=== PATIENT | female | born 1955 | race Caucasian/White ===

== ENCOUNTER 2017-05-21 08:20 | Inpatient (IN) | payer MEDICARE, MEDICAID ==
[~2017-05-21] VITALS: Ht 167.6 cm; Wt 117.9 kg
[2017-05-21] MEDS ORDERED: Cefepime HCl 2 GM in NS 110 ML IV STA (08:26)
[2017-05-21] MEDS ORDERED: Solu-MEDROL 125mg Inj IVP ONE (08:30)
[2017-05-21] MEDS ORDERED: Ipratropium 0.02% Inh Soln 2.5ml UD HHN ONE (08:30)
[2017-05-21] MEDS ORDERED: Vancomycin 1.5gm/D5W 250ml 325 ML IVPB ONE (08:30)
[2017-05-21] MEDS ORDERED: Albuterol ud Inhalation HHN ONE (08:30)
--- NOTE | 2017-05-21 09:01 | Emergency Room Report ---
History of Present Illness General Chief Complaint: Dyspnea/Respdistress Source: Patient, Medical Record Present Illness HPI The patient presents with dyspnea and cough. She was discharged from a hospital yesterday for pneumonia. The patient is a history of COPD. In the field her oxygen saturations were 85%. She didn't tolerate them pretty on oxygen. Allergies: Coded Allergies: No Known Allergies (Unverified , 05/21/17) Patient History Past Medical History: see triage record Social History: Denies: smoking - former Social History Narrative [facility] facility Reviewed Nursing Documentation: PMH: Agreed; PSxH: Agreed Nursing Documentation-PMH Hx Hypertension: Yes - HYPERLIPEDEMA Hx COPD: Yes History Of Psychiatric Problem: Yes - BIPOLAR,SCHIZO Physical Exam Vital Signs Date Time Temp Pulse Resp B/P (MAP) Pulse Ox O2 Delivery O2 Flow Rate FiO2 05/21/17 08:18 108 24 170/86 90 05/21/17 08:40 24 05/21/17 08:40 Nasal Cannula 1.0 ENT: dry mucus membranes Respiratory: expiration Procedures Critical Care Time Critical Care Time Total Critical Care Time: 30 min bedside evaluation and treatment excludes procedures (EKG). Reason for critical care: respiratory distress, reassess on BIPAP Possible complications: hypotension, hypertension, [place], shock, arrhythmias, metabolic acidosis, end organ damage, respiratory failure. Interventions: breathing treatments, reassessments, BIPAP Course: Recent d/c for pneumonia and COPD with dyspnea. Improved initially with breathing treatments and O2. Bilateral diffuse infiltrates R>L. Acute deterioration with hypoxia and dyspnea requiring BIPAP, breathing treatments and consideration for intubation. Improvement on BIPAP. Reassessment with ABG. Not needing intubation at this time and stable to go to [facility]. Consultations: nursing staff, EMS, RT Performed by: Dr. Burgos Tolerated well condition = serious Medical Decision Making Diagnostic Impression: Primary Impression: Pneumonia Qualified Codes: J18.9 - Pneumonia, unspecified organism Additional Impressions: Respiratory distress COPD (chronic obstructive pulmonary disease) Qualified Codes: J44.1 - Chronic obstructive pulmonary disease with (acute) exacerbation Anemia Qualified Codes: D64.9 - Anemia, unspecified ER Course Patient presents post d/c dx pneumonia with dyspnea and hypoxia. DDX: AMI, pneumonia, COPD exacerbation, CHF amongst others. In moderate distress initially. Evaluation with EKG, CXR and labs. Immediate treatment with breathing treatments, solumedrol and consideration for antibiotics. Bolus of fluids and hydration. EKG without injury. CXR with bilateral infiltrates. CBC with normal WBC and anemia. CMP with low sodium and normal lactate. UA with minimal pyuria. Mildly elevated BNP noted. Antibiotics begun. 10:40 Patient was doing well. Was being cleaned and started with resp distress and cyanosis and decreased O2 sats. Bipap ordered. Improved with breathing treatments and BIPAP. ABG ordered. Patient much improved on BIPAP. Not need intubation at this time. Admit [facility] Dr. Norman. Laboratory Tests Test 05/21/17 08:49 05/21/17 09:04 05/21/17 11:33 05/21/17 11:51 Sodium Level 129 MMOL/L (136-145) L Potassium Level 4.6 MMOL/L (3.5-5.1) Chloride Level 96 MMOL/L (98-107) L Carbon Dioxide Level 29 MMOL/L (21-32) Anion Gap 4 mmol/L (5-15) L Blood Urea Nitrogen 12 mg/dL (7-18) Creatinine 1.3 MG/DL (0.55-1.30) Estimate Glomerular Filtration Rate 41.5 mL/min (>60) Glucose Level 114 MG/DL (74-106) H Lactic Acid Level 0.50 mmol/L (0.66-2.22) L Calcium Level 9.0 MG/DL (8.5-10.1) Total Bilirubin 0.3 MG/DL (0.2-1.0) Aspartate Amino Transferase (AST) 28 U/L (15-37) Alanine Aminotransferase (ALT) 26 U/L (12-78) Alkaline Phosphatase 82 U/L (46-116) Total Creatine Kinase 78 U/L (26-308) Troponin I 0.031 ng/mL (0.000-0.056) Pro-B-Type Natriuretic Peptide 2661 pg/mL (0-125) H Total Protein 6.2 G/DL (6.4-8.2) L Albumin 2.6 G/DL (3.4-5.0) L Globulin 3.6 g/dL Albumin/Globulin Ratio 0.7 (1.0-2.7) L Lipase 119 U/L (73-393) White Blood Count 8.2 K/UL (4.8-10.8) Red Blood Count 2.94 M/UL (4.20-5.40) L Hemoglobin 8.9 G/DL (12.0-16.0) L Hematocrit 26.9 % (37.0-47.0) L Mean Corpuscular Volume 92 FL (80-99) Mean Corpuscular Hemoglobin 30.5 PG (27.0-31.0) Mean Corpuscular Hemoglobin Concent 33.3 G/DL (32.0-36.0) Red Cell Distribution Width 12.1 % (11.6-14.8) Platelet Count 244 K/UL (150-450) Mean Platelet Volume 6.4 FL (6.5-10.1) L Neutrophils (%) (Auto) 84.2 % (45.0-75.0) H Lymphocytes (%) (Auto) 7.6 % (20.0-45.0) L Monocytes (%) (Auto) 5.4 % (1.0-10.0) Eosinophils (%) (Auto) 2.1 % (0.0-3.0) Basophils (%) (Auto) 0.7 % (0.0-2.0) Prothrombin Time 10.0 SEC (9.30-11.50) Prothrombin Time INR 1.0 (0.9-1.1) PTT 27 SEC (23-33) Urine Color Pale yellow Urine Appearance Slightly cloudy Urine pH 7 (4.5-8.0) Urine Specific [place] 1.000 (1.005-1.035) Urine Protein 2+ (NEGATIVE) H Urine Glucose (UA) Negative (NEGATIVE) Urine Ketones Negative (NEGATIVE) Urine Occult Blood 4+ (NEGATIVE) H Urine Nitrite Negative (NEGATIVE) Urine Bilirubin Negative (NEGATIVE) Urine Urobilinogen Normal MG/DL (0.0-1.0) Urine Leukocyte Esterase 1+ (NEGATIVE) H Urine RBC 15-20 /HPF (0 - 2) H Urine WBC 5-10 /HPF (0 - 2) H Urine Squamous Epithelial Cells Moderate /LPF (NONE/OCC) H Urine Bacteria Few /HPF (NONE) Arterial Blood pH 7.438 (7.350-7.450) Arterial Blood Partial Pressure CO2 34.5 mmHg (35.0-45.0) L Arterial Blood Partial Pressure O2 76.0 mmHg (75.0-100.0) Arterial Blood HCO3 22.8 mmol/L (22.0-26.0) Arterial Blood Oxygen Saturation 94.4 % (92.0-98.0) Arterial Blood Base Excess -1.0 Bulmaro Test Positive EKG Diagnostic Results Rate: tachycardiac ST Segments: no acute changes Rhythm Strip Diag. Results EP Interpretation: yes Rhythm: no PVC's, no ectopy, other - Sinus tachycardia Chest X-Ray Diagnostic Results Chest X-Ray Diagnostic Results : Chest X-Ray Ordered: Yes # of Views/Limited/Complete: 1 View Indication: Shortness of Breath EP Interpretation: Yes Interpretation: no pneumothorax, other - bilateral infiltrates and effusion Last Vital Signs Date Time Temp Pulse Resp B/P (MAP) Pulse Ox O2 Delivery O2 Flow Rate FiO2 05/21/17 11:59 30 05/21/17 11:52 100.4 22 144/96 100 Bi-pap 1.0 100.4 05/21/17 11:35 102 Status: improved Disposition: ADMITTED INPATIENT Condition: Critical Girish Burgos M.D. May 21, 2017 09:01
[2017-05-21 09:13] LABS: ANION GAP 4 mmol/L (5-15); BLOOD UREA NITROGEN 12 mg/dL (7-18); CARBON DIOXIDE 29 MMOL/L (21-32); CHLORIDE 96 MMOL/L (98-107); CREATININE 1.3 MG/DL (0.55-1.30); POTASSIUM 4.6 MMOL/L (3.5-5.1); SODIUM 129 MMOL/L (136-145)
[2017-05-21] MEDS ORDERED: Cefepime 2gm ONE (09:14)
--- NOTE | 2017-05-21 09:15 | Diagnostic Imaging Report ---
Indication: Cough Technique: XRAY Chest 1v Comparison: None Findings: Cardiac silhouette is mildly prominent. Bilateral interstitial and patchy right upper lobe and perihilar and basilar airspace infiltrates are seen. There is atelectasis of the lung bases. Small pleural effusions are not excluded. Degenerative changes of the spine are noted. Impression: Bilateral interstitial and patchy airspace edema/infiltrates, right greater than left. Lung base atelectasis. Clinical correlation/follow-up recommended.
[2017-05-21 09:23] LABS: ALANINE AMINOTRANSFERASE 26 U/L (12-78); ALBUMIN 2.6 G/DL (3.4-5.0); ALBUMIN/GLOBULIN RATIO 0.7 (1.0-2.7); ALKALINE PHOSPHATASE 82 U/L (46-116); ASPARTATE AMINO TRANSFERASE 28 U/L (15-37); BILIRUBIN,TOTAL 0.3 MG/DL (0.2-1.0); CREATINE KINASE 78 U/L (26-308)
[2017-05-21 09:46] VITALS: BP 146/97
[2017-05-21 10:13] LABS: BASOPHILS % (AUTO) 0.7 % (0.0-2.0); EOSINOPHILS % (AUTO) 2.1 % (0.0-3.0); HEMATOCRIT 26.9 % (37.0-47.0); HEMOGLOBIN 8.9 G/DL (12.0-16.0); LYMPHOCYTES % (AUTO) 7.6 % (20.0-45.0); MEAN CORPUSCULAR VOLUME 92 FL (80-99); MONOCYTES % (AUTO) 5.4 % (1.0-10.0); NEUTROPHILS % (AUTO) 84.2 % (45.0-75.0); PLATELET COUNT 244 K/UL (150-450); RED BLOOD COUNT 2.94 M/UL (4.20-5.40); RED CELL DISTRIBUTION WIDTH 12.1 % (11.6-14.8); WHITE BLOOD COUNT 8.2 K/UL (4.8-10.8)
[2017-05-21] MEDS: Albuterol ud Inhalation HHN SCH ×3 (11:12→11:31)
[2017-05-21 11:52] VITALS: BP 144/96
[2017-05-21 12:07] LABS: BILIRUBIN, URINE NEGATIVE (NEGATIVE); COLOR,URINE PALE YELLOW; GLUCOSE, URINE (UA) NEGATIVE (NEGATIVE); KETONES,URINE NEGATIVE (NEGATIVE); LEUKOCYTE ESTERASE ,URINE 1+ (NEGATIVE); NITRITE,URINE NEGATIVE (NEGATIVE); PH,URINE 7 (4.5-8.0); PROTEIN,URINE 2+ (NEGATIVE); UROBILINOGEN,URINE NORMAL MG/DL (0.0-1.0)
[2017-05-21 12:11] LABS: APPEARANCE,URINE SLIGHTLY CLOUDY
--- NOTE | 2017-05-21 12:39 | Consultation ---
History of Present Illness General Date patient seen: May 21, 2017 Time patient seen: 12:34 Chief Complaint: Dyspnea/Respdistress Present Illness HPI 61 y/o F with hx of COPD, HLD presents, Schizoaffective disorder to ED on desaturation 85%. Of note patient was discharge yesterday from another hospital due to PNA. Placed on Bipap in ED and admitted to [facility]. Low grade fever Tm 100.9 no leukocytosis CXR with infiltrates. Allergies: Coded Allergies: No Known Allergies (Unverified , 05/21/17) Patient History Healthcare decision maker Resuscitation status Advanced Directive on File Patient History Narrative Pmx: as above Shx: reviewed Fhx: non contributory Review of Systems All Other Systems: negative except mentioned in HPI Physical Exam Physical Exam Narrative General Appearance: no apparent distress, alert HEENT normocephalic, atraumatic, PERR, normal pharynx Neck: full range of motion, supple/symm/no masses Respiratory: chest non-tender, lungs clear, normal breath sounds, speaking full sentences Cardiovascular : regular rate, rhythm, no edema Gastrointestinal: normal bowel sounds, non tender, soft, non-distended, no guarding, no rebound Genitourinary: normal inspection, no CVA tenderness Musculoskeletal: back normal, gait/station normal, normal range of motion, non- tender Neurologic: alert, oriented x3, responsive, motor strength/tone normal, sensory intact, speech normal Skin: normal color, no rash, warm/dry, well hydrated Last 24 Hour Vital Signs Date Time Temp Pulse Resp B/P (MAP) Pulse Ox O2 Delivery O2 Flow Rate FiO2 05/21/17 11:59 30 05/21/17 11:52 100.4 22 144/96 100 Bi-pap 1.0 30 100.4 05/21/17 11:36 30 05/21/17 11:35 102 22 100 Bi-pap 30 05/21/17 11:31 99 22 99 Bi-pap 30 05/21/17 11:31 99 22 99 Bi-pap 30 05/21/17 11:28 30 05/21/17 11:22 103 22 99 Facial 30 05/21/17 11:17 98 22 99 Bi-pap 30 05/21/17 11:14 30 05/21/17 11:12 92 22 99 Bi-pap 30 05/21/17 09:46 22 146/97 100 Nasal Cannula 1.0 24 05/21/17 09:46 98 22 Nasal Cannula 1.0 24 05/21/17 08:51 98 22 100 Nasal Cannula 1.0 24 05/21/17 08:40 94 22 98 Nasal Cannula 1.0 24 05/21/17 08:40 24 05/21/17 08:18 108 24 170/86 90 Laboratory Tests Test 05/21/17 08:49 05/21/17 09:04 05/21/17 11:33 Sodium Level 129 MMOL/L (136-145) L Potassium Level 4.6 MMOL/L (3.5-5.1) Chloride Level 96 MMOL/L (98-107) L Carbon Dioxide Level 29 MMOL/L (21-32) Anion Gap 4 mmol/L (5-15) L Blood Urea Nitrogen 12 mg/dL (7-18) Creatinine 1.3 MG/DL (0.55-1.30) Estimat Glomerular Filtration Rate 41.5 mL/min (>60) Glucose Level 114 MG/DL (74-106) H Lactic Acid Level 0.50 mmol/L (0.66-2.22) L Calcium Level 9.0 MG/DL (8.5-10.1) Total Bilirubin 0.3 MG/DL (0.2-1.0) Aspartate Amino Transf (AST/SGOT) 28 U/L (15-37) Alanine Aminotransferase (ALT/SGPT) 26 U/L (12-78) Alkaline Phosphatase 82 U/L (46-116) Total Creatine Kinase 78 U/L (26-308) Troponin I 0.031 ng/mL (0.000-0.056) Pro-B-Type Natriuretic Peptide 2661 pg/mL (0-125) H Total Protein 6.2 G/DL (6.4-8.2) L Albumin 2.6 G/DL (3.4-5.0) L Globulin 3.6 g/dL Albumin/Globulin Ratio 0.7 (1.0-2.7) L Lipase 119 U/L (73-393) White Blood Count 8.2 K/UL (4.8-10.8) Red Blood Count 2.94 M/UL (4.20-5.40) L Hemoglobin 8.9 G/DL (12.0-16.0) L Hematocrit 26.9 % (37.0-47.0) L Mean Corpuscular Volume 92 FL (80-99) Mean Corpuscular Hemoglobin 30.5 PG (27.0-31.0) Mean Corpuscular Hemoglobin Concent 33.3 G/DL (32.0-36.0) Red Cell Distribution Width 12.1 % (11.6-14.8) Platelet Count 244 K/UL (150-450) Mean Platelet Volume 6.4 FL (6.5-10.1) L Neutrophils (%) (Auto) 84.2 % (45.0-75.0) H Lymphocytes (%) (Auto) 7.6 % (20.0-45.0) L Monocytes (%) (Auto) 5.4 % (1.0-10.0) Eosinophils (%) (Auto) 2.1 % (0.0-3.0) Basophils (%) (Auto) 0.7 % (0.0-2.0) Prothrombin Time 10.0 SEC (9.30-11.50) Prothromb Time International Ratio 1.0 (0.9-1.1) Activated Partial Thromboplast Time 27 SEC (23-33) Urine Color Pale yellow Urine Appearance Slightly cloudy Urine pH 7 (4.5-8.0) Urine Specific [place] 1.000 (1.005-1.035) Urine Protein 2+ (NEGATIVE) H Urine Glucose (UA) Negative (NEGATIVE) Urine Ketones Negative (NEGATIVE) Urine Occult Blood 4+ (NEGATIVE) H Urine Nitrite Negative (NEGATIVE) Urine Bilirubin Negative (NEGATIVE) Urine Urobilinogen Normal MG/DL (0.0-1.0) Urine Leukocyte Esterase 1+ (NEGATIVE) H Urine RBC 15-20 /HPF (0 - 2) H Urine WBC 5-10 /HPF (0 - 2) H Urine Squamous Epithelial Cells Moderate /LPF (NONE/OCC) H Urine Bacteria Few /HPF (NONE) Height (Feet): 5 Height (Inches): 6.00 Weight (Pounds): 250 Assessment/Plan Assessment/Plan Abx: IV vanco x1 3/24 Cefepime x1 3/24 Levaquin x1 3/24 Assessment: Fever Possible HCAP vs Asp PNA- r/o influenza -CXR: Bilateral interstitial and patchy airspace edema/infiltrates, right greater than left. Lung base atelectasis. Clinical correlation/follow-up recommended. COPD exacerbation No leukocytosis HLD Schizoaffective disorder Recent PNA Plan: -Continue IV Vancomycin and start Zosyn, tamiflu and Azithromycin -influenza sc, sputum cx, legionella ag urine -f/u cx -Monitor CBC/BMP, temperatures -aspiration precautions Thank you for this consultation. Will continue to follow along with you. Discussed with Crystal Galvan M.D. May 21, 2017 12:39
[2017-05-21] MEDS ORDERED: Azithromycin 250mg tab ORAL SCH ×2 (13:15→15:00)
[2017-05-21 13:47] VITALS: BP 155/102
[2017-05-21] MEDS ORDERED: Oseltamivir 75mg cap ORAL SCH (14:00)
--- NOTE | 2017-05-21 15:55 | History & Physical ---
History and Physical History & Physicial Dictated for Int Med-Dr Norman no. [id number]. HANK DICKINSON May 21, 2017 15:55
[2017-05-21] MEDS ORDERED: Albuterol/Ipratropium 3ml neb HHN PRN (16:45)
--- NOTE | 2017-05-21 16:57 | Cardiology Progress Note ---
Assessment/Plan Assessment/Plan THe patient is seen and examined, full consult note will be dictated. Objective Last 24 Hour Vital Signs Date Time Temp Pulse Resp B/P (MAP) Pulse Ox O2 Delivery O2 Flow Rate FiO2 05/21/17 16:49 30 05/21/17 16:49 101 22 99 Bi-pap 30 05/21/17 16:48 100 23 98 Facial 30 05/21/17 15:43 99.2 22 149/90 99 1.0 30 99.2 05/21/17 14:46 101 22 99 Facial 30 05/21/17 13:47 99.2 24 155/102 97 Bi-pap 30 99.2 05/21/17 12:55 105 24 97 Facial 30 05/21/17 11:59 30 05/21/17 11:52 100.4 22 144/96 100 Bi-pap 1.0 30 100.4 05/21/17 11:36 30 05/21/17 11:35 102 22 100 Bi-pap 30 05/21/17 11:31 99 22 99 Bi-pap 30 05/21/17 11:31 99 22 99 Bi-pap 30 05/21/17 11:28 30 05/21/17 11:22 103 22 99 Facial 30 05/21/17 11:17 98 22 99 Bi-pap 30 05/21/17 11:14 30 05/21/17 11:12 92 22 99 Bi-pap 30 05/21/17 09:46 22 146/97 100 Nasal Cannula 1.0 24 05/21/17 09:46 98 22 Nasal Cannula 1.0 24 05/21/17 08:51 98 22 100 Nasal Cannula 1.0 24 05/21/17 08:40 94 22 98 Nasal Cannula 1.0 24 05/21/17 08:40 24 05/21/17 08:18 108 24 170/86 90 Laboratory Tests Test 05/21/17 08:49 05/21/17 09:04 05/21/17 11:33 05/21/17 11:51 Sodium Level 129 MMOL/L (136-145) L Potassium Level 4.6 MMOL/L (3.5-5.1) Chloride Level 96 MMOL/L (98-107) L Carbon Dioxide Level 29 MMOL/L (21-32) Anion Gap 4 mmol/L (5-15) L Blood Urea Nitrogen 12 mg/dL (7-18) Creatinine 1.3 MG/DL (0.55-1.30) Estimat Glomerular Filtration Rate 41.5 mL/min (>60) Glucose Level 114 MG/DL (74-106) H Lactic Acid Level 0.50 mmol/L (0.66-2.22) L Calcium Level 9.0 MG/DL (8.5-10.1) Total Bilirubin 0.3 MG/DL (0.2-1.0) Aspartate Amino Transf (AST/SGOT) 28 U/L (15-37) Alanine Aminotransferase (ALT/SGPT) 26 U/L (12-78) Alkaline Phosphatase 82 U/L (46-116) Total Creatine Kinase 78 U/L (26-308) Troponin I 0.031 ng/mL (0.000-0.056) Pro-B-Type Natriuretic Peptide 2661 pg/mL (0-125) H Total Protein 6.2 G/DL (6.4-8.2) L Albumin 2.6 G/DL (3.4-5.0) L Globulin 3.6 g/dL Albumin/Globulin Ratio 0.7 (1.0-2.7) L Lipase 119 U/L (73-393) White Blood Count 8.2 K/UL (4.8-10.8) Red Blood Count 2.94 M/UL (4.20-5.40) L Hemoglobin 8.9 G/DL (12.0-16.0) L Hematocrit 26.9 % (37.0-47.0) L Mean Corpuscular Volume 92 FL (80-99) Mean Corpuscular Hemoglobin 30.5 PG (27.0-31.0) Mean Corpuscular Hemoglobin Concent 33.3 G/DL (32.0-36.0) Red Cell Distribution Width 12.1 % (11.6-14.8) Platelet Count 244 K/UL (150-450) Mean Platelet Volume 6.4 FL (6.5-10.1) L Neutrophils (%) (Auto) 84.2 % (45.0-75.0) H Lymphocytes (%) (Auto) 7.6 % (20.0-45.0) L Monocytes (%) (Auto) 5.4 % (1.0-10.0) Eosinophils (%) (Auto) 2.1 % (0.0-3.0) Basophils (%) (Auto) 0.7 % (0.0-2.0) Prothrombin Time 10.0 SEC (9.30-11.50) Prothromb Time International Ratio 1.0 (0.9-1.1) Activated Partial Thromboplast Time 27 SEC (23-33) Urine Color Pale yellow Urine Appearance Slightly cloudy Urine pH 7 (4.5-8.0) Urine Specific [place] 1.000 (1.005-1.035) Urine Protein 2+ (NEGATIVE) H Urine Glucose (UA) Negative (NEGATIVE) Urine Ketones Negative (NEGATIVE) Urine Occult Blood 4+ (NEGATIVE) H Urine Nitrite Negative (NEGATIVE) Urine Bilirubin Negative (NEGATIVE) Urine Urobilinogen Normal MG/DL (0.0-1.0) Urine Leukocyte Esterase 1+ (NEGATIVE) H Urine RBC 15-20 /HPF (0 - 2) H Urine WBC 5-10 /HPF (0 - 2) H Urine Squamous Epithelial Cells Moderate /LPF (NONE/OCC) H Urine Bacteria Few /HPF (NONE) Arterial Blood pH 7.438 (7.350-7.450) Arterial Blood Partial Pressure CO2 34.5 mmHg (35.0-45.0) L Arterial Blood Partial Pressure O2 76.0 mmHg (75.0-100.0) Arterial Blood HCO3 22.8 mmol/L (22.0-26.0) Arterial Blood Oxygen Saturation 94.4 % (92.0-98.0) Arterial Blood Base Excess -1.0 Bulmaro Test Positive SAMANTHA FRASER May 21, 2017 16:57
--- NOTE | 2017-05-21 17:00 | Pulmonolgy Critical Care Note ---
Critical Care - Asmt/Plan Assessment/Plan: HPI 61 y/o F with hx of COPD, discharged from [facility] 1 day ago after treatment for Pneumonia, PMH of HLD presents, Schizoaffective disorder, presented to the to ED with shortness of breath, noted to have oxygen desaturation 85%. Placed on Bipap in ED and admitted to [facility]. Low grade fever of 100.9 previously noted no leukocytosis CXR with infiltrates. Allergies: Coded Allergies: No Known Allergies (Unverified , 05/21/17) Patient History Healthcare decision maker Resuscitation status Advanced Directive on File Patient History Narrative Pmx: as above Shx: reviewed Fhx: non contributory Review of Systems All Other Systems: negative except mentioned in HPI Physical Exam Physical Exam Narrative General Appearance: no apparent distress, alert HEENT normocephalic, atraumatic, PERR, normal pharynx Neck: full range of motion, supple/symm/no masses Respiratory: chest non-tender, lungs clear, normal breath sounds, speaking full sentences Cardiovascular : regular rate, rhythm, no edema Gastrointestinal: normal bowel sounds, non tender, soft, non-distended, no guarding, no rebound Genitourinary: normal inspection, no CVA tenderness Musculoskeletal: back normal, gait/station normal, normal range of motion, non- tender Neurologic: alert, oriented x3, responsive, motor strength/tone normal, sensory intact, speech normal Skin: normal color, no rash, warm/dry, well hydrated Last 24 Hour Vital Signs Date Time Temp Pulse Resp B/P (MAP) Pulse Ox O2 Delivery O2 Flow Rate FiO2 05/21/17 11:59 30 05/21/17 11:52 100.4 22 144/96 100 Bi-pap 1.0 30 100.4 05/21/17 11:36 30 05/21/17 11:35 102 22 100 Bi-pap 30 05/21/17 11:31 99 22 99 Bi-pap 30 05/21/17 11:31 99 22 99 Bi-pap 30 05/21/17 11:28 30 05/21/17 11:22 103 22 99 Facial 30 05/21/17 11:17 98 22 99 Bi-pap 30 05/21/17 11:14 30 05/21/17 11:12 92 22 99 Bi-pap 30 05/21/17 09:46 22 146/97 100 Nasal Cannula 1.0 24 05/21/17 09:46 98 22 Nasal Cannula 1.0 24 05/21/17 08:51 98 22 100 Nasal Cannula 1.0 24 05/21/17 08:40 94 22 98 Nasal Cannula 1.0 24 05/21/17 08:40 24 05/21/17 08:18 108 24 170/86 90 Laboratory Tests Test 05/21/17 08:49 05/21/17 09:04 05/21/17 11:33 Sodium Level 129 MMOL/L (136-145) L Potassium Level 4.6 MMOL/L (3.5-5.1) Chloride Level 96 MMOL/L (98-107) L Carbon Dioxide Level 29 MMOL/L (21-32) Anion Gap 4 mmol/L (5-15) L Blood Urea Nitrogen 12 mg/dL (7-18) Creatinine 1.3 MG/DL (0.55-1.30) Estimat Glomerular Filtration Rate 41.5 mL/min (>60) Glucose Level 114 MG/DL (74-106) H Lactic Acid Level 0.50 mmol/L (0.66-2.22) L Calcium Level 9.0 MG/DL (8.5-10.1) Total Bilirubin 0.3 MG/DL (0.2-1.0) Aspartate Amino Transf (AST/SGOT) 28 U/L (15-37) Alanine Aminotransferase (ALT/SGPT) 26 U/L (12-78) Alkaline Phosphatase 82 U/L (46-116) Total Creatine Kinase 78 U/L (26-308) Troponin I 0.031 ng/mL (0.000-0.056) Pro-B-Type Natriuretic Peptide 2661 pg/mL (0-125) H Total Protein 6.2 G/DL (6.4-8.2) L Albumin 2.6 G/DL (3.4-5.0) L Globulin 3.6 g/dL Albumin/Globulin Ratio 0.7 (1.0-2.7) L Lipase 119 U/L (73-393) White Blood Count 8.2 K/UL (4.8-10.8) Red Blood Count 2.94 M/UL (4.20-5.40) L Hemoglobin 8.9 G/DL (12.0-16.0) L Hematocrit 26.9 % (37.0-47.0) L Mean Corpuscular Volume 92 FL (80-99) Mean Corpuscular Hemoglobin 30.5 PG (27.0-31.0) Mean Corpuscular Hemoglobin Concent 33.3 G/DL (32.0-36.0) Red Cell Distribution Width 12.1 % (11.6-14.8) Platelet Count 244 K/UL (150-450) Mean Platelet Volume 6.4 FL (6.5-10.1) L Neutrophils (%) (Auto) 84.2 % (45.0-75.0) H Lymphocytes (%) (Auto) 7.6 % (20.0-45.0) L Monocytes (%) (Auto) 5.4 % (1.0-10.0) Eosinophils (%) (Auto) 2.1 % (0.0-3.0) Basophils (%) (Auto) 0.7 % (0.0-2.0) Prothrombin Time 10.0 SEC (9.30-11.50) Prothromb Time International Ratio 1.0 (0.9-1.1) Activated Partial Thromboplast Time 27 SEC (23-33) Urine Color Pale yellow Urine Appearance Slightly cloudy Urine pH 7 (4.5-8.0) Urine Specific [place] 1.000 (1.005-1.035) Urine Protein 2+ (NEGATIVE) H Urine Glucose (UA) Negative (NEGATIVE) Urine Ketones Negative (NEGATIVE) Urine Occult Blood 4+ (NEGATIVE) H Urine Nitrite Negative (NEGATIVE) Urine Bilirubin Negative (NEGATIVE) Urine Urobilinogen Normal MG/DL (0.0-1.0) Urine Leukocyte Esterase 1+ (NEGATIVE) H Urine RBC 15-20 /HPF (0 - 2) H Urine WBC 5-10 /HPF (0 - 2) H Urine Squamous Epithelial Cells Moderate /LPF (NONE/OCC) H Urine Bacteria Few /HPF (NONE) Height (Feet): 5 Height (Inches): 6.00 Weight (Pounds): 250 Assessment/Plan Assessment/Plan Abx: IV vanco x1 3/24 Cefepime x1 3/24 Levaquin x1 3/24 Impression: Fever Possible HCAP vs Asp Pneumonia, need to r/o influenza -CXR: Bilateral interstitial and patchy airspace edema/infiltrates, right greater than left. Lung base atelectasis. Clinical correlation/follow-up recommended. COPD exacerbation No leukocytosis HLD Schizoaffective disorder Recent PNA Plan: -Continue IV Vancomycin and start Zosyn, tamiflu and Azithromycin per ID -influenza sc, sputum cx, legionella ag urine -f/u cx -Monitor labs -aspiration precautions Thank you for this consultation. Discussed with RN. Critical Care - Objective Last 24 Hour Vital Signs Date Time Temp Pulse Resp B/P (MAP) Pulse Ox O2 Delivery O2 Flow Rate FiO2 05/21/17 16:49 30 05/21/17 16:49 101 22 99 Bi-pap 30 05/21/17 16:48 100 23 98 Facial 30 05/21/17 15:43 99.2 22 149/90 99 1.0 30 99.2 05/21/17 14:46 101 22 99 Facial 30 05/21/17 13:47 99.2 24 155/102 97 Bi-pap 30 99.2 05/21/17 12:55 105 24 97 Facial 30 05/21/17 11:59 30 05/21/17 11:52 100.4 22 144/96 100 Bi-pap 1.0 30 100.4 05/21/17 11:36 30 05/21/17 11:35 102 22 100 Bi-pap 30 05/21/17 11:31 99 22 99 Bi-pap 30 05/21/17 11:31 99 22 99 Bi-pap 30 05/21/17 11:28 30 05/21/17 11:22 103 22 99 Facial 30 05/21/17 11:17 98 22 99 Bi-pap 30 05/21/17 11:14 30 05/21/17 11:12 92 22 99 Bi-pap 30 05/21/17 09:46 22 146/97 100 Nasal Cannula 1.0 24 05/21/17 09:46 98 22 Nasal Cannula 1.0 24 05/21/17 08:51 98 22 100 Nasal Cannula 1.0 24 05/21/17 08:40 94 22 98 Nasal Cannula 1.0 24 05/21/17 08:40 24 05/21/17 08:18 108 24 170/86 90 Critical Care - Subjective ROS Limited/Unobtainable: Yes Condition: stable EKG Rhythm: Sinus Rhythm FI02: 30 Vent Support Mode: BiLevel Sputum Amount: None Girish Molina M.D. May 21, 2017 17:00
[2017-05-21] MEDS: Piperacillin/Tazobactam 3.375 GM in NS 110 ML IVPB SCH ×2 (18:10→23:17)
[2017-05-21] MEDS: Albuterol/Ipratropium 3ml neb HHN SCH ×2 (18:22→22:31)
[2017-05-21] MEDS ORDERED: GUAIFENESIN AC473 ML ORAL (18:43)
[2017-05-21] MEDS ORDERED: MOM30 ML ORAL (18:44)
[2017-05-21] MEDS ORDERED: guaiFENesin w/Codeine 5ml Liq ud ORAL PRN (18:45)
[2017-05-21] MEDS ORDERED: Ipratropium 0.02% Inh Soln 2.5ml UD HHN PRN (18:45)
[2017-05-21] MEDS ORDERED: RENA-VITE TABL0.8 M1 PO (18:46)
[2017-05-21] MEDS ORDERED: NORVASC5 MG ORAL (18:47)
[2017-05-21] MEDS ORDERED: DOCUSATE SODIU100 M2 ORAL (18:48)
[2017-05-21] MEDS ORDERED: FOLIC ACID1 M1 PO (18:49)
[2017-05-21] MEDS ORDERED: FAMOTIDINE20 MG ORAL (18:49)
[2017-05-21] MEDS ORDERED: HUMULIN R100 UNIT/1 SUBQ (18:50)
[2017-05-21] MEDS ORDERED: COGENTIN1 MG ORAL (18:51)
[2017-05-21] MEDS ORDERED: IPRATROPIU0.2 MG/1 M HHN (18:52)
[2017-05-21] MEDS ORDERED: NORMODYNE200 MG ORAL (18:53)
[2017-05-21] MEDS ORDERED: LAMICTAL25 M1 PO (18:53)
[2017-05-21] MEDS ORDERED: LIPITOR10 MG ORAL (18:55)
[2017-05-21] MEDS ORDERED: TUMS300 MG PO (18:55)
[2017-05-21] MEDS ORDERED: ACETAMINOPHEN120 MG PO (18:56)
[2017-05-21] MEDS ORDERED: DIOVAN80 MG PO (18:57)
[2017-05-21] MEDS ORDERED: ASCORBIC ACID500 MG ORAL (18:58)
[2017-05-21] MEDS ORDERED: ZOFRAN4 MG ORAL (18:58)
[2017-05-21] MEDS ORDERED: Acetaminophen 650 MG SUPP RECTAL PRN (19:15)
[2017-05-21 20:00] VITALS: BP 131/87
[2017-05-21] MEDS: Vancomycin 1gm/D5W 275ml IVPB SCH ×2 (20:07)
[2017-05-21] MEDS: Heparin 5000 units/ml inj SUBQ SCH (20:10)
[2017-05-21] MEDS: D5 1/2NS 1,000 ML IV SCH (20:15)
[2017-05-21] MEDS: Docusate 100mg cap ORAL SCH (20:33)
[2017-05-21] MEDS: NovoLOG Insulin Flexpen SUBQ SCH (20:36)
[2017-05-21] MEDS: Solu-MEDROL 125mg Inj IVP SCH (22:24)
[2017-05-21] MEDS: Labetalol 200mg tab ORAL SCH (22:28)
--- NOTE | 2017-05-21 23:00 | History and Physical Report ---
DATE OF ADMISSION: 05/21/2017 CHIEF COMPLAINT: The patient is a 61-year-old white female who presents with chief complaint of shortness of breath. HISTORY OF PRESENT ILLNESS: The patient is a resident of [facility]. The patient states she began to get short of breath yesterday, 05/20/2017. The patient presented to [facility] emergency room. The patient was found to be in respiratory distress. The patient admitted for acute COPD exacerbation to rule out pneumonia. REVIEW OF SYSTEMS: CONSTITUTIONAL: The patient denies weight loss or weight gain. The patient denies fevers or chills. HEENT: The patient denies ear or throat pain. The patient denies headache. CARDIOVASCULAR: The patient denies palpitations or chest pain. CHEST: The patient complains of shortness of breath. The patient complains of wheezes. ABDOMEN: The patient denies nausea, vomiting, diarrhea, or constipation. GENITOURINARY: The patient denies dysuria or increased frequency of urination. NEUROMUSCULAR: The patient denies seizures or generalized weakness. PAST MEDICAL HISTORY: Significant for: 1. Chronic obstructive pulmonary disease. 2. Hypertension. 3. Diabetes type 2. PAST SURGICAL HISTORY: Significant for: 1. Right knee. 2. Left hip. 3. Gastric ulcer resection. MEDICATIONS: Current medications unknown. ALLERGIES: No known drug allergies. SOCIAL HISTORY: The patient is a resident of [facility]. The patient admits to previous tobacco use of pack per day. The patient quit smoking two years ago. The patient denies alcohol use. PHYSICAL EXAMINATION: VITAL SIGNS: Temperature 100.4 degrees, respirations 22, pulse 105, blood pressure 144/96. The patient is currently on BiPAP. GENERAL: The patient is a well-developed and well-nourished white female, who is unable to talk in complete sentences. HEENT: Eyes, pupils equal responsive to light and accommodation. Extraocular movements are intact. NECK: Supple without lymphadenopathy. CHEST: Diffuse wheezes bilaterally with crackles at the left lower base. CARDIOVASCULAR: Tachycardic. Regular rhythm. S1 and S2 normal without murmurs, rubs, or gallops. ABDOMEN: Soft, nontender, nondistended. Positive bowel sounds. No evidence of hepatosplenomegaly. Currently, no rebound or guarding noted. EXTREMITIES: Negative for clubbing, cyanosis, or edema. RECTAL/GENITAL: Refused. NEUROLOGIC: Cranial nerves II through XII are grossly intact without focal deficits. Motor strength is 5/5 bilaterally. Deep tendon reflexes are 2+ plantar. LABORATORY AND DIAGNOSTIC DATA: A chest x-ray revealed bilateral interstitial patchy air space edema/infiltrates consistent with pneumonia. WBC 8.2, hemoglobin 8.9, hematocrit 26.9, platelets 244,000. Sodium 129, potassium 4.6, chloride 96, CO2 29, BUN 12, creatinine 1.3, and glucose 114. BNP elevated at 2661. Troponin normal at 0.031. Arterial blood gases revealed pH 7.438, pCO2 34.5, pO2 76.0, bicarbonate 22.8, oxygen saturation 94.4, base excess -1.0. ASSESSMENT: This is a 61-year-old white female: 1. Pneumonia. 2. Chronic obstructive pulmonary disease, acute exacerbation. 3. Diabetes type 2. 4. Hypertension. 5. Hyponatremia. TREATMENT: 1. Pneumonia/chronic obstructive pulmonary disease. A Pulmonary consultation is pending with Dr. Molina. The patient has been started empirically on Zosyn. We will follow recommendations of Pulmonary. 2. Diabetes type 2. The patient has been placed on a NovoLog sliding scale. 3. Hypertension. The patient is currently hypotensive. 4. Hyponatremia. The patient is currently receiving normal saline intravenously. Steve Casillas M.D. DR: Pavithra JOB#: [id number] CC:
[2017-05-22] VITALS: BP 134/80
[2017-05-22] MEDS: Albuterol/Ipratropium 3ml neb HHN SCH ×6 (02:30→23:18)
--- NOTE | 2017-05-22 02:45 | Consultation ---
DATE OF CONSULTATION: 05/21/2017 CARDIOLOGY CONSULTATION CONSULTING PHYSICIAN: Selvin Reed M.D. REFERRING PHYSICIAN: Shoshana Norman M.D. REASON FOR CONSULTATION: Management of shortness of breath. HISTORY OF PRESENT ILLNESS: The patient is a very unfortunate 61-year-old female, who is a resident of [facility] facility who was brought in for dyspnea and cough. The patient has history of chronic obstructive pulmonary disease and feels that her oxygen saturation was down to 85%. The patient was recently discharged from an outside hospital for treatment of pneumonia. On arrival to the emergency department, blood pressure was 170/86 and pulse of 108. A 12-lead electrocardiogram was significant for sinus tachycardia, rate of [address] and T-wave abnormalities. The patient was admitted to [facility] for further evaluation and management of bilateral pneumonia. Chest x-ray confirmed presence of bilateral pneumonia. PAST MEDICAL HISTORY: Hyperlipidemia, bipolar disorder, schizophrenia, COPD. MEDICATIONS: List of medications include guaifenesin Ac 10 mg/100 mg per 5 mL, 10 mL every 8 hours as needed for cough, magnesium hydroxide suspension p.r.n. constipation, Yojana-Abebe one tablet daily, Mylanta 30 mL two times a day, amlodipine 5 mg twice daily, Augmentin 500/125 one tablet q.12 h., Colace 100 mg twice daily, famotidine 20 mg one tablet twice a day, folic acid 1 mg p.o. daily, Humulin insulin, insulin Detemir, DuoNeb inhaler every four hour as needed for shortness of breath, labetalol 200 mg twice daily, Lamictal 25 mg one tablet in the morning, Lipitor 10 mg p.o. at bedtime, sodium chloride tablet 1 g p.o. two times a day, Tums 500 mg one q. 12 h as needed gastric distress, Tylenol 325 mg one tablet q.4 h. as needed for pain, valsartan 60 mg p.o. twice a day, vitamin C tablet 500 mg once daily, and Zofran 4 mg q. 8 h as needed for nausea and vomiting. PAST SURGICAL HISTORY: None. ALLERGIES: No known drug allergies. SOCIAL HISTORY: Denies any tobacco, alcohol, or illicit drug use. She is a resident of prison facility. REVIEW OF SYSTEMS: HEENT: Denies any headache, diplopia, or blurred vision. CONSTITUTIONAL: Denies any fever, chills, night sweats, or weight loss. CARDIOVASCULAR: Some shortness of breath as well as bilateral lower extremity edema but no syncope. Denies any chest pain at this time. PULMONARY: Trouble with cough as well as shortness of breath. History of COPD and phlegm. GENITOURINARY: Denies any hematuria, dysuria, or incontinence. GASTROINTESTINAL: Denies any nausea, vomiting, diarrhea, constipation, abdominal pain, or GI bleed. NEUROLOGY: Denies any motor dysfunction, sensory deficit, or altered speech. PHYSICAL EXAMINATION: VITAL SIGNS: Blood pressure was 170/86, respirations 24, pulse of 108, O2 saturation on nasal cannula. GENERAL: The patient is a morbidly obese 61-year-old lady, wearing BiPAP mask, no apparent respiratory distress. HEENT: Atraumatic and normocephalic. Anicteric. Pupils are equal, round, and reactive to light and accommodation. Extraocular muscles intact. NECK: JVP less than 5 cm. No carotid bruit. Carotid upstrokes 2+ bilaterally. CARDIOVASCULAR: Normal S1 and S2. Regular rate and rhythm. Tachycardic. No murmurs, gallops, or rubs. LUNGS: Diminished breath sounds. Poor inspiratory effort. Some scattered crackles in both lungs. ABDOMEN: Soft nontender, nondistended. No hepatosplenomegaly. Positive bowel sounds. EXTREMITIES: There is 2+ bilateral edema. LABORATORY FINDINGS: WBC 8.3, hemoglobin 8.9, hematocrit 36.9, and platelet count 244. Sodium was 139, potassium is 4.6, chloride 96, bicarbonate 29, BUN of 12, creatinine 1.3, glucose 114. Calcium is 9.0. Troponin I was 0.031. ProBNP was 2661. INR is 1.0. Chest x-ray showed bilateral interstitial and patchy airspace edema versus infiltration right greater than left, possible pneumonia, lung base atelectasis also seen. A 12-lead electrocardiogram, sinus tachycardia, rate of [address] and T-wave abnormalities. ASSESSMENT AND PLAN: The is a very unfortunate 61-year-old female, seen in Cardiology consultation at request of [facility]. 1. Sinus tachycardia most likely due to underlying pneumonia, hypoxemia, and breathing treatment. Treatment of sinus tachycardia underlying etiology. 2. Hypertension. The patient will benefit from blood pressure medication including combination of amlodipine and valsartan. At this time we will like to be cautious in view of sepsis. 3. History of COPD. We would like to obtain 2D echocardiography for assessment of RA and RV cavity size to assess pulmonary hypertension. 4. Morbid obesity. 5. Psych disorder. I would like to thank, Dr. Norman, for the courtesy of this consultation. Selvin Reed M.D. DR: Mague JOB#: [id number] CC:
[2017-05-22 04:00] VITALS: BP 133/73
[2017-05-22 05:24] LABS: HEMATOCRIT 26.3 % (37.0-47.0); HEMOGLOBIN 8.9 G/DL (12.0-16.0); MEAN CORPUSCULAR VOLUME 91 FL (80-99); PLATELET COUNT 239 K/UL (150-450); RED BLOOD COUNT 2.88 M/UL (4.20-5.40); RED CELL DISTRIBUTION WIDTH 12.5 % (11.6-14.8); WHITE BLOOD COUNT 6.9 K/UL (4.8-10.8)
[2017-05-22] MEDS: Solu-MEDROL 125mg Inj IVP SCH ×3 (05:28→21:06)
[2017-05-22] MEDS: NovoLOG Insulin Flexpen SUBQ SCH ×4 (05:34→20:28)
[2017-05-22 05:44] LABS: ANION GAP 10 mmol/L (5-15); BLOOD UREA NITROGEN 13 mg/dL (7-18); CALCIUM 9.2 MG/DL (8.5-10.1); CARBON DIOXIDE 26 MMOL/L (21-32); CHLORIDE 100 MMOL/L (98-107); CREATININE 1.4 MG/DL (0.55-1.30); POTASSIUM 4.9 MMOL/L (3.5-5.1); SODIUM 136 MMOL/L (136-145)
[2017-05-22 07:40] VITALS: BP 144/78
--- NOTE | 2017-05-22 08:47 | General Progress Note ---
Assessment/Plan Status: stable Assessment/Plan ASSESSMENT: This is a 61-year-old white female: 1. Hypoxemic Respiratory failure: DDx , CHF exacerbation, PNA 2. CHF exacerbation 2. Chronic obstructive pulmonary disease, acute exacerbation. 3. Diabetes type 2. 4. Hypertension. 5. Hyponatremia. 6. GI-DVT prophylaxia 7. Psych d.o Plan: Start Lasix Pending echo current management consult Dr Norton Subjective ROS Limited/Unobtainable: Yes - patient reportedly stating doesnt have any problem, despite active sob Allergies: Coded Allergies: No Known Allergies (Unverified , 05/21/17) Objective Last 24 Hour Vital Signs Date Time Temp Pulse Resp B/P (MAP) Pulse Ox O2 Delivery O2 Flow Rate FiO2 05/22/17 07:40 97.7 108 24 144/78 97 Venturi Mask 30 97.7 05/22/17 07:27 98 Venturi Mask 4.0 30 05/22/17 07:27 Venturi Mask 4.0 30 05/22/17 07:25 98 28 98 Venturi Mask 4.0 30 05/22/17 07:14 101 24 97 Venturi Mask 4.0 30 05/22/17 05:20 97 24 95 05/22/17 04:00 99.0 81 32 133/73 95 1.0 30 99.0 05/22/17 04:00 30 05/22/17 03:28 93 05/22/17 02:41 98 28 98 Venturi Mask 4.0 30 05/22/17 02:30 96 26 96 Venturi Mask 4.0 30 05/22/17 02:30 96 26 96 05/22/17 01:02 100 28 95 05/22/17 00:00 98.2 24 134/80 98 1.0 30 98.2 05/22/17 00:00 30 05/21/17 23:51 89 05/21/17 22:33 98 29 98 Full Face 30 05/21/17 22:31 Bi-pap 30 05/21/17 22:31 Bi-pap 30 05/21/17 22:28 94 138/85 05/21/17 20:36 97 31 99 Facial 30 05/21/17 20:33 88 134/84 05/21/17 20:00 97.9 28 131/87 100 1.0 30 97.9 05/21/17 20:00 30 05/21/17 20:00 95 05/21/17 18:38 109 31 99 Facial 30 05/21/17 18:33 106 32 99 Bi-pap 30 05/21/17 18:22 108 24 99 Bi-pap 30 05/21/17 16:49 30 05/21/17 16:49 101 22 99 Bi-pap 30 05/21/17 16:48 100 23 98 Facial 30 05/21/17 15:52 104 05/21/17 15:43 99.2 22 149/90 99 1.0 30 99.2 05/21/17 14:46 101 22 99 Facial 30 05/21/17 13:47 99.2 24 155/102 97 Bi-pap 30 99.2 05/21/17 12:55 105 24 97 Facial 30 05/21/17 11:59 30 05/21/17 11:52 100.4 22 144/96 100 Bi-pap 1.0 30 100.4 05/21/17 11:36 30 05/21/17 11:35 102 22 100 Bi-pap 30 05/21/17 11:31 99 22 99 Bi-pap 30 05/21/17 11:31 99 22 99 Bi-pap 30 05/21/17 11:28 30 05/21/17 11:22 103 22 99 Facial 30 05/21/17 11:17 98 22 99 Bi-pap 30 05/21/17 11:14 30 05/21/17 11:12 92 22 99 Bi-pap 30 05/21/17 09:46 22 146/97 100 Nasal Cannula 1.0 24 05/21/17 09:46 98 22 Nasal Cannula 1.0 24 05/21/17 08:51 98 22 100 Nasal Cannula 1.0 24 Intake and Output 05/21/17 05/22/17 19:00 07:00 Intake Total 0 ml 1232.416 ml Output Total 3750 ml 2000 ml Balance -3750 ml -767.584 ml Intake Oral 0 ml IV Total 1232.416 ml Output Urine Total 3750 ml 2000 ml Laboratory Tests 05/21/17 08:49: Sodium Level 129L, Potassium Level 4.6, Chloride Level 96L, Carbon Dioxide Level 29, Anion Gap 4L, Blood Urea Nitrogen 12, Creatinine 1.3, Estimat Glomerular Filtration Rate 41.5, Glucose Level 114H, Lactic Acid Level 0.50L, Calcium Level 9.0, Total Bilirubin 0.3, Aspartate Amino Transf (AST/SGOT) 28, Alanine Aminotransferase (ALT/SGPT) 26, Alkaline Phosphatase 82, Total Creatine Kinase 78, Troponin I 0.031, Pro-B-Type Natriuretic Peptide 2661H, Total Protein 6.2L, Albumin 2.6L, Globulin 3.6, Albumin/Globulin Ratio 0.7L, Lipase 119 05/21/17 09:04: White Blood Count 8.2, Red Blood Count 2.94L, Hemoglobin 8.9L, Hematocrit 26.9L , Mean Corpuscular Volume 92, Mean Corpuscular Hemoglobin 30.5, Mean Corpuscular Hemoglobin Concent 33.3, Red Cell Distribution Width 12.1, Platelet Count 244, Mean Platelet Volume 6.4L, Neutrophils (%) (Auto) 84.2H, Lymphocytes (%) (Auto) 7.6L, Monocytes (%) (Auto) 5.4, Eosinophils (%) (Auto) 2.1, Basophils (%) (Auto) 0.7, Prothrombin Time 10.0, Prothromb Time International Ratio 1.0, Activated Partial Thromboplast Time 27 05/21/17 11:33: Urine Color Pale yellow, Urine Appearance Slightly cloudy, Urine pH 7, Urine Specific [place] 1.000, Urine Protein 2+H, Urine Glucose (UA) Negative, Urine Ketones Negative, Urine Occult Blood 4+H, Urine Nitrite Negative, Urine Bilirubin Negative, Urine Urobilinogen Normal, Urine Leukocyte Esterase 1+H, Urine RBC 15-20H, Urine WBC 5-10H, Urine Squamous Epithelial Cells ModerateH, Urine Bacteria Few 05/21/17 11:51: Arterial Blood pH 7.438, Arterial Blood Partial Pressure CO2 34.5L, Arterial Blood Partial Pressure O2 76.0, Arterial Blood HCO3 22.8, Arterial Blood Oxygen Saturation 94.4, Arterial Blood Base Excess -1.0, Bulmaro Test Positive 05/21/17 18:30: Urine Legionella Antigen [Pending] 05/21/17 20:45: Troponin I 0.043 05/22/17 03:50: Troponin I 0.040, White Blood Count 6.9, Red Blood Count 2.88L, Hemoglobin 8.9L , Hematocrit 26.3L, Mean Corpuscular Volume 91, Mean Corpuscular Hemoglobin 31.0 , Mean Corpuscular Hemoglobin Concent 33.9, Red Cell Distribution Width 12.5, Platelet Count 239, Mean Platelet Volume 6.2L, Neutrophils (%) (Auto) , Lymphocytes (%) (Auto) , Monocytes (%) (Auto) , Eosinophils (%) (Auto) , Basophils (%) (Auto) , Differential Total Cells Counted 100, Neutrophils % ( Manual) 94H, Lymphocytes % (Manual) 4L, Monocytes % (Manual) 2, Eosinophils % ( Manual) 0, Basophils % (Manual) 0, Band Neutrophils 0, Platelet Estimate Adequate, Platelet Morphology Normal, Anisocytosis 1+, Sodium Level 136, Potassium Level 4.9, Chloride Level 100, Carbon Dioxide Level 26, Anion Gap 10, Blood Urea Nitrogen 13, Creatinine 1.4H, Estimat Glomerular Filtration Rate 38.1 , Glucose Level 155H, Hemoglobin A1c 5.5, Calcium Level 9.2, Pro-B-Type Natriuretic Peptide 7291H Height (Feet): 5 Height (Inches): 6.00 Weight (Pounds): 250 General Appearance: WD/WN EENT: PERRL/EOMI Neck: supple Cardiovascular: tachycardia Respiratory/Chest: rhonchi - bilaterally Abdomen: soft, other - morbid obesity Extremities: non-tender, other - no gross lateralized deficeit 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
[2017-05-22] MEDS: Labetalol 200mg tab ORAL SCH ×2 (08:56→20:25)
[2017-05-22] MEDS: Ascorbic Acid 500mg tab ORAL SCH (08:56)
[2017-05-22] MEDS: Nephrovite tab (Rena-Vite) ORAL SCH (08:56)
[2017-05-22] MEDS: Docusate 100mg cap ORAL SCH ×2 (08:57→20:26)
[2017-05-22] MEDS: Pantoprazole Inj IVP SCH (08:57)
[2017-05-22] MEDS ORDERED: Labetalol 200mg tab ORAL SCH (09:00)
[2017-05-22] MEDS: Vancomycin 1gm/D5W 275ml IVPB SCH ×4 (09:08→20:24)
[2017-05-22] MEDS: Heparin 5000 units/ml inj SUBQ SCH ×2 (09:12→20:29)
[2017-05-22] MEDS ORDERED: Tubing IV Secondary IV ONE (11:00)
[2017-05-22] MEDS ORDERED: D5 1/2NS 1000ml IV ONE (11:00)
[2017-05-22] MEDS: Piperacillin/Tazobactam 3.375 GM in NS 110 ML IVPB SCH ×3 (11:07→23:06)
[2017-05-22 12:00] VITALS: BP 131/64
[2017-05-22] MEDS: D5 1/2NS 1,000 ML IV SCH (15:09)
[2017-05-22 16:00] VITALS: BP 150/76
[2017-05-22 20:00] VITALS: BP 160/75
[2017-05-22] MEDS ORDERED: Benztropine 1mg tab ORAL SCH (21:00)
--- NOTE | 2017-05-22 22:56 | Cardiology Progress Note ---
Assessment/Plan Assessment/Plan 1. Sinus tachycardia most likely due to underlying pneumonia, hypoxemia and breathing treatment. Will start verapamil instead of combination of Amlodipine and Labetolol. 2. Hypertension, continue verapamil. Echo shows normal LVEF. 3. History of COPD with mild pulmonary HTN. 4. Morbid obesity. 5. Respiratory failure on bipap mask. 6. Bigeminy VPCs on verapamil. Subjective Subjective Sinus rhythm at 92. On venturi mask. Objective Last 24 Hour Vital Signs Date Time Temp Pulse Resp B/P (MAP) Pulse Ox O2 Delivery O2 Flow Rate FiO2 05/22/17 20:26 92 160/75 05/22/17 20:25 92 160/75 05/22/17 20:00 97.9 92 18 160/75 99 Bi-pap 30 97.9 05/22/17 20:00 102 05/22/17 19:13 97 20 99 Venturi Mask 6.0 35 05/22/17 19:04 92 20 97 Venturi Mask 6.0 35 05/22/17 19:04 97 Venturi Mask 6.0 35 05/22/17 19:04 Venturi Mask 6.0 35 05/22/17 18:30 35 05/22/17 16:44 99 34 96 Facial 30 05/22/17 16:00 97.9 96 18 150/76 96 Bi-pap 30 97.9 05/22/17 15:50 91 34 98 Bi-pap 30 05/22/17 15:39 93 42 98 Bi-pap 30 05/22/17 15:36 94 05/22/17 14:50 99 39 96 Full Face 30 05/22/17 14:30 30 05/22/17 12:00 30 05/22/17 12:00 97.9 88 26 131/64 96 Venturi Mask 30 97.9 05/22/17 11:44 91 05/22/17 11:32 93 28 98 Venturi Mask 4.0 30 05/22/17 11:22 88 24 95 Venturi Mask 4.0 30 05/22/17 08:57 108 144/78 05/22/17 08:56 108 144/78 05/22/17 08:00 30 05/22/17 07:52 99 05/22/17 07:40 97.7 108 24 144/78 97 Venturi Mask 30 97.7 05/22/17 07:27 98 Venturi Mask 4.0 30 05/22/17 07:27 Venturi Mask 4.0 30 05/22/17 07:25 98 28 98 Venturi Mask 4.0 30 05/22/17 07:14 101 24 97 Venturi Mask 4.0 30 05/22/17 05:20 97 24 95 05/22/17 04:00 99.0 81 32 133/73 95 1.0 30 99.0 05/22/17 04:00 30 05/22/17 03:28 93 05/22/17 02:41 98 28 98 Venturi Mask 4.0 30 05/22/17 02:30 96 26 96 Venturi Mask 4.0 30 05/22/17 02:30 96 26 96 05/22/17 01:02 100 28 95 05/22/17 00:00 98.2 24 134/80 98 1.0 30 98.2 05/22/17 00:00 30 05/21/17 23:51 89 Intake and Output 05/21/17 05/22/17 19:00 07:00 Intake Total 0 ml 1292.416 ml Output Total 3750 ml 2000 ml Balance -3750 ml -707.584 ml Intake Oral 0 ml IV Total 1292.416 ml Output Urine Total 3750 ml 2000 ml 2D Echo: EF 55%, Mild LVH, Elevated RAP 15 mmHg, RVSP 39 mmHg, Mild MR Laboratory Tests Test 05/22/17 03:50 05/22/17 09:10 05/22/17 20:36 White Blood Count 6.9 K/UL (4.8-10.8) Red Blood Count 2.88 M/UL (4.20-5.40) L Hemoglobin 8.9 G/DL (12.0-16.0) L Hematocrit 26.3 % (37.0-47.0) L Mean Corpuscular Volume 91 FL (80-99) Mean Corpuscular Hemoglobin 31.0 PG (27.0-31.0) Mean Corpuscular Hemoglobin Concent 33.9 G/DL (32.0-36.0) Red Cell Distribution Width 12.5 % (11.6-14.8) Platelet Count 239 K/UL (150-450) Mean Platelet Volume 6.2 FL (6.5-10.1) L Neutrophils (%) (Auto) % (45.0-75.0) Lymphocytes (%) (Auto) % (20.0-45.0) Monocytes (%) (Auto) % (1.0-10.0) Eosinophils (%) (Auto) % (0.0-3.0) Basophils (%) (Auto) % (0.0-2.0) Differential Total Cells Counted 100 Neutrophils % (Manual) 94 % (45-75) H Lymphocytes % (Manual) 4 % (20-45) L Monocytes % (Manual) 2 % (1-10) Eosinophils % (Manual) 0 % (0-3) Basophils % (Manual) 0 % (0-2) Band Neutrophils 0 % (0-8) Platelet Estimate Adequate Platelet Morphology Normal Anisocytosis 1+ Sodium Level 136 MMOL/L (136-145) Potassium Level 4.9 MMOL/L (3.5-5.1) Chloride Level 100 MMOL/L (98-107) Carbon Dioxide Level 26 MMOL/L (21-32) Anion Gap 10 mmol/L (5-15) Blood Urea Nitrogen 13 mg/dL (7-18) Creatinine 1.4 MG/DL (0.55-1.30) H Estimat Glomerular Filtration Rate 38.1 mL/min (>60) Glucose Level 155 MG/DL (74-106) H Hemoglobin A1c 5.5 % (4.3-6.0) Calcium Level 9.2 MG/DL (8.5-10.1) Troponin I 0.040 ng/mL (0.000-0.056) Pro-B-Type Natriuretic Peptide 7291 pg/mL (0-125) H Arterial Blood pH 7.484 (7.350-7.450) Arterial Blood Partial Pressure CO2 34.9 mmHg (35.0-45.0) L Arterial Blood Partial Pressure O2 75.1 mmHg (75.0-100.0) Arterial Blood HCO3 25.6 mmol/L (22.0-26.0) Arterial Blood Oxygen Saturation 95.0 % (92.0-98.0) Arterial Blood Base Excess 2.3 Bulmaro Test Positive Vancomycin Level Trough 24.4 ug/mL (5.0-12.0) H Microbiology Date/Time Source Procedure Growth Status 05/21/17 18:20 Nasopharynx Influenza Types A,B Antigen ([facility]TE) - Final Complete Objective 1. Sinus tachycardia most likely due to underlying pneumonia, hypoxemia, and breathing treatment. 2. Hypertension. 3. History of COPD. We would like to obtain 2D echocardiography for assessment of RA and RV cavity size to assess pulmonary hypertension. 4. Morbid obesity. 5. Psych disorder. SAMANTHA FRASER May 22, 2017 22:56
--- NOTE | 2017-05-22 23:34 | Pulmonology Progress Note ---
Assessment/Plan Assessment/Plan Patient: [facility] Rec #: [id number] Patient No.: [id number] Date of Admission: 05/21/17 Progress Note date and time: 05/21/17 1700 Critical Care - Asmt/Plan Assessment/Plan: HPI 61 y/o F with hx of COPD, discharged from [facility] 1 day ago after treatment for Pneumonia, PMH of HLD presents, Schizoaffective disorder, presented to the to ED with shortness of breath, noted to have oxygen desaturation 85%. Placed on Bipap in ED and admitted to [facility]. Low grade fever of 100.9 previously noted no leukocytosis CXR with infiltrates. Allergies: Coded Allergies: No Known Allergies (Unverified , 05/21/17) Patient History Healthcare decision maker Resuscitation status Advanced Directive on File Patient History Narrative Pmx: as above Shx: reviewed Fhx: non contributory Review of Systems All Other Systems: negative except mentioned in HPI Physical Exam Physical Exam Narrative General Appearance: no apparent distress, alert HEENT normocephalic, atraumatic, PERR, normal pharynx Neck: full range of motion, supple/symm/no masses Respiratory: chest non-tender, lungs clear, normal breath sounds, speaking full sentences Cardiovascular : regular rate, rhythm, no edema Gastrointestinal: normal bowel sounds, non tender, soft, non-distended, no guarding, no rebound Genitourinary: normal inspection, no CVA tenderness Musculoskeletal: back normal, gait/station normal, normal range of motion, non- tender Neurologic: alert, oriented x3, responsive, motor strength/tone normal, sensory intact, speech normal Skin: normal color, no rash, warm/dry, well hydrated Last 24 Hour Vital Signs Date Time Temp Pulse Resp B/P (MAP) Pulse Ox O2 Delivery O2 Flow Rate FiO2 05/21/17 11:59 30 05/21/17 11:52 100.4 22 144/96 100 Bi-pap 1.0 30 100.4 05/21/17 11:36 30 05/21/17 11:35 102 22 100 Bi-pap 30 05/21/17 11:31 99 22 99 Bi-pap 30 05/21/17 11:31 99 22 99 Bi-pap 30 05/21/17 11:28 30 05/21/17 11:22 103 22 99 Facial 30 05/21/17 11:17 98 22 99 Bi-pap 30 05/21/17 11:14 30 05/21/17 11:12 92 22 99 Bi-pap 30 05/21/17 09:46 22 146/97 100 Nasal Cannula 1.0 24 05/21/17 09:46 98 22 Nasal Cannula 1.0 24 05/21/17 08:51 98 22 100 Nasal Cannula 1.0 24 05/21/17 08:40 94 22 98 Nasal Cannula 1.0 24 05/21/17 08:40 24 05/21/17 08:18 108 24 170/86 90 Laboratory Tests Test 05/21/17 08:49 05/21/17 09:04 05/21/17 11:33 Sodium Level 129 MMOL/L (136-145) L Potassium Level 4.6 MMOL/L (3.5-5.1) Chloride Level 96 MMOL/L (98-107) L Carbon Dioxide Level 29 MMOL/L (21-32) Anion Gap 4 mmol/L (5-15) L Blood Urea Nitrogen 12 mg/dL (7-18) Creatinine 1.3 MG/DL (0.55-1.30) Estimat Glomerular Filtration Rate 41.5 mL/min (>60) Glucose Level 114 MG/DL (74-106) H Lactic Acid Level 0.50 mmol/L (0.66-2.22) L Calcium Level 9.0 MG/DL (8.5-10.1) Total Bilirubin 0.3 MG/DL (0.2-1.0) Aspartate Amino Transf (AST/SGOT) 28 U/L (15-37) Alanine Aminotransferase (ALT/SGPT) 26 U/L (12-78) Alkaline Phosphatase 82 U/L (46-116) Total Creatine Kinase 78 U/L (26-308) Troponin I 0.031 ng/mL (0.000-0.056) Pro-B-Type Natriuretic Peptide 2661 pg/mL (0-125) H Total Protein 6.2 G/DL (6.4-8.2) L Albumin 2.6 G/DL (3.4-5.0) L Globulin 3.6 g/dL Albumin/Globulin Ratio 0.7 (1.0-2.7) L Lipase 119 U/L (73-393) White Blood Count 8.2 K/UL (4.8-10.8) Red Blood Count 2.94 M/UL (4.20-5.40) L Hemoglobin 8.9 G/DL (12.0-16.0) L Hematocrit 26.9 % (37.0-47.0) L Mean Corpuscular Volume 92 FL (80-99) Mean Corpuscular Hemoglobin 30.5 PG (27.0-31.0) Mean Corpuscular Hemoglobin Concent 33.3 G/DL (32.0-36.0) Red Cell Distribution Width 12.1 % (11.6-14.8) Platelet Count 244 K/UL (150-450) Mean Platelet Volume 6.4 FL (6.5-10.1) L Neutrophils (%) (Auto) 84.2 % (45.0-75.0) H Lymphocytes (%) (Auto) 7.6 % (20.0-45.0) L Monocytes (%) (Auto) 5.4 % (1.0-10.0) Eosinophils (%) (Auto) 2.1 % (0.0-3.0) Basophils (%) (Auto) 0.7 % (0.0-2.0) Prothrombin Time 10.0 SEC (9.30-11.50) Prothromb Time International Ratio 1.0 (0.9-1.1) Activated Partial Thromboplast Time 27 SEC (23-33) Urine Color Pale yellow Urine Appearance Slightly cloudy Urine pH 7 (4.5-8.0) Urine Specific Douglas 1.000 (1.005-1.035) Urine Protein 2+ (NEGATIVE) H Urine Glucose (UA) Negative (NEGATIVE) Urine Ketones Negative (NEGATIVE) Urine Occult Blood 4+ (NEGATIVE) H Urine Nitrite Negative (NEGATIVE) Urine Bilirubin Negative (NEGATIVE) Urine Urobilinogen Normal MG/DL (0.0-1.0) Urine Leukocyte Esterase 1+ (NEGATIVE) H Urine RBC 15-20 /HPF (0 - 2) H Urine WBC 5-10 /HPF (0 - 2) H Urine Squamous Epithelial Cells Moderate /LPF (NONE/OCC) H Urine Bacteria Few /HPF (NONE) Height (Feet): 5 Height (Inches): 6.00 Weight (Pounds): 250 Assessment/Plan Assessment/Plan Abx: IV vanco x1 3/24 Cefepime x1 05/21 Levaquin x1 05/21 Impression: Fever Possible HCAP vs Asp Pneumonia, need to r/o influenza -CXR: Bilateral interstitial and patchy airspace edema/infiltrates, right greater than left. Lung base atelectasis. Clinical correlation/follow-up recommended. COPD exacerbation No leukocytosis HLD Schizoaffective disorder Recent PNA Plan: -Continue IV Vancomycin and Zosyn, tamiflu and Azithromycin per ID -influenza sc, sputum cx, legionella ag urine -f/u cx -Monitor labs -aspiration precautions - Reduce steroids - O2 PRN Thank you for this consultation. Discussed with RN. Critical Care - Objective Last 24 Hour Vital Signs Date Time Temp Pulse Resp B/P (MAP) Pulse Ox O2 Delivery O2 Flow Rate FiO2 05/21/17 16:49 30 05/21/17 16:49 101 22 99 Bi-pap 30 05/21/17 16:48 100 23 98 Facial 30 05/21/17 15:43 99.2 22 149/90 99 1.0 30 99.2 05/21/17 14:46 101 22 99 Facial 30 05/21/17 13:47 99.2 24 155/102 97 Bi-pap 30 99.2 05/21/17 12:55 105 24 97 Facial 30 05/21/17 11:59 30 05/21/17 11:52 100.4 22 144/96 100 Bi-pap 1.0 30 100.4 05/21/17 11:36 30 05/21/17 11:35 102 22 100 Bi-pap 30 05/21/17 11:31 99 22 99 Bi-pap 30 05/21/17 11:31 99 22 99 Bi-pap 30 05/21/17 11:28 30 05/21/17 11:22 103 22 99 Facial 30 05/21/17 11:17 98 22 99 Bi-pap 30 05/21/17 11:14 30 05/21/17 11:12 92 22 99 Bi-pap 30 05/21/17 09:46 22 146/97 100 Nasal Cannula 1.0 24 05/21/17 09:46 98 22 Nasal Cannula 1.0 24 05/21/17 08:51 98 22 100 Nasal Cannula 1.0 24 05/21/17 08:40 94 22 98 Nasal Cannula 1.0 24 05/21/17 08:40 24 05/21/17 08:18 108 24 170/86 90 Critical Care - Subjective ROS Limited/Unobtainable: Yes Condition: stable EKG Rhythm: Sinus Rhythm FI02: 30 Vent Support Mode: BiLevel Sputum Amount: None Subjective Respiratory: Reports: dry cough Allergies: Coded Allergies: No Known Allergies (Unverified , 05/21/17) All Systems: reviewed and negative except above Objective Last 24 Hour Vital Signs Date Time Temp Pulse Resp B/P (MAP) Pulse Ox O2 Delivery O2 Flow Rate FiO2 05/22/17 23:28 105 27 94 Facial 30 05/22/17 23:28 105 24 97 Bi-pap 30 05/22/17 23:18 110 24 95 Venturi Mask 6.0 35 05/22/17 20:26 92 160/75 05/22/17 20:25 92 160/75 05/22/17 20:00 97.9 92 18 160/75 99 Bi-pap 30 97.9 05/22/17 20:00 102 05/22/17 19:13 97 20 99 Venturi Mask 6.0 35 05/22/17 19:04 92 20 97 Venturi Mask 6.0 35 05/22/17 19:04 97 Venturi Mask 6.0 35 05/22/17 19:04 Venturi Mask 6.0 35 05/22/17 18:30 35 05/22/17 16:44 99 34 96 Facial 30 05/22/17 16:00 97.9 96 18 150/76 96 Bi-pap 30 97.9 05/22/17 15:50 91 34 98 Bi-pap 30 05/22/17 15:39 93 42 98 Bi-pap 30 05/22/17 15:36 94 05/22/17 14:50 99 39 96 Full Face 30 05/22/17 14:30 30 05/22/17 12:00 30 05/22/17 12:00 97.9 88 26 131/64 96 Venturi Mask 30 97.9 05/22/17 11:44 91 05/22/17 11:32 93 28 98 Venturi Mask 4.0 30 05/22/17 11:22 88 24 95 Venturi Mask 4.0 30 05/22/17 08:57 108 144/78 05/22/17 08:56 108 144/78 05/22/17 08:00 30 05/22/17 07:52 99 05/22/17 07:40 97.7 108 24 144/78 97 Venturi Mask 30 97.7 05/22/17 07:27 98 Venturi Mask 4.0 30 05/22/17 07:27 Venturi Mask 4.0 30 05/22/17 07:25 98 28 98 Venturi Mask 4.0 30 05/22/17 07:14 101 24 97 Venturi Mask 4.0 30 05/22/17 05:20 97 24 95 05/22/17 04:00 99.0 81 32 133/73 95 1.0 30 99.0 05/22/17 04:00 30 05/22/17 03:28 93 05/22/17 02:41 98 28 98 Venturi Mask 4.0 30 05/22/17 02:30 96 26 96 Venturi Mask 4.0 30 05/22/17 02:30 96 26 96 05/22/17 01:02 100 28 95 05/22/17 00:00 98.2 24 134/80 98 1.0 30 98.2 05/22/17 00:00 30 05/21/17 23:51 89 Intake and Output 05/21/17 05/22/17 19:00 07:00 Intake Total 0 ml 1292.416 ml Output Total 3750 ml 2000 ml Balance -3750 ml -707.584 ml Intake Oral 0 ml IV Total 1292.416 ml Output Urine Total 3750 ml 2000 ml Microbiology Date/Time Source Procedure Growth Status 05/21/17 18:20 Nasopharynx Influenza Types A,B Antigen (LIZETTE) - Final Complete Laboratory Tests 05/22/17 03:50: White Blood Count 6.9, Red Blood Count 2.88L, Hemoglobin 8.9L, Hematocrit 26.3L , Mean Corpuscular Volume 91, Mean Corpuscular Hemoglobin 31.0, Mean Corpuscular Hemoglobin Concent 33.9, Red Cell Distribution Width 12.5, Platelet Count 239, Mean Platelet Volume 6.2L, Neutrophils (%) (Auto) , Lymphocytes (%) ( Auto) , Monocytes (%) (Auto) , Eosinophils (%) (Auto) , Basophils (%) (Auto) , Differential Total Cells Counted 100, Neutrophils % (Manual) 94H, Lymphocytes % (Manual) 4L, Monocytes % (Manual) 2, Eosinophils % (Manual) 0, Basophils % ( Manual) 0, Band Neutrophils 0, Platelet Estimate Adequate, Platelet Morphology Normal, Anisocytosis 1+, Sodium Level 136, Potassium Level 4.9, Chloride Level 100, Carbon Dioxide Level 26, Anion Gap 10, Blood Urea Nitrogen 13, Creatinine 1.4H, Estimat Glomerular Filtration Rate 38.1, Glucose Level 155H, Hemoglobin A1c 5.5, Calcium Level 9.2, Troponin I 0.040, Pro-B-Type Natriuretic Peptide 7291H 05/22/17 09:10: Arterial Blood pH 7.484H, Arterial Blood Partial Pressure CO2 34.9L, Arterial Blood Partial Pressure O2 75.1, Arterial Blood HCO3 25.6, Arterial Blood Oxygen Saturation 95.0, Arterial Blood Base Excess 2.3, Bulmaro Test Positive 05/22/17 20:36: Vancomycin Level Trough 24.4H Current Medications Medications (Trade) Dose Ordered Sig/Wale Route PRN Reason Start Time Stop Time Status Last Admin Dose Admin Acetaminophen (Tylenol) 650 mg Q4H PRN RECTAL MILD PAIN/T>100.5 05/21/17 19:15 06/20/17 19:14 Albuterol/ Ipratropium (Albuterol/ Ipratropium) 3 ml Q4HRT HHN 05/21/17 19:00 05/26/17 18:59 05/22/17 23:18 Albuterol/ Ipratropium (Albuterol/ Ipratropium) 3 ml Q6H PRN HHN Shortness of Breath 05/21/17 16:45 05/26/17 16:44 05/21/17 16:47 Ascorbic Acid (Vitamin C) 500 mg DAILY ORAL 05/22/17 09:00 06/21/17 08:59 05/22/17 08:56 Atorvastatin Calcium (Lipitor) 10 mg BEDTIME ORAL 05/21/17 21:00 06/20/17 20:59 05/22/17 20:25 Benztropine Mesylate (Cogentin) 1 mg BEDTIME ORAL 05/22/17 21:00 06/21/17 20:59 05/22/17 20:25 Dextrose (Dextrose 50%) STAT PRN IV Hypoglycemia 05/21/17 18:45 06/20/17 18:44 Dextrose/Sodium Chloride 1,000 ml @ 60 mls/hr [id number] IV 05/21/17 19:45 06/20/17 19:44 05/22/17 15:09 Docusate Sodium (Colace) 100 mg EVERY 12 HOURS ORAL 05/21/17 21:00 06/20/17 20:59 05/22/17 20:26 Folic Acid (Folate) 1 mg DAILY ORAL 05/22/17 09:00 06/21/17 08:59 05/22/17 08:56 Furosemide (Lasix) 40 mg DAILY IV 05/22/17 09:00 06/21/17 08:59 05/22/17 09:08 Guaifenesin/ Codeine Phosphate (Robitussin with codeine) 5 ml Q6H PRN ORAL For Cough 05/21/17 18:45 06/20/17 18:44 Heparin Sodium (Porcine) (Heparin 5000 units/ml) 5,000 units EVERY 12 HOURS SUBQ 05/21/17 21:00 06/20/17 20:59 05/22/17 20:29 Insulin Aspart (NovoLOG) BEFORE MEALS AND HS SUBQ 05/21/17 21:00 06/20/17 20:59 05/22/17 20:28 Lamotrigine (LaMICtal) 25 mg DAILY ORAL 05/22/17 09:00 06/21/17 08:59 05/22/17 10:31 Methylprednisolone Sodium Succinate (Solu-MEDROL) 40 mg EVERY 12 HOURS IVP 05/23/17 09:00 06/22/17 08:59 Ondansetron HCl (Zofran) 4 mg Q8H PRN ORAL Nausea & Vomiting 05/21/17 18:45 06/20/17 18:44 Pantoprazole (Protonix) 40 mg DAILY IVP 05/22/17 09:00 06/21/17 08:59 05/22/17 08:57 Piperacillin Sod/ Tazobactam Sod 3.375 gm/Sodium Chloride 110 ml @ 27.5 mls/hr Q8HR@0000,1000,1800 IVPB 05/21/17 15:00 05/28/17 14:59 05/22/17 23:06 Vancomycin HCl (Vanco rx to dose) 1 ea DAILY PRN MISC Per rx protocol 05/21/17 13:15 06/20/17 13:14 Verapamil HCl (Calan SR) 180 mg DAILY ORAL 05/23/17 09:00 06/22/17 08:59 Vitamin B Complex/ Vit C/Folic Acid (Nephrovite) 1 tab DAILY ORAL 05/22/17 09:00 06/21/17 08:59 05/22/17 08:56 Girish Molina M.D. May 22, 2017 23:34
[2017-05-23] VITALS: BP 130/67
[2017-05-23] MEDS: Albuterol/Ipratropium 3ml neb HHN SCH ×6 (02:56→23:50)
[2017-05-23 04:00] VITALS: BP 143/80
[2017-05-23] MEDS: D5 1/2NS 1,000 ML IV SCH ×2 (04:24→22:07)
[2017-05-23 04:45] LABS: HEMATOCRIT 24.5 % (37.0-47.0); HEMOGLOBIN 8.4 G/DL (12.0-16.0); MEAN CORPUSCULAR VOLUME 92 FL (80-99); PLATELET COUNT 187 K/UL (150-450); RED BLOOD COUNT 2.67 M/UL (4.20-5.40); RED CELL DISTRIBUTION WIDTH 12.8 % (11.6-14.8); WHITE BLOOD COUNT 8.7 K/UL (4.8-10.8)
[2017-05-23] MEDS: NovoLOG Insulin Flexpen SUBQ SCH ×4 (05:45→21:00)
[2017-05-23 06:25] LABS: ANION GAP 11 mmol/L (5-15); BLOOD UREA NITROGEN 19 mg/dL (7-18); CALCIUM 8.9 MG/DL (8.5-10.1); CARBON DIOXIDE 26 MMOL/L (21-32); CHLORIDE 100 MMOL/L (98-107); CREATININE 1.6 MG/DL (0.55-1.30); POTASSIUM 4.3 MMOL/L (3.5-5.1); SODIUM 137 MMOL/L (136-145)
[2017-05-23 08:00] VITALS: BP 121/85
[2017-05-23] MEDS ORDERED: Verapamil 180mg SR tab ORAL SCH (09:00)
[2017-05-23] MEDS: Nephrovite tab (Rena-Vite) ORAL SCH (09:34)
[2017-05-23] MEDS: Pantoprazole Inj IVP SCH (09:34)
[2017-05-23] MEDS: Ascorbic Acid 500mg tab ORAL SCH (09:35)
[2017-05-23] MEDS: Solu-MEDROL 40mg Inj IVP SCH ×2 (09:35→20:56)
[2017-05-23] MEDS: Docusate 100mg cap ORAL SCH (09:35)
[2017-05-23] MEDS: Heparin 5000 units/ml inj SUBQ SCH ×2 (09:38→20:58)
[2017-05-23] MEDS: Piperacillin/Tazobactam 3.375 GM in NS 110 ML IVPB SCH (10:33)
--- NOTE | 2017-05-23 11:12 | Infectious Diseases Prog Note ---
Assessment/Plan Assessment/Plan Assessment: Fever Possible HCAP vs Asp PNA- -CXR: Bilateral interstitial and patchy airspace edema/infiltrates, right greater than left. Lung base atelectasis. Clinical correlation/follow-up recommended. -sp cx p -influenza sc neg COPD exacerbation No leukocytosis HLD Schizoaffective disorder Recent PNA Plan: -Continue IV Vancomycin, Zosyn #3/7-10 pending sputum cx and Azithromycin #3/5 -05/22 SP Tamiflu #2 -05/21 SP Cefepime x1, Levaquin x1 -influenza sc, sputum cx, legionella ag urine -f/u cx -Monitor CBC/BMP, temperatures -aspiration precautions -CXR am Thank you for this consultation. Will continue to follow along with you. Discussed with RN. Subjective Allergies: Coded Allergies: No Known Allergies (Unverified , 05/21/17) Subjective afebrile in 48hrs no leukocytosis sp cx not collected Objective Vital Signs Last 24 Hour Vital Signs Date Time Temp Pulse Resp B/P (MAP) Pulse Ox O2 Delivery O2 Flow Rate FiO2 05/23/17 10:32 86 121/85 05/23/17 10:31 86 33 98 Facial 30 05/23/17 10:28 85 22 99 Venturi Mask 6.0 35 05/23/17 10:20 92 20 100 Venturi Mask 6.0 35 05/23/17 08:00 35 05/23/17 08:00 97.9 94 30 121/85 95 Venturi Mask 35 97.9 05/23/17 07:57 94 05/23/17 07:33 82 22 99 6.0 35 05/23/17 07:19 Venturi Mask 6.0 35 05/23/17 07:18 99 Venturi Mask 6.0 35 05/23/17 07:17 69 20 99 Venturi Mask 6.0 35 05/23/17 04:00 80 05/23/17 04:00 30 05/23/17 04:00 97.7 84 19 143/80 97 Bi-pap 30 97.7 05/23/17 03:07 85 30 97 Facial 30 05/23/17 03:06 90 31 97 Bi-pap 30 05/23/17 02:56 88 20 98 Venturi Mask 6.0 35 05/23/17 00:52 87 24 98 Facial 30 05/23/17 00:00 30 3/26/18 00:00 97.7 85 20 130/67 96 Bi-pap 30 97.7 05/23/17 00:00 92 05/22/17 23:28 105 27 94 Facial 30 05/22/17 23:28 105 24 97 Bi-pap 30 05/22/17 23:18 110 24 95 Venturi Mask 6.0 35 05/22/17 20:26 92 160/75 05/22/17 20:25 92 160/75 05/22/17 20:00 97.9 92 18 160/75 99 Bi-pap 30 97.9 05/22/17 20:00 30 05/22/17 20:00 102 05/22/17 19:13 97 20 99 Venturi Mask 6.0 35 05/22/17 19:04 92 20 97 Venturi Mask 6.0 35 05/22/17 19:04 97 Venturi Mask 6.0 35 05/22/17 19:04 Venturi Mask 6.0 35 05/22/17 18:30 35 05/22/17 16:44 99 34 96 Facial 30 05/22/17 16:00 97.9 96 18 150/76 96 Bi-pap 30 97.9 05/22/17 15:50 91 34 98 Bi-pap 30 05/22/17 15:39 93 42 98 Bi-pap 30 05/22/17 15:36 94 05/22/17 14:50 99 39 96 Full Face 30 05/22/17 14:30 30 05/22/17 12:00 30 05/22/17 12:00 97.9 88 26 131/64 96 Venturi Mask 30 97.9 05/22/17 11:44 91 05/22/17 11:32 93 28 98 Venturi Mask 4.0 30 05/22/17 11:22 88 24 95 Venturi Mask 4.0 30 Height (Feet): 5 Height (Inches): 6.00 Weight (Pounds): 260 Objective General Appearance: no apparent distress, alert HEENT normocephalic, atraumatic, PERR, normal pharynx Neck: full range of motion, supple/symm/no masses Respiratory: chest non-tender, lungs clear, normal breath sounds, speaking full sentences Cardiovascular : regular rate, rhythm, no edema Gastrointestinal: normal bowel sounds, non tender, soft, non-distended, no guarding, no rebound Genitourinary: normal inspection, no CVA tenderness Musculoskeletal: back normal, gait/station normal, normal range of motion, non- tender Neurologic: alert, oriented x3, responsive, motor strength/tone normal, sensory intact, speech normal Skin: normal color, no rash, warm/dry, well hydrated Microbiology Date/Time Source Procedure Growth Status 05/21/17 09:04 Blood Blood Culture - Preliminary NO GROWTH AFTER 24 HOURS Resulted 05/21/17 09:04 Blood Blood Culture - Preliminary NO GROWTH AFTER 24 HOURS Resulted 05/21/17 18:20 Nasopharynx Influenza Types A,B Antigen (LIZETTE) - Final Complete 05/21/17 10:59 Nasal Nares MRSA Culture - Final NO METHICILLIN RESISTANT STAPH AUREUS... Complete 05/22/17 11:00 Urine,Clean Catch Urine Culture - Preliminary NO GROWTH AFTER 24 HOURS Resulted 05/21/17 10:59 Rectum VRE Culture - Final Enterococcus Faecium - Vre Complete Laboratory Tests Test 05/22/17 20:36 05/23/17 03:30 Vancomycin Level Trough 24.4 ug/mL (5.0-12.0) H White Blood Count 8.7 K/UL (4.8-10.8) Red Blood Count 2.67 M/UL (4.20-5.40) L Hemoglobin 8.4 G/DL (12.0-16.0) L Hematocrit 24.5 % (37.0-47.0) L Mean Corpuscular Volume 92 FL (80-99) Mean Corpuscular Hemoglobin 31.4 PG (27.0-31.0) H Mean Corpuscular Hemoglobin Concent 34.3 G/DL (32.0-36.0) Red Cell Distribution Width 12.8 % (11.6-14.8) Platelet Count 187 K/UL (150-450) Mean Platelet Volume 5.9 FL (6.5-10.1) L Neutrophils (%) (Auto) % (45.0-75.0) Lymphocytes (%) (Auto) % (20.0-45.0) Monocytes (%) (Auto) % (1.0-10.0) Eosinophils (%) (Auto) % (0.0-3.0) Basophils (%) (Auto) % (0.0-2.0) Differential Total Cells Counted 100 Neutrophils % (Manual) 91 % (45-75) H Lymphocytes % (Manual) 6 % (20-45) L Monocytes % (Manual) 3 % (1-10) Eosinophils % (Manual) 0 % (0-3) Basophils % (Manual) 0 % (0-2) Band Neutrophils 0 % (0-8) Platelet Estimate Adequate Platelet Morphology Normal Hypochromasia 1+ Sodium Level 137 MMOL/L (136-145) Potassium Level 4.3 MMOL/L (3.5-5.1) Chloride Level 100 MMOL/L (98-107) Carbon Dioxide Level 26 MMOL/L (21-32) Anion Gap 11 mmol/L (5-15) Blood Urea Nitrogen 19 mg/dL (7-18) H Creatinine 1.6 MG/DL (0.55-1.30) H Estimat Glomerular Filtration Rate 32.6 mL/min (>60) Glucose Level 178 MG/DL (74-106) H Calcium Level 8.9 MG/DL (8.5-10.1) Troponin I 0.037 ng/mL (0.000-0.056) Pro-B-Type Natriuretic Peptide 9104 pg/mL (0-125) H Random Vancomycin Level 30.0 ug/mL Current Medications Medications (Trade) Dose Ordered Sig/Wale Route PRN Reason Start Time Stop Time Status Last Admin Dose Admin Acetaminophen (Tylenol) 650 mg Q4H PRN RECTAL MILD PAIN/T>100.5 05/21/17 19:15 06/20/17 19:14 Albuterol/ Ipratropium (Albuterol/ Ipratropium) 3 ml Q4HRT HHN 05/21/17 19:00 05/26/17 18:59 05/23/17 10:19 Albuterol/ Ipratropium (Albuterol/ Ipratropium) 3 ml Q6H PRN HHN Shortness of Breath 05/21/17 16:45 05/26/17 16:44 05/21/17 16:47 Ascorbic Acid (Vitamin C) 500 mg DAILY ORAL 05/22/17 09:00 06/21/17 08:59 05/23/17 09:35 Atorvastatin Calcium (Lipitor) 10 mg BEDTIME ORAL 05/21/17 21:00 06/20/17 20:59 05/22/17 20:25 Benztropine Mesylate (Cogentin) 1 mg BEDTIME ORAL 05/22/17 21:00 06/21/17 20:59 05/22/17 20:25 Dextrose (Dextrose 50%) STAT PRN IV Hypoglycemia 05/21/17 18:45 06/20/17 18:44 Dextrose/Sodium Chloride 1,000 ml @ 60 mls/hr [id number] IV 05/21/17 19:45 06/20/17 19:44 05/23/17 04:24 Docusate Sodium (Colace) 100 mg EVERY 12 HOURS ORAL 05/21/17 21:00 06/20/17 20:59 05/23/17 09:35 Folic Acid (Folate) 1 mg DAILY ORAL 05/22/17 09:00 06/21/17 08:59 05/23/17 09:39 Furosemide (Lasix) 40 mg DAILY IV 05/22/17 09:00 06/21/17 08:59 05/23/17 09:35 Guaifenesin/ Codeine Phosphate (Robitussin with codeine) 5 ml Q6H PRN ORAL For Cough 05/21/17 18:45 06/20/17 18:44 Heparin Sodium (Porcine) (Heparin 5000 units/ml) 5,000 units EVERY 12 HOURS SUBQ 05/21/17 21:00 06/20/17 20:59 05/23/17 09:38 Insulin Aspart (NovoLOG) BEFORE MEALS AND HS SUBQ 05/21/17 21:00 06/20/17 20:59 05/23/17 05:45 Lamotrigine (LaMICtal) 25 mg DAILY ORAL 05/22/17 09:00 06/21/17 08:59 05/23/17 09:35 Methylprednisolone Sodium Succinate (Solu-MEDROL) 40 mg EVERY 12 HOURS IVP 05/23/17 09:00 06/22/17 08:59 05/23/17 09:35 Ondansetron HCl (Zofran) 4 mg Q8H PRN ORAL Nausea & Vomiting 05/21/17 18:45 06/20/17 18:44 Pantoprazole (Protonix) 40 mg DAILY IVP 05/22/17 09:00 06/21/17 08:59 05/23/17 09:34 Piperacillin Sod/ Tazobactam Sod 3.375 gm/Sodium Chloride 110 ml @ 27.5 mls/hr Q8HR@0000,1000,1800 IVPB 05/21/17 15:00 05/28/17 14:59 05/23/17 10:33 Quetiapine Fumarate (SEROquel) 50 mg EVERY 4 HOURS PRN ORAL Agitation 05/23/17 10:30 06/22/17 10:29 Vancomycin HCl (Vanco rx to dose) 1 ea DAILY PRN MISC Per rx protocol 05/21/17 13:15 06/20/17 13:14 Verapamil HCl (Calan SR) 180 mg DAILY ORAL 05/23/17 09:00 06/22/17 08:59 05/23/17 10:32 Vitamin B Complex/ Vit C/Folic Acid (Nephrovite) 1 tab DAILY ORAL 05/22/17 09:00 06/21/17 08:59 05/23/17 09:34 Crystal Ruth M.D. May 23, 2017 11:12
--- NOTE | 2017-05-23 11:55 | Internal Med Progress Note ---
Subjective Date of Service: May 23, 2017 Physician Name Hank Dickinson Attending Physician Shoshana Norman MD Current Medications Medications (Trade) Dose Ordered Sig/Wale Route PRN Reason Start Time Stop Time Status Last Admin Dose Admin Acetaminophen (Tylenol) 650 mg Q4H PRN RECTAL MILD PAIN/T>100.5 05/21/17 19:15 06/20/17 19:14 Albuterol/ Ipratropium (Albuterol/ Ipratropium) 3 ml Q4HRT HHN 05/21/17 19:00 05/26/17 18:59 05/23/17 10:19 Albuterol/ Ipratropium (Albuterol/ Ipratropium) 3 ml Q6H PRN HHN Shortness of Breath 05/21/17 16:45 05/26/17 16:44 05/21/17 16:47 Ascorbic Acid (Vitamin C) 500 mg DAILY ORAL 05/22/17 09:00 06/21/17 08:59 05/23/17 09:35 Atorvastatin Calcium (Lipitor) 10 mg BEDTIME ORAL 05/21/17 21:00 06/20/17 20:59 05/22/17 20:25 Benztropine Mesylate (Cogentin) 1 mg BEDTIME ORAL 05/22/17 21:00 06/21/17 20:59 05/22/17 20:25 Dextrose (Dextrose 50%) STAT PRN IV Hypoglycemia 05/21/17 18:45 06/20/17 18:44 Dextrose/Sodium Chloride 1,000 ml @ 60 mls/hr [id number] IV 05/21/17 19:45 06/20/17 19:44 05/23/17 04:24 Docusate Sodium (Colace) 100 mg EVERY 12 HOURS ORAL 05/21/17 21:00 06/20/17 20:59 05/23/17 09:35 Folic Acid (Folate) 1 mg DAILY ORAL 05/22/17 09:00 06/21/17 08:59 05/23/17 09:39 Furosemide (Lasix) 40 mg DAILY IV 05/22/17 09:00 06/21/17 08:59 05/23/17 09:35 Guaifenesin/ Codeine Phosphate (Robitussin with codeine) 5 ml Q6H PRN ORAL For Cough 05/21/17 18:45 4/23/18 18:44 Heparin Sodium (Porcine) (Heparin 5000 units/ml) 5,000 units EVERY 12 HOURS SUBQ 05/21/17 21:00 06/20/17 20:59 05/23/17 09:38 Insulin Aspart (NovoLOG) BEFORE MEALS AND HS SUBQ 05/21/17 21:00 06/20/17 20:59 05/23/17 05:45 Lamotrigine (LaMICtal) 25 mg DAILY ORAL 05/22/17 09:00 06/21/17 08:59 05/23/17 09:35 Methylprednisolone Sodium Succinate (Solu-MEDROL) 40 mg EVERY 12 HOURS IVP 05/23/17 09:00 06/22/17 08:59 05/23/17 09:35 Ondansetron HCl (Zofran) 4 mg Q8H PRN ORAL Nausea & Vomiting 05/21/17 18:45 06/20/17 18:44 Pantoprazole (Protonix) 40 mg DAILY IVP 05/22/17 09:00 06/21/17 08:59 05/23/17 09:34 Piperacillin Sod/ Tazobactam Sod 3.375 gm/Sodium Chloride 110 ml @ 27.5 mls/hr Q8HR@0000,1000,1800 IVPB 05/21/17 15:00 05/28/17 14:59 05/23/17 10:33 Quetiapine Fumarate (SEROquel) 50 mg EVERY 4 HOURS PRN ORAL Agitation 05/23/17 10:30 06/22/17 10:29 Vancomycin HCl (Vanco rx to dose) 1 ea DAILY PRN MISC Per rx protocol 05/21/17 13:15 06/20/17 13:14 Verapamil HCl (Calan SR) 180 mg DAILY ORAL 05/23/17 09:00 06/22/17 08:59 05/23/17 10:32 Vitamin B Complex/ Vit C/Folic Acid (Nephrovite) 1 tab DAILY ORAL 05/22/17 09:00 06/21/17 08:59 05/23/17 09:34 Allergies: Coded Allergies: No Known Allergies (Unverified , 05/21/17) ROS Limited/Unobtainable: Yes Subjective 61 YO F admitted with shortness of breath. Now pneumonia and respiratory failure. Cover for Int Med-Dr Norman. ROSARIO. Back on BIPAP Objective Last Vital Signs Date Time Temp Pulse Resp B/P (MAP) Pulse Ox O2 Delivery O2 Flow Rate FiO2 05/23/17 11:00 30 05/23/17 10:32 86 121/85 05/23/17 10:31 33 98 Facial 05/23/17 10:28 6.0 05/23/17 08:00 97.9 97.9 General Appearance: WD/WN, moderate distress, obese EENT: PERRL/EOMI, normal ENT inspection Neck: non-tender, normal alignment, supple, normal inspection Cardiovascular: normal peripheral pulses, normal rate, regular rhythm, no gallop/murmur, no JVD Respiratory/Chest: respiratory distress, accessory muscle use, crackles/rales, rhonchi - bilaterally, expiratory wheezing Abdomen: normal bowel sounds, non tender, soft, no organomegaly, no mass Extremities: normal range of motion, non-tender Neurologic: vp training II-XII grossly normal, no motor/sensory deficits Skin: normal pigmentation, warm/dry Laboratory Tests Test 05/22/17 20:36 05/23/17 03:30 Vancomycin Level Trough 24.4 ug/mL (5.0-12.0) H White Blood Count 8.7 K/UL (4.8-10.8) Red Blood Count 2.67 M/UL (4.20-5.40) L Hemoglobin 8.4 G/DL (12.0-16.0) L Hematocrit 24.5 % (37.0-47.0) L Mean Corpuscular Volume 92 FL (80-99) Mean Corpuscular Hemoglobin 31.4 PG (27.0-31.0) H Mean Corpuscular Hemoglobin Concent 34.3 G/DL (32.0-36.0) Red Cell Distribution Width 12.8 % (11.6-14.8) Platelet Count 187 K/UL (150-450) Mean Platelet Volume 5.9 FL (6.5-10.1) L Neutrophils (%) (Auto) % (45.0-75.0) Lymphocytes (%) (Auto) % (20.0-45.0) Monocytes (%) (Auto) % (1.0-10.0) Eosinophils (%) (Auto) % (0.0-3.0) Basophils (%) (Auto) % (0.0-2.0) Differential Total Cells Counted 100 Neutrophils % (Manual) 91 % (45-75) H Lymphocytes % (Manual) 6 % (20-45) L Monocytes % (Manual) 3 % (1-10) Eosinophils % (Manual) 0 % (0-3) Basophils % (Manual) 0 % (0-2) Band Neutrophils 0 % (0-8) Platelet Estimate Adequate Platelet Morphology Normal Hypochromasia 1+ Sodium Level 137 MMOL/L (136-145) Potassium Level 4.3 MMOL/L (3.5-5.1) Chloride Level 100 MMOL/L (98-107) Carbon Dioxide Level 26 MMOL/L (21-32) Anion Gap 11 mmol/L (5-15) Blood Urea Nitrogen 19 mg/dL (7-18) H Creatinine 1.6 MG/DL (0.55-1.30) H Estimat Glomerular Filtration Rate 32.6 mL/min (>60) Glucose Level 178 MG/DL (74-106) H Calcium Level 8.9 MG/DL (8.5-10.1) Troponin I 0.037 ng/mL (0.000-0.056) Pro-B-Type Natriuretic Peptide 9104 pg/mL (0-125) H Random Vancomycin Level 30.0 ug/mL Microbiology Date/Time Source Procedure Growth Status 05/21/17 09:04 Blood Blood Culture - Preliminary NO GROWTH AFTER 24 HOURS Resulted 05/21/17 09:04 Blood Blood Culture - Preliminary NO GROWTH AFTER 24 HOURS Resulted 05/21/17 18:20 Nasopharynx Influenza Types A,B Antigen (LIZETTE) - Final Complete 05/21/17 10:59 Nasal Nares MRSA Culture - Final NO METHICILLIN RESISTANT STAPH AUREUS... Complete 05/22/17 11:00 Urine,Clean Catch Urine Culture - Preliminary NO GROWTH AFTER 24 HOURS Resulted 05/21/17 10:59 Rectum VRE Culture - Final Enterococcus Faecium - Vre Complete Intake and Output 05/22/17 05/23/17 19:00 07:00 Intake Total 802.500 ml 912.5 ml Output Total 2400 ml 800 ml Balance -1597.500 ml 112.5 ml Intake Oral 30 ml IV Total 772.500 ml 912.5 ml Output Urine Total 2400 ml 800 ml Assessment/Plan Problem List: (1) Respiratory failure Assessment & Plan: Pnsumonia vs COPD exacerbation. See pulmonary note. Continue BIPAP. Continue vanco, zosyn and azithro per ID (2) Diabetes mellitus, type II (3) HTN (hypertension) Assessment & Plan: Continue verapamil (4) Hyponatremia (5) Schizoaffective disorder Assessment & Plan: Continue seroquel and lamictal (6) Pneumonia (7) COPD (chronic obstructive pulmonary disease) Assessment & Plan: Continue IV solumedrol Status: not improved HANK DICKINSON May 23, 2017 11:55
[2017-05-23 12:00] VITALS: BP 156/90
--- NOTE | 2017-05-23 14:24 | Consultation ---
History of Present Illness General Date patient seen: May 22, 2017 Chief Complaint: Dyspnea/Respdistress Present Illness HPI 61-year-old white female who presents with chief complaint of shortness of breath. The pt has hx of bipolar d/o and has been off her meds. the pt is agitated and unable to manage anxiety and agitation. the pt is labile Allergies: Coded Allergies: No Known Allergies (Unverified , 05/21/17) Medication History Scheduled Amlodipine Besylate (Norvasc), 5 MG PE ORAL EVERY 12 HOURS, (Reported) Ascorbic Acid* (Ascorbic Acid*), 500 MG ORAL DAILY, (Reported) Atorvastatin Calcium* (Lipitor*), 10 MG ORAL BEDTIME, (Reported) Benztropine Mesylate (Cogentin 1mg*), 1 MG ORAL BEDTIME, (Reported) Calcium Carbonate (Tums), 500 MG PO BID, (Reported) Docusate Sodium (Docusate Sodium), 100 MG ORAL EVERY 12 HOURS, (Reported) Famotidine (Famotidine), 20 MG ORAL TWICE A DAY, (Reported) Folic Acid (Folic Acid), 1 MG PO DAILY, (Reported) Folic Acid/Vitamin B Comp W-C (Yojana-Abebe Tablet), 0.8 MG PO DAILY, (Reported) Labetalol HCl (Labetalol HCl), 200 MG ORAL BID, (Reported) Lamotrigine (Lamictal), 25 MG PO DAILY, (Reported) Magnesium Hydroxide (Milk of Magnesia), 30 ML ORAL DAILY, (Reported) Valsartan (Diovan), 160 MG PO BID, (Reported) Scheduled PRN Acetaminophen* (Tylenol*), 650 MG PO Q4H PRN for Mild Pain/Temp > 100.5, ( Reported) Guaifenesin/Codeine Phosphate (Guaifenesin Ac Cough Syrup), 1 TSP ORAL Q6H PRN for For Cough, (Reported) Ipratropium [place] 0.5MG/2.5ML (Ipratropium [place] 0.5MG/2.5ML), 0.5 MG HHN Q4HR PRN for Shortness of Breath, (Reported) Ondansetron (Zofran), 4 MG ORAL Q8H PRN for Nausea & Vomiting, (Reported) Miscellaneous Medications Insulin Regular, Human (Humulin R), 100 SUBQ, (Reported) Patient History Limited by: medical condition History Provided By: Patient, Medical Record Healthcare decision maker Resuscitation status Full Code Advanced Directive on File Past Medical/Surgical History Past Medical/Surgical History: (1) Anemia (2) COPD (chronic obstructive pulmonary disease) (3) Respiratory distress (4) Pneumonia (5) Schizo affective schizophrenia (6) Diabetes mellitus, type II (7) Hyponatremia (8) Respiratory failure (9) Schizoaffective disorder (10) HTN (hypertension) Review of Systems Psychiatric: Reports: prior hx, anxiety, depressed feelings, emotional problems Physical Exam General Appearance: no apparent distress, alert, agitated Neurologic: oriented x 3, responsive Last 24 Hour Vital Signs Date Time Temp Pulse Resp B/P (MAP) Pulse Ox O2 Delivery O2 Flow Rate FiO2 05/23/17 12:56 83 32 98 Facial 30 05/23/17 12:00 97.7 91 46 156/90 95 Venturi Mask 35 97.7 05/23/17 11:52 92 05/23/17 11:00 30 05/23/17 10:32 86 121/85 05/23/17 10:31 86 33 98 Facial 30 05/23/17 10:28 85 22 99 Venturi Mask 6.0 35 05/23/17 10:20 92 20 100 Venturi Mask 6.0 35 05/23/17 08:00 35 05/23/17 08:00 97.9 94 30 121/85 95 Venturi Mask 35 97.9 05/23/17 07:57 94 05/23/17 07:33 82 22 99 6.0 35 05/23/17 07:19 Venturi Mask 6.0 35 05/23/17 07:18 99 Venturi Mask 6.0 35 05/23/17 07:17 69 20 99 Venturi Mask 6.0 35 05/23/17 04:00 80 05/23/17 04:00 30 05/23/17 04:00 97.7 84 19 143/80 97 Bi-pap 30 97.7 05/23/17 03:07 85 30 97 Facial 30 05/23/17 03:06 90 31 97 Bi-pap 30 05/23/17 02:56 88 20 98 Venturi Mask 6.0 35 05/23/17 00:52 87 24 98 Facial 30 05/23/17 00:00 30 05/23/17 00:00 97.7 85 20 130/67 96 Bi-pap 30 97.7 05/23/17 00:00 92 05/22/17 23:28 105 27 94 Facial 30 05/22/17 23:28 105 24 97 Bi-pap 30 05/22/17 23:18 110 24 95 Venturi Mask 6.0 35 05/22/17 20:26 92 160/75 05/22/17 20:25 92 160/75 05/22/17 20:00 97.9 92 18 160/75 99 Bi-pap 30 97.9 05/22/17 20:00 30 05/22/17 20:00 102 05/22/17 19:13 97 20 99 Venturi Mask 6.0 35 05/22/17 19:04 92 20 97 Venturi Mask 6.0 35 05/22/17 19:04 97 Venturi Mask 6.0 35 05/22/17 19:04 Venturi Mask 6.0 35 05/22/17 18:30 35 05/22/17 16:44 99 34 96 Facial 30 05/22/17 16:00 97.9 96 18 150/76 96 Bi-pap 30 97.9 05/22/17 15:50 91 34 98 Bi-pap 30 05/22/17 15:39 93 42 98 Bi-pap 30 05/22/17 15:36 94 05/22/17 14:50 99 39 96 Full Face 30 05/22/17 14:30 30 Intake and Output 05/22/17 05/23/17 19:00 07:00 Intake Total 802.500 ml 912.5 ml Output Total 2400 ml 800 ml Balance -1597.500 ml 112.5 ml Intake Oral 30 ml IV Total 772.500 ml 912.5 ml Output Urine Total 2400 ml 800 ml Laboratory Tests Test 05/22/17 20:36 05/23/17 03:30 Vancomycin Level Trough 24.4 ug/mL (5.0-12.0) H White Blood Count 8.7 K/UL (4.8-10.8) Red Blood Count 2.67 M/UL (4.20-5.40) L Hemoglobin 8.4 G/DL (12.0-16.0) L Hematocrit 24.5 % (37.0-47.0) L Mean Corpuscular Volume 92 FL (80-99) Mean Corpuscular Hemoglobin 31.4 PG (27.0-31.0) H Mean Corpuscular Hemoglobin Concent 34.3 G/DL (32.0-36.0) Red Cell Distribution Width 12.8 % (11.6-14.8) Platelet Count 187 K/UL (150-450) Mean Platelet Volume 5.9 FL (6.5-10.1) L Neutrophils (%) (Auto) % (45.0-75.0) Lymphocytes (%) (Auto) % (20.0-45.0) Monocytes (%) (Auto) % (1.0-10.0) Eosinophils (%) (Auto) % (0.0-3.0) Basophils (%) (Auto) % (0.0-2.0) Differential Total Cells Counted 100 Neutrophils % (Manual) 91 % (45-75) H Lymphocytes % (Manual) 6 % (20-45) L Monocytes % (Manual) 3 % (1-10) Eosinophils % (Manual) 0 % (0-3) Basophils % (Manual) 0 % (0-2) Band Neutrophils 0 % (0-8) Platelet Estimate Adequate Platelet Morphology Normal Hypochromasia 1+ Sodium Level 137 MMOL/L (136-145) Potassium Level 4.3 MMOL/L (3.5-5.1) Chloride Level 100 MMOL/L (98-107) Carbon Dioxide Level 26 MMOL/L (21-32) Anion Gap 11 mmol/L (5-15) Blood Urea Nitrogen 19 mg/dL (7-18) H Creatinine 1.6 MG/DL (0.55-1.30) H Estimat Glomerular Filtration Rate 32.6 mL/min (>60) Glucose Level 178 MG/DL (74-106) H Calcium Level 8.9 MG/DL (8.5-10.1) Troponin I 0.037 ng/mL (0.000-0.056) Pro-B-Type Natriuretic Peptide 9104 pg/mL (0-125) H Random Vancomycin Level 30.0 ug/mL Height (Feet): 5 Height (Inches): 6.00 Weight (Pounds): 260 Medications Current Medications Medications (Trade) Dose Ordered Sig/Wale Route PRN Reason Start Time Stop Time Status Last Admin Dose Admin Acetaminophen (Tylenol) 650 mg Q4H PRN RECTAL MILD PAIN/T>100.5 05/21/17 19:15 06/20/17 19:14 Albuterol/ Ipratropium (Albuterol/ Ipratropium) 3 ml Q4HRT HHN 05/21/17 19:00 05/26/17 18:59 05/23/17 10:19 Albuterol/ Ipratropium (Albuterol/ Ipratropium) 3 ml Q6H PRN HHN Shortness of Breath 05/21/17 16:45 05/26/17 16:44 05/21/17 16:47 Ascorbic Acid (Vitamin C) 500 mg DAILY ORAL 05/22/17 09:00 06/21/17 08:59 05/23/17 09:35 Atorvastatin Calcium (Lipitor) 10 mg BEDTIME ORAL 05/21/17 21:00 06/20/17 20:59 05/22/17 20:25 Benztropine Mesylate (Cogentin) 1 mg BEDTIME ORAL 05/22/17 21:00 06/21/17 20:59 05/22/17 20:25 Dextrose (Dextrose 50%) STAT PRN IV Hypoglycemia 05/21/17 18:45 06/20/17 18:44 Dextrose/Sodium Chloride 1,000 ml @ 60 mls/hr [id number] IV 05/21/17 19:45 06/20/17 19:44 05/23/17 04:24 Docusate Sodium (Colace) 100 mg EVERY 12 HOURS ORAL 05/21/17 21:00 06/20/17 20:59 05/23/17 09:35 Folic Acid (Folate) 1 mg DAILY ORAL 05/22/17 09:00 06/21/17 08:59 05/23/17 09:39 Furosemide (Lasix) 40 mg DAILY IV 05/22/17 09:00 06/21/17 08:59 05/23/17 09:35 Guaifenesin/ Codeine Phosphate (Robitussin with codeine) 5 ml Q6H PRN ORAL For Cough 05/21/17 18:45 06/20/17 18:44 Heparin Sodium (Porcine) (Heparin 5000 units/ml) 5,000 units EVERY 12 HOURS SUBQ 05/21/17 21:00 06/20/17 20:59 05/23/17 09:38 Insulin Aspart (NovoLOG) BEFORE MEALS AND HS SUBQ 05/21/17 21:00 06/20/17 20:59 05/23/17 05:45 Lamotrigine (LaMICtal) 25 mg DAILY ORAL 05/22/17 09:00 06/21/17 08:59 05/23/17 09:35 Methylprednisolone Sodium Succinate (Solu-MEDROL) 40 mg EVERY 12 HOURS IVP 05/23/17 09:00 06/22/17 08:59 05/23/17 09:35 Ondansetron HCl (Zofran) 4 mg Q8H PRN ORAL Nausea & Vomiting 05/21/17 18:45 06/20/17 18:44 Pantoprazole (Protonix) 40 mg DAILY IVP 05/22/17 09:00 06/21/17 08:59 05/23/17 09:34 Piperacillin Sod/ Tazobactam Sod 3.375 gm/Dextrose 110 ml @ 27.5 mls/hr Q8HR@0000,1000,1800 IVPB 05/23/17 18:00 05/28/17 14:59 Quetiapine Fumarate (SEROquel) 50 mg EVERY 4 HOURS PRN ORAL Agitation 05/23/17 10:30 06/22/17 10:29 Vancomycin HCl (Vanco rx to dose) 1 ea DAILY PRN MISC Per rx protocol 05/21/17 13:15 06/20/17 13:14 Verapamil HCl (Calan SR) 180 mg DAILY ORAL 05/23/17 09:00 06/22/17 08:59 05/23/17 10:32 Vitamin B Complex/ Vit C/Folic Acid (Nephrovite) 1 tab DAILY ORAL 05/22/17 09:00 06/21/17 08:59 05/23/17 09:34 Assessment/Plan Assessment/Plan bipolar d/o mdd encephalopathy -seroquel 300mg qhs -lamictal -dina/Kelli Hernández M.D. May 23, 2017 14:24
--- NOTE | 2017-05-23 14:25 | General Progress Note ---
Assessment/Plan Status: stable Assessment/Plan bipolar d/o mdd encephalopathy -seroquel 300mg qhs -lamictal -so/ro -dc cogentin Subjective Date patient seen: May 23, 2017 Neurologic/Psychiatric: Reports: anxiety, depressed, emotional problems Allergies: Coded Allergies: No Known Allergies (Unverified , 05/21/17) Objective Last 24 Hour Vital Signs Date Time Temp Pulse Resp B/P (MAP) Pulse Ox O2 Delivery O2 Flow Rate FiO2 05/23/17 12:56 83 32 98 Facial 30 05/23/17 12:00 97.7 91 46 156/90 95 Venturi Mask 35 97.7 05/23/17 11:52 92 05/23/17 11:00 30 05/23/17 10:32 86 121/85 05/23/17 10:31 86 33 98 Facial 30 05/23/17 10:28 85 22 99 Venturi Mask 6.0 35 05/23/17 10:20 92 20 100 Venturi Mask 6.0 35 05/23/17 08:00 35 05/23/17 08:00 97.9 94 30 121/85 95 Venturi Mask 35 97.9 05/23/17 07:57 94 05/23/17 07:33 82 22 99 6.0 35 05/23/17 07:19 Venturi Mask 6.0 35 05/23/17 07:18 99 Venturi Mask 6.0 35 05/23/17 07:17 69 20 99 Venturi Mask 6.0 35 05/23/17 04:00 80 05/23/17 04:00 30 05/23/17 04:00 97.7 84 19 143/80 97 Bi-pap 30 97.7 05/23/17 03:07 85 30 97 Facial 30 05/23/17 03:06 90 31 97 Bi-pap 30 05/23/17 02:56 88 20 98 Venturi Mask 6.0 35 05/23/17 00:52 87 24 98 Facial 30 05/23/17 00:00 30 05/23/17 00:00 97.7 85 20 130/67 96 Bi-pap 30 97.7 05/23/17 00:00 92 05/22/17 23:28 105 27 94 Facial 30 05/22/17 23:28 105 24 97 Bi-pap 30 05/22/17 23:18 110 24 95 Venturi Mask 6.0 35 05/22/17 20:26 92 160/75 05/22/17 20:25 92 160/75 05/22/17 20:00 97.9 92 18 160/75 99 Bi-pap 30 97.9 05/22/17 20:00 30 05/22/17 20:00 102 05/22/17 19:13 97 20 99 Venturi Mask 6.0 35 05/22/17 19:04 92 20 97 Venturi Mask 6.0 35 05/22/17 19:04 97 Venturi Mask 6.0 35 05/22/17 19:04 Venturi Mask 6.0 35 05/22/17 18:30 35 05/22/17 16:44 99 34 96 Facial 30 05/22/17 16:00 97.9 96 18 150/76 96 Bi-pap 30 97.9 05/22/17 15:50 91 34 98 Bi-pap 30 05/22/17 15:39 93 42 98 Bi-pap 30 05/22/17 15:36 94 05/22/17 14:50 99 39 96 Full Face 30 05/22/17 14:30 30 Intake and Output 05/22/17 05/23/17 19:00 07:00 Intake Total 802.500 ml 912.5 ml Output Total 2400 ml 800 ml Balance -1597.500 ml 112.5 ml Intake Oral 30 ml IV Total 772.500 ml 912.5 ml Output Urine Total 2400 ml 800 ml Laboratory Tests 05/22/17 20:36: Vancomycin Level Trough 24.4H 05/23/17 03:30: White Blood Count 8.7, Red Blood Count 2.67L, Hemoglobin 8.4L, Hematocrit 24.5L , Mean Corpuscular Volume 92, Mean Corpuscular Hemoglobin 31.4H, Mean Corpuscular Hemoglobin Concent 34.3, Red Cell Distribution Width 12.8, Platelet Count 187, Mean Platelet Volume 5.9L, Neutrophils (%) (Auto) , Lymphocytes (%) ( Auto) , Monocytes (%) (Auto) , Eosinophils (%) (Auto) , Basophils (%) (Auto) , Differential Total Cells Counted 100, Neutrophils % (Manual) 91H, Lymphocytes % (Manual) 6L, Monocytes % (Manual) 3, Eosinophils % (Manual) 0, Basophils % ( Manual) 0, Band Neutrophils 0, Platelet Estimate Adequate, Platelet Morphology Normal, Hypochromasia 1+, Sodium Level 137, Potassium Level 4.3, Chloride Level 100, Carbon Dioxide Level 26, Anion Gap 11, Blood Urea Nitrogen 19H, Creatinine 1.6H, Estimat Glomerular Filtration Rate 32.6, Glucose Level 178H, Calcium Level 8.9, Troponin I 0.037, Pro-B-Type Natriuretic Peptide 9104H, Random Vancomycin Level 30.0 Height (Feet): 5 Height (Inches): 6.00 Weight (Pounds): 260 General Appearance: no apparent distress, alert, agitated Neurologic: oriented x 3, responsive, depressed affect Kelli Norton M.D. May 23, 2017 14:25
[2017-05-23 16:00] VITALS: BP 156/79
[2017-05-23] MEDS: Piperacillin/Tazobactam 3.375 GM in D5W 110 ML IVPB SCH ×2 (17:49→23:42)
--- NOTE | 2017-05-23 18:54 | Cardiology Report ---
APPROVED REPORT EXAM: Two-dimensional and M-mode echocardiogram with Doppler and color Doppler. INDICATION Congestive Heart Failure M-Mode DIMENSIONS IVSd1.3 (0.7-1.1cm)Left Atrium (MM)4.0 (1.6-4.0cm) LVDd5.0 (3.5-5.6cm)Aortic Root3.1 (2.0-3.7cm) PWd1.2 (0.7-1.1cm)Aortic Cusp Exc.1.6 (1.5-2.0cm) LVDs3.3 (2.5-4.0cm) PWs1.7 cm Technically difficult study due to patients breathing. Study quality precludes accurate assessment of regional wall motion. Normal left ventricular chamber size, systolic function and wall motion. Left ventricular ejection fraction estimated to be 55 %. Mild left ventricular hypertrophy. Anterior Echo-free space, may be due to pericardial fat or effusion. All other cardiac chamber sizes are within normal limits. Focal aortic valve sclerosis with adequate cusp excursion. Thickened mitral valve leaflets with normal excursion. Mild mitral annulus and aortic root calcification. Normal pulmonic valve structure. Normal tricuspid valve structure. IVC dilated at 2.2 cm without physiological collapse, estimated RAP is 15 mmHg. A color flow and spectral Doppler study was performed and revealed: No aortic insufficiency. Mild mitral regurgitation. Normal left ventricular diastolic function. Trace tricuspid regurgitation. Tricuspid systolic velocities suggests peak right ventricular systolic pressure of 39 mmHg, consistent with mild pulmonary hypertension. Trace pulmonic regurgitation present.
--- NOTE | 2017-05-23 19:19 | Cardiology Report ---
APPROVED REPORT EKG Measurement Heart [id number] Sinus tachycardia Cannot rule out Anterior infarct, age undetermined Abnormal ECG
[2017-05-23 20:00] VITALS: BP 156/82
[2017-05-23] MEDS: Docusate 100mg/10ml Liq ORAL SCH (21:00)
--- NOTE | 2017-05-23 21:05 | Wound Care Consultation ---
Wound Assessment Wound Assessment #1: Wound Number: 1 Wound Present on Admission: Yes New Wound: No Status Change of Wound: No Wound Location Body Site Modif: mid Wound Location Body Site: other - Sacrococcygeal Wound Type: pressure ulcer Cedric Test: Does not Cedric Pressure Ulcer Stage: I Wound Length: 4.5 Wound Width: 5.0 Percent of Wound [place]/Red: 100 Wound Drainage Amount: None Wound Drainage Odor: None/Absent Tissue Surrounding Wound: Erythemic Wound General Appearance: Reddened Wound Assessment #2: Wound Number: 2 Wound Present on Admission: Yes New Wound: No Status Change of Wound: No Wound Location Body Site: perineal area Wound Type: chemical burn Cedric Test: Does not Cedric Percent of Wound [place]/Red: 100 Wound Drainage Amount: None Wound Drainage Odor: None/Absent Tissue Surrounding Wound: Intact Wound General Appearance: Reddened Wound Comment #1 Sacrococcygeal stage I pressure ulcer #2 chemical burn on perineal area Recommendation -Local wound care per protocol -Turn and reposition -Keep clean and dry -Optimize nutrition -Low air loss mattress -Offload both heels -Heel protector on both heels -Assess and f/u accordingly for any changes ARLIN VALENCIA RN May 23, 2017 21:05
--- NOTE | 2017-05-23 23:24 | Pulmonolgy Critical Care Note ---
Critical Care - Asmt/Plan Assessment/Plan: HPI 61 y/o F with hx of COPD, discharged from [facility] 1 day ago after treatment for Pneumonia, PMH of HLD presents, Schizoaffective disorder, presented to the to ED with shortness of breath, noted to have oxygen desaturation 85%. Placed on Bipap in ED and admitted to [facility]. Low grade fever of 100.9 previously noted no leukocytosis CXR with infiltrates. Allergies: Coded Allergies: No Known Allergies (Unverified , 05/21/17) Patient History Healthcare decision maker Resuscitation status Advanced Directive on File Patient History Narrative Pmx: as above Shx: reviewed Fhx: non contributory Review of Systems All Other Systems: negative except mentioned in HPI Physical Exam Physical Exam Narrative General Appearance: no apparent distress, alert HEENT normocephalic, atraumatic, PERR, normal pharynx Neck: full range of motion, supple/symm/no masses Respiratory: chest non-tender, lungs clear, normal breath sounds, speaking full sentences Cardiovascular : regular rate, rhythm, no edema Gastrointestinal: normal bowel sounds, non tender, soft, non-distended, no guarding, no rebound Genitourinary: normal inspection, no CVA tenderness Musculoskeletal: back normal, gait/station normal, normal range of motion, non- tender Neurologic: alert, oriented x3, responsive, motor strength/tone normal, sensory intact, speech normal Skin: normal color, no rash, warm/dry, well hydrated Last 24 Hour Vital Signs Date Time Temp Pulse Resp B/P (MAP) Pulse Ox O2 Delivery O2 Flow Rate FiO2 05/21/17 11:59 30 05/21/17 11:52 100.4 22 144/96 100 Bi-pap 1.0 30 100.4 05/21/17 11:36 30 05/21/17 11:35 102 22 100 Bi-pap 30 05/21/17 11:31 99 22 99 Bi-pap 30 05/21/17 11:31 99 22 99 Bi-pap 30 05/21/17 11:28 30 05/21/17 11:22 103 22 99 Facial 30 05/21/17 11:17 98 22 99 Bi-pap 30 05/21/17 11:14 30 05/21/17 11:12 92 22 99 Bi-pap 30 05/21/17 09:46 22 146/97 100 Nasal Cannula 1.0 24 05/21/17 09:46 98 22 Nasal Cannula 1.0 24 05/21/17 08:51 98 22 100 Nasal Cannula 1.0 24 05/21/17 08:40 94 22 98 Nasal Cannula 1.0 24 05/21/17 08:40 24 05/21/17 08:18 108 24 170/86 90 Laboratory Tests Test 05/21/17 08:49 05/21/17 09:04 05/21/17 11:33 Sodium Level 129 MMOL/L (136-145) L Potassium Level 4.6 MMOL/L (3.5-5.1) Chloride Level 96 MMOL/L (98-107) L Carbon Dioxide Level 29 MMOL/L (21-32) Anion Gap 4 mmol/L (5-15) L Blood Urea Nitrogen 12 mg/dL (7-18) Creatinine 1.3 MG/DL (0.55-1.30) Estimat Glomerular Filtration Rate 41.5 mL/min (>60) Glucose Level 114 MG/DL (74-106) H Lactic Acid Level 0.50 mmol/L (0.66-2.22) L Calcium Level 9.0 MG/DL (8.5-10.1) Total Bilirubin 0.3 MG/DL (0.2-1.0) Aspartate Amino Transf (AST/SGOT) 28 U/L (15-37) Alanine Aminotransferase (ALT/SGPT) 26 U/L (12-78) Alkaline Phosphatase 82 U/L (46-116) Total Creatine Kinase 78 U/L (26-308) Troponin I 0.031 ng/mL (0.000-0.056) Pro-B-Type Natriuretic Peptide 2661 pg/mL (0-125) H Total Protein 6.2 G/DL (6.4-8.2) L Albumin 2.6 G/DL (3.4-5.0) L Globulin 3.6 g/dL Albumin/Globulin Ratio 0.7 (1.0-2.7) L Lipase 119 U/L (73-393) White Blood Count 8.2 K/UL (4.8-10.8) Red Blood Count 2.94 M/UL (4.20-5.40) L Hemoglobin 8.9 G/DL (12.0-16.0) L Hematocrit 26.9 % (37.0-47.0) L Mean Corpuscular Volume 92 FL (80-99) Mean Corpuscular Hemoglobin 30.5 PG (27.0-31.0) Mean Corpuscular Hemoglobin Concent 33.3 G/DL (32.0-36.0) Red Cell Distribution Width 12.1 % (11.6-14.8) Platelet Count 244 K/UL (150-450) Mean Platelet Volume 6.4 FL (6.5-10.1) L Neutrophils (%) (Auto) 84.2 % (45.0-75.0) H Lymphocytes (%) (Auto) 7.6 % (20.0-45.0) L Monocytes (%) (Auto) 5.4 % (1.0-10.0) Eosinophils (%) (Auto) 2.1 % (0.0-3.0) Basophils (%) (Auto) 0.7 % (0.0-2.0) Prothrombin Time 10.0 SEC (9.30-11.50) Prothromb Time International Ratio 1.0 (0.9-1.1) Activated Partial Thromboplast Time 27 SEC (23-33) Urine Color Pale yellow Urine Appearance Slightly cloudy Urine pH 7 (4.5-8.0) Urine Specific [place] 1.000 (1.005-1.035) Urine Protein 2+ (NEGATIVE) H Urine Glucose (UA) Negative (NEGATIVE) Urine Ketones Negative (NEGATIVE) Urine Occult Blood 4+ (NEGATIVE) H Urine Nitrite Negative (NEGATIVE) Urine Bilirubin Negative (NEGATIVE) Urine Urobilinogen Normal MG/DL (0.0-1.0) Urine Leukocyte Esterase 1+ (NEGATIVE) H Urine RBC 15-20 /HPF (0 - 2) H Urine WBC 5-10 /HPF (0 - 2) H Urine Squamous Epithelial Cells Moderate /LPF (NONE/OCC) H Urine Bacteria Few /HPF (NONE) Height (Feet): 5 Height (Inches): 6.00 Weight (Pounds): 250 Assessment/Plan Assessment/Plan Abx: IV vanco x1 3/24 Cefepime x1 3/24 Levaquin x1 3/24 Impression: Fever improved Possible HCAP vs Asp Pneumonia, need to r/o influenza -CXR: Bilateral interstitial and patchy airspace edema/infiltrates, right greater than left. Lung base atelectasis. Clinical correlation/follow-up recommended. COPD exacerbation No leukocytosis HLD Schizoaffective disorder Recent PNA Plan: -Continue IV Vancomycin, Zosyn, tamiflu and Azithromycin per ID -influenza sc, sputum cx, legionella ag urine -f/u cx -Monitor labs -aspiration precautions - Reduce steroids Thank you for this consultation. Discussed with RN. Critical Care - Objective Last 24 Hour Vital Signs Date Time Temp Pulse Resp B/P (MAP) Pulse Ox O2 Delivery O2 Flow Rate FiO2 05/23/17 19:30 40 05/23/17 19:10 Venturi Mask 8.0 40 05/23/17 19:10 Venturi Mask 8.0 40 05/23/17 19:08 Venturi Mask 8.0 40 05/23/17 19:08 97 Venturi Mask 8.0 40 05/23/17 16:00 98.2 99 46 156/79 97 Venturi Mask 35 98.2 05/23/17 15:14 103 05/23/17 15:12 30 05/23/17 15:10 89 22 99 Venturi Mask 6.0 35 05/23/17 14:45 94 20 98 Venturi Mask 6.0 35 05/23/17 12:56 83 32 98 Facial 30 05/23/17 12:00 97.7 91 46 156/90 95 Venturi Mask 35 97.7 05/23/17 11:52 92 05/23/17 11:00 30 05/23/17 10:32 86 121/85 05/23/17 10:31 86 33 98 Facial 30 05/23/17 10:28 85 22 99 Venturi Mask 6.0 35 05/23/17 10:20 92 20 100 Venturi Mask 6.0 35 05/23/17 08:00 35 05/23/17 08:00 97.9 94 30 121/85 95 Venturi Mask 35 97.9 05/23/17 07:57 94 05/23/17 07:33 82 22 99 6.0 35 05/23/17 07:19 Venturi Mask 6.0 35 05/23/17 07:18 99 Venturi Mask 6.0 35 05/23/17 07:17 69 20 99 Venturi Mask 6.0 35 05/23/17 04:00 80 05/23/17 04:00 30 05/23/17 04:00 97.7 84 19 143/80 97 Bi-pap 30 97.7 05/23/17 03:07 85 30 97 Facial 30 05/23/17 03:06 90 31 97 Bi-pap 30 05/23/17 02:56 88 20 98 Venturi Mask 6.0 35 05/23/17 00:52 87 24 98 Facial 30 05/23/17 00:00 30 05/23/17 00:00 97.7 85 20 130/67 96 Bi-pap 30 97.7 05/23/17 00:00 92 05/22/17 23:28 105 27 94 Facial 30 05/22/17 23:28 105 24 97 Bi-pap 30 Micro: Microbiology Date/Time Source Procedure Growth Status 05/21/17 09:04 Blood Blood Culture - Preliminary NO GROWTH AFTER 24 HOURS Resulted 05/21/17 09:04 Blood Blood Culture - Preliminary NO GROWTH AFTER 24 HOURS Resulted 05/21/17 18:20 Nasopharynx Influenza Types A,B Antigen (LIZETTE) - Final Complete 05/21/17 10:59 Nasal Nares MRSA Culture - Final NO METHICILLIN RESISTANT STAPH AUREUS... Complete 05/22/17 11:00 Urine,Clean Catch Urine Culture - Preliminary NO GROWTH AFTER 24 HOURS Resulted 05/21/17 10:59 Rectum VRE Culture - Final Enterococcus Faecium - Vre Complete Accucheck: 150 Critical Care - Subjective ROS Limited/Unobtainable: Yes Condition: improving EKG Rhythm: Sinus Rhythm FI02: 40 Vent Support Breath Rate: 16 Vent Support Mode: BiLevel Sputum Amount: None I&O: Intake and Output 05/22/17 05/23/17 19:00 07:00 Intake Total 802.500 ml 912.5 ml Output Total 2400 ml 800 ml Balance -1597.500 ml 112.5 ml Intake Oral 30 ml IV Total 772.500 ml 912.5 ml Output Urine Total 2400 ml 800 ml Girish Molina M.D. May 23, 2017 23:24
--- NOTE | 2017-05-23 23:34 | Cardiology Progress Note ---
Assessment/Plan Assessment/Plan 1. Sinus tachycardia most likely due to underlying pneumonia, hypoxemia and breathing treatment. Increase verapamil to 240mg daily. 2. Hypertension, cstage II, increase verapamil. Echo shows normal LVEF. 3. History of COPD with mild pulmonary HTN. 4. Morbid obesity. 5. Respiratory failure on bipap mask. 6. Bigeminy VPCs on verapamil. Subjective Subjective Sinus rhythm at 99. On venturi mask. Objective Last 24 Hour Vital Signs Date Time Temp Pulse Resp B/P (MAP) Pulse Ox O2 Delivery O2 Flow Rate FiO2 05/23/17 19:30 40 05/23/17 19:10 Venturi Mask 8.0 40 05/23/17 19:10 Venturi Mask 8.0 40 05/23/17 19:08 Venturi Mask 8.0 40 05/23/17 19:08 97 Venturi Mask 8.0 40 05/23/17 16:00 98.2 99 46 156/79 97 Venturi Mask 35 98.2 05/23/17 15:14 103 05/23/17 15:12 30 05/23/17 15:10 89 22 99 Venturi Mask 6.0 35 05/23/17 14:45 94 20 98 Venturi Mask 6.0 35 05/23/17 12:56 83 32 98 Facial 30 05/23/17 12:00 97.7 91 46 156/90 95 Venturi Mask 35 97.7 05/23/17 11:52 92 05/23/17 11:00 30 05/23/17 10:32 86 121/85 05/23/17 10:31 86 33 98 Facial 30 05/23/17 10:28 85 22 99 Venturi Mask 6.0 35 05/23/17 10:20 92 20 100 Venturi Mask 6.0 35 05/23/17 08:00 35 05/23/17 08:00 97.9 94 30 121/85 95 Venturi Mask 35 97.9 05/23/17 07:57 94 05/23/17 07:33 82 22 99 6.0 35 05/23/17 07:19 Venturi Mask 6.0 35 05/23/17 07:18 99 Venturi Mask 6.0 35 05/23/17 07:17 69 20 99 Venturi Mask 6.0 35 05/23/17 04:00 80 05/23/17 04:00 30 05/23/17 04:00 97.7 84 19 143/80 97 Bi-pap 30 97.7 05/23/17 03:07 85 30 97 Facial 30 05/23/17 03:06 90 31 97 Bi-pap 30 05/23/17 02:56 88 20 98 Venturi Mask 6.0 35 05/23/17 00:52 87 24 98 Facial 30 05/23/17 00:00 30 05/23/17 00:00 97.7 85 20 130/67 96 Bi-pap 30 97.7 05/23/17 00:00 92 Intake and Output 05/22/17 05/23/17 19:00 07:00 Intake Total 802.500 ml 912.5 ml Output Total 2400 ml 800 ml Balance -1597.500 ml 112.5 ml Intake Oral 30 ml IV Total 772.500 ml 912.5 ml Output Urine Total 2400 ml 800 ml 2D Echo: EF 55%, Mild LVH, Elevated RAP 15 mmHg, RVSP 39 mmHg, Mild MR Laboratory Tests Test 05/23/17 03:30 White Blood Count 8.7 K/UL (4.8-10.8) Red Blood Count 2.67 M/UL (4.20-5.40) L Hemoglobin 8.4 G/DL (12.0-16.0) L Hematocrit 24.5 % (37.0-47.0) L Mean Corpuscular Volume 92 FL (80-99) Mean Corpuscular Hemoglobin 31.4 PG (27.0-31.0) H Mean Corpuscular Hemoglobin Concent 34.3 G/DL (32.0-36.0) Red Cell Distribution Width 12.8 % (11.6-14.8) Platelet Count 187 K/UL (150-450) Mean Platelet Volume 5.9 FL (6.5-10.1) L Neutrophils (%) (Auto) % (45.0-75.0) Lymphocytes (%) (Auto) % (20.0-45.0) Monocytes (%) (Auto) % (1.0-10.0) Eosinophils (%) (Auto) % (0.0-3.0) Basophils (%) (Auto) % (0.0-2.0) Differential Total Cells Counted 100 Neutrophils % (Manual) 91 % (45-75) H Lymphocytes % (Manual) 6 % (20-45) L Monocytes % (Manual) 3 % (1-10) Eosinophils % (Manual) 0 % (0-3) Basophils % (Manual) 0 % (0-2) Band Neutrophils 0 % (0-8) Platelet Estimate Adequate Platelet Morphology Normal Hypochromasia 1+ Sodium Level 137 MMOL/L (136-145) Potassium Level 4.3 MMOL/L (3.5-5.1) Chloride Level 100 MMOL/L (98-107) Carbon Dioxide Level 26 MMOL/L (21-32) Anion Gap 11 mmol/L (5-15) Blood Urea Nitrogen 19 mg/dL (7-18) H Creatinine 1.6 MG/DL (0.55-1.30) H Estimat Glomerular Filtration Rate 32.6 mL/min (>60) Glucose Level 178 MG/DL (74-106) H Calcium Level 8.9 MG/DL (8.5-10.1) Troponin I 0.037 ng/mL (0.000-0.056) Pro-B-Type Natriuretic Peptide 9104 pg/mL (0-125) H Random Vancomycin Level 30.0 ug/mL Microbiology Date/Time Source Procedure Growth Status 05/21/17 09:04 Blood Blood Culture - Preliminary NO GROWTH AFTER 24 HOURS Resulted 05/21/17 09:04 Blood Blood Culture - Preliminary NO GROWTH AFTER 24 HOURS Resulted 05/21/17 18:20 Nasopharynx Influenza Types A,B Antigen (LIZETTE) - Final Complete 05/21/17 10:59 Nasal Nares MRSA Culture - Final NO METHICILLIN RESISTANT STAPH AUREUS... Complete 05/22/17 11:00 Urine,Clean Catch Urine Culture - Preliminary NO GROWTH AFTER 24 HOURS Resulted 05/21/17 10:59 Rectum VRE Culture - Final Enterococcus Faecium - Vre Complete Objective HEENT: Atraumatic and normocephalic. Anicteric. Pupils are equal, round, and reactive to light and accommodation. Extraocular muscles intact. NECK: JVP less than 5 cm. No carotid bruit. Carotid upstrokes 2+ bilaterally. CARDIOVASCULAR: Normal S1 and S2. Regular rate and rhythm. Tachycardic. No murmurs, gallops, or rubs. LUNGS: Diminished breath sounds. Poor inspiratory effort. Some scattered crackles in both lungs. ABDOMEN: Soft nontender, nondistended. No hepatosplenomegaly. Positive bowel sounds. EXTREMITIES: There is 2+ bilateral edema. SAMANTHA FRASER May 23, 2017 23:34
[2017-05-24] VITALS (7 sets, daily range): BP systolic 142–183; BP diastolic 71–105
[2017-05-24] MEDS: Albuterol/Ipratropium 3ml neb HHN SCH ×6 (03:24→23:50)
[2017-05-24 04:33] LABS: HEMATOCRIT 26.4 % (37.0-47.0); HEMOGLOBIN 8.9 G/DL (12.0-16.0); MEAN CORPUSCULAR VOLUME 93 FL (80-99); PLATELET COUNT 238 K/UL (150-450); RED BLOOD COUNT 2.84 M/UL (4.20-5.40); RED CELL DISTRIBUTION WIDTH 13.1 % (11.6-14.8); WHITE BLOOD COUNT 9.3 K/UL (4.8-10.8)
[2017-05-24 04:37] LABS: ANION GAP 5 mmol/L (5-15); BLOOD UREA NITROGEN 23 mg/dL (7-18); CALCIUM 8.9 MG/DL (8.5-10.1); CARBON DIOXIDE 33 MMOL/L (21-32); CHLORIDE 102 MMOL/L (98-107); CREATININE 1.6 MG/DL (0.55-1.30); POTASSIUM 4.2 MMOL/L (3.5-5.1); SODIUM 140 MMOL/L (136-145)
[2017-05-24] MEDS: NovoLOG Insulin Flexpen SUBQ SCH ×4 (06:30→21:00)
--- NOTE | 2017-05-24 07:25 | General Progress Note ---
Assessment/Plan Status: stable Assessment/Plan ASSESSMENT: This is a 61-year-old white female: 1. Hypoxemic Respiratory failure: DDx , COPD exacerbation , PNA 2. Chronic obstructive pulmonary disease, acute exacerbation. 3. Diabetes type 2. 4. Hypertension. 5. Hyponatremia. 6. GI-DVT prophylaxia 7. Psych d.o 8. Dysphagia Plan: continue Lasix current management consult Dr Norton for Capacity for making medical decision Consult Dr Wilson for PEG placement Subjective ROS Limited/Unobtainable: Yes - anxious, paranoid ideation Allergies: Coded Allergies: No Known Allergies (Unverified , 05/21/17) Objective Last 24 Hour Vital Signs Date Time Temp Pulse Resp B/P (MAP) Pulse Ox O2 Delivery O2 Flow Rate FiO2 05/24/17 04:00 40 05/24/17 04:00 98.8 97 24 159/71 97 Venturi Mask 40 98.8 05/24/17 04:00 105 05/24/17 03:19 100 24 99 Venturi Mask 8.0 40 05/24/17 03:11 98 18 98 Venturi Mask 8.0 40 05/24/17 00:00 99 05/24/17 00:00 98.9 99 24 159/89 97 Venturi Mask 40 98.9 05/24/17 00:00 40 05/23/17 23:29 103 18 99 Venturi Mask 8.0 40 05/23/17 23:24 102 22 97 Venturi Mask 8.0 40 05/23/17 20:00 40 05/23/17 20:00 104 05/23/17 20:00 98.1 99 21 156/82 97 Venturi Mask 40 98.1 05/23/17 19:30 40 05/23/17 19:10 Venturi Mask 8.0 40 05/23/17 19:10 Venturi Mask 8.0 40 05/23/17 19:08 Venturi Mask 8.0 40 05/23/17 19:08 97 Venturi Mask 8.0 40 05/23/17 16:00 98.2 99 46 156/79 97 Venturi Mask 35 98.2 05/23/17 15:14 103 05/23/17 15:12 30 05/23/17 15:10 89 22 99 Venturi Mask 6.0 35 05/23/17 14:45 94 20 98 Venturi Mask 6.0 35 05/23/17 12:56 83 32 98 Facial 30 05/23/17 12:00 97.7 91 46 156/90 95 Venturi Mask 35 97.7 05/23/17 11:52 92 05/23/17 11:00 30 05/23/17 10:32 86 121/85 05/23/17 10:31 86 33 98 Facial 30 05/23/17 10:28 85 22 99 Venturi Mask 6.0 35 05/23/17 10:20 92 20 100 Venturi Mask 6.0 35 05/23/17 08:00 35 05/23/17 08:00 97.9 94 30 121/85 95 Venturi Mask 35 97.9 05/23/17 07:57 94 05/23/17 07:33 82 22 99 6.0 35 Intake and Output 05/23/17 05/24/17 19:00 07:00 Intake Total 497.5 ml 557.5 ml Output Total 2000 ml 1400 ml Balance -1502.5 ml -842.5 ml IV Total 497.5 ml 557.5 ml Output Urine Total 2000 ml 1400 ml Laboratory Tests 05/24/17 03:30: White Blood Count 9.3, Red Blood Count 2.84L, Hemoglobin 8.9L, Hematocrit 26.4L , Mean Corpuscular Volume 93, Mean Corpuscular Hemoglobin 31.3H, Mean Corpuscular Hemoglobin Concent 33.7, Red Cell Distribution Width 13.1, Platelet Count 238, Mean Platelet Volume 5.6L, Neutrophils (%) (Auto) , Lymphocytes (%) ( Auto) , Monocytes (%) (Auto) , Eosinophils (%) (Auto) , Basophils (%) (Auto) , Sodium Level 140, Potassium Level 4.2, Chloride Level 102, Carbon Dioxide Level 33H, Anion Gap 5, Blood Urea Nitrogen 23H, Creatinine 1.6H, Estimat Glomerular Filtration Rate 32.6, Glucose Level 178H, Calcium Level 8.9 Height (Feet): 5 Height (Inches): 6.00 Weight (Pounds): 260 General Appearance: no apparent distress, other - on BIpap, not capable to stay off for long time EENT: PERRL/EOMI Neck: supple Cardiovascular: tachycardia Respiratory/Chest: rhonchi - bilaterally, other Abdomen: soft, other - morbidly obese Extremities: non-tender, other - decreased ROM secondary to morbid obesity Neurologic: feather trimmer II-XII grossly normal, other - paranoid ideation Shoshana Norman MD May 24, 2017 07:25
[2017-05-24] MEDS ORDERED: Verapamil SR 240mg tab ORAL SCH (09:00)
[2017-05-24] MEDS ORDERED: Solu-MEDROL 40mg Inj IVP SCH (09:00)
[2017-05-24] MEDS: Docusate 100mg/10ml Liq ORAL SCH ×2 (09:37→21:04)
[2017-05-24] MEDS: Pantoprazole Inj IVP SCH (09:37)
[2017-05-24] MEDS: Ascorbic Acid 500mg tab ORAL SCH (09:38)
[2017-05-24] MEDS: Nephrovite tab (Rena-Vite) ORAL SCH (09:39)
[2017-05-24] MEDS: Heparin 5000 units/ml inj SUBQ SCH ×2 (09:45→21:05)
[2017-05-24] MEDS: Piperacillin/Tazobactam 3.375 GM in D5W 110 ML IVPB SCH ×3 (10:10→23:53)
--- NOTE | 2017-05-24 11:45 | Diagnostic Imaging Report ---
Indication: Shortness of breath Technique: One view of the chest Comparison: 05/21/2017 Findings: Extensive diffuse bilateral interstitial and alveolar infiltrates versus edema again demonstrated, appearing slightly improved in the right upper lobe. Cardiomegaly persists. Left sided pleural effusion persists. Impression: Slight improvement in the right upper lobe but otherwise stable bilateral parenchymal infiltrates versus edema, over 3 days
--- NOTE | 2017-05-24 12:05 | Infectious Diseases Prog Note ---
Assessment/Plan Assessment/Plan Assessment: Fever, resolved Possible HCAP vs Asp PNA- -CXR 05/24: Slight improvement in the right upper lobe but otherwise stable bilateral parenchymal infiltrates versus edema, over 3 days -CXR: Bilateral interstitial and patchy airspace edema/infiltrates, right greater than left. Lung base atelectasis. Clinical correlation/follow-up recommended. -sp cx unable to be collected -influenza sc neg -legionella ag urine COPD exacerbation Acute respiratory failure -2ry to above No leukocytosis HLD Schizoaffective disorder Recent PNA Plan: -Continue IV Vancomycin, Zosyn #4/7-10 pending sputum cx and Azithromycin #4/5 -05/22 SP Tamiflu #2 -05/21 SP Cefepime x1, Levaquin x1 -f/u cx -Monitor CBC/BMP, temperatures -aspiration precautions Thank you for this consultation. Will continue to follow along with you. Discussed with RN. Subjective Allergies: Coded Allergies: No Known Allergies (Unverified , 05/21/17) Subjective afebrile in 72 hrs no leukocytosis sp cx not collected remains on venturi mask Objective Vital Signs Last 24 Hour Vital Signs Date Time Temp Pulse Resp B/P (MAP) Pulse Ox O2 Delivery O2 Flow Rate FiO2 05/24/17 11:51 92 20 96 Venturi Mask 8.0 40 05/24/17 11:50 90 20 96 Venturi Mask 8.0 40 05/24/17 09:39 94 153/85 05/24/17 09:00 40 05/24/17 08:16 94 22 96 Venturi Mask 8.0 40 05/24/17 08:15 97 20 98 Venturi Mask 8.0 40 05/24/17 08:15 Venturi Mask 8.0 40 05/24/17 08:12 96 Venturi Mask 8.0 40 05/24/17 08:00 98.8 99 23 153/85 98 Venturi Mask 40 98.8 05/24/17 08:00 94 05/24/17 04:00 40 05/24/17 04:00 98.8 97 24 159/71 97 Venturi Mask 40 98.8 05/24/17 04:00 105 05/24/17 03:19 100 24 99 Venturi Mask 8.0 40 05/24/17 03:11 98 18 98 Venturi Mask 8.0 40 05/24/17 00:00 99 05/24/17 00:00 98.9 99 24 159/89 97 Venturi Mask 40 98.9 05/24/17 00:00 40 05/23/17 23:29 103 18 99 Venturi Mask 8.0 40 05/23/17 23:24 102 22 97 Venturi Mask 8.0 40 05/23/17 20:00 40 05/23/17 20:00 104 05/23/17 20:00 98.1 99 21 156/82 97 Venturi Mask 40 98.1 05/23/17 19:30 40 05/23/17 19:10 Venturi Mask 8.0 40 05/23/17 19:10 Venturi Mask 8.0 40 05/23/17 19:08 Venturi Mask 8.0 40 05/23/17 19:08 97 Venturi Mask 8.0 40 05/23/17 16:00 98.2 99 46 156/79 97 Venturi Mask 35 98.2 05/23/17 15:14 103 05/23/17 15:12 30 05/23/17 15:10 89 22 99 Venturi Mask 6.0 35 05/23/17 14:45 94 20 98 Venturi Mask 6.0 35 05/23/17 12:56 83 32 98 Facial 30 05/23/17 12:00 97.7 91 46 156/90 95 Venturi Mask 35 97.7 Height (Feet): 5 Height (Inches): 6.00 Weight (Pounds): 260 Objective General Appearance: no apparent distress, alert HEENT normocephalic, atraumatic, PERR, normal pharynx Neck: full range of motion, supple/symm/no masses Respiratory: chest non-tender, lungs clear, normal breath sounds, speaking full sentences Cardiovascular : regular rate, rhythm, no edema Gastrointestinal: normal bowel sounds, non tender, soft, non-distended, no guarding, no rebound Genitourinary: normal inspection, no CVA tenderness Musculoskeletal: back normal, gait/station normal, normal range of motion, non- tender Neurologic: alert, oriented x3, responsive, motor strength/tone normal, sensory intact, speech normal Skin: normal color, no rash, warm/dry, well hydrated Microbiology Date/Time Source Procedure Growth Status 05/21/17 18:20 Nasopharynx Influenza Types A,B Antigen (LIZETTE) - Final Complete 05/22/17 11:00 Urine,Clean Catch Urine Culture - Final NO GROWTH AFTER 48 HOURS Complete Laboratory Tests Test 05/24/17 03:30 White Blood Count 9.3 K/UL (4.8-10.8) Red Blood Count 2.84 M/UL (4.20-5.40) L Hemoglobin 8.9 G/DL (12.0-16.0) L Hematocrit 26.4 % (37.0-47.0) L Mean Corpuscular Volume 93 FL (80-99) Mean Corpuscular Hemoglobin 31.3 PG (27.0-31.0) H Mean Corpuscular Hemoglobin Concent 33.7 G/DL (32.0-36.0) Red Cell Distribution Width 13.1 % (11.6-14.8) Platelet Count 238 K/UL (150-450) Mean Platelet Volume 5.6 FL (6.5-10.1) L Neutrophils (%) (Auto) % (45.0-75.0) Lymphocytes (%) (Auto) % (20.0-45.0) Monocytes (%) (Auto) % (1.0-10.0) Eosinophils (%) (Auto) % (0.0-3.0) Basophils (%) (Auto) % (0.0-2.0) Sodium Level 140 MMOL/L (136-145) Potassium Level 4.2 MMOL/L (3.5-5.1) Chloride Level 102 MMOL/L (98-107) Carbon Dioxide Level 33 MMOL/L (21-32) H Anion Gap 5 mmol/L (5-15) Blood Urea Nitrogen 23 mg/dL (7-18) H Creatinine 1.6 MG/DL (0.55-1.30) H Estimat Glomerular Filtration Rate 32.6 mL/min (>60) Glucose Level 178 MG/DL (74-106) H Calcium Level 8.9 MG/DL (8.5-10.1) Current Medications Medications (Trade) Dose Ordered Sig/Wale Route PRN Reason Start Time Stop Time Status Last Admin Dose Admin Acetaminophen (Tylenol) 650 mg Q4H PRN RECTAL MILD PAIN/T>100.5 05/21/17 19:15 06/20/17 19:14 Albuterol/ Ipratropium (Albuterol/ Ipratropium) 3 ml Q4HRT HHN 05/21/17 19:00 05/26/17 18:59 05/24/17 11:48 Albuterol/ Ipratropium (Albuterol/ Ipratropium) 3 ml Q6H PRN HHN Shortness of Breath 05/21/17 16:45 05/26/17 16:44 05/21/17 16:47 Ascorbic Acid (Vitamin C) 500 mg DAILY ORAL 05/22/17 09:00 06/21/17 08:59 05/24/17 09:38 Atorvastatin Calcium (Lipitor) 10 mg BEDTIME ORAL 05/21/17 21:00 06/20/17 20:59 05/23/17 20:56 Dextrose (Dextrose 50%) STAT PRN IV Hypoglycemia 05/21/17 18:45 06/20/17 18:44 Dextrose/Sodium Chloride 1,000 ml @ 60 mls/hr [id number] IV 05/21/17 19:45 06/20/17 19:44 05/23/17 22:07 Docusate Sodium (Colace) 100 mg Q12HR ORAL 05/23/17 21:00 06/22/17 20:59 05/24/17 09:37 Folic Acid (Folate) 1 mg DAILY ORAL 05/22/17 09:00 06/21/17 08:59 05/24/17 09:37 Furosemide (Lasix) 40 mg DAILY IV 05/22/17 09:00 06/21/17 08:59 05/24/17 09:37 Guaifenesin/ Codeine Phosphate (Robitussin with codeine) 5 ml Q6H PRN ORAL For Cough 05/21/17 18:45 06/20/17 18:44 Heparin Sodium (Porcine) (Heparin 5000 units/ml) 5,000 units EVERY 12 HOURS SUBQ 05/21/17 21:00 06/20/17 20:59 05/24/17 09:45 Insulin Aspart (NovoLOG) BEFORE MEALS AND HS SUBQ 05/21/17 21:00 06/20/17 20:59 05/23/17 16:35 Lamotrigine (LaMICtal) 25 mg DAILY ORAL 05/22/17 09:00 06/21/17 08:59 05/24/17 09:38 Methylprednisolone Sodium Succinate (Solu-MEDROL) 40 mg DAILY IVP 05/24/17 09:00 06/22/17 08:59 05/24/17 09:37 Ondansetron HCl (Zofran) 4 mg Q8H PRN ORAL Nausea & Vomiting 05/21/17 18:45 06/20/17 18:44 Pantoprazole (Protonix) 40 mg DAILY IVP 05/22/17 09:00 06/21/17 08:59 05/24/17 09:37 Piperacillin Sod/ Tazobactam Sod 3.375 gm/Dextrose 110 ml @ 27.5 mls/hr Q8HR@0000,1000,1800 IVPB 05/23/17 18:00 05/28/17 14:59 05/24/17 10:10 Quetiapine Fumarate (SEROquel) 50 mg EVERY 4 HOURS PRN ORAL Agitation 05/23/17 10:30 06/22/17 10:29 05/24/17 01:00 Vancomycin HCl (Vanco rx to dose) 1 ea DAILY PRN MISC Per rx protocol 05/21/17 13:15 06/20/17 13:14 Verapamil HCl (Calan SR) 240 mg DAILY ORAL 05/24/17 09:00 06/23/17 08:59 05/24/17 09:39 Vitamin B Complex/ Vit C/Folic Acid (Nephrovite) 1 tab DAILY ORAL 05/22/17 09:00 06/21/17 08:59 05/24/17 09:39 Crystal Ruth M.D. May 24, 2017 12:05
--- NOTE | 2017-05-24 12:30 | General Progress Note ---
Assessment/Plan Assessment/Plan bipolar d/o mdd encephalopathy -seroquel 300mg qhs -lamictal -so/ro -dc cogentin -seroquel 25 q6hr/prn Subjective Date patient seen: May 24, 2017 Neurologic/Psychiatric: Reports: anxiety, depressed, emotional problems Allergies: Coded Allergies: No Known Allergies (Unverified , 05/21/17) Subjective the pt is agitated npo however asks for soup and is illogical Objective Last 24 Hour Vital Signs Date Time Temp Pulse Resp B/P (MAP) Pulse Ox O2 Delivery O2 Flow Rate FiO2 05/24/17 12:01 40 05/24/17 11:51 92 20 96 Venturi Mask 8.0 40 05/24/17 11:50 90 20 96 Venturi Mask 8.0 40 05/24/17 09:39 94 153/85 05/24/17 09:00 40 05/24/17 08:16 94 22 96 Venturi Mask 8.0 40 05/24/17 08:15 97 20 98 Venturi Mask 8.0 40 05/24/17 08:15 Venturi Mask 8.0 40 05/24/17 08:12 96 Venturi Mask 8.0 40 05/24/17 08:00 98.8 99 23 153/85 98 Venturi Mask 40 98.8 05/24/17 08:00 94 05/24/17 04:00 40 05/24/17 04:00 98.8 97 24 159/71 97 Venturi Mask 40 98.8 05/24/17 04:00 105 05/24/17 03:19 100 24 99 Venturi Mask 8.0 40 05/24/17 03:11 98 18 98 Venturi Mask 8.0 40 05/24/17 00:00 99 05/24/17 00:00 98.9 99 24 159/89 97 Venturi Mask 40 98.9 05/24/17 00:00 40 05/23/17 23:29 103 18 99 Venturi Mask 8.0 40 05/23/17 23:24 102 22 97 Venturi Mask 8.0 40 05/23/17 20:00 40 05/23/17 20:00 104 05/23/17 20:00 98.1 99 21 156/82 97 Venturi Mask 40 98.1 05/23/17 19:30 40 05/23/17 19:10 Venturi Mask 8.0 40 05/23/17 19:10 Venturi Mask 8.0 40 05/23/17 19:08 Venturi Mask 8.0 40 05/23/17 19:08 97 Venturi Mask 8.0 40 05/23/17 16:00 98.2 99 46 156/79 97 Venturi Mask 35 98.2 05/23/17 15:14 103 05/23/17 15:12 30 05/23/17 15:10 89 22 99 Venturi Mask 6.0 35 05/23/17 14:45 94 20 98 Venturi Mask 6.0 35 05/23/17 12:56 83 32 98 Facial 30 Intake and Output 05/23/17 05/24/17 19:00 07:00 Intake Total 497.5 ml 857.5 ml Output Total 2000 ml 1400 ml Balance -1502.5 ml -542.5 ml IV Total 497.5 ml 857.5 ml Output Urine Total 2000 ml 1400 ml Laboratory Tests 05/24/17 03:30: White Blood Count 9.3, Red Blood Count 2.84L, Hemoglobin 8.9L, Hematocrit 26.4L , Mean Corpuscular Volume 93, Mean Corpuscular Hemoglobin 31.3H, Mean Corpuscular Hemoglobin Concent 33.7, Red Cell Distribution Width 13.1, Platelet Count 238, Mean Platelet Volume 5.6L, Neutrophils (%) (Auto) , Lymphocytes (%) ( Auto) , Monocytes (%) (Auto) , Eosinophils (%) (Auto) , Basophils (%) (Auto) , Sodium Level 140, Potassium Level 4.2, Chloride Level 102, Carbon Dioxide Level 33H, Anion Gap 5, Blood Urea Nitrogen 23H, Creatinine 1.6H, Estimat Glomerular Filtration Rate 32.6, Glucose Level 178H, Calcium Level 8.9 Height (Feet): 5 Height (Inches): 6.00 Weight (Pounds): 260 General Appearance: no apparent distress, alert, agitated Kelli Norton M.D. May 24, 2017 12:30
[2017-05-24] MEDS: D5 1/2NS 1,000 ML IV SCH ×2 (14:54→22:04)
--- NOTE | 2017-05-24 15:31 | GI Initial Consult Note ---
History of Present Illness General Date patient seen: May 24, 2017 Time patient seen: 15:19 Reason for Hospitalization: Dyspnea/Respdistress Referring physician: VEGA SANTILLAN Reason for Consultation: PEG EVALUATION Present Illness HPI The patient presents with dyspnea and cough. She was discharged from a hospital yesterday for pneumonia. The patient is a history of COPD. In the field her oxygen saturations were 85%. She didn't tolerate them pretty on oxygen. GI consulted for PEG evaluation. Pt seen, awake A&O NAD hx of bipolar/ schizophrenia. Notes reviewed. Pt presents today with reports of dysphagia. Pt from SNF was on regular texture diet and thin liquids. But noted to be high risk for silent aspiration here. Per RN report, refusing NGT. Unknown history of endoscopy / colonoscopy. Home Meds Reported Medications Ondansetron (Zofran) 4 Mg Tablet, 4 MG ORAL Q8H PRN for Nausea & Vomiting, #10 TAB 0 Refills 05/21/17 Ascorbic Acid* (ASCORBIC ACID*) 500 Mg Tablet, 500 MG ORAL DAILY, TAB 05/21/17 Valsartan (DIOVAN) 80 Mg Tab, 160 MG PO BID, TAB 05/21/17 Acetaminophen* (TYLENOL*) 120 Mg Supp.rect, 650 MG PO Q4H PRN for Mild Pain/ Temp > 100.5, SUPP 05/21/17 Calcium Carbonate (TUMS) 300 Mg Tab.chew, 500 MG PO BID, TAB 05/21/17 Atorvastatin Calcium* (LIPITOR*) 10 Mg Tablet, 10 MG ORAL BEDTIME, TAB 05/21/17 Lamotrigine (LAMICTAL) 25 Mg Tb.chw.dsp, 25 MG PO DAILY, TAB 05/21/17 Labetalol HCl (Labetalol HCl) 200 Mg Tablet, 200 MG ORAL BID, TAB 05/21/17 Ipratropium [place] 0.5MG/2.5ML (IPRATROPIUM BROMIDE 0.5MG/2.5ML) 0.2 Mg/1 Ml Solution, 0.5 MG HHN Q4HR PRN for Shortness of Breath, #28 EA 05/21/17 Benztropine Mesylate (Cogentin 1mg*) 1 Mg Tablet, 1 MG ORAL BEDTIME, TAB 05/21/17 Insulin Regular, Human (HUMULIN R) 100 Unit/1 Ml Vial, 100 SUBQ, VIAL 05/21/17 Folic Acid (Folic Acid) 1 Mg Tablet, 1 MG PO DAILY, TAB 05/21/17 Famotidine (FAMOTIDINE) 20 Mg Tablet, 20 MG ORAL TWICE A DAY, #60 TAB 0 Refills 05/21/17 Docusate Sodium (DOCUSATE SODIUM) 100 Mg Tablet, 100 MG ORAL EVERY 12 HOURS, # 60 TAB 0 Refills 05/21/17 Amlodipine Besylate (Norvasc) 5 Mg Tablet, 5 MG PE ORAL EVERY 12 HOURS, TAB 05/21/17 Folic Acid/Vitamin B Comp W-C (LEÓN-HAMIDA TABLET) 0.8 Mg Tablet, 0.8 MG PO DAILY , TAB 05/21/17 Magnesium Hydroxide (Milk of Magnesia) 400 Mg/5 Ml Oral.susp, 30 ML ORAL DAILY, ML 05/21/17 Guaifenesin/Codeine Phosphate (GUAIFENESIN AC COUGH SYRUP) 473 Ml Liquid, 1 TSP ORAL Q6H PRN for For Cough, #473 ML 0 Refills 05/21/17 Med list reviewed/reconciled: Yes Allergies: Coded Allergies: No Known Allergies (Unverified , 05/21/17) Patient History Limited by: medical condition History Provided By: Patient, Medical Record PMH Narrative Past Medical History: see triage record Social History: Denies: smoking - former Social History Narrative longterm facility Reviewed Nursing Documentation: PMH: Agreed; PSxH: Agreed Nursing Documentation-PMH Hx Hypertension: Yes - HYPERLIPIDEMIA Hx COPD: Yes History Of Psychiatric Problem: Yes - BIPOLAR,SCHIZO Social History: Denies: smoking, alcohol use, drug use, other Review of Systems All Other Systems: limited Physical Exam Vital Signs Date Time Temp Pulse Resp B/P (MAP) Pulse Ox O2 Delivery O2 Flow Rate FiO2 05/21/17 08:18 108 24 170/86 90 05/21/17 08:40 24 05/21/17 08:40 Nasal Cannula 1.0 05/21/17 11:52 100.4 100.4 Sp02 EP Interpretation: reviewed Labs Laboratory Tests Test 05/24/17 03:30 White Blood Count 9.3 K/UL (4.8-10.8) Red Blood Count 2.84 M/UL (4.20-5.40) L Hemoglobin 8.9 G/DL (12.0-16.0) L Hematocrit 26.4 % (37.0-47.0) L Mean Corpuscular Volume 93 FL (80-99) Mean Corpuscular Hemoglobin 31.3 PG (27.0-31.0) H Mean Corpuscular Hemoglobin Concent 33.7 G/DL (32.0-36.0) Red Cell Distribution Width 13.1 % (11.6-14.8) Platelet Count 238 K/UL (150-450) Mean Platelet Volume 5.6 FL (6.5-10.1) L Neutrophils (%) (Auto) % (45.0-75.0) Lymphocytes (%) (Auto) % (20.0-45.0) Monocytes (%) (Auto) % (1.0-10.0) Eosinophils (%) (Auto) % (0.0-3.0) Basophils (%) (Auto) % (0.0-2.0) Sodium Level 140 MMOL/L (136-145) Potassium Level 4.2 MMOL/L (3.5-5.1) Chloride Level 102 MMOL/L (98-107) Carbon Dioxide Level 33 MMOL/L (21-32) H Anion Gap 5 mmol/L (5-15) Blood Urea Nitrogen 23 mg/dL (7-18) H Creatinine 1.6 MG/DL (0.55-1.30) H Estimat Glomerular Filtration Rate 32.6 mL/min (>60) Glucose Level 178 MG/DL (74-106) H Calcium Level 8.9 MG/DL (8.5-10.1) General Appearance: well appearing, obese Head: normocephalic EENT: normal ENT inspection Neck: supple Respiratory: normal breath sounds, no respiratory distress Cardiovascular: normal rate Gastrointestinal: soft Neurologic: alert Psychiatric: other - schizophrenia Skin: normal inspection, normal color, no rash Lymphatic: normal inspection Current Medications Current Medications Medications (Trade) Dose Ordered Sig/Wale Route PRN Reason Start Time Stop Time Status Last Admin Dose Admin Acetaminophen (Tylenol) 650 mg Q4H PRN RECTAL MILD PAIN/T>100.5 05/21/17 19:15 06/20/17 19:14 Albuterol/ Ipratropium (Albuterol/ Ipratropium) 3 ml Q4HRT HHN 05/21/17 19:00 05/26/17 18:59 05/24/17 11:48 Albuterol/ Ipratropium (Albuterol/ Ipratropium) 3 ml Q6H PRN HHN Shortness of Breath 05/21/17 16:45 05/26/17 16:44 05/21/17 16:47 Ascorbic Acid (Vitamin C) 500 mg DAILY ORAL 05/22/17 09:00 06/21/17 08:59 05/24/17 09:38 Atorvastatin Calcium (Lipitor) 10 mg BEDTIME ORAL 05/21/17 21:00 06/20/17 20:59 05/23/17 20:56 Dextrose (Dextrose 50%) STAT PRN IV Hypoglycemia 05/21/17 18:45 06/20/17 18:44 Dextrose/Sodium Chloride 1,000 ml @ 60 mls/hr [id number] IV 05/21/17 19:45 06/20/17 19:44 05/24/17 14:54 Docusate Sodium (Colace) 100 mg Q12HR ORAL 05/23/17 21:00 06/22/17 20:59 05/24/17 09:37 Folic Acid (Folate) 1 mg DAILY ORAL 05/22/17 09:00 06/21/17 08:59 05/24/17 09:37 Furosemide (Lasix) 40 mg DAILY IV 05/22/17 09:00 06/21/17 08:59 05/24/17 09:37 Guaifenesin/ Codeine Phosphate (Robitussin with codeine) 5 ml Q6H PRN ORAL For Cough 05/21/17 18:45 06/20/17 18:44 Heparin Sodium (Porcine) (Heparin 5000 units/ml) 5,000 units EVERY 12 HOURS SUBQ 05/21/17 21:00 06/20/17 20:59 05/24/17 09:45 Insulin Aspart (NovoLOG) BEFORE MEALS AND HS SUBQ 05/21/17 21:00 06/20/17 20:59 05/23/17 16:35 Methylprednisolone Sodium Succinate (Solu-MEDROL) 40 mg DAILY IVP 05/24/17 09:00 06/22/17 08:59 05/24/17 09:37 Ondansetron HCl (Zofran) 4 mg Q8H PRN ORAL Nausea & Vomiting 05/21/17 18:45 06/20/17 18:44 Pantoprazole (Protonix) 40 mg DAILY IVP 05/22/17 09:00 06/21/17 08:59 05/24/17 09:37 Piperacillin Sod/ Tazobactam Sod 3.375 gm/Dextrose 110 ml @ 27.5 mls/hr Q8HR@0000,1000,1800 IVPB 05/23/17 18:00 05/28/17 14:59 05/24/17 10:10 Quetiapine Fumarate (SEROquel) 50 mg EVERY 4 HOURS PRN ORAL Agitation 05/23/17 10:30 06/22/17 10:29 05/24/17 01:00 Vancomycin HCl (Vanco rx to dose) 1 ea DAILY PRN MISC Per rx protocol 05/21/17 13:15 06/20/17 13:14 Verapamil HCl (Calan SR) 240 mg DAILY ORAL 05/24/17 09:00 06/23/17 08:59 05/24/17 09:39 Vitamin B Complex/ Vit C/Folic Acid (Nephrovite) 1 tab DAILY ORAL 05/22/17 09:00 06/21/17 08:59 05/24/17 09:39 GI: Plan Problems: (1) Dysphagia (2) Encounter for PEG (percutaneous endoscopic gastrostomy) (3) Schizo affective schizophrenia (4) Anemia Plan refusing NGT pending video swallow fu pysch for capacity for patient to consent >> consider bioethics NPO + IVFs ppi prn transfusions fu labs will follow with additional recs Discussed with Dr. Wilson. Thank you for this patient referral, we will follow. Liliana Bridges N.P. May 24, 2017 15:31
[2017-05-24] MEDS ORDERED: D5 1/2NS 1000ml IV ONE (16:27)
[2017-05-24] MEDS ORDERED: Tubing IV Secondary IV ONE (16:27)
[2017-05-24] MEDS ORDERED: NS 275ml ONE (16:27)
[2017-05-24] MEDS ORDERED: guaiFENesin w/Codeine 5ml Liq ud ORAL PRN (21:30)
[2017-05-24] MEDS ORDERED: Acetaminophen 650 MG SUPP RECTAL PRN (21:30)
--- NOTE | 2017-05-24 23:22 | Pulmonolgy Critical Care Note ---
Critical Care - Asmt/Plan Assessment/Plan: HPI 61 y/o F with hx of COPD, discharged from [facility] 1 day ago after treatment for Pneumonia, PMH of HLD presents, Schizoaffective disorder, presented to the to ED with shortness of breath, noted to have oxygen desaturation 85%. T/f out of ROSARIO Afebrile CXR with infiltrates. Allergies: Coded Allergies: No Known Allergies (Unverified , 05/21/17) Patient History Healthcare decision maker Resuscitation status Advanced Directive on File Patient History Narrative Pmx: as above Shx: reviewed Fhx: non contributory Review of Systems All Other Systems: negative except mentioned in HPI Physical Exam Physical Exam Narrative General Appearance: no apparent distress, alert HEENT normocephalic, atraumatic, PERR, normal pharynx Neck: full range of motion, supple/symm/no masses Respiratory: chest non-tender, lungs clear, normal breath sounds, speaking full sentences Cardiovascular : regular rate, rhythm, no edema Gastrointestinal: normal bowel sounds, non tender, soft, non-distended, no guarding, no rebound Genitourinary: normal inspection, no CVA tenderness Musculoskeletal: back normal, gait/station normal, normal range of motion, non- tender Neurologic: alert, oriented x3, responsive, motor strength/tone normal, sensory intact, speech normal Skin: normal color, no rash, warm/dry, well hydrated Last 24 Hour Vital Signs Date Time Temp Pulse Resp B/P (MAP) Pulse Ox O2 Delivery O2 Flow Rate FiO2 05/21/17 11:59 30 05/21/17 11:52 100.4 22 144/96 100 Bi-pap 1.0 30 100.4 05/21/17 11:36 30 05/21/17 11:35 102 22 100 Bi-pap 30 05/21/17 11:31 99 22 99 Bi-pap 30 05/21/17 11:31 99 22 99 Bi-pap 30 05/21/17 11:28 30 05/21/17 11:22 103 22 99 Facial 30 05/21/17 11:17 98 22 99 Bi-pap 30 05/21/17 11:14 30 05/21/17 11:12 92 22 99 Bi-pap 30 05/21/17 09:46 22 146/97 100 Nasal Cannula 1.0 24 05/21/17 09:46 98 22 Nasal Cannula 1.0 24 05/21/17 08:51 98 22 100 Nasal Cannula 1.0 24 05/21/17 08:40 94 22 98 Nasal Cannula 1.0 24 05/21/17 08:40 24 05/21/17 08:18 108 24 170/86 90 Laboratory Tests Test 05/21/17 08:49 05/21/17 09:04 05/21/17 11:33 Sodium Level 129 MMOL/L (136-145) L Potassium Level 4.6 MMOL/L (3.5-5.1) Chloride Level 96 MMOL/L (98-107) L Carbon Dioxide Level 29 MMOL/L (21-32) Anion Gap 4 mmol/L (5-15) L Blood Urea Nitrogen 12 mg/dL (7-18) Creatinine 1.3 MG/DL (0.55-1.30) Estimat Glomerular Filtration Rate 41.5 mL/min (>60) Glucose Level 114 MG/DL (74-106) H Lactic Acid Level 0.50 mmol/L (0.66-2.22) L Calcium Level 9.0 MG/DL (8.5-10.1) Total Bilirubin 0.3 MG/DL (0.2-1.0) Aspartate Amino Transf (AST/SGOT) 28 U/L (15-37) Alanine Aminotransferase (ALT/SGPT) 26 U/L (12-78) Alkaline Phosphatase 82 U/L (46-116) Total Creatine Kinase 78 U/L (26-308) Troponin I 0.031 ng/mL (0.000-0.056) Pro-B-Type Natriuretic Peptide 2661 pg/mL (0-125) H Total Protein 6.2 G/DL (6.4-8.2) L Albumin 2.6 G/DL (3.4-5.0) L Globulin 3.6 g/dL Albumin/Globulin Ratio 0.7 (1.0-2.7) L Lipase 119 U/L (73-393) White Blood Count 8.2 K/UL (4.8-10.8) Red Blood Count 2.94 M/UL (4.20-5.40) L Hemoglobin 8.9 G/DL (12.0-16.0) L Hematocrit 26.9 % (37.0-47.0) L Mean Corpuscular Volume 92 FL (80-99) Mean Corpuscular Hemoglobin 30.5 PG (27.0-31.0) Mean Corpuscular Hemoglobin Concent 33.3 G/DL (32.0-36.0) Red Cell Distribution Width 12.1 % (11.6-14.8) Platelet Count 244 K/UL (150-450) Mean Platelet Volume 6.4 FL (6.5-10.1) L Neutrophils (%) (Auto) 84.2 % (45.0-75.0) H Lymphocytes (%) (Auto) 7.6 % (20.0-45.0) L Monocytes (%) (Auto) 5.4 % (1.0-10.0) Eosinophils (%) (Auto) 2.1 % (0.0-3.0) Basophils (%) (Auto) 0.7 % (0.0-2.0) Prothrombin Time 10.0 SEC (9.30-11.50) Prothromb Time International Ratio 1.0 (0.9-1.1) Activated Partial Thromboplast Time 27 SEC (23-33) Urine Color Pale yellow Urine Appearance Slightly cloudy Urine pH 7 (4.5-8.0) Urine Specific [place] 1.000 (1.005-1.035) Urine Protein 2+ (NEGATIVE) H Urine Glucose (UA) Negative (NEGATIVE) Urine Ketones Negative (NEGATIVE) Urine Occult Blood 4+ (NEGATIVE) H Urine Nitrite Negative (NEGATIVE) Urine Bilirubin Negative (NEGATIVE) Urine Urobilinogen Normal MG/DL (0.0-1.0) Urine Leukocyte Esterase 1+ (NEGATIVE) H Urine RBC 15-20 /HPF (0 - 2) H Urine WBC 5-10 /HPF (0 - 2) H Urine Squamous Epithelial Cells Moderate /LPF (NONE/OCC) H Urine Bacteria Few /HPF (NONE) Height (Feet): 5 Height (Inches): 6.00 Weight (Pounds): 250 Assessment/Plan Assessment/Plan Abx: IV vanco x1 3/24 Cefepime x1 324 Levaquin x1 3 Impression: Fever improved Possible HCAP vs Asp Pneumonia, need to r/o influenza -CXR: Bilateral interstitial and patchy airspace edema/infiltrates, right greater than left. Lung base atelectasis. Clinical correlation/follow-up recommended. COPD exacerbation No leukocytosis HLD Schizoaffective disorder Recent PNA Plan: -Continue IV Vancomycin, Zosyn, tamiflu and Azithromycin per ID -influenza sc, sputum cx, legionella ag urine -f/u cx -Monitor labs -aspiration precautions - Reduce steroids to 30 IV Note abnormal swallow Thank you for this consultation. Discussed with RN. Critical Care - Objective Last 24 Hour Vital Signs Date Time Temp Pulse Resp B/P (MAP) Pulse Ox O2 Delivery O2 Flow Rate FiO2 05/24/17 21:34 98.9 120 22 183/89 95 98.9 05/24/17 20:00 110 20 96 Nasal Cannula 3.0 32 05/24/17 20:00 98.6 94 22 150/87 94 Nasal Cannula 4.0 98.6 05/24/17 20:00 Nasal Cannula 3.0 32 05/24/17 20:00 94 05/24/17 20:00 92 Nasal Cannula 3.0 32 05/24/17 20:00 106 20 92 Nasal Cannula 3.0 32 05/24/17 19:30 106 20 92 2.0 32 05/24/17 16:00 98.2 99 22 144/96 94 Nasal Cannula 4.0 98.2 05/24/17 16:00 95 05/24/17 15:12 92 20 96 Nasal Cannula 4.0 36 05/24/17 15:12 92 20 95 Nasal Cannula 4.0 36 05/24/17 12:01 40 05/24/17 12:00 93 05/24/17 12:00 97.9 90 22 142/105 95 Nasal Cannula 4.0 97.9 05/24/17 11:51 92 20 96 Venturi Mask 8.0 40 05/24/17 11:50 90 20 96 Venturi Mask 8.0 40 05/24/17 09:39 94 153/85 05/24/17 09:00 40 05/24/17 08:16 94 22 96 Venturi Mask 8.0 40 05/24/17 08:15 97 20 98 Venturi Mask 8.0 40 05/24/17 08:15 Venturi Mask 8.0 40 05/24/17 08:12 96 Venturi Mask 8.0 40 05/24/17 08:00 98.8 99 23 153/85 98 Venturi Mask 40 98.8 05/24/17 08:00 94 05/24/17 04:00 40 05/24/17 04:00 98.8 97 24 159/71 97 Venturi Mask 40 98.8 05/24/17 04:00 105 05/24/17 03:19 100 24 99 Venturi Mask 8.0 40 05/24/17 03:11 98 18 98 Venturi Mask 8.0 40 05/24/17 00:00 99 05/24/17 00:00 98.9 99 24 159/89 97 Venturi Mask 40 98.9 05/24/17 00:00 40 05/23/17 23:29 103 18 99 Venturi Mask 8.0 40 05/23/17 23:24 102 22 97 Venturi Mask 8.0 40 Micro: Microbiology Date/Time Source Procedure Growth Status 05/22/17 11:00 Urine,Clean Catch Urine Culture - Final NO GROWTH AFTER 48 HOURS Complete Accucheck: 144 Critical Care - Subjective ROS Limited/Unobtainable: Yes Condition: improving IV Access: peripheral EKG Rhythm: Sinus Rhythm FI02: 32 Vent Support Breath Rate: 16 Vent Support Mode: BiLevel Sputum Amount: None I&O: Intake and Output 05/23/17 05/24/17 19:00 07:00 Intake Total 497.5 ml 857.5 ml Output Total 2000 ml 1400 ml Balance -1502.5 ml -542.5 ml IV Total 497.5 ml 857.5 ml Output Urine Total 2000 ml 1400 ml Girish Molina M.D. May 24, 2017 23:22
--- NOTE | 2017-05-24 23:58 | Cardiology Progress Note ---
Assessment/Plan Assessment/Plan 1. Sinus tachycardia most likely due to underlying pneumonia, hypoxemia and breathing treatment. Increase verapamil to 360mg daily. 2. Hypertension, stage II, increase verapamil. Echo shows normal LVEF. Add carvedilol 3.125mg po bid. 3. History of COPD with mild pulmonary HTN. 4. Morbid obesity. 5. Respiratory failure now on NC oxygen. 6. Bigeminy VPCs on verapamil. Subjective Subjective Sinus tachycardia at 110. On NC oxygen. Objective Last 24 Hour Vital Signs Date Time Temp Pulse Resp B/P (MAP) Pulse Ox O2 Delivery O2 Flow Rate FiO2 05/24/17 23:49 118 20 97 Nasal Cannula 3.0 32 05/24/17 23:49 116 20 93 Nasal Cannula 3.0 32 05/24/17 21:34 98.9 120 22 183/89 95 98.9 05/24/17 20:00 110 20 96 Nasal Cannula 3.0 32 05/24/17 20:00 98.6 94 22 150/87 94 Nasal Cannula 4.0 98.6 05/24/17 20:00 Nasal Cannula 3.0 32 05/24/17 20:00 94 05/24/17 20:00 92 Nasal Cannula 3.0 32 05/24/17 20:00 106 20 92 Nasal Cannula 3.0 32 05/24/17 19:30 106 20 92 2.0 32 05/24/17 16:00 98.2 99 22 144/96 94 Nasal Cannula 4.0 98.2 05/24/17 16:00 95 05/24/17 15:12 92 20 96 Nasal Cannula 4.0 36 05/24/17 15:12 92 20 95 Nasal Cannula 4.0 36 05/24/17 12:01 40 05/24/17 12:00 93 05/24/17 12:00 97.9 90 22 142/105 95 Nasal Cannula 4.0 97.9 05/24/17 11:51 92 20 96 Venturi Mask 8.0 40 05/24/17 11:50 90 20 96 Venturi Mask 8.0 40 05/24/17 09:39 94 153/85 05/24/17 09:00 40 05/24/17 08:16 94 22 96 Venturi Mask 8.0 40 05/24/17 08:15 97 20 98 Venturi Mask 8.0 40 05/24/17 08:15 Venturi Mask 8.0 40 05/24/17 08:12 96 Venturi Mask 8.0 40 05/24/17 08:00 98.8 99 23 153/85 98 Venturi Mask 40 98.8 05/24/17 08:00 94 05/24/17 04:00 40 05/24/17 04:00 98.8 97 24 159/71 97 Venturi Mask 40 98.8 05/24/17 04:00 105 05/24/17 03:19 100 24 99 Venturi Mask 8.0 40 05/24/17 03:11 98 18 98 Venturi Mask 8.0 40 05/24/17 00:00 99 05/24/17 00:00 98.9 99 24 159/89 97 Venturi Mask 40 98.9 05/24/17 00:00 40 Intake and Output 05/23/17 05/24/17 19:00 07:00 Intake Total 497.5 ml 857.5 ml Output Total 2000 ml 1400 ml Balance -1502.5 ml -542.5 ml IV Total 497.5 ml 857.5 ml Output Urine Total 2000 ml 1400 ml 2D Echo: EF 55%, Mild LVH, Elevated RAP 15 mmHg, RVSP 39 mmHg, Mild MR Laboratory Tests Test 05/24/17 03:30 White Blood Count 9.3 K/UL (4.8-10.8) Red Blood Count 2.84 M/UL (4.20-5.40) L Hemoglobin 8.9 G/DL (12.0-16.0) L Hematocrit 26.4 % (37.0-47.0) L Mean Corpuscular Volume 93 FL (80-99) Mean Corpuscular Hemoglobin 31.3 PG (27.0-31.0) H Mean Corpuscular Hemoglobin Concent 33.7 G/DL (32.0-36.0) Red Cell Distribution Width 13.1 % (11.6-14.8) Platelet Count 238 K/UL (150-450) Mean Platelet Volume 5.6 FL (6.5-10.1) L Neutrophils (%) (Auto) % (45.0-75.0) Lymphocytes (%) (Auto) % (20.0-45.0) Monocytes (%) (Auto) % (1.0-10.0) Eosinophils (%) (Auto) % (0.0-3.0) Basophils (%) (Auto) % (0.0-2.0) Sodium Level 140 MMOL/L (136-145) Potassium Level 4.2 MMOL/L (3.5-5.1) Chloride Level 102 MMOL/L (98-107) Carbon Dioxide Level 33 MMOL/L (21-32) H Anion Gap 5 mmol/L (5-15) Blood Urea Nitrogen 23 mg/dL (7-18) H Creatinine 1.6 MG/DL (0.55-1.30) H Estimat Glomerular Filtration Rate 32.6 mL/min (>60) Glucose Level 178 MG/DL (74-106) H Calcium Level 8.9 MG/DL (8.5-10.1) Microbiology Date/Time Source Procedure Growth Status 05/22/17 11:00 Urine,Clean Catch Urine Culture - Final NO GROWTH AFTER 48 HOURS Complete Objective HEENT: Atraumatic and normocephalic. Anicteric. Pupils are equal, round, and reactive to light and accommodation. Extraocular muscles intact. NECK: JVP less than 5 cm. No carotid bruit. Carotid upstrokes 2+ bilaterally. CARDIOVASCULAR: Normal S1 and S2. Regular rate and rhythm. Tachycardic. No murmurs, gallops, or rubs. LUNGS: Diminished breath sounds. Poor inspiratory effort. Some scattered crackles in both lungs. ABDOMEN: Soft nontender, nondistended. No hepatosplenomegaly. Positive bowel sounds. EXTREMITIES: There is 2+ bilateral edema. SAMANTHA FRASER May 24, 2017 23:58
[2017-05-25] VITALS: BP 152/91
[2017-05-25] MEDS: Albuterol/Ipratropium 3ml neb HHN SCH ×6 (03:10→23:12)
[2017-05-25] MEDS ORDERED: Carvedilol 6.25mg Tab ORAL ONE (03:15)
[2017-05-25 04:00] VITALS: BP 158/95
[2017-05-25] MEDS: NovoLOG Insulin Flexpen SUBQ SCH ×4 (06:15→21:59)
[2017-05-25 07:04] LABS: ANION GAP 3 mmol/L (5-15); BASOPHILS % (AUTO) 0.2 % (0.0-2.0); BLOOD UREA NITROGEN 25 mg/dL (7-18); CALCIUM 9.5 MG/DL (8.5-10.1); CARBON DIOXIDE 36 MMOL/L (21-32); CHLORIDE 101 MMOL/L (98-107); CREATININE 1.7 MG/DL (0.55-1.30); EOSINOPHILS % (AUTO) 0.1 % (0.0-3.0); HEMATOCRIT 28.2 % (37.0-47.0); HEMOGLOBIN 9.4 G/DL (12.0-16.0); LYMPHOCYTES % (AUTO) 9.6 % (20.0-45.0); MEAN CORPUSCULAR VOLUME 92 FL (80-99); NEUTROPHILS % (AUTO) 81.2 % (45.0-75.0); PLATELET COUNT 296 K/UL (150-450); POTASSIUM 3.4 MMOL/L (3.5-5.1); RED BLOOD COUNT 3.05 M/UL (4.20-5.40); RED CELL DISTRIBUTION WIDTH 13.4 % (11.6-14.8); SODIUM 140 MMOL/L (136-145); WHITE BLOOD COUNT 14.3 K/UL (4.8-10.8)
[2017-05-25 08:00] VITALS: BP 155/91
[2017-05-25] MEDS ORDERED: Vancomycin 1gm/D5W 275ml IVPB ONE ×4 (09:00→22:00)
[2017-05-25] MEDS ORDERED: Verapamil SR 240mg tab ORAL SCH (09:00)
[2017-05-25] MEDS ORDERED: Solu-MEDROL 40mg Inj IVP SCH ×2 (09:00)
[2017-05-25] MEDS: Piperacillin/Tazobactam 3.375 GM in D5W 110 ML IVPB SCH ×2 (09:36→17:57)
[2017-05-25] MEDS: Ascorbic Acid 500mg tab ORAL SCH (09:37)
[2017-05-25] MEDS: Verapamil 180mg SR tab ORAL SCH (09:37)
[2017-05-25] MEDS: Docusate 100mg cap ORAL SCH ×2 (09:37→21:16)
[2017-05-25] MEDS: Nephrovite tab (Rena-Vite) ORAL SCH (09:38)
[2017-05-25] MEDS: Pantoprazole Inj IVP SCH (09:40)
[2017-05-25] MEDS: Heparin 5000 units/ml inj SUBQ SCH ×2 (09:41→21:20)
[2017-05-25 12:00] VITALS: BP 145/59
--- NOTE | 2017-05-25 13:10 | GI Progress Note ---
Assessment/Plan Problems: (1) Dysphagia ICD Codes: R13.10 - Dysphagia, unspecified SNOMED: 86701627, 092930161 (2) Schizo affective schizophrenia ICD Codes: F25.0 - Schizoaffective disorder, bipolar type SNOMED: 083302148 (3) Encounter for PEG (percutaneous endoscopic gastrostomy) ICD Codes: Z43.1 - Encounter for attention to gastrostomy SNOMED: 294734293, 780629051 (4) Anemia ICD Codes: D64.9 - Anemia, unspecified SNOMED: 018119441 Qualifiers: Qualified Codes: D64.9 - Anemia, unspecified Status: unchanged Status Narrative Discussed with Dr. Wilson. Assessment/Plan refusing NGT/PEG, but needs evaluation for mental capacity to consent >> fu pysch recs history of schizo video swallow today d/w with ST video swallow >> no aspiration noted, but pt has severe reflux and is high risk for aspiration. trial diet per ST + IVFs ordered esophagram r/o dysmotility/stricture ppi prn transfusions fu labs PEG if necessary Subjective Gastrointestinal/Abdominal: Reports: no symptoms Objective Last 24 Hour Vital Signs Date Time Temp Pulse Resp B/P (MAP) Pulse Ox O2 Delivery O2 Flow Rate FiO2 05/25/17 11:14 100 18 92 Venturi Mask 7.0 40 05/25/17 11:05 110 18 94 Nasal Cannula 3.0 32 05/25/17 09:38 100 155/91 05/25/17 09:37 100 155/91 05/25/17 08:00 98.2 100 20 155/91 96 Nasal Cannula 4.0 98.2 05/25/17 07:48 109 22 99 Nasal Cannula 3.0 32 05/25/17 07:45 105 20 Nasal Cannula 3.0 32 05/25/17 07:39 94 Nasal Cannula 3.0 32 05/25/17 07:39 Nasal Cannula 3.0 32 05/25/17 07:38 105 20 94 Nasal Cannula 3.0 32 05/25/17 04:00 98.5 107 20 158/95 95 Nasal Cannula 4.0 98.5 05/25/17 03:24 107 158/99 05/25/17 03:11 116 20 97 Nasal Cannula 3.0 32 05/25/17 03:10 110 20 92 Nasal Cannula 3.0 32 05/25/17 00:00 98.3 110 20 152/91 96 Nasal Cannula 4.0 98.3 05/24/17 23:49 118 20 97 Nasal Cannula 3.0 32 05/24/17 23:49 116 20 93 Nasal Cannula 3.0 32 05/24/17 21:34 98.9 120 22 183/89 95 98.9 05/24/17 20:00 110 20 96 Nasal Cannula 3.0 32 05/24/17 20:00 98.6 94 22 150/87 94 Nasal Cannula 4.0 98.6 05/24/17 20:00 Nasal Cannula 3.0 32 05/24/17 20:00 94 05/24/17 20:00 92 Nasal Cannula 3.0 32 05/24/17 20:00 106 20 92 Nasal Cannula 3.0 32 05/24/17 19:30 106 20 92 2.0 32 05/24/17 16:00 98.2 99 22 144/96 94 Nasal Cannula 4.0 98.2 05/24/17 16:00 95 05/24/17 15:12 92 20 96 Nasal Cannula 4.0 36 05/24/17 15:12 92 20 95 Nasal Cannula 4.0 36 Intake and Output 05/24/17 05/25/17 19:00 07:00 Intake Total 415.0 ml 425.0 ml Output Total 1850 ml 750 ml Balance -1435.0 ml -325.0 ml IV Total 415.0 ml 425.0 ml Output Urine Total 1850 ml 750 ml Laboratory Tests Test 05/25/17 05:40 White Blood Count 14.3 K/UL (4.8-10.8) #H Red Blood Count 3.05 M/UL (4.20-5.40) L Hemoglobin 9.4 G/DL (12.0-16.0) L Hematocrit 28.2 % (37.0-47.0) L Mean Corpuscular Volume 92 FL (80-99) Mean Corpuscular Hemoglobin 30.9 PG (27.0-31.0) Mean Corpuscular Hemoglobin Concent 33.4 G/DL (32.0-36.0) Red Cell Distribution Width 13.4 % (11.6-14.8) Platelet Count 296 K/UL (150-450) Mean Platelet Volume 5.8 FL (6.5-10.1) L Neutrophils (%) (Auto) 81.2 % (45.0-75.0) H Lymphocytes (%) (Auto) 9.6 % (20.0-45.0) L Monocytes (%) (Auto) 9.0 % (1.0-10.0) Eosinophils (%) (Auto) 0.1 % (0.0-3.0) Basophils (%) (Auto) 0.2 % (0.0-2.0) Sodium Level 140 MMOL/L (136-145) Potassium Level 3.4 MMOL/L (3.5-5.1) L Chloride Level 101 MMOL/L (98-107) Carbon Dioxide Level 36 MMOL/L (21-32) H Anion Gap 3 mmol/L (5-15) L Blood Urea Nitrogen 25 mg/dL (7-18) H Creatinine 1.7 MG/DL (0.55-1.30) H Estimat Glomerular Filtration Rate 30.4 mL/min (>60) Glucose Level 112 MG/DL (74-106) H Calcium Level 9.5 MG/DL (8.5-10.1) Random Vancomycin Level 12.2 ug/mL Height (Feet): 5 Height (Inches): 6.00 Weight (Pounds): 260 General Appearance: WD/WN, no apparent distress, alert, morbidly obese Cardiovascular: normal rate Respiratory/Chest: normal breath sounds, no respiratory distress Abdominal Exam: normal bowel sounds, non tender, soft Extremities: non-tender Liliana Bridges N.P. May 25, 2017 13:10
--- NOTE | 2017-05-25 13:15 | Internal Med Progress Note ---
Subjective Date of Service: May 25, 2017 Physician Name DickinsonSteve Attending Physician Shoshana Norman MD Current Medications Medications (Trade) Dose Ordered Sig/Wale Route PRN Reason Start Time Stop Time Status Last Admin Dose Admin Acetaminophen (Tylenol) 650 mg Q4H PRN RECTAL MILD PAIN/T>100.5 05/24/17 21:30 06/20/17 21:29 Albuterol/ Ipratropium (Albuterol/ Ipratropium) 3 ml Q4HRT HHN 05/24/17 23:00 05/26/17 18:59 05/25/17 11:00 Albuterol/ Ipratropium (Albuterol/ Ipratropium) 3 ml Q6H PRN HHN Shortness of Breath 05/24/17 21:30 05/29/17 21:29 Ascorbic Acid (Vitamin C) 500 mg DAILY ORAL 05/25/17 09:00 06/21/17 08:59 05/25/17 09:37 Atorvastatin Calcium (Lipitor) 10 mg BEDTIME ORAL 05/25/17 21:00 06/20/17 20:59 Carvedilol (Coreg) 3.125 mg EVERY 12 HOURS ORAL 05/25/17 09:00 06/24/17 08:59 05/25/17 09:38 Dextrose (Dextrose 50%) STAT PRN IV Hypoglycemia 05/24/17 21:30 06/23/17 21:29 Dextrose/Sodium Chloride 1,000 ml @ 60 mls/hr [id number] IV 05/24/17 22:00 06/20/17 21:59 05/24/17 22:04 Docusate Sodium (Colace) 100 mg Q12HR ORAL 05/25/17 09:00 06/24/17 08:59 05/25/17 09:37 Folic Acid (Folate) 1 mg DAILY ORAL 05/25/17 09:00 06/21/17 08:59 05/25/17 09:40 Furosemide (Lasix) 40 mg DAILY IV 05/25/17 09:00 06/21/17 08:59 05/25/17 09:37 Guaifenesin/ Codeine Phosphate (Robitussin with codeine) 5 ml Q6H PRN ORAL For Cough 05/24/17 21:30 06/23/17 21:29 Heparin Sodium (Porcine) (Heparin 5000 units/ml) 5,000 units EVERY 12 HOURS SUBQ 05/25/17 09:00 06/20/17 20:59 05/25/17 09:41 Insulin Aspart (NovoLOG) BEFORE MEALS AND HS SUBQ 05/25/17 06:30 06/20/17 20:59 Methylprednisolone Sodium Succinate (Solu-MEDROL) 30 mg DAILY IVP 05/25/17 09:00 06/24/17 08:59 05/25/17 09:39 Ondansetron HCl (Zofran) 4 mg Q8H PRN ORAL Nausea & Vomiting 05/24/17 21:30 06/23/17 21:29 Pantoprazole (Protonix) 40 mg DAILY IVP 05/25/17 09:00 06/21/17 08:59 05/25/17 09:40 Piperacillin Sod/ Tazobactam Sod 3.375 gm/Dextrose 110 ml @ 27.5 mls/hr Q8HR@0000,0800,1600 IVPB 05/25/17 00:00 06/01/17 00:00 05/25/17 09:36 Quetiapine Fumarate (SEROquel) 50 mg Q4H PRN ORAL Agitation 05/24/17 21:30 06/23/17 21:29 Vancomycin HCl (Vanco rx to dose) 1 ea DAILYPRN PRN MISC Per rx protocol 05/24/17 21:30 06/23/17 21:29 Verapamil HCl (Calan SR) 360 mg DAILY ORAL 05/25/17 09:00 06/24/17 08:59 05/25/17 09:37 Vitamin B Complex/ Vit C/Folic Acid (Nephrovite) 1 tab DAILY ORAL 05/25/17 09:00 06/21/17 08:59 05/25/17 09:38 Allergies: Coded Allergies: No Known Allergies (Unverified , 05/21/17) ROS Limited/Unobtainable: No Constitutional: Reports: no symptoms HEENT: Reports: no symptoms Cardiovascular: Reports: no symptoms Respiratory: Reports: shortness of breath Gastrointestinal/Abdominal: Reports: no symptoms Genitourinary: Reports: no symptoms Neurologic/Psychiatric: Reports: no symptoms Subjective 61 YO F admitted with shortness of breath. Now pneumonia and respiratory failure. Cover for Int Med-Dr Norman. Back on venturi mask. Objective Last Vital Signs Date Time Temp Pulse Resp B/P (MAP) Pulse Ox O2 Delivery O2 Flow Rate FiO2 05/25/17 11:14 100 18 92 Venturi Mask 7.0 40 05/25/17 09:38 155/91 05/25/17 08:00 98.2 98.2 Laboratory Tests Test 05/25/17 05:40 White Blood Count 14.3 K/UL (4.8-10.8) #H Red Blood Count 3.05 M/UL (4.20-5.40) L Hemoglobin 9.4 G/DL (12.0-16.0) L Hematocrit 28.2 % (37.0-47.0) L Mean Corpuscular Volume 92 FL (80-99) Mean Corpuscular Hemoglobin 30.9 PG (27.0-31.0) Mean Corpuscular Hemoglobin Concent 33.4 G/DL (32.0-36.0) Red Cell Distribution Width 13.4 % (11.6-14.8) Platelet Count 296 K/UL (150-450) Mean Platelet Volume 5.8 FL (6.5-10.1) L Neutrophils (%) (Auto) 81.2 % (45.0-75.0) H Lymphocytes (%) (Auto) 9.6 % (20.0-45.0) L Monocytes (%) (Auto) 9.0 % (1.0-10.0) Eosinophils (%) (Auto) 0.1 % (0.0-3.0) Basophils (%) (Auto) 0.2 % (0.0-2.0) Sodium Level 140 MMOL/L (136-145) Potassium Level 3.4 MMOL/L (3.5-5.1) L Chloride Level 101 MMOL/L (98-107) Carbon Dioxide Level 36 MMOL/L (21-32) H Anion Gap 3 mmol/L (5-15) L Blood Urea Nitrogen 25 mg/dL (7-18) H Creatinine 1.7 MG/DL (0.55-1.30) H Estimat Glomerular Filtration Rate 30.4 mL/min (>60) Glucose Level 112 MG/DL (74-106) H Calcium Level 9.5 MG/DL (8.5-10.1) Random Vancomycin Level 12.2 ug/mL Intake and Output 05/24/17 05/25/17 19:00 07:00 Intake Total 415.0 ml 425.0 ml Output Total 1850 ml 750 ml Balance -1435.0 ml -325.0 ml IV Total 415.0 ml 425.0 ml Output Urine Total 1850 ml 750 ml Objective General Appearance: WD/WN, moderate distress, obese EENT: PERRL/EOMI, normal ENT inspection Neck: non-tender, normal alignment, supple, normal inspection Cardiovascular: normal peripheral pulses, normal rate, regular rhythm, no gallop/murmur, no JVD Respiratory/Chest: respiratory distress, accessory muscle use, crackles/rales, rhonchi - bilaterally, expiratory wheezing Abdomen: normal bowel sounds, non tender, soft, no organomegaly, no mass Extremities: normal range of motion, non-tender 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 See pulmonary note. Continue BIPAP. Continue vanco, zosyn and azithro per ID (2) Diabetes mellitus, type II (3) HTN (hypertension) Assessment & Plan: Continue verapamil (4) Hyponatremia (5) Schizoaffective disorder Assessment & Plan: Continue seroquel and lamictal (6) Pneumonia (7) COPD (chronic obstructive pulmonary disease) Assessment & Plan: Continue IV solumedrol Status: not improved STEVE DICKINSON May 25, 2017 13:15
--- NOTE | 2017-05-25 13:39 | Infectious Diseases Prog Note ---
Assessment/Plan Assessment/Plan Assessment: Fever, resolved Possible HCAP vs Asp PNA- -CXR 05/24: Slight improvement in the right upper lobe but otherwise stable bilateral parenchymal infiltrates versus edema, over 3 days -CXR: Bilateral interstitial and patchy airspace edema/infiltrates, right greater than left. Lung base atelectasis. Clinical correlation/follow-up recommended. -sp cx unable to be collected -influenza sc neg -legionella ag urine Leukocytosis(on steroids) COPD exacerbation Acute respiratory failure -2ry to above HLD Schizoaffective disorder Recent PNA Plan: -Continue IV Vancomycin, Zosyn #5/7-10 pending sputum cx -05/22 SP Tamiflu #2 -05/21 SP Cefepime x1, Levaquin x1 -Noticed azihtormycin was d/c 05/21- ok to hold as neg legionella ag urine -f/u cx -Monitor CBC/BMP, temperatures; trend wbc -aspiration precautions -CXR am Thank you for this consultation. Will continue to follow along with you. Discussed with RN. Subjective Allergies: Coded Allergies: No Known Allergies (Unverified , 05/21/17) Subjective afebrile leukocytosis (on steroisd0 sp cx not collected Bcx NTD Objective Vital Signs Last 24 Hour Vital Signs Date Time Temp Pulse Resp B/P (MAP) Pulse Ox O2 Delivery O2 Flow Rate FiO2 05/25/17 11:14 100 18 92 Venturi Mask 7.0 40 05/25/17 11:05 110 18 94 Nasal Cannula 3.0 32 05/25/17 09:38 100 155/91 05/25/17 09:37 100 155/91 05/25/17 08:00 98.2 100 20 155/91 96 Nasal Cannula 4.0 98.2 05/25/17 07:48 109 22 99 Nasal Cannula 3.0 32 05/25/17 07:45 105 20 Nasal Cannula 3.0 32 05/25/17 07:39 94 Nasal Cannula 3.0 32 05/25/17 07:39 Nasal Cannula 3.0 32 05/25/17 07:38 105 20 94 Nasal Cannula 3.0 32 05/25/17 04:00 98.5 107 20 158/95 95 Nasal Cannula 4.0 98.5 05/25/17 03:24 107 158/99 05/25/17 03:11 116 20 97 Nasal Cannula 3.0 32 05/25/17 03:10 110 20 92 Nasal Cannula 3.0 32 05/25/17 00:00 98.3 110 20 152/91 96 Nasal Cannula 4.0 98.3 05/24/17 23:49 118 20 97 Nasal Cannula 3.0 32 05/24/17 23:49 116 20 93 Nasal Cannula 3.0 32 05/24/17 21:34 98.9 120 22 183/89 95 98.9 05/24/17 20:00 110 20 96 Nasal Cannula 3.0 32 05/24/17 20:00 98.6 94 22 150/87 94 Nasal Cannula 4.0 98.6 05/24/17 20:00 Nasal Cannula 3.0 32 05/24/17 20:00 94 05/24/17 20:00 92 Nasal Cannula 3.0 32 05/24/17 20:00 106 20 92 Nasal Cannula 3.0 32 05/24/17 19:30 106 20 92 2.0 32 05/24/17 16:00 98.2 99 22 144/96 94 Nasal Cannula 4.0 98.2 05/24/17 16:00 95 05/24/17 15:12 92 20 96 Nasal Cannula 4.0 36 05/24/17 15:12 92 20 95 Nasal Cannula 4.0 36 Height (Feet): 5 Height (Inches): 6.00 Weight (Pounds): 260 Objective General Appearance: no apparent distress, alert HEENT normocephalic, atraumatic, PERR, normal pharynx Neck: full range of motion, supple/symm/no masses Respiratory: chest non-tender, lungs clear, normal breath sounds, speaking full sentences Cardiovascular : regular rate, rhythm, no edema Gastrointestinal: normal bowel sounds, non tender, soft, non-distended, no guarding, no rebound Genitourinary: normal inspection, no CVA tenderness Musculoskeletal: back normal, gait/station normal, normal range of motion, non- tender Neurologic: alert, oriented x3, responsive, motor strength/tone normal, sensory intact, speech normal Skin: normal color, no rash, warm/dry, well hydrated Laboratory Tests Test 05/25/17 05:40 White Blood Count 14.3 K/UL (4.8-10.8) #H Red Blood Count 3.05 M/UL (4.20-5.40) L Hemoglobin 9.4 G/DL (12.0-16.0) L Hematocrit 28.2 % (37.0-47.0) L Mean Corpuscular Volume 92 FL (80-99) Mean Corpuscular Hemoglobin 30.9 PG (27.0-31.0) Mean Corpuscular Hemoglobin Concent 33.4 G/DL (32.0-36.0) Red Cell Distribution Width 13.4 % (11.6-14.8) Platelet Count 296 K/UL (150-450) Mean Platelet Volume 5.8 FL (6.5-10.1) L Neutrophils (%) (Auto) 81.2 % (45.0-75.0) H Lymphocytes (%) (Auto) 9.6 % (20.0-45.0) L Monocytes (%) (Auto) 9.0 % (1.0-10.0) Eosinophils (%) (Auto) 0.1 % (0.0-3.0) Basophils (%) (Auto) 0.2 % (0.0-2.0) Sodium Level 140 MMOL/L (136-145) Potassium Level 3.4 MMOL/L (3.5-5.1) L Chloride Level 101 MMOL/L (98-107) Carbon Dioxide Level 36 MMOL/L (21-32) H Anion Gap 3 mmol/L (5-15) L Blood Urea Nitrogen 25 mg/dL (7-18) H Creatinine 1.7 MG/DL (0.55-1.30) H Estimat Glomerular Filtration Rate 30.4 mL/min (>60) Glucose Level 112 MG/DL (74-106) H Calcium Level 9.5 MG/DL (8.5-10.1) Random Vancomycin Level 12.2 ug/mL Current Medications Medications (Trade) Dose Ordered Sig/Wale Route PRN Reason Start Time Stop Time Status Last Admin Dose Admin Acetaminophen (Tylenol) 650 mg Q4H PRN RECTAL MILD PAIN/T>100.5 05/24/17 21:30 06/20/17 21:29 Albuterol/ Ipratropium (Albuterol/ Ipratropium) 3 ml Q4HRT HHN 05/24/17 23:00 05/26/17 18:59 05/25/17 11:00 Albuterol/ Ipratropium (Albuterol/ Ipratropium) 3 ml Q6H PRN HHN Shortness of Breath 05/24/17 21:30 05/29/17 21:29 Ascorbic Acid (Vitamin C) 500 mg DAILY ORAL 05/25/17 09:00 06/21/17 08:59 05/25/17 09:37 Atorvastatin Calcium (Lipitor) 10 mg BEDTIME ORAL 05/25/17 21:00 06/20/17 20:59 Carvedilol (Coreg) 3.125 mg EVERY 12 HOURS ORAL 05/25/17 09:00 06/24/17 08:59 05/25/17 09:38 Dextrose (Dextrose 50%) STAT PRN IV Hypoglycemia 05/24/17 21:30 06/23/17 21:29 Dextrose/Sodium Chloride 1,000 ml @ 60 mls/hr [id number] IV 05/24/17 22:00 06/20/17 21:59 05/24/17 22:04 Docusate Sodium (Colace) 100 mg Q12HR ORAL 05/25/17 09:00 06/24/17 08:59 05/25/17 09:37 Folic Acid (Folate) 1 mg DAILY ORAL 05/25/17 09:00 06/21/17 08:59 05/25/17 09:40 Furosemide (Lasix) 40 mg DAILY IV 05/25/17 09:00 06/21/17 08:59 05/25/17 09:37 Guaifenesin/ Codeine Phosphate (Robitussin with codeine) 5 ml Q6H PRN ORAL For Cough 05/24/17 21:30 06/23/17 21:29 Heparin Sodium (Porcine) (Heparin 5000 units/ml) 5,000 units EVERY 12 HOURS SUBQ 05/25/17 09:00 06/20/17 20:59 05/25/17 09:41 Insulin Aspart (NovoLOG) BEFORE MEALS AND HS SUBQ 05/25/17 06:30 06/20/17 20:59 Methylprednisolone Sodium Succinate (Solu-MEDROL) 30 mg DAILY IVP 05/25/17 09:00 06/24/17 08:59 05/25/17 09:39 Ondansetron HCl (Zofran) 4 mg Q8H PRN ORAL Nausea & Vomiting 05/24/17 21:30 06/23/17 21:29 Pantoprazole (Protonix) 40 mg DAILY IVP 05/25/17 09:00 06/21/17 08:59 05/25/17 09:40 Piperacillin Sod/ Tazobactam Sod 3.375 gm/Dextrose 110 ml @ 27.5 mls/hr Q8HR@0000,0800,1600 IVPB 05/25/17 00:00 06/01/17 00:00 05/25/17 09:36 Quetiapine Fumarate (SEROquel) 50 mg Q4H PRN ORAL Agitation 05/24/17 21:30 06/23/17 21:29 Vancomycin HCl (Vanco rx to dose) 1 ea DAILYPRN PRN MISC Per rx protocol 05/24/17 21:30 06/23/17 21:29 Verapamil HCl (Calan SR) 360 mg DAILY ORAL 05/25/17 09:00 06/24/17 08:59 05/25/17 09:37 Vitamin B Complex/ Vit C/Folic Acid (Nephrovite) 1 tab DAILY ORAL 05/25/17 09:00 06/21/17 08:59 05/25/17 09:38 Crystal Ruth M.D. May 25, 2017 13:38
[2017-05-25] MEDS: D5 1/2NS 1,000 ML IV SCH (14:40)
[2017-05-25 16:00] VITALS: BP 181/85
[2017-05-25 20:00] VITALS: BP 170/93
--- NOTE | 2017-05-25 20:19 | General Progress Note ---
Assessment/Plan Assessment/Plan bipolar d/o mdd encephalopathy -seroquel 300mg qhs -lamictal -so/ro -dc cogentin -seroquel 25 q6hr/prn Subjective Date patient seen: May 25, 2017 Neurologic/Psychiatric: Reports: anxiety, depressed Allergies: Coded Allergies: No Known Allergies (Unverified , 05/21/17) Subjective the pt is less agitated npo however cont to ask for soup and is illogical Objective Last 24 Hour Vital Signs Date Time Temp Pulse Resp B/P (MAP) Pulse Ox O2 Delivery O2 Flow Rate FiO2 05/25/17 16:00 97.5 93 20 181/85 93 97.5 05/25/17 15:29 90 20 95 Nasal Cannula 3.0 32 05/25/17 15:20 92 20 86 Venturi Mask 8.0 40 05/25/17 12:00 97.3 63 20 145/59 90 97.3 05/25/17 11:14 100 18 92 Venturi Mask 7.0 40 05/25/17 11:05 110 18 94 Nasal Cannula 3.0 32 05/25/17 09:38 100 155/91 05/25/17 09:37 100 155/91 05/25/17 08:00 98.2 100 20 155/91 96 Nasal Cannula 4.0 98.2 05/25/17 07:48 109 22 99 Nasal Cannula 3.0 32 05/25/17 07:45 105 20 Nasal Cannula 3.0 32 05/25/17 07:39 94 Nasal Cannula 3.0 32 05/25/17 07:39 Nasal Cannula 3.0 32 05/25/17 07:38 105 20 94 Nasal Cannula 3.0 32 05/25/17 04:00 98.5 107 20 158/95 95 Nasal Cannula 4.0 98.5 05/25/17 03:24 107 158/99 05/25/17 03:11 116 20 97 Nasal Cannula 3.0 32 05/25/17 03:10 110 20 92 Nasal Cannula 3.0 32 05/25/17 00:00 98.3 110 20 152/91 96 Nasal Cannula 4.0 98.3 05/24/17 23:49 118 20 97 Nasal Cannula 3.0 32 05/24/17 23:49 116 20 93 Nasal Cannula 3.0 32 05/24/17 21:34 98.9 120 22 183/89 95 98.9 Intake and Output 05/24/17 05/25/17 19:00 07:00 Intake Total 415.0 ml 425.0 ml Output Total 1850 ml 750 ml Balance -1435.0 ml -325.0 ml IV Total 415.0 ml 425.0 ml Output Urine Total 1850 ml 750 ml Laboratory Tests 05/25/17 05:40: White Blood Count 14.3#H, Red Blood Count 3.05L, Hemoglobin 9.4L, Hematocrit 28.2L, Mean Corpuscular Volume 92, Mean Corpuscular Hemoglobin 30.9, Mean Corpuscular Hemoglobin Concent 33.4, Red Cell Distribution Width 13.4, Platelet Count 296, Mean Platelet Volume 5.8L, Neutrophils (%) (Auto) 81.2H, Lymphocytes (%) (Auto) 9.6L, Monocytes (%) (Auto) 9.0, Eosinophils (%) (Auto) 0.1, Basophils (%) (Auto) 0.2, Sodium Level 140, Potassium Level 3.4L, Chloride Level 101, Carbon Dioxide Level 36H, Anion Gap 3L, Blood Urea Nitrogen 25H, Creatinine 1.7H, Estimat Glomerular Filtration Rate 30.4, Glucose Level 112H, Calcium Level 9.5, Random Vancomycin Level 12.2 Height (Feet): 5 Height (Inches): 6.00 Weight (Pounds): 260 General Appearance: alert Neurologic: oriented x 3, responsive, depressed affect Kelli Norton M.D. May 25, 2017 20:19
[2017-05-25] MEDS ORDERED: Vancomycin 1gm inj IVPB ONE (23:06)
--- NOTE | 2017-05-25 23:50 | Pulmonolgy Critical Care Note ---
Critical Care - Asmt/Plan Assessment/Plan: HPI 61 y/o F with hx of COPD, discharged from [facility] after receiving treatment for Pneumonia, PMH of HLD presents, Schizoaffective disorder, presented to the to ED with shortness of breath, noted to have oxygen desaturation of 85% on admission, previously T/f out of [facility] Afebrile CXR with infiltrates. Allergies: Coded Allergies: No Known Allergies (Unverified , 05/21/17) Patient History Healthcare decision maker Resuscitation status Advanced Directive on File Patient History Narrative Pmx: as above Shx: reviewed Fhx: non contributory Review of Systems All Other Systems: negative except mentioned in HPI Physical Exam Physical Exam Narrative General Appearance: no apparent distress, alert HEENT normocephalic, atraumatic, PERR, normal pharynx Neck: full range of motion, supple/symm/no masses Respiratory: chest non-tender, lungs clear, normal breath sounds, speaking full sentences Cardiovascular : regular rate, rhythm, no edema Gastrointestinal: normal bowel sounds, non tender, soft, non-distended, no guarding, no rebound Genitourinary: normal inspection, no CVA tenderness Musculoskeletal: back normal, gait/station normal, normal range of motion, non- tender Neurologic: alert, oriented x3, responsive, motor strength/tone normal, sensory intact, speech normal Skin: normal color, no rash, warm/dry, well hydrated Last 24 Hour Vital Signs Date Time Temp Pulse Resp B/P (MAP) Pulse Ox O2 Delivery O2 Flow Rate FiO2 05/21/17 11:59 30 05/21/17 11:52 100.4 22 144/96 100 Bi-pap 1.0 30 100.4 05/21/17 11:36 30 05/21/17 11:35 102 22 100 Bi-pap 30 05/21/17 11:31 99 22 99 Bi-pap 30 05/21/17 11:31 99 22 99 Bi-pap 30 05/21/17 11:28 30 05/21/17 11:22 103 22 99 Facial 30 05/21/17 11:17 98 22 99 Bi-pap 30 05/21/17 11:14 30 05/21/17 11:12 92 22 99 Bi-pap 30 05/21/17 09:46 22 146/97 100 Nasal Cannula 1.0 24 05/21/17 09:46 98 22 Nasal Cannula 1.0 24 05/21/17 08:51 98 22 100 Nasal Cannula 1.0 24 05/21/17 08:40 94 22 98 Nasal Cannula 1.0 24 05/21/17 08:40 24 05/21/17 08:18 108 24 170/86 90 Laboratory Tests Test 05/21/17 08:49 05/21/17 09:04 05/21/17 11:33 Sodium Level 129 MMOL/L (136-145) L Potassium Level 4.6 MMOL/L (3.5-5.1) Chloride Level 96 MMOL/L (98-107) L Carbon Dioxide Level 29 MMOL/L (21-32) Anion Gap 4 mmol/L (5-15) L Blood Urea Nitrogen 12 mg/dL (7-18) Creatinine 1.3 MG/DL (0.55-1.30) Estimat Glomerular Filtration Rate 41.5 mL/min (>60) Glucose Level 114 MG/DL (74-106) H Lactic Acid Level 0.50 mmol/L (0.66-2.22) L Calcium Level 9.0 MG/DL (8.5-10.1) Total Bilirubin 0.3 MG/DL (0.2-1.0) Aspartate Amino Transf (AST/SGOT) 28 U/L (15-37) Alanine Aminotransferase (ALT/SGPT) 26 U/L (12-78) Alkaline Phosphatase 82 U/L (46-116) Total Creatine Kinase 78 U/L (26-308) Troponin I 0.031 ng/mL (0.000-0.056) Pro-B-Type Natriuretic Peptide 2661 pg/mL (0-125) H Total Protein 6.2 G/DL (6.4-8.2) L Albumin 2.6 G/DL (3.4-5.0) L Globulin 3.6 g/dL Albumin/Globulin Ratio 0.7 (1.0-2.7) L Lipase 119 U/L (73-393) White Blood Count 8.2 K/UL (4.8-10.8) Red Blood Count 2.94 M/UL (4.20-5.40) L Hemoglobin 8.9 G/DL (12.0-16.0) L Hematocrit 26.9 % (37.0-47.0) L Mean Corpuscular Volume 92 FL (80-99) Mean Corpuscular Hemoglobin 30.5 PG (27.0-31.0) Mean Corpuscular Hemoglobin Concent 33.3 G/DL (32.0-36.0) Red Cell Distribution Width 12.1 % (11.6-14.8) Platelet Count 244 K/UL (150-450) Mean Platelet Volume 6.4 FL (6.5-10.1) L Neutrophils (%) (Auto) 84.2 % (45.0-75.0) H Lymphocytes (%) (Auto) 7.6 % (20.0-45.0) L Monocytes (%) (Auto) 5.4 % (1.0-10.0) Eosinophils (%) (Auto) 2.1 % (0.0-3.0) Basophils (%) (Auto) 0.7 % (0.0-2.0) Prothrombin Time 10.0 SEC (9.30-11.50) Prothromb Time International Ratio 1.0 (0.9-1.1) Activated Partial Thromboplast Time 27 SEC (23-33) Urine Color Pale yellow Urine Appearance Slightly cloudy Urine pH 7 (4.5-8.0) Urine Specific [place] 1.000 (1.005-1.035) Urine Protein 2+ (NEGATIVE) H Urine Glucose (UA) Negative (NEGATIVE) Urine Ketones Negative (NEGATIVE) Urine Occult Blood 4+ (NEGATIVE) H Urine Nitrite Negative (NEGATIVE) Urine Bilirubin Negative (NEGATIVE) Urine Urobilinogen Normal MG/DL (0.0-1.0) Urine Leukocyte Esterase 1+ (NEGATIVE) H Urine RBC 15-20 /HPF (0 - 2) H Urine WBC 5-10 /HPF (0 - 2) H Urine Squamous Epithelial Cells Moderate /LPF (NONE/OCC) H Urine Bacteria Few /HPF (NONE) Height (Feet): 5 Height (Inches): 6.00 Weight (Pounds): 250 Assessment/Plan Assessment/Plan Abx: IV vanco x1 3/24 Cefepime x1 324 Levaquin x1 05/21 Impression: Fever improved Possible HCAP vs Asp Pneumonia, need to r/o influenza CXR: Bilateral interstitial and patchy airspace edema/infiltrates, right greater than left. Lung base atelectasis. Clinical correlation/follow-up recommended. COPD exacerbation No leukocytosis HLD Schizoaffective disorder Recent PNA Plan: -Continue IV Vancomycin, Zosyn, tamiflu and Azithromycin per ID -influenza sc, sputum cx, legionella ag urine -f/u cx -Monitor labs -aspiration precautions - Reduce steroids to 20 IV Note abnormal swallow Thank you for this consultation. Discussed with RN. Critical Care - Objective Last 24 Hour Vital Signs Date Time Temp Pulse Resp B/P (MAP) Pulse Ox O2 Delivery O2 Flow Rate FiO2 05/25/17 23:14 98 20 95 Nasal Cannula 3.0 32 05/25/17 23:12 92 20 92 Nasal Cannula 3.0 32 05/25/17 21:16 104 181/85 05/25/17 20:00 98.1 104 20 170/93 94 98.1 05/25/17 19:40 104 20 96 Nasal Cannula 3.0 32 05/25/17 19:30 102 20 Nasal Cannula 3.0 32 05/25/17 19:30 100 20 93 Nasal Cannula 3.0 32 05/25/17 19:30 Nasal Cannula 3.0 32 05/25/17 19:30 93 Nasal Cannula 3.0 32 05/25/17 16:00 97.5 93 20 181/85 93 97.5 05/25/17 15:29 90 20 95 Nasal Cannula 3.0 32 05/25/17 15:20 92 20 86 Venturi Mask 8.0 40 05/25/17 12:00 97.3 63 20 145/59 90 97.3 05/25/17 11:14 100 18 92 Venturi Mask 7.0 40 05/25/17 11:05 110 18 94 Nasal Cannula 3.0 32 05/25/17 09:38 100 155/91 05/25/17 09:37 100 155/91 05/25/17 08:00 98.2 100 20 155/91 96 Nasal Cannula 4.0 98.2 05/25/17 07:48 109 22 99 Nasal Cannula 3.0 32 05/25/17 07:45 105 20 Nasal Cannula 3.0 32 05/25/17 07:39 94 Nasal Cannula 3.0 32 05/25/17 07:39 Nasal Cannula 3.0 32 05/25/17 07:38 105 20 94 Nasal Cannula 3.0 32 05/25/17 04:00 98.5 107 20 158/95 95 Nasal Cannula 4.0 98.5 05/25/17 03:24 107 158/99 05/25/17 03:11 116 20 97 Nasal Cannula 3.0 32 05/25/17 03:10 110 20 92 Nasal Cannula 3.0 32 05/25/17 00:00 98.3 110 20 152/91 96 Nasal Cannula 4.0 98.3 05/24/17 23:49 118 20 97 Nasal Cannula 3.0 32 05/24/17 23:49 116 20 93 Nasal Cannula 3.0 32 Accucheck: 137 Critical Care - Subjective ROS Limited/Unobtainable: Yes Condition: improving IV Access: peripheral EKG Rhythm: Sinus Rhythm FI02: 32 Vent Support Breath Rate: 16 Vent Support Mode: BiLevel Sputum Amount: None I&O: Intake and Output 05/24/17 05/25/17 19:00 07:00 Intake Total 415.0 ml 425.0 ml Output Total 1850 ml 750 ml Balance -1435.0 ml -325.0 ml IV Total 415.0 ml 425.0 ml Output Urine Total 1850 ml 750 ml Girish Molina M.D. May 25, 2017 23:50
[2017-05-26] VITALS: BP 153/85
[2017-05-26] MEDS: Piperacillin/Tazobactam 3.375 GM in D5W 110 ML IVPB SCH ×4 (01:17→23:45)
[2017-05-26] MEDS: Albuterol/Ipratropium 3ml neb HHN SCH ×5 (02:33→18:51)
[2017-05-26 04:00] VITALS: BP 152/86
[2017-05-26] MEDS: NovoLOG Insulin Flexpen SUBQ SCH ×4 (05:34→21:20)
[2017-05-26 07:14] LABS: ANION GAP 5 mmol/L (5-15); BLOOD UREA NITROGEN 29 mg/dL (7-18); CALCIUM 8.9 MG/DL (8.5-10.1); CARBON DIOXIDE 36 MMOL/L (21-32); CHLORIDE 102 MMOL/L (98-107); CREATININE 1.5 MG/DL (0.55-1.30); POTASSIUM 3.3 MMOL/L (3.5-5.1); SODIUM 143 MMOL/L (136-145)
[2017-05-26 07:31] LABS: HEMATOCRIT 26.4 % (37.0-47.0); MEAN CORPUSCULAR VOLUME 93 FL (80-99); PLATELET COUNT 249 K/UL (150-450); RED BLOOD COUNT 2.85 M/UL (4.20-5.40); WHITE BLOOD COUNT 10.7 K/UL (4.8-10.8)
[2017-05-26 08:00] VITALS: BP 151/58
[2017-05-26] MEDS ORDERED: Solu-MEDROL 40mg Inj IVP SCH (09:00)
--- NOTE | 2017-05-26 10:20 | GI Progress Note ---
Assessment/Plan Problems: (1) Dysphagia ICD Codes: R13.10 - Dysphagia, unspecified SNOMED: 66131520, 786988380 (2) Schizo affective schizophrenia ICD Codes: F25.0 - Schizoaffective disorder, bipolar type SNOMED: 345251486 (3) Encounter for PEG (percutaneous endoscopic gastrostomy) ICD Codes: Z43.1 - Encounter for attention to gastrostomy SNOMED: 120517065, 115779840 (4) Anemia ICD Codes: D64.9 - Anemia, unspecified SNOMED: 616869087 Qualifiers: Qualified Codes: D64.9 - Anemia, unspecified Status: stable, unchanged Status Narrative Discussed with Dr. Wilson. Assessment/Plan refusing NGT/PEG, but needs evaluation for mental capacity to consent >> fu pysch recs history of schizo d/w with ST video swallow >> no aspiration noted, but pt has delayed swallowing function and is high risk for aspiration. trial diet per ST + IVFs ordered esophagram r/o dysmotility/stricture ppi prn transfusions fu labs PEG if necessary Subjective Subjective agitated, using profanity Objective Last 24 Hour Vital Signs Date Time Temp Pulse Resp B/P (MAP) Pulse Ox O2 Delivery O2 Flow Rate FiO2 05/26/17 08:00 98.0 93 20 151/58 95 Nasal Cannula 3.0 98.0 05/26/17 07:39 97 22 95 Nasal Cannula 3.0 32 05/26/17 07:26 Nasal Cannula 3.0 32 05/26/17 07:26 95 22 92 Nasal Cannula 3.0 32 05/26/17 07:26 92 Nasal Cannula 3.0 32 05/26/17 04:00 98.1 92 20 152/86 95 98.1 05/26/17 02:52 99 20 94 Nasal Cannula 3.0 32 05/26/17 02:34 91 20 93 Nasal Cannula 3.0 32 05/26/17 00:00 98.4 94 20 153/85 95 98.4 05/25/17 23:14 98 20 95 Nasal Cannula 3.0 32 05/25/17 23:12 92 20 92 Nasal Cannula 3.0 32 05/25/17 21:16 104 181/85 05/25/17 20:00 98.1 104 20 170/93 94 98.1 05/25/17 19:40 104 20 96 Nasal Cannula 3.0 32 05/25/17 19:30 102 20 Nasal Cannula 3.0 32 05/25/17 19:30 100 20 93 Nasal Cannula 3.0 32 05/25/17 19:30 Nasal Cannula 3.0 32 05/25/17 19:30 93 Nasal Cannula 3.0 32 05/25/17 16:00 97.5 93 20 181/85 93 97.5 05/25/17 15:29 90 20 95 Nasal Cannula 3.0 32 05/25/17 15:20 92 20 86 Venturi Mask 8.0 40 05/25/17 12:00 97.3 63 20 145/59 90 97.3 05/25/17 11:14 100 18 92 Venturi Mask 7.0 40 05/25/17 11:05 110 18 94 Nasal Cannula 3.0 32 Intake and Output 05/25/17 05/26/17 19:00 07:00 Intake Total 267.5 ml Output Total 1800 ml 450 ml Balance -1532.5 ml -450 ml Intake Oral 120 ml IV Total 147.5 ml Output Urine Total 1800 ml 450 ml Laboratory Tests Test 05/26/17 05:15 White Blood Count 10.7 K/UL (4.8-10.8) Red Blood Count 2.85 M/UL (4.20-5.40) L Hemoglobin 9.0 G/DL (12.0-16.0) L Hematocrit 26.4 % (37.0-47.0) L Mean Corpuscular Volume 93 FL (80-99) Mean Corpuscular Hemoglobin 31.7 PG (27.0-31.0) H Mean Corpuscular Hemoglobin Concent 34.2 G/DL (32.0-36.0) Red Cell Distribution Width 13.0 % (11.6-14.8) Platelet Count 249 K/UL (150-450) Mean Platelet Volume 5.8 FL (6.5-10.1) L Neutrophils (%) (Auto) % (45.0-75.0) Lymphocytes (%) (Auto) % (20.0-45.0) Monocytes (%) (Auto) % (1.0-10.0) Eosinophils (%) (Auto) % (0.0-3.0) Basophils (%) (Auto) % (0.0-2.0) Neutrophils % (Manual) Pending Lymphocytes % (Manual) Pending Platelet Estimate Pending Platelet Morphology Pending Sodium Level 143 MMOL/L (136-145) Potassium Level 3.3 MMOL/L (3.5-5.1) L Chloride Level 102 MMOL/L (98-107) Carbon Dioxide Level 36 MMOL/L (21-32) H Anion Gap 5 mmol/L (5-15) Blood Urea Nitrogen 29 mg/dL (7-18) H Creatinine 1.5 MG/DL (0.55-1.30) H Estimat Glomerular Filtration Rate 35.2 mL/min (>60) Glucose Level 124 MG/DL (74-106) H Calcium Level 8.9 MG/DL (8.5-10.1) Height (Feet): 5 Height (Inches): 6.00 Weight (Pounds): 260 General Appearance: morbidly obese, other - agitated Cardiovascular: normal rate Respiratory/Chest: other - mild agitation, O2 saturation reviewed WNL Abdominal Exam: normal bowel sounds, non tender, soft Liliana Bridges N.P. May 26, 2017 10:20
[2017-05-26] MEDS: Ascorbic Acid 500mg tab ORAL SCH (11:17)
[2017-05-26] MEDS: Nephrovite tab (Rena-Vite) ORAL SCH (11:17)
[2017-05-26] MEDS: Pantoprazole Inj IVP SCH (11:18)
[2017-05-26] MEDS: Heparin 5000 units/ml inj SUBQ SCH ×2 (11:20→21:21)
[2017-05-26] MEDS: Verapamil 180mg SR tab ORAL SCH (11:21)
[2017-05-26] MEDS: Docusate 100mg cap ORAL SCH ×2 (11:25→21:15)
[2017-05-26] MEDS: D5 1/2NS 1,000 ML IV SCH (11:25)
--- NOTE | 2017-05-26 11:32 | Diagnostic Imaging Report ---
Indication: Shortness of breath Technique: One view of the chest Comparison: 05/24/2017 Findings: Bilateral infiltrates are again demonstrated. There is probably a small amount of pleural fluid bilaterally as well. The heart is enlarged. Findings are unchanged Impression: Unchanged, over 2 days, findings as above.
[2017-05-26 12:00] VITALS: BP 146/68
--- NOTE | 2017-05-26 13:03 | General Progress Note ---
Assessment/Plan Status: unchanged Assessment/Plan schizoaffective d/o bipolar d/o mdd encephalopathy -risperdal 2mg qhs -depakote 500mg bid -so/ro -ativan prn Subjective Date patient seen: May 26, 2017 Neurologic/Psychiatric: Reports: anxiety, depressed, emotional problems Allergies: Coded Allergies: No Known Allergies (Unverified , 05/21/17) Subjective the pt is more agitated yelling and is delusional Objective Last 24 Hour Vital Signs Date Time Temp Pulse Resp B/P (MAP) Pulse Ox O2 Delivery O2 Flow Rate FiO2 05/26/17 12:00 97.7 98 20 146/68 96 Nasal Cannula 3.0 97.7 05/26/17 11:47 98 21 95 Nasal Cannula 3.0 32 05/26/17 11:40 97 21 91 Nasal Cannula 3.0 32 05/26/17 11:21 101 149/67 05/26/17 11:19 101 149/67 05/26/17 08:00 98.0 93 20 151/58 95 Nasal Cannula 3.0 98.0 05/26/17 07:39 97 22 95 Nasal Cannula 3.0 32 05/26/17 07:26 Nasal Cannula 3.0 32 05/26/17 07:26 95 22 92 Nasal Cannula 3.0 32 05/26/17 07:26 92 Nasal Cannula 3.0 32 05/26/17 04:00 98.1 92 20 152/86 95 98.1 05/26/17 02:52 99 20 94 Nasal Cannula 3.0 32 05/26/17 02:34 91 20 93 Nasal Cannula 3.0 32 05/26/17 00:00 98.4 94 20 153/85 95 98.4 05/25/17 23:14 98 20 95 Nasal Cannula 3.0 32 05/25/17 23:12 92 20 92 Nasal Cannula 3.0 32 05/25/17 21:16 104 181/85 05/25/17 20:00 98.1 104 20 170/93 94 98.1 05/25/17 19:40 104 20 96 Nasal Cannula 3.0 32 05/25/17 19:30 102 20 Nasal Cannula 3.0 32 05/25/17 19:30 100 20 93 Nasal Cannula 3.0 32 05/25/17 19:30 Nasal Cannula 3.0 32 05/25/17 19:30 93 Nasal Cannula 3.0 32 05/25/17 16:00 97.5 93 20 181/85 93 97.5 05/25/17 15:29 90 20 95 Nasal Cannula 3.0 32 05/25/17 15:20 92 20 86 Venturi Mask 8.0 40 Intake and Output 05/25/17 05/26/17 19:00 07:00 Intake Total 267.5 ml Output Total 1800 ml 450 ml Balance -1532.5 ml -450 ml Intake Oral 120 ml IV Total 147.5 ml Output Urine Total 1800 ml 450 ml Laboratory Tests 05/26/17 05:15: White Blood Count 10.7, Red Blood Count 2.85L, Hemoglobin 9.0L, Hematocrit 26.4L , Mean Corpuscular Volume 93, Mean Corpuscular Hemoglobin 31.7H, Mean Corpuscular Hemoglobin Concent 34.2, Red Cell Distribution Width 13.0, Platelet Count 249, Mean Platelet Volume 5.8L, Neutrophils (%) (Auto) , Lymphocytes (%) ( Auto) , Monocytes (%) (Auto) , Eosinophils (%) (Auto) , Basophils (%) (Auto) , Differential Total Cells Counted 100, Neutrophils % (Manual) 85H, Lymphocytes % (Manual) 10L, Monocytes % (Manual) 5, Eosinophils % (Manual) 0, Basophils % ( Manual) 0, Band Neutrophils 0, Platelet Estimate Adequate, Platelet Morphology Normal, Red Blood Cell Morphology Normal, Sodium Level 143, Potassium Level 3.3L , Chloride Level 102, Carbon Dioxide Level 36H, Anion Gap 5, Blood Urea Nitrogen 29H, Creatinine 1.5H, Estimat Glomerular Filtration Rate 35.2, Glucose Level 124H, Calcium Level 8.9 Height (Feet): 5 Height (Inches): 6.00 Weight (Pounds): 260 General Appearance: no apparent distress, alert, confused, agitated Neurologic: alert, responsive, depressed affect Kelli Norton M.D. May 26, 2017 13:03
[2017-05-26] MEDS: Depakote 500mg tab ORAL SCH ×2 (13:59→21:16)
[2017-05-26 16:00] VITALS: BP 139/78
--- NOTE | 2017-05-26 16:11 | Infectious Diseases Prog Note ---
Assessment/Plan Assessment/Plan Assessment: Fever, resolved Possible HCAP vs Asp PNA- -CXR 05/24: Slight improvement in the right upper lobe but otherwise stable bilateral parenchymal infiltrates versus edema, over 3 days -CXR: Bilateral interstitial and patchy airspace edema/infiltrates, right greater than left. Lung base atelectasis. Clinical correlation/follow-up recommended. -sp cx unable to be collected -influenza sc neg -legionella ag urine Leukocytosis(on steroids); resolved COPD exacerbation Acute respiratory failure -2ry to above HLD Schizoaffective disorder Recent PNA Plan: -Continue IV Vancomycin, Zosyn #6/7-10 pending sputum cx -05/22 SP Tamiflu #2 -05/21 SP Cefepime x1, Levaquin x1 -f/u cx -Monitor CBC/BMP, temperatures -aspiration precautions Thank you for this consultation. Will continue to follow along with you. Discussed with RN. Subjective Allergies: Coded Allergies: No Known Allergies (Unverified , 05/21/17) Subjective afebrile leukocytosis resolved sp cx not collected Bcx NTD Objective Vital Signs Last 24 Hour Vital Signs Date Time Temp Pulse Resp B/P (MAP) Pulse Ox O2 Delivery O2 Flow Rate FiO2 05/26/17 14:41 90 23 98 Nasal Cannula 3.0 32 05/26/17 14:30 86 21 93 Nasal Cannula 3.0 32 05/26/17 12:00 97.7 98 20 146/68 96 Nasal Cannula 3.0 97.7 05/26/17 11:47 98 21 95 Nasal Cannula 3.0 32 05/26/17 11:40 97 21 91 Nasal Cannula 3.0 32 05/26/17 11:21 101 149/67 05/26/17 11:19 101 149/67 05/26/17 08:00 98.0 93 20 151/58 95 Nasal Cannula 3.0 98.0 05/26/17 07:39 97 22 95 Nasal Cannula 3.0 32 05/26/17 07:26 Nasal Cannula 3.0 32 05/26/17 07:26 95 22 92 Nasal Cannula 3.0 32 05/26/17 07:26 92 Nasal Cannula 3.0 32 05/26/17 04:00 98.1 92 20 152/86 95 98.1 05/26/17 02:52 99 20 94 Nasal Cannula 3.0 32 05/26/17 02:34 91 20 93 Nasal Cannula 3.0 32 05/26/17 00:00 98.4 94 20 153/85 95 98.4 05/25/17 23:14 98 20 95 Nasal Cannula 3.0 32 05/25/17 23:12 92 20 92 Nasal Cannula 3.0 32 05/25/17 21:16 104 181/85 05/25/17 20:00 98.1 104 20 170/93 94 98.1 05/25/17 19:40 104 20 96 Nasal Cannula 3.0 32 05/25/17 19:30 102 20 Nasal Cannula 3.0 32 05/25/17 19:30 100 20 93 Nasal Cannula 3.0 32 05/25/17 19:30 Nasal Cannula 3.0 32 05/25/17 19:30 93 Nasal Cannula 3.0 32 Height (Feet): 5 Height (Inches): 6.00 Weight (Pounds): 260 Objective General Appearance: no apparent distress, alert HEENT normocephalic, atraumatic, PERR, normal pharynx Neck: full range of motion, supple/symm/no masses Respiratory: chest non-tender, lungs clear, normal breath sounds, speaking full sentences Cardiovascular : regular rate, rhythm, no edema Gastrointestinal: normal bowel sounds, non tender, soft, non-distended, no guarding, no rebound Genitourinary: normal inspection, no CVA tenderness Musculoskeletal: back normal, gait/station normal, normal range of motion, non- tender Neurologic: alert, oriented x3, responsive, motor strength/tone normal, sensory intact, speech normal Skin: normal color, no rash, warm/dry, well hydrated Laboratory Tests Test 05/26/17 05:15 White Blood Count 10.7 K/UL (4.8-10.8) Red Blood Count 2.85 M/UL (4.20-5.40) L Hemoglobin 9.0 G/DL (12.0-16.0) L Hematocrit 26.4 % (37.0-47.0) L Mean Corpuscular Volume 93 FL (80-99) Mean Corpuscular Hemoglobin 31.7 PG (27.0-31.0) H Mean Corpuscular Hemoglobin Concent 34.2 G/DL (32.0-36.0) Red Cell Distribution Width 13.0 % (11.6-14.8) Platelet Count 249 K/UL (150-450) Mean Platelet Volume 5.8 FL (6.5-10.1) L Neutrophils (%) (Auto) % (45.0-75.0) Lymphocytes (%) (Auto) % (20.0-45.0) Monocytes (%) (Auto) % (1.0-10.0) Eosinophils (%) (Auto) % (0.0-3.0) Basophils (%) (Auto) % (0.0-2.0) Differential Total Cells Counted 100 Neutrophils % (Manual) 85 % (45-75) H Lymphocytes % (Manual) 10 % (20-45) L Monocytes % (Manual) 5 % (1-10) Eosinophils % (Manual) 0 % (0-3) Basophils % (Manual) 0 % (0-2) Band Neutrophils 0 % (0-8) Platelet Estimate Adequate Platelet Morphology Normal Red Blood Cell Morphology Normal Sodium Level 143 MMOL/L (136-145) Potassium Level 3.3 MMOL/L (3.5-5.1) L Chloride Level 102 MMOL/L (98-107) Carbon Dioxide Level 36 MMOL/L (21-32) H Anion Gap 5 mmol/L (5-15) Blood Urea Nitrogen 29 mg/dL (7-18) H Creatinine 1.5 MG/DL (0.55-1.30) H Estimat Glomerular Filtration Rate 35.2 mL/min (>60) Glucose Level 124 MG/DL (74-106) H Calcium Level 8.9 MG/DL (8.5-10.1) Current Medications Medications (Trade) Dose Ordered Sig/Wale Route PRN Reason Start Time Stop Time Status Last Admin Dose Admin Acetaminophen (Tylenol) 650 mg Q4H PRN RECTAL MILD PAIN/T>100.5 05/24/17 21:30 06/20/17 21:29 Albuterol/ Ipratropium (Albuterol/ Ipratropium) 3 ml Q4HRT HHN 05/24/17 23:00 05/26/17 18:59 05/26/17 14:30 Albuterol/ Ipratropium (Albuterol/ Ipratropium) 3 ml Q6H PRN HHN Shortness of Breath 05/24/17 21:30 05/29/17 21:29 Ascorbic Acid (Vitamin C) 500 mg DAILY ORAL 05/25/17 09:00 06/21/17 08:59 05/26/17 11:17 Atorvastatin Calcium (Lipitor) 10 mg BEDTIME ORAL 05/25/17 21:00 06/20/17 20:59 05/25/17 21:16 Carvedilol (Coreg) 3.125 mg EVERY 12 HOURS ORAL 05/25/17 09:00 06/24/17 08:59 05/26/17 11:19 Dextrose (Dextrose 50%) STAT PRN IV Hypoglycemia 05/24/17 21:30 06/23/17 21:29 Dextrose/Sodium Chloride 1,000 ml @ 60 mls/hr [id number] IV 05/24/17 22:00 06/20/17 21:59 05/26/17 11:25 Divalproex Sodium (Depakote) 500 mg EVERY 12 HOURS ORAL 05/26/17 13:00 06/25/17 12:59 05/26/17 13:59 Docusate Sodium (Colace) 100 mg Q12HR ORAL 05/25/17 09:00 06/24/17 08:59 05/26/17 11:25 Folic Acid (Folate) 1 mg DAILY ORAL 05/25/17 09:00 06/21/17 08:59 05/26/17 11:17 Furosemide (Lasix) 40 mg DAILY IV 05/25/17 09:00 06/21/17 08:59 05/26/17 11:17 Guaifenesin/ Codeine Phosphate (Robitussin with codeine) 5 ml Q6H PRN ORAL For Cough 05/24/17 21:30 06/23/17 21:29 Heparin Sodium (Porcine) (Heparin 5000 units/ml) 5,000 units EVERY 12 HOURS SUBQ 05/25/17 09:00 06/20/17 20:59 05/26/17 11:20 Insulin Aspart (NovoLOG) BEFORE MEALS AND HS SUBQ 05/25/17 06:30 06/20/17 20:59 05/25/17 21:59 Lorazepam (Ativan) 2 mg Q6H PRN ORAL For Anxiety 05/26/17 12:45 06/02/17 12:44 Methylprednisolone Sodium Succinate (Solu-MEDROL) 20 mg DAILY IVP 05/26/17 09:00 06/25/17 08:59 05/26/17 11:17 Ondansetron HCl (Zofran) 4 mg Q8H PRN ORAL Nausea & Vomiting 05/24/17 21:30 06/23/17 21:29 Pantoprazole (Protonix) 40 mg DAILY IVP 05/25/17 09:00 06/21/17 08:59 05/26/17 11:18 Piperacillin Sod/ Tazobactam Sod 3.375 gm/Dextrose 110 ml @ 27.5 mls/hr Q8HR@0000,0800,1600 IVPB 05/25/17 00:00 06/01/17 00:00 05/26/17 11:18 Risperidone (RisperDAL) 2 mg BEDTIME ORAL 05/26/17 21:00 06/25/17 20:59 Vancomycin HCl (Vanco rx to dose) 1 ea DAILYPRN PRN MISC Per rx protocol 05/24/17 21:30 06/23/17 21:29 Verapamil HCl (Calan SR) 360 mg DAILY ORAL 05/25/17 09:00 06/24/17 08:59 05/26/17 11:21 Vitamin B Complex/ Vit C/Folic Acid (Nephrovite) 1 tab DAILY ORAL 05/25/17 09:00 06/21/17 08:59 05/26/17 11:17 Crystal Ruth M.D. May 26, 2017 16:10
[2017-05-26 20:00] VITALS: BP 169/88
--- NOTE | 2017-05-26 20:27 | Pulmonolgy Critical Care Note ---
Critical Care - Asmt/Plan Assessment/Plan: HPI 61 y/o F with hx of COPD, discharged from [facility] after receiving treatment for Pneumonia, PMH of HLD presents, Schizoaffective disorder, presented to the to ED with shortness of breath, noted to have oxygen desaturation of 85% on admission, previously T/f out of [facility] No new complaints Afebrile CXR with infiltrates. Allergies: Coded Allergies: No Known Allergies (Unverified , 05/21/17) Patient History Healthcare decision maker Resuscitation status Advanced Directive on File Patient History Narrative Pmx: as above Shx: reviewed Fhx: non contributory Review of Systems All Other Systems: negative except mentioned in HPI Physical Exam Physical Exam Narrative General Appearance: no apparent distress, alert HEENT normocephalic, atraumatic, PERR, normal pharynx Neck: full range of motion, supple/symm/no masses Respiratory: chest non-tender, lungs clear, normal breath sounds, speaking full sentences Cardiovascular : regular rate, rhythm, no edema Gastrointestinal: normal bowel sounds, non tender, soft, non-distended, no guarding, no rebound Genitourinary: normal inspection, no CVA tenderness Musculoskeletal: back normal, gait/station normal, normal range of motion, non- tender Neurologic: alert, oriented x3, responsive, motor strength/tone normal, sensory intact, speech normal Skin: normal color, no rash, warm/dry, well hydrated Vital Signs stable Labs noted . Height (Feet): 5 Height (Inches): 6.00 Weight (Pounds): 250 CXR 05/24: Slight improvement in the right upper lobe but otherwise stable bilateral parenchymal infiltrates versus edema Assessment/Plan Assessment/Plan Abx: IV vanco x1 05/21 Cefepime x1 05/21 Levaquin x1 05/21 Impression: Fever improved Possible HCAP vs Asp Pneumonia, need to r/o influenza CXR: Bilateral interstitial and patchy airspace edema/infiltrates, right greater than left. Lung base atelectasis. Clinical correlation/follow-up recommended. COPD exacerbation No leukocytosis HLD Schizoaffective disorder Recent PNA Plan: -Continue Antibiotics per ID -influenza sc, sputum cx, legionella ag urine pending - Incr WCC improving -f/u cx -Monitor labs -aspiration precautions -Continue steroids to 20 IV Note abnormal swallow Thank you for this consultation. Discussed with RN. Critical Care - Objective Last 24 Hour Vital Signs Date Time Temp Pulse Resp B/P (MAP) Pulse Ox O2 Delivery O2 Flow Rate FiO2 05/26/17 20:00 98.7 97 21 169/88 96 98.7 05/26/17 19:01 88 20 96 Venturi Mask 6.0 35 05/26/17 18:51 78 20 93 Nasal Cannula 3.0 32 05/26/17 18:51 Nasal Cannula 3.0 32 05/26/17 18:51 93 Nasal Cannula 3.0 32 05/26/17 16:00 97.6 93 18 139/78 94 Nasal Cannula 3.0 97.6 05/26/17 14:41 90 23 98 Nasal Cannula 3.0 32 05/26/17 14:30 86 21 93 Nasal Cannula 3.0 32 05/26/17 12:00 97.7 98 20 146/68 96 Nasal Cannula 3.0 97.7 05/26/17 11:47 98 21 95 Nasal Cannula 3.0 32 05/26/17 11:40 97 21 91 Nasal Cannula 3.0 32 05/26/17 11:21 101 149/67 05/26/17 11:19 101 149/67 05/26/17 08:00 98.0 93 20 151/58 95 Nasal Cannula 3.0 98.0 05/26/17 07:39 97 22 95 Nasal Cannula 3.0 32 05/26/17 07:26 Nasal Cannula 3.0 32 05/26/17 07:26 95 22 92 Nasal Cannula 3.0 32 05/26/17 07:26 92 Nasal Cannula 3.0 32 05/26/17 04:00 98.1 92 20 152/86 95 98.1 05/26/17 02:52 99 20 94 Nasal Cannula 3.0 32 05/26/17 02:34 91 20 93 Nasal Cannula 3.0 32 05/26/17 00:00 98.4 94 20 153/85 95 98.4 05/25/17 23:14 98 20 95 Nasal Cannula 3.0 32 05/25/17 23:12 92 20 92 Nasal Cannula 3.0 32 05/25/17 21:16 104 181/85 Accucheck: 119 Critical Care - Subjective ROS Limited/Unobtainable: Yes Condition: stable EKG Rhythm: Sinus Rhythm FI02: 35 Vent Support Breath Rate: 16 Vent Support Mode: BiLevel Sputum Amount: None I&O: Intake and Output 05/25/17 05/26/17 19:00 07:00 Intake Total 267.5 ml Output Total 1800 ml 450 ml Balance -1532.5 ml -450 ml Intake Oral 120 ml IV Total 147.5 ml Output Urine Total 1800 ml 450 ml Girish Molina M.D. May 26, 2017 20:27
--- NOTE | 2017-05-26 21:44 | General Progress Note ---
Assessment/Plan Status: stable Assessment/Plan ASSESSMENT: This is a 61-year-old white female: 1. Hypoxemic Respiratory failure: DDx , COPD exacerbation , PNA 2. Chronic obstructive pulmonary disease, acute exacerbation. 3. Diabetes type 2. 4. Hypertension. 5. Hyponatremia. 6. GI-DVT prophylaxia 7. Psych d.o 8. Dysphagia Plan: continue Lasix current management consult Dr Norton for patient Capacity for making medical decision Consult Dr Wilson for PEG placement, pending obtaining consent current pulmonary management Subjective ROS Limited/Unobtainable: Yes Allergies: Coded Allergies: No Known Allergies (Unverified , 05/21/17) Objective Last 24 Hour Vital Signs Date Time Temp Pulse Resp B/P (MAP) Pulse Ox O2 Delivery O2 Flow Rate FiO2 05/26/17 21:18 93 139/78 05/26/17 20:00 98.7 97 21 169/88 96 98.7 05/26/17 19:01 88 20 96 Venturi Mask 6.0 35 05/26/17 18:51 78 20 93 Nasal Cannula 3.0 32 05/26/17 18:51 Nasal Cannula 3.0 32 05/26/17 18:51 93 Nasal Cannula 3.0 32 05/26/17 16:00 97.6 93 18 139/78 94 Nasal Cannula 3.0 97.6 05/26/17 14:41 90 23 98 Nasal Cannula 3.0 32 05/26/17 14:30 86 21 93 Nasal Cannula 3.0 32 05/26/17 12:00 97.7 98 20 146/68 96 Nasal Cannula 3.0 97.7 05/26/17 11:47 98 21 95 Nasal Cannula 3.0 32 05/26/17 11:40 97 21 91 Nasal Cannula 3.0 32 05/26/17 11:21 101 149/67 05/26/17 11:19 101 149/67 05/26/17 08:00 98.0 93 20 151/58 95 Nasal Cannula 3.0 98.0 05/26/17 07:39 97 22 95 Nasal Cannula 3.0 32 05/26/17 07:26 Nasal Cannula 3.0 32 05/26/17 07:26 95 22 92 Nasal Cannula 3.0 32 05/26/17 07:26 92 Nasal Cannula 3.0 32 05/26/17 04:00 98.1 92 20 152/86 95 98.1 05/26/17 02:52 99 20 94 Nasal Cannula 3.0 32 05/26/17 02:34 91 20 93 Nasal Cannula 3.0 32 05/26/17 00:00 98.4 94 20 153/85 95 98.4 05/25/17 23:14 98 20 95 Nasal Cannula 3.0 32 05/25/17 23:12 92 20 92 Nasal Cannula 3.0 32 Intake and Output 05/25/17 05/26/17 19:00 07:00 Intake Total 267.5 ml Output Total 1800 ml 450 ml Balance -1532.5 ml -450 ml Intake Oral 120 ml IV Total 147.5 ml Output Urine Total 1800 ml 450 ml Laboratory Tests 05/26/17 05:15: White Blood Count 10.7, Red Blood Count 2.85L, Hemoglobin 9.0L, Hematocrit 26.4L , Mean Corpuscular Volume 93, Mean Corpuscular Hemoglobin 31.7H, Mean Corpuscular Hemoglobin Concent 34.2, Red Cell Distribution Width 13.0, Platelet Count 249, Mean Platelet Volume 5.8L, Neutrophils (%) (Auto) , Lymphocytes (%) ( Auto) , Monocytes (%) (Auto) , Eosinophils (%) (Auto) , Basophils (%) (Auto) , Differential Total Cells Counted 100, Neutrophils % (Manual) 85H, Lymphocytes % (Manual) 10L, Monocytes % (Manual) 5, Eosinophils % (Manual) 0, Basophils % ( Manual) 0, Band Neutrophils 0, Platelet Estimate Adequate, Platelet Morphology Normal, Red Blood Cell Morphology Normal, Sodium Level 143, Potassium Level 3.3L , Chloride Level 102, Carbon Dioxide Level 36H, Anion Gap 5, Blood Urea Nitrogen 29H, Creatinine 1.5H, Estimat Glomerular Filtration Rate 35.2, Glucose Level 124H, Calcium Level 8.9 Height (Feet): 5 Height (Inches): 6.00 Weight (Pounds): 260 General Appearance: WD/WN EENT: PERRL/EOMI Neck: supple Cardiovascular: tachycardia Respiratory/Chest: rhonchi - bilaterally Abdomen: soft, other - morbidly obese, limited exam Extremities: non-tender, other - diffuse decreased ROM in extremitiesx4 Neurologic: coater carbon paper II-XII grossly normal, other - paranoid/schizoid ideation Shoshana Norman MD May 26, 2017 21:44
--- NOTE | 2017-05-26 23:10 | Cardiology Progress Note ---
Assessment/Plan Assessment/Plan 1. Sinus tachycardia most likely due to underlying pneumonia, hypoxemia and breathing treatment. Increase coreg to 6.25mg po bid, continue verapamil. 2. Hypertension, well controlled, continue coreg and verapamil. Echo shows normal LVEF. 3. History of COPD with mild pulmonary HTN. 4. Morbid obesity. 5. Respiratory failure now on NC oxygen. 6. Bigeminy VPCs on coreg. Subjective Subjective Transferred out of the telemetry unit. Objective Last 24 Hour Vital Signs Date Time Temp Pulse Resp B/P (MAP) Pulse Ox O2 Delivery O2 Flow Rate FiO2 05/26/17 21:18 93 139/78 05/26/17 20:00 98.7 97 21 169/88 96 98.7 05/26/17 19:01 88 20 96 Venturi Mask 6.0 35 05/26/17 18:51 78 20 93 Nasal Cannula 3.0 32 05/26/17 18:51 Nasal Cannula 3.0 32 05/26/17 18:51 93 Nasal Cannula 3.0 32 05/26/17 16:00 97.6 93 18 139/78 94 Nasal Cannula 3.0 97.6 05/26/17 14:41 90 23 98 Nasal Cannula 3.0 32 05/26/17 14:30 86 21 93 Nasal Cannula 3.0 32 05/26/17 12:00 97.7 98 20 146/68 96 Nasal Cannula 3.0 97.7 05/26/17 11:47 98 21 95 Nasal Cannula 3.0 32 05/26/17 11:40 97 21 91 Nasal Cannula 3.0 32 05/26/17 11:21 101 149/67 05/26/17 11:19 101 149/67 05/26/17 08:00 98.0 93 20 151/58 95 Nasal Cannula 3.0 98.0 05/26/17 07:39 97 22 95 Nasal Cannula 3.0 32 05/26/17 07:26 Nasal Cannula 3.0 32 05/26/17 07:26 95 22 92 Nasal Cannula 3.0 32 05/26/17 07:26 92 Nasal Cannula 3.0 32 05/26/17 04:00 98.1 92 20 152/86 95 98.1 05/26/17 02:52 99 20 94 Nasal Cannula 3.0 32 05/26/17 02:34 91 20 93 Nasal Cannula 3.0 32 05/26/17 00:00 98.4 94 20 153/85 95 98.4 05/25/17 23:14 98 20 95 Nasal Cannula 3.0 32 05/25/17 23:12 92 20 92 Nasal Cannula 3.0 32 Intake and Output 05/25/17 05/26/17 19:00 07:00 Intake Total 267.5 ml Output Total 1800 ml 450 ml Balance -1532.5 ml -450 ml Intake Oral 120 ml IV Total 147.5 ml Output Urine Total 1800 ml 450 ml 2D Echo: EF 55%, Mild LVH, Elevated RAP 15 mmHg, RVSP 39 mmHg, Mild MR Laboratory Tests Test 05/26/17 05:15 White Blood Count 10.7 K/UL (4.8-10.8) Red Blood Count 2.85 M/UL (4.20-5.40) L Hemoglobin 9.0 G/DL (12.0-16.0) L Hematocrit 26.4 % (37.0-47.0) L Mean Corpuscular Volume 93 FL (80-99) Mean Corpuscular Hemoglobin 31.7 PG (27.0-31.0) H Mean Corpuscular Hemoglobin Concent 34.2 G/DL (32.0-36.0) Red Cell Distribution Width 13.0 % (11.6-14.8) Platelet Count 249 K/UL (150-450) Mean Platelet Volume 5.8 FL (6.5-10.1) L Neutrophils (%) (Auto) % (45.0-75.0) Lymphocytes (%) (Auto) % (20.0-45.0) Monocytes (%) (Auto) % (1.0-10.0) Eosinophils (%) (Auto) % (0.0-3.0) Basophils (%) (Auto) % (0.0-2.0) Differential Total Cells Counted 100 Neutrophils % (Manual) 85 % (45-75) H Lymphocytes % (Manual) 10 % (20-45) L Monocytes % (Manual) 5 % (1-10) Eosinophils % (Manual) 0 % (0-3) Basophils % (Manual) 0 % (0-2) Band Neutrophils 0 % (0-8) Platelet Estimate Adequate Platelet Morphology Normal Red Blood Cell Morphology Normal Sodium Level 143 MMOL/L (136-145) Potassium Level 3.3 MMOL/L (3.5-5.1) L Chloride Level 102 MMOL/L (98-107) Carbon Dioxide Level 36 MMOL/L (21-32) H Anion Gap 5 mmol/L (5-15) Blood Urea Nitrogen 29 mg/dL (7-18) H Creatinine 1.5 MG/DL (0.55-1.30) H Estimat Glomerular Filtration Rate 35.2 mL/min (>60) Glucose Level 124 MG/DL (74-106) H Calcium Level 8.9 MG/DL (8.5-10.1) Objective HEENT: Atraumatic and normocephalic. Anicteric. Pupils are equal, round, and reactive to light and accommodation. Extraocular muscles intact. NECK: JVP less than 5 cm. No carotid bruit. Carotid upstrokes 2+ bilaterally. CARDIOVASCULAR: Normal S1 and S2. Regular rate and rhythm. Tachycardic. No murmurs, gallops, or rubs. LUNGS: Diminished breath sounds. Poor inspiratory effort. Some scattered crackles in both lungs. ABDOMEN: Soft nontender, nondistended. No hepatosplenomegaly. Positive bowel sounds. EXTREMITIES: There is 2+ bilateral edema. SAMANTHA FRASER May 26, 2017 23:10
[2017-05-27] VITALS: BP 166/95
[2017-05-27] MEDS: Albuterol/Ipratropium 3ml neb HHN PRN ×2 (00:04→08:06)
[2017-05-27 04:00] VITALS: BP 146/98
[2017-05-27] MEDS: NovoLOG Insulin Flexpen SUBQ SCH ×4 (06:08→20:31)
[2017-05-27 07:49] LABS: MEAN CORPUSCULAR VOLUME 92 FL (80-99); PLATELET COUNT 238 K/UL (150-450); RED BLOOD COUNT 3.25 M/UL (4.20-5.40); RED CELL DISTRIBUTION WIDTH 13.4 % (11.6-14.8); WHITE BLOOD COUNT 10.9 K/UL (4.8-10.8)
[2017-05-27 08:00] VITALS: BP 178/98
[2017-05-27 08:05] LABS: ANION GAP 4 mmol/L (5-15); BLOOD UREA NITROGEN 28 mg/dL (7-18); CALCIUM 9.1 MG/DL (8.5-10.1); CARBON DIOXIDE 36 MMOL/L (21-32); CHLORIDE 98 MMOL/L (98-107); CREATININE 1.5 MG/DL (0.55-1.30); POTASSIUM 3.2 MMOL/L (3.5-5.1); SODIUM 137 MMOL/L (136-145)
[2017-05-27] MEDS: Depakote 500mg tab ORAL SCH ×3 (09:00→20:28)
[2017-05-27] MEDS: Verapamil 180mg SR tab ORAL SCH ×2 (09:00→09:17)
[2017-05-27] MEDS: Pantoprazole Inj IVP SCH (09:16)
[2017-05-27] MEDS: Docusate 100mg cap ORAL SCH ×2 (09:17→20:29)
[2017-05-27] MEDS: Ascorbic Acid 500mg tab ORAL SCH (09:18)
[2017-05-27] MEDS: Nephrovite tab (Rena-Vite) ORAL SCH (09:18)
[2017-05-27] MEDS: Heparin 5000 units/ml inj SUBQ SCH ×2 (09:19→20:32)
--- NOTE | 2017-05-27 09:28 | Physician Query ---
--------- THIS DOCUMENT IS A PERMANENT PART OF THE MEDICAL RECORD --------- PLEASE COMPLETE THE FORM BEFORE SIGNING Dear LATASHA Myaen Date: 05/27/17 Inking Machine Tender/CDS's Name: Norbert Huizar Inking Machine Tender/CDS's Phone #: [phone] Exercise your independent professional judgment when responding to query. Questions asked do not imply particular answer is desired or expected. We greatly appreciate your clarification on this issue. Clinical Documentation States: [x] HCAP vs Asp PNA [x] Aspiration precautions [] Bronchitis [] Acute [] Chronic [] Bronchopneumonitis [] Tracheitis [] Impaired gag reflex [] Esophageal disorder [x] Dysphagia [] Positive swallowing study [x] Positive infiltrate study [] History of CVA [] Current aspiration and/or recent vomiting [] Bedridden/ recumbent [x] Gastrostomy status [] NG Tube/ pureed diet Clinical Findings Show: Symptoms:dyspnea and hypoxia Antibiotics:Vancomycin 1 gm, Piperacillin/Tazobactam 3.375 gm Imaging:Bilateral interstitial and patchy airspace edema/infiltrates Please further specify known or suspected condition/type: [] Aspiration Pneumonia [] Lobar/Basilar Pneumonia [] Bacterial, other Specify organism if possible: [] Community Acquired Pneumonia [] Candidal Pneumonia [] Gram Negative Pneumonia [] Gram Positive Pneumonia [] MRSA Pneumonia [] Postoperative Pneumonia [] Pseudomonas Pneumonia [] Unable to determine [] Other Was pneumonia present on admission []Yes [] No [] Clinically Undeterminable Please also document response in your Progress Notes and/or Discharge Summary and indicate if the condition was present on admission. Dr. LATAS[facility] FERRER [facility]
[2017-05-27] MEDS: Piperacillin/Tazobactam 3.375 GM in D5W 110 ML IVPB SCH ×3 (09:41→23:43)
--- NOTE | 2017-05-27 11:46 | General Progress Note ---
Assessment/Plan Problem List: (1) Dysphagia ICD Codes: R13.10 - Dysphagia, unspecified SNOMED: 39014038, 867682630 (2) Schizo affective schizophrenia ICD Codes: F25.0 - Schizoaffective disorder, bipolar type SNOMED: 932991447 (3) HTN (hypertension) ICD Codes: I10 - Essential (primary) hypertension SNOMED: 03663517 (4) Diabetes mellitus, type II ICD Codes: E11.9 - Type 2 diabetes mellitus without complications SNOMED: 63850828 Assessment/Plan eating better hold peg plans for now fu psych Subjective ROS Limited/Unobtainable: Yes Allergies: Coded Allergies: No Known Allergies (Unverified , 05/21/17) Subjective no c/o Objective Last 24 Hour Vital Signs Date Time Temp Pulse Resp B/P (MAP) Pulse Ox O2 Delivery O2 Flow Rate FiO2 05/27/17 09:17 104 178/98 05/27/17 08:28 99 28 98 Nasal Cannula 5.0 40 05/27/17 08:21 Venturi Mask 6.0 35 05/27/17 08:18 83 Venturi Mask 6.0 35 05/27/17 08:11 98 35 Room Air 21 05/27/17 08:07 98 35 83 Room Air 21 05/27/17 04:00 97.3 96 20 146/98 85 97.3 05/27/17 00:14 90 20 98 Venturi Mask 6.0 35 05/27/17 00:04 88 20 98 Venturi Mask 6.0 35 05/27/17 00:00 98.1 99 22 166/95 94 98.1 05/26/17 21:18 93 139/78 05/26/17 20:00 98.7 97 21 169/88 96 98.7 05/26/17 19:01 88 20 96 Venturi Mask 6.0 35 05/26/17 18:51 78 20 93 Nasal Cannula 3.0 32 05/26/17 18:51 Nasal Cannula 3.0 32 05/26/17 18:51 93 Nasal Cannula 3.0 32 05/26/17 16:00 97.6 93 18 139/78 94 Nasal Cannula 3.0 97.6 05/26/17 14:41 90 23 98 Nasal Cannula 3.0 32 05/26/17 14:30 86 21 93 Nasal Cannula 3.0 32 05/26/17 12:00 97.7 98 20 146/68 96 Nasal Cannula 3.0 97.7 05/26/17 11:47 98 21 95 Nasal Cannula 3.0 32 Intake and Output 05/26/17 05/27/17 19:00 07:00 Intake Total 470 ml 660 ml Output Total 1750 ml 650 ml Balance -1280 ml 10 ml Intake Oral 470 ml IV Total 660 ml Output Urine Total 1750 ml 650 ml # Bowel Movements 1 Laboratory Tests 05/27/17 07:20: White Blood Count 10.9H, Red Blood Count 3.25L, Hemoglobin 10.0L, Hematocrit 30.0L, Mean Corpuscular Volume 92, Mean Corpuscular Hemoglobin 30.9, Mean Corpuscular Hemoglobin Concent 33.5, Red Cell Distribution Width 13.4, Platelet Count 238, Mean Platelet Volume 6.0L, Neutrophils (%) (Auto) , Lymphocytes (%) ( Auto) , Monocytes (%) (Auto) , Eosinophils (%) (Auto) , Basophils (%) (Auto) , Differential Total Cells Counted 100, Neutrophils % (Manual) 84H, Lymphocytes % (Manual) 14L, Monocytes % (Manual) 1, Eosinophils % (Manual) 1, Basophils % ( Manual) 0, Band Neutrophils 0, Platelet Estimate Adequate, Platelet Morphology Normal, Anisocytosis 1+, Sodium Level 137, Potassium Level 3.2L, Chloride Level 98, Carbon Dioxide Level 36H, Anion Gap 4L, Blood Urea Nitrogen 28H, Creatinine 1.5H, Estimat Glomerular Filtration Rate 35.2, Glucose Level 131H, Calcium Level 9.1, Random Vancomycin Level 9.5 Height (Feet): 5 Height (Inches): 6.00 Weight (Pounds): 260 General Appearance: alert EENT: normal ENT inspection Neck: supple Cardiovascular: normal rate Respiratory/Chest: decreased breath sounds Abdomen: normal bowel sounds, non tender, soft Extremities: non-tender MISSAEL RODRÍGUEZ May 27, 2017 11:46
[2017-05-27 12:00] VITALS: BP 173/91
--- NOTE | 2017-05-27 15:01 | Infectious Diseases Prog Note ---
Assessment/Plan Assessment/Plan Assessment: Fever, resolved Possible HCAP vs Asp PNA- -CXR 05/24: Slight improvement in the right upper lobe but otherwise stable bilateral parenchymal infiltrates versus edema, over 3 days -CXR: Bilateral interstitial and patchy airspace edema/infiltrates, right greater than left. Lung base atelectasis. Clinical correlation/follow-up recommended. -sp cx unable to be collected -influenza sc neg -legionella ag urine Leukocytosis(s/p steroids); recurrent COPD exacerbation Acute respiratory failure -2ry to above HLD Schizoaffective disorder Recent PNA Plan: -Continue IV Vancomycin, Zosyn #7/7-10 for PNA (sp cx unable to be collected) -05/22 SP Tamiflu #2 -05/21 SP Cefepime x1, Levaquin x1 -f/u cx -Monitor CBC/BMP, temperatures; trend WBC -aspiration precautions Thank you for this consultation. Will continue to follow along with you. Discussed with RN. Subjective Allergies: Coded Allergies: No Known Allergies (Unverified , 05/21/17) Subjective afebrile leukocytosis resolved sp cx not collected Bcx NTD Objective Vital Signs Last 24 Hour Vital Signs Date Time Temp Pulse Resp B/P (MAP) Pulse Ox O2 Delivery O2 Flow Rate FiO2 05/27/17 12:00 98.4 92 20 173/91 100 Nasal Cannula 3.0 98.4 05/27/17 09:17 104 178/98 05/27/17 08:28 99 28 98 Nasal Cannula 5.0 40 05/27/17 08:21 Venturi Mask 6.0 35 05/27/17 08:18 83 Venturi Mask 6.0 35 05/27/17 08:11 98 35 Room Air 21 05/27/17 08:07 98 35 83 Room Air 21 05/27/17 08:00 98.7 104 20 178/98 98 Nasal Cannula 3.0 98.7 05/27/17 04:00 97.3 96 20 146/98 85 97.3 05/27/17 00:14 90 20 98 Venturi Mask 6.0 35 05/27/17 00:04 88 20 98 Venturi Mask 6.0 35 05/27/17 00:00 98.1 99 22 166/95 94 98.1 05/26/17 21:18 93 139/78 3/29/18 20:00 98.7 97 21 169/88 96 98.7 05/26/17 19:01 88 20 96 Venturi Mask 6.0 35 05/26/17 18:51 78 20 93 Nasal Cannula 3.0 32 05/26/17 18:51 Nasal Cannula 3.0 32 05/26/17 18:51 93 Nasal Cannula 3.0 32 05/26/17 16:00 97.6 93 18 139/78 94 Nasal Cannula 3.0 97.6 Height (Feet): 5 Height (Inches): 6.00 Weight (Pounds): 260 Objective General Appearance: no apparent distress, alert HEENT normocephalic, atraumatic, PERR, normal pharynx Neck: full range of motion, supple/symm/no masses Respiratory: chest non-tender, lungs clear, normal breath sounds, speaking full sentences Cardiovascular : regular rate, rhythm, no edema Gastrointestinal: normal bowel sounds, non tender, soft, non-distended, no guarding, no rebound Genitourinary: normal inspection, no CVA tenderness Musculoskeletal: back normal, gait/station normal, normal range of motion, non- tender Neurologic: alert, oriented x3, responsive, motor strength/tone normal, sensory intact, speech normal Skin: normal color, no rash, warm/dry, well hydrated Laboratory Tests Test 05/27/17 07:20 White Blood Count 10.9 K/UL (4.8-10.8) H Red Blood Count 3.25 M/UL (4.20-5.40) L Hemoglobin 10.0 G/DL (12.0-16.0) L Hematocrit 30.0 % (37.0-47.0) L Mean Corpuscular Volume 92 FL (80-99) Mean Corpuscular Hemoglobin 30.9 PG (27.0-31.0) Mean Corpuscular Hemoglobin Concent 33.5 G/DL (32.0-36.0) Red Cell Distribution Width 13.4 % (11.6-14.8) Platelet Count 238 K/UL (150-450) Mean Platelet Volume 6.0 FL (6.5-10.1) L Neutrophils (%) (Auto) % (45.0-75.0) Lymphocytes (%) (Auto) % (20.0-45.0) Monocytes (%) (Auto) % (1.0-10.0) Eosinophils (%) (Auto) % (0.0-3.0) Basophils (%) (Auto) % (0.0-2.0) Differential Total Cells Counted 100 Neutrophils % (Manual) 84 % (45-75) H Lymphocytes % (Manual) 14 % (20-45) L Monocytes % (Manual) 1 % (1-10) Eosinophils % (Manual) 1 % (0-3) Basophils % (Manual) 0 % (0-2) Band Neutrophils 0 % (0-8) Platelet Estimate Adequate Platelet Morphology Normal Anisocytosis 1+ Sodium Level 137 MMOL/L (136-145) Potassium Level 3.2 MMOL/L (3.5-5.1) L Chloride Level 98 MMOL/L (98-107) Carbon Dioxide Level 36 MMOL/L (21-32) H Anion Gap 4 mmol/L (5-15) L Blood Urea Nitrogen 28 mg/dL (7-18) H Creatinine 1.5 MG/DL (0.55-1.30) H Estimat Glomerular Filtration Rate 35.2 mL/min (>60) Glucose Level 131 MG/DL (74-106) H Calcium Level 9.1 MG/DL (8.5-10.1) Random Vancomycin Level 9.5 ug/mL Current Medications Medications (Trade) Dose Ordered Sig/Wale Route PRN Reason Start Time Stop Time Status Last Admin Dose Admin Acetaminophen (Tylenol) 650 mg Q4H PRN RECTAL MILD PAIN/T>100.5 05/24/17 21:30 06/20/17 21:29 Albuterol/ Ipratropium (Albuterol/ Ipratropium) 3 ml Q6H PRN HHN Shortness of Breath 05/24/17 21:30 05/29/17 21:29 05/27/17 08:06 Ascorbic Acid (Vitamin C) 500 mg DAILY ORAL 05/25/17 09:00 06/21/17 08:59 05/27/17 09:18 Atorvastatin Calcium (Lipitor) 10 mg BEDTIME ORAL 05/25/17 21:00 06/20/17 20:59 05/26/17 21:16 Carvedilol (Coreg) 3.125 mg EVERY 12 HOURS ORAL 05/25/17 09:00 06/24/17 08:59 05/27/17 09:17 Dextrose (Dextrose 50%) STAT PRN IV Hypoglycemia 05/24/17 21:30 06/23/17 21:29 Dextrose/Sodium Chloride 1,000 ml @ 60 mls/hr [id number] IV 05/24/17 22:00 06/20/17 21:59 05/26/17 11:25 Divalproex Sodium (Depakote) 500 mg EVERY 12 HOURS ORAL 05/26/17 13:00 06/25/17 12:59 05/26/17 21:16 Docusate Sodium (Colace) 100 mg Q12HR ORAL 05/25/17 09:00 06/24/17 08:59 05/27/17 09:17 Folic Acid (Folate) 1 mg DAILY ORAL 05/25/17 09:00 06/21/17 08:59 05/27/17 09:18 Furosemide (Lasix) 40 mg DAILY IV 05/25/17 09:00 06/21/17 08:59 05/27/17 09:16 Guaifenesin/ Codeine Phosphate (Robitussin with codeine) 5 ml Q6H PRN ORAL For Cough 05/24/17 21:30 06/23/17 21:29 Heparin Sodium (Porcine) (Heparin 5000 units/ml) 5,000 units EVERY 12 HOURS SUBQ 05/25/17 09:00 06/20/17 20:59 05/27/17 09:19 Insulin Aspart (NovoLOG) BEFORE MEALS AND HS SUBQ 05/25/17 06:30 06/20/17 20:59 05/27/17 12:01 Lorazepam (Ativan) 2 mg Q6H PRN ORAL For Anxiety 05/26/17 12:45 06/02/17 12:44 Ondansetron HCl (Zofran) 4 mg Q8H PRN ORAL Nausea & Vomiting 05/24/17 21:30 06/23/17 21:29 Pantoprazole (Protonix) 40 mg DAILY IVP 05/25/17 09:00 06/21/17 08:59 05/27/17 09:16 Piperacillin Sod/ Tazobactam Sod 3.375 gm/Dextrose 110 ml @ 27.5 mls/hr Q8HR@0000,0800,1600 IVPB 05/25/17 00:00 06/01/17 00:00 05/27/17 09:41 Prednisone (predniSONE) 20 mg DAILY ORAL 05/27/17 09:00 06/26/17 08:59 05/27/17 09:18 Risperidone (RisperDAL) 2 mg BEDTIME ORAL 05/26/17 21:00 06/25/17 20:59 05/26/17 21:15 Vancomycin HCl (Vanco rx to dose) 1 ea DAILYPRN PRN MISC Per rx protocol 05/24/17 21:30 06/23/17 21:29 Vancomycin HCl 500 mg/Dextrose 275 ml @ 275 mls/hr Q24H IVPB 05/27/17 13:00 06/01/17 12:59 Verapamil HCl (Calan SR) 360 mg DAILY ORAL 05/25/17 09:00 06/24/17 08:59 05/26/17 11:21 Vitamin B Complex/ Vit C/Folic Acid (Nephrovite) 1 tab DAILY ORAL 05/25/17 09:00 06/21/17 08:59 05/27/17 09:18 Crystal Ruth M.D. May 27, 2017 15:00
--- NOTE | 2017-05-27 15:24 | General Progress Note ---
Assessment/Plan Status: stable, progressing Assessment/Plan schizoaffective d/o bipolar d/o mdd encephalopathy -risperdal 2mg qhs -depakote 500mg bid -so/ro -ativan prn Subjective Date patient seen: May 27, 2017 Neurologic/Psychiatric: Reports: anxiety, depressed, emotional problems Allergies: Coded Allergies: No Known Allergies (Unverified , 05/21/17) Subjective the pt is calm Objective Last 24 Hour Vital Signs Date Time Temp Pulse Resp B/P (MAP) Pulse Ox O2 Delivery O2 Flow Rate FiO2 05/27/17 12:00 98.4 92 20 173/91 100 Nasal Cannula 3.0 98.4 05/27/17 09:17 104 178/98 05/27/17 08:28 99 28 98 Nasal Cannula 5.0 40 05/27/17 08:21 Venturi Mask 6.0 35 05/27/17 08:18 83 Venturi Mask 6.0 35 05/27/17 08:11 98 35 Room Air 21 05/27/17 08:07 98 35 83 Room Air 21 05/27/17 08:00 98.7 104 20 178/98 98 Nasal Cannula 3.0 98.7 05/27/17 04:00 97.3 96 20 146/98 85 97.3 05/27/17 00:14 90 20 98 Venturi Mask 6.0 35 05/27/17 00:04 88 20 98 Venturi Mask 6.0 35 05/27/17 00:00 98.1 99 22 166/95 94 98.1 05/26/17 21:18 93 139/78 05/26/17 20:00 98.7 97 21 169/88 96 98.7 05/26/17 19:01 88 20 96 Venturi Mask 6.0 35 05/26/17 18:51 78 20 93 Nasal Cannula 3.0 32 05/26/17 18:51 Nasal Cannula 3.0 32 05/26/17 18:51 93 Nasal Cannula 3.0 32 05/26/17 16:00 97.6 93 18 139/78 94 Nasal Cannula 3.0 97.6 Intake and Output 05/26/17 05/27/17 19:00 07:00 Intake Total 470 ml 660 ml Output Total 1750 ml 650 ml Balance -1280 ml 10 ml Intake Oral 470 ml IV Total 660 ml Output Urine Total 1750 ml 650 ml # Bowel Movements 1 Laboratory Tests 05/27/17 07:20: White Blood Count 10.9H, Red Blood Count 3.25L, Hemoglobin 10.0L, Hematocrit 30.0L, Mean Corpuscular Volume 92, Mean Corpuscular Hemoglobin 30.9, Mean Corpuscular Hemoglobin Concent 33.5, Red Cell Distribution Width 13.4, Platelet Count 238, Mean Platelet Volume 6.0L, Neutrophils (%) (Auto) , Lymphocytes (%) ( Auto) , Monocytes (%) (Auto) , Eosinophils (%) (Auto) , Basophils (%) (Auto) , Differential Total Cells Counted 100, Neutrophils % (Manual) 84H, Lymphocytes % (Manual) 14L, Monocytes % (Manual) 1, Eosinophils % (Manual) 1, Basophils % ( Manual) 0, Band Neutrophils 0, Platelet Estimate Adequate, Platelet Morphology Normal, Anisocytosis 1+, Sodium Level 137, Potassium Level 3.2L, Chloride Level 98, Carbon Dioxide Level 36H, Anion Gap 4L, Blood Urea Nitrogen 28H, Creatinine 1.5H, Estimat Glomerular Filtration Rate 35.2, Glucose Level 131H, Calcium Level 9.1, Random Vancomycin Level 9.5 Height (Feet): 5 Height (Inches): 6.00 Weight (Pounds): 260 General Appearance: no apparent distress, alert Neurologic: oriented x 3, responsive, depressed affect Kelli Norton M.D. May 27, 2017 15:24
[2017-05-27] MEDS: Vancomycin 500mg in D5W 275ml IVPB SCH (15:25)
[2017-05-27 16:00] VITALS: BP 156/78
[2017-05-27] MEDS: D5 1/2NS 1,000 ML IV SCH ×2 (17:03)
--- NOTE | 2017-05-27 19:03 | Pulmonolgy Critical Care Note ---
Critical Care - Asmt/Plan Assessment/Plan: HPI 61 y/o F with hx of COPD on home oxygen previously, discharged from [facility] after receiving treatment for Pneumonia, PMH of HLD presents, Schizoaffective disorder, presented to the to ED with shortness of breath No new complaints Afebrile CXR with infiltrates. Allergies: Coded Allergies: No Known Allergies (Unverified , 05/21/17) Patient History Healthcare decision maker Resuscitation status Advanced Directive on File Patient History Narrative Pmx: as above Shx: reviewed Fhx: non contributory Review of Systems All Other Systems: negative except mentioned in HPI Physical Exam Physical Exam Narrative General Appearance: no apparent distress, alert HEENT normocephalic, atraumatic, PERR, normal pharynx Neck: full range of motion, supple/symm/no masses Respiratory: chest non-tender, lungs clear, normal breath sounds, speaking full sentences Cardiovascular : regular rate, rhythm, no edema Gastrointestinal: normal bowel sounds, non tender, soft, non-distended, no guarding, no rebound Genitourinary: normal inspection, no CVA tenderness Musculoskeletal: back normal, gait/station normal, normal range of motion, non- tender Neurologic: alert, oriented x3, responsive, motor strength/tone normal, sensory intact, speech normal Skin: normal color, no rash, warm/dry, well hydrated Vital Signs stable Labs noted . Height (Feet): 5 Height (Inches): 6.00 Weight (Pounds): 250 CXR 05/24: Slight improvement in the right upper lobe but otherwise stable bilateral parenchymal infiltrates versus edema Assessment/Plan Assessment/Plan Abx: IV vanco x1 05/21 Cefepime x1 05/21 Levaquin x1 05/21 Impression: Fever improved Possible HCAP vs Asp Pneumonia, need to r/o influenza CXR: Bilateral interstitial and patchy airspace edema/infiltrates, right greater than left. Lung base atelectasis. Clinical correlation/follow-up recommended. COPD exacerbation No leukocytosis HLD Schizoaffective disorder Recent PNA Plan: -Continue Antibiotics per ID -influenza sc, sputum cx, legionella ag urine pending - Incr WCC improving -f/u cx -Monitor labs -aspiration precautions -Continue steroids to 20 PO daily, slowly tail over next week Note abnormal swallow Thank you for this consultation. Discussed with RN. Critical Care - Objective Last 24 Hour Vital Signs Date Time Temp Pulse Resp B/P (MAP) Pulse Ox O2 Delivery O2 Flow Rate FiO2 05/27/17 17:11 100 156/78 05/27/17 16:00 98.4 100 20 156/78 100 Nasal Cannula 3.0 98.4 05/27/17 12:00 98.4 92 20 173/91 100 Nasal Cannula 3.0 98.4 05/27/17 09:17 104 178/98 05/27/17 08:28 99 28 98 Nasal Cannula 5.0 40 05/27/17 08:21 Venturi Mask 6.0 35 05/27/17 08:18 83 Venturi Mask 6.0 35 05/27/17 08:11 98 35 Room Air 21 05/27/17 08:07 98 35 83 Room Air 21 05/27/17 08:00 98.7 104 20 178/98 98 Nasal Cannula 3.0 98.7 05/27/17 04:00 97.3 96 20 146/98 85 97.3 05/27/17 00:14 90 20 98 Venturi Mask 6.0 35 05/27/17 00:04 88 20 98 Venturi Mask 6.0 35 05/27/17 00:00 98.1 99 22 166/95 94 98.1 05/26/17 21:18 93 139/78 05/26/17 20:00 98.7 97 21 169/88 96 98.7 Accucheck: 204 Critical Care - Subjective ROS Limited/Unobtainable: Yes Condition: improving IV Access: peripheral EKG Rhythm: Sinus Rhythm FI02: 40 Vent Support Breath Rate: 16 Vent Support Mode: BiLevel Sputum Amount: None I&O: Intake and Output 05/26/17 05/27/17 19:00 07:00 Intake Total 470 ml 660 ml Output Total 1750 ml 650 ml Balance -1280 ml 10 ml Intake Oral 470 ml IV Total 660 ml Output Urine Total 1750 ml 650 ml # Bowel Movements 1 Girish Molina M.D. May 27, 2017 19:03
[2017-05-27 20:00] VITALS: BP 160/82
--- NOTE | 2017-05-27 22:42 | Cardiology Progress Note ---
Assessment/Plan Assessment/Plan 1. Sinus tachycardia most likely due to underlying pneumonia, hypoxemia and breathing treatment. Increase coreg to 6.25mg po bid, continue verapamil. 2. Hypertension, poorly controlled, continue coreg and verapamil. Clonidine PRN , Echo shows normal LVEF. 3. History of COPD with mild pulmonary HTN. 4. Morbid obesity. 5. Respiratory failure. 6. Bigeminy VPCs on coreg. Subjective Subjective Hypertensive episode reported by the nurse. Objective Last 24 Hour Vital Signs Date Time Temp Pulse Resp B/P (MAP) Pulse Ox O2 Delivery O2 Flow Rate FiO2 05/27/17 20:29 102 160/82 05/27/17 20:00 98.3 102 20 160/82 99 98.3 05/27/17 17:11 100 156/78 05/27/17 16:00 98.4 100 20 156/78 100 Nasal Cannula 3.0 98.4 05/27/17 12:00 98.4 92 20 173/91 100 Nasal Cannula 3.0 98.4 05/27/17 09:17 104 178/98 05/27/17 08:28 99 28 98 Nasal Cannula 5.0 40 05/27/17 08:21 Venturi Mask 6.0 35 05/27/17 08:18 83 Venturi Mask 6.0 35 05/27/17 08:11 98 35 Room Air 21 05/27/17 08:07 98 35 83 Room Air 21 05/27/17 08:00 98.7 104 20 178/98 98 Nasal Cannula 3.0 98.7 05/27/17 04:00 97.3 96 20 146/98 85 97.3 05/27/17 00:14 90 20 98 Venturi Mask 6.0 35 05/27/17 00:04 88 20 98 Venturi Mask 6.0 35 05/27/17 00:00 98.1 99 22 166/95 94 98.1 Intake and Output 05/26/17 05/27/17 19:00 07:00 Intake Total 470 ml 660 ml Output Total 1750 ml 650 ml Balance -1280 ml 10 ml Intake Oral 470 ml IV Total 660 ml Output Urine Total 1750 ml 650 ml # Bowel Movements 1 2D Echo: EF 55%, Mild LVH, Elevated RAP 15 mmHg, RVSP 39 mmHg, Mild MR Laboratory Tests Test 05/27/17 07:20 White Blood Count 10.9 K/UL (4.8-10.8) H Red Blood Count 3.25 M/UL (4.20-5.40) L Hemoglobin 10.0 G/DL (12.0-16.0) L Hematocrit 30.0 % (37.0-47.0) L Mean Corpuscular Volume 92 FL (80-99) Mean Corpuscular Hemoglobin 30.9 PG (27.0-31.0) Mean Corpuscular Hemoglobin Concent 33.5 G/DL (32.0-36.0) Red Cell Distribution Width 13.4 % (11.6-14.8) Platelet Count 238 K/UL (150-450) Mean Platelet Volume 6.0 FL (6.5-10.1) L Neutrophils (%) (Auto) % (45.0-75.0) Lymphocytes (%) (Auto) % (20.0-45.0) Monocytes (%) (Auto) % (1.0-10.0) Eosinophils (%) (Auto) % (0.0-3.0) Basophils (%) (Auto) % (0.0-2.0) Differential Total Cells Counted 100 Neutrophils % (Manual) 84 % (45-75) H Lymphocytes % (Manual) 14 % (20-45) L Monocytes % (Manual) 1 % (1-10) Eosinophils % (Manual) 1 % (0-3) Basophils % (Manual) 0 % (0-2) Band Neutrophils 0 % (0-8) Platelet Estimate Adequate Platelet Morphology Normal Anisocytosis 1+ Sodium Level 137 MMOL/L (136-145) Potassium Level 3.2 MMOL/L (3.5-5.1) L Chloride Level 98 MMOL/L (98-107) Carbon Dioxide Level 36 MMOL/L (21-32) H Anion Gap 4 mmol/L (5-15) L Blood Urea Nitrogen 28 mg/dL (7-18) H Creatinine 1.5 MG/DL (0.55-1.30) H Estimat Glomerular Filtration Rate 35.2 mL/min (>60) Glucose Level 131 MG/DL (74-106) H Calcium Level 9.1 MG/DL (8.5-10.1) Random Vancomycin Level 9.5 ug/mL Objective HEENT: Atraumatic and normocephalic. Anicteric. Pupils are equal, round, and reactive to light and accommodation. Extraocular muscles intact. NECK: JVP less than 5 cm. No carotid bruit. Carotid upstrokes 2+ bilaterally. CARDIOVASCULAR: Normal S1 and S2. Regular rate and rhythm. Tachycardic. No murmurs, gallops, or rubs. LUNGS: Diminished breath sounds. Poor inspiratory effort. Some scattered crackles in both lungs. ABDOMEN: Soft nontender, nondistended. No hepatosplenomegaly. Positive bowel sounds. EXTREMITIES: There is 2+ bilateral edema. SAMANTHA FRASER May 27, 2017 22:42
[2017-05-28] VITALS: BP 143/93
[2017-05-28 04:00] VITALS: BP 158/92
[2017-05-28] MEDS: NovoLOG Insulin Flexpen SUBQ SCH ×4 (06:07→21:27)
--- NOTE | 2017-05-28 07:31 | General Progress Note ---
Assessment/Plan Problem List: (1) Dysphagia ICD Codes: R13.10 - Dysphagia, unspecified SNOMED: 69116279, 898164504 (2) Schizo affective schizophrenia ICD Codes: F25.0 - Schizoaffective disorder, bipolar type SNOMED: 445316768 (3) HTN (hypertension) ICD Codes: I10 - Essential (primary) hypertension SNOMED: 88420119 (4) Diabetes mellitus, type II ICD Codes: E11.9 - Type 2 diabetes mellitus without complications SNOMED: 91432496 Assessment/Plan eating better hold peg plans for now fu psych Subjective ROS Limited/Unobtainable: Yes Allergies: Coded Allergies: No Known Allergies (Unverified , 05/21/17) Subjective no c/o Objective Last 24 Hour Vital Signs Date Time Temp Pulse Resp B/P (MAP) Pulse Ox O2 Delivery O2 Flow Rate FiO2 05/28/17 04:00 97.2 90 22 158/92 100 Nasal Cannula 97.2 05/28/17 00:00 97.1 85 20 143/93 96 97.1 05/28/17 00:00 Nasal Cannula 3.0 05/27/17 20:29 102 160/82 05/27/17 20:00 98.3 102 20 160/82 99 98.3 05/27/17 20:00 Nasal Cannula 3.0 05/27/17 17:11 100 156/78 05/27/17 16:00 98.4 100 20 156/78 100 Nasal Cannula 3.0 98.4 05/27/17 12:00 98.4 92 20 173/91 100 Nasal Cannula 3.0 98.4 05/27/17 09:17 104 178/98 05/27/17 08:28 99 28 98 Nasal Cannula 5.0 40 05/27/17 08:21 Venturi Mask 6.0 35 05/27/17 08:18 83 Venturi Mask 6.0 35 05/27/17 08:11 98 35 Room Air 21 05/27/17 08:07 98 35 83 Room Air 21 05/27/17 08:00 98.7 104 20 178/98 98 Nasal Cannula 3.0 98.7 Intake and Output 05/27/17 05/28/17 19:00 07:00 Intake Total 985 ml 230.0 ml Output Total 3200 ml 400 ml Balance -2215 ml -170.0 ml Intake Oral 480 ml IV Total 505 ml 170.0 ml Tube Feeding 60 ml Output Urine Total 3200 ml 400 ml # Bowel Movements 3 Height (Feet): 5 Height (Inches): 6.00 Weight (Pounds): 260 General Appearance: alert EENT: normal ENT inspection Neck: supple Cardiovascular: normal rate Respiratory/Chest: decreased breath sounds Abdomen: normal bowel sounds, non tender, soft Extremities: non-tender MISSAEL RODRÍGUEZ May 28, 2017 07:31
[2017-05-28 08:00] VITALS: BP 175/108
[2017-05-28] MEDS: Piperacillin/Tazobactam 3.375 GM in D5W 110 ML IVPB SCH ×2 (08:15→16:31)
[2017-05-28] MEDS: Albuterol/Ipratropium 3ml neb HHN PRN (08:27)
[2017-05-28 09:08] LABS: BASOPHILS % (AUTO) 0.2 % (0.0-2.0); EOSINOPHILS % (AUTO) 2.9 % (0.0-3.0); HEMATOCRIT 31.7 % (37.0-47.0); HEMOGLOBIN 10.7 G/DL (12.0-16.0); LYMPHOCYTES % (AUTO) 8.5 % (20.0-45.0); MEAN CORPUSCULAR VOLUME 93 FL (80-99); MONOCYTES % (AUTO) 5.5 % (1.0-10.0); NEUTROPHILS % (AUTO) 82.8 % (45.0-75.0); PLATELET COUNT 254 K/UL (150-450); RED BLOOD COUNT 3.39 M/UL (4.20-5.40); RED CELL DISTRIBUTION WIDTH 13.5 % (11.6-14.8); WHITE BLOOD COUNT 10.7 K/UL (4.8-10.8)
[2017-05-28] MEDS: Depakote 500mg tab ORAL SCH ×2 (09:10→21:21)
[2017-05-28] MEDS: Docusate 100mg cap ORAL SCH ×2 (09:11→21:20)
[2017-05-28] MEDS: Verapamil 180mg SR tab ORAL SCH (09:11)
[2017-05-28] MEDS: Nephrovite tab (Rena-Vite) ORAL SCH (09:11)
[2017-05-28] MEDS: Pantoprazole Inj IVP SCH (09:12)
[2017-05-28] MEDS: Heparin 5000 units/ml inj SUBQ SCH ×2 (09:14→21:26)
[2017-05-28] MEDS: D5 1/2NS 1,000 ML IV SCH (09:20)
[2017-05-28] MEDS: Spironolactone 25mg tab ORAL SCH (09:21)
[2017-05-28 12:00] VITALS: BP 121/68
--- NOTE | 2017-05-28 12:25 | Internal Med Progress Note ---
Subjective Date of Service: May 27, 2017 Physician Name Steve Dickinson Attending Physician Shoshana Norman MD Current Medications Medications (Trade) Dose Ordered Sig/Wale Route PRN Reason Start Time Stop Time Status Last Admin Dose Admin Acetaminophen (Tylenol) 650 mg Q4H PRN RECTAL MILD PAIN/T>100.5 05/24/17 21:30 06/20/17 21:29 Albuterol/ Ipratropium (Albuterol/ Ipratropium) 3 ml Q6H PRN HHN Shortness of Breath 05/24/17 21:30 05/29/17 21:29 05/28/17 08:27 Atorvastatin Calcium (Lipitor) 10 mg BEDTIME ORAL 05/25/17 21:00 06/20/17 20:59 05/27/17 20:28 Carvedilol (Coreg) 6.25 mg EVERY 12 HOURS ORAL 05/28/17 09:00 06/27/17 08:59 05/28/17 09:12 Clonidine HCl (Catapres Tab) 0.1 mg QID PRN ORAL SBP>160 05/27/17 22:45 06/26/17 22:44 Dextrose (Dextrose 50%) STAT PRN IV Hypoglycemia 05/24/17 21:30 06/23/17 21:29 Dextrose/Sodium Chloride 1,000 ml @ 60 mls/hr [id number] IV 05/24/17 22:00 06/20/17 21:59 05/27/17 17:03 Divalproex Sodium (Depakote) 500 mg EVERY 12 HOURS ORAL 05/26/17 13:00 06/25/17 12:59 05/28/17 09:10 Docusate Sodium (Colace) 100 mg Q12HR ORAL 05/25/17 09:00 06/24/17 08:59 05/28/17 09:11 Folic Acid (Folate) 1 mg DAILY ORAL 05/25/17 09:00 06/21/17 08:59 05/28/17 09:11 Furosemide (Lasix) 40 mg DAILY IV 05/25/17 09:00 06/21/17 08:59 05/28/17 09:12 Guaifenesin/ Codeine Phosphate (Robitussin with codeine) 5 ml Q6H PRN ORAL For Cough 05/24/17 21:30 06/23/17 21:29 Heparin Sodium (Porcine) (Heparin 5000 units/ml) 5,000 units EVERY 12 HOURS SUBQ 05/25/17 09:00 06/20/17 20:59 05/28/17 09:14 Insulin Aspart (NovoLOG) BEFORE MEALS AND HS SUBQ 05/25/17 06:30 06/20/17 20:59 05/28/17 11:29 Lorazepam (Ativan) 2 mg Q6H PRN ORAL For Anxiety 05/26/17 12:45 06/02/17 12:44 Ondansetron HCl (Zofran) 4 mg Q8H PRN ORAL Nausea & Vomiting 05/24/17 21:30 06/23/17 21:29 Pantoprazole (Protonix) 40 mg DAILY IVP 05/25/17 09:00 06/21/17 08:59 05/28/17 09:12 Piperacillin Sod/ Tazobactam Sod 3.375 gm/Dextrose 110 ml @ 27.5 mls/hr Q8HR@0000,0800,1600 IVPB 05/25/17 00:00 06/01/17 00:00 05/28/17 08:15 Prednisone (predniSONE) 10 mg DAILY ORAL 05/28/17 09:00 06/27/17 08:59 05/28/17 09:12 Risperidone (RisperDAL) 2 mg BEDTIME ORAL 05/26/17 21:00 06/25/17 20:59 05/27/17 20:28 Spironolactone (Aldactone) 25 mg DAILY ORAL 05/28/17 09:00 06/27/17 08:59 05/28/17 09:21 Vancomycin HCl (Vanco rx to dose) 1 ea DAILYPRN PRN MISC Per rx protocol 05/24/17 21:30 06/23/17 21:29 Vancomycin HCl 500 mg/Dextrose 275 ml @ 275 mls/hr Q24H IVPB 05/27/17 13:00 06/01/17 12:59 05/27/17 15:25 Verapamil HCl (Calan SR) 360 mg DAILY ORAL 05/25/17 09:00 06/24/17 08:59 05/28/17 09:11 Vitamin B Complex/ Vit C/Folic Acid (Nephrovite) 1 tab DAILY ORAL 05/25/17 09:00 06/21/17 08:59 05/28/17 09:11 Allergies: Coded Allergies: No Known Allergies (Unverified , 05/21/17) ROS Limited/Unobtainable: No Constitutional: Reports: no symptoms HEENT: Reports: no symptoms Cardiovascular: Reports: no symptoms Respiratory: Reports: shortness of breath Gastrointestinal/Abdominal: Reports: no symptoms Genitourinary: Reports: no symptoms Neurologic/Psychiatric: Reports: no symptoms Subjective Late entry for 05/27/17-computer down. 61 YO F admitted with shortness of breath. Now pneumonia and respiratory failure. Cover for Int Med-Dr Norman. Tolerating nasal canula Objective Last Vital Signs Date Time Temp Pulse Resp B/P (MAP) Pulse Ox O2 Delivery O2 Flow Rate FiO2 05/28/17 12:00 97.4 63 18 121/68 100 Nasal Cannula 97.4 05/28/17 08:45 6.0 35 Laboratory Tests Test 05/28/17 08:30 White Blood Count 10.7 K/UL (4.8-10.8) Red Blood Count 3.39 M/UL (4.20-5.40) L Hemoglobin 10.7 G/DL (12.0-16.0) L Hematocrit 31.7 % (37.0-47.0) L Mean Corpuscular Volume 93 FL (80-99) Mean Corpuscular Hemoglobin 31.4 PG (27.0-31.0) H Mean Corpuscular Hemoglobin Concent 33.6 G/DL (32.0-36.0) Red Cell Distribution Width 13.5 % (11.6-14.8) Platelet Count 254 K/UL (150-450) Mean Platelet Volume 6.2 FL (6.5-10.1) L Neutrophils (%) (Auto) 82.8 % (45.0-75.0) H Lymphocytes (%) (Auto) 8.5 % (20.0-45.0) L Monocytes (%) (Auto) 5.5 % (1.0-10.0) Eosinophils (%) (Auto) 2.9 % (0.0-3.0) Basophils (%) (Auto) 0.2 % (0.0-2.0) Intake and Output 05/27/17 05/28/17 19:00 07:00 Intake Total 985 ml 230.0 ml Output Total 3200 ml 400 ml Balance -2215 ml -170.0 ml Intake Oral 480 ml IV Total 505 ml 170.0 ml Tube Feeding 60 ml Output Urine Total 3200 ml 400 ml # Bowel Movements 3 Objective General Appearance: WD/WN, moderate distress, obese EENT: PERRL/EOMI, normal ENT inspection Neck: non-tender, normal alignment, supple, normal inspection Cardiovascular: normal peripheral pulses, normal rate, regular rhythm, no gallop/murmur, no JVD Respiratory/Chest: respiratory distress, accessory muscle use, crackles/rales, rhonchi - bilaterally, expiratory wheezing Abdomen: normal bowel sounds, non tender, soft, no organomegaly, no mass Extremities: normal range of motion, non-tender 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 See pulmonary note. Continue nasal canula. Continue vanco, zosyn and azithro per ID (2) Diabetes mellitus, type II (3) HTN (hypertension) Assessment & Plan: Continue verapamil (4) Hyponatremia (5) Schizoaffective disorder Assessment & Plan: Continue seroquel and lamictal (6) Pneumonia (7) COPD (chronic obstructive pulmonary disease) Assessment & Plan: Continue IV solumedrol Status: not improved STEVE DICKINSON May 28, 2017 12:25
--- NOTE | 2017-05-28 12:27 | Internal Med Progress Note ---
Subjective Date of Service: May 28, 2017 Physician Name Steve Dickinson Attending Physician Shoshana Norman MD Current Medications Medications (Trade) Dose Ordered Sig/Wale Route PRN Reason Start Time Stop Time Status Last Admin Dose Admin Acetaminophen (Tylenol) 650 mg Q4H PRN RECTAL MILD PAIN/T>100.5 05/24/17 21:30 06/20/17 21:29 Albuterol/ Ipratropium (Albuterol/ Ipratropium) 3 ml Q6H PRN HHN Shortness of Breath 05/24/17 21:30 05/29/17 21:29 05/28/17 08:27 Atorvastatin Calcium (Lipitor) 10 mg BEDTIME ORAL 05/25/17 21:00 06/20/17 20:59 05/27/17 20:28 Carvedilol (Coreg) 6.25 mg EVERY 12 HOURS ORAL 05/28/17 09:00 06/27/17 08:59 05/28/17 09:12 Clonidine HCl (Catapres Tab) 0.1 mg QID PRN ORAL SBP>160 05/27/17 22:45 06/26/17 22:44 Dextrose (Dextrose 50%) STAT PRN IV Hypoglycemia 05/24/17 21:30 06/23/17 21:29 Dextrose/Sodium Chloride 1,000 ml @ 60 mls/hr [id number] IV 05/24/17 22:00 06/20/17 21:59 05/27/17 17:03 Divalproex Sodium (Depakote) 500 mg EVERY 12 HOURS ORAL 05/26/17 13:00 06/25/17 12:59 05/28/17 09:10 Docusate Sodium (Colace) 100 mg Q12HR ORAL 05/25/17 09:00 06/24/17 08:59 05/28/17 09:11 Folic Acid (Folate) 1 mg DAILY ORAL 05/25/17 09:00 06/21/17 08:59 05/28/17 09:11 Furosemide (Lasix) 40 mg DAILY IV 05/25/17 09:00 06/21/17 08:59 05/28/17 09:12 Guaifenesin/ Codeine Phosphate (Robitussin with codeine) 5 ml Q6H PRN ORAL For Cough 05/24/17 21:30 06/23/17 21:29 Heparin Sodium (Porcine) (Heparin 5000 units/ml) 5,000 units EVERY 12 HOURS SUBQ 05/25/17 09:00 06/20/17 20:59 05/28/17 09:14 Insulin Aspart (NovoLOG) BEFORE MEALS AND HS SUBQ 05/25/17 06:30 06/20/17 20:59 05/28/17 11:29 Lorazepam (Ativan) 2 mg Q6H PRN ORAL For Anxiety 05/26/17 12:45 06/02/17 12:44 Ondansetron HCl (Zofran) 4 mg Q8H PRN ORAL Nausea & Vomiting 05/24/17 21:30 06/23/17 21:29 Pantoprazole (Protonix) 40 mg DAILY IVP 05/25/17 09:00 06/21/17 08:59 05/28/17 09:12 Piperacillin Sod/ Tazobactam Sod 3.375 gm/Dextrose 110 ml @ 27.5 mls/hr Q8HR@0000,0800,1600 IVPB 05/25/17 00:00 06/01/17 00:00 05/28/17 08:15 Prednisone (predniSONE) 10 mg DAILY ORAL 05/28/17 09:00 06/27/17 08:59 05/28/17 09:12 Risperidone (RisperDAL) 2 mg BEDTIME ORAL 05/26/17 21:00 06/25/17 20:59 05/27/17 20:28 Spironolactone (Aldactone) 25 mg DAILY ORAL 05/28/17 09:00 06/27/17 08:59 05/28/17 09:21 Vancomycin HCl (Vanco rx to dose) 1 ea DAILYPRN PRN MISC Per rx protocol 05/24/17 21:30 06/23/17 21:29 Vancomycin HCl 500 mg/Dextrose 275 ml @ 275 mls/hr Q24H IVPB 05/27/17 13:00 06/01/17 12:59 05/27/17 15:25 Verapamil HCl (Calan SR) 360 mg DAILY ORAL 05/25/17 09:00 06/24/17 08:59 05/28/17 09:11 Vitamin B Complex/ Vit C/Folic Acid (Nephrovite) 1 tab DAILY ORAL 05/25/17 09:00 06/21/17 08:59 05/28/17 09:11 Allergies: Coded Allergies: No Known Allergies (Unverified , 05/21/17) ROS Limited/Unobtainable: No Constitutional: Reports: no symptoms HEENT: Reports: no symptoms Cardiovascular: Reports: no symptoms Respiratory: Reports: shortness of breath Gastrointestinal/Abdominal: Reports: no symptoms Genitourinary: Reports: no symptoms Neurologic/Psychiatric: Reports: no symptoms Subjective Late entry for 05/27/17-computer down. 61 YO F admitted with shortness of breath. Now pneumonia and respiratory failure. Cover for Int Med-Dr Norman. Tolerating nasal canula Objective Last Vital Signs Date Time Temp Pulse Resp B/P (MAP) Pulse Ox O2 Delivery O2 Flow Rate FiO2 05/28/17 12:00 97.4 63 18 121/68 100 Nasal Cannula 97.4 05/28/17 08:45 6.0 35 Laboratory Tests Test 05/28/17 08:30 White Blood Count 10.7 K/UL (4.8-10.8) Red Blood Count 3.39 M/UL (4.20-5.40) L Hemoglobin 10.7 G/DL (12.0-16.0) L Hematocrit 31.7 % (37.0-47.0) L Mean Corpuscular Volume 93 FL (80-99) Mean Corpuscular Hemoglobin 31.4 PG (27.0-31.0) H Mean Corpuscular Hemoglobin Concent 33.6 G/DL (32.0-36.0) Red Cell Distribution Width 13.5 % (11.6-14.8) Platelet Count 254 K/UL (150-450) Mean Platelet Volume 6.2 FL (6.5-10.1) L Neutrophils (%) (Auto) 82.8 % (45.0-75.0) H Lymphocytes (%) (Auto) 8.5 % (20.0-45.0) L Monocytes (%) (Auto) 5.5 % (1.0-10.0) Eosinophils (%) (Auto) 2.9 % (0.0-3.0) Basophils (%) (Auto) 0.2 % (0.0-2.0) Intake and Output 05/27/17 05/28/17 19:00 07:00 Intake Total 985 ml 230.0 ml Output Total 3200 ml 400 ml Balance -2215 ml -170.0 ml Intake Oral 480 ml IV Total 505 ml 170.0 ml Tube Feeding 60 ml Output Urine Total 3200 ml 400 ml # Bowel Movements 3 Objective General Appearance: WD/WN, moderate distress, obese EENT: PERRL/EOMI, normal ENT inspection Neck: non-tender, normal alignment, supple, normal inspection Cardiovascular: normal peripheral pulses, normal rate, regular rhythm, no gallop/murmur, no JVD Respiratory/Chest: Nasal canula; respiratory distress, accessory muscle use, crackles/rales, rhonchi - bilaterally, expiratory wheezing Abdomen: normal bowel sounds, non tender, soft, no organomegaly, no mass Extremities: normal range of motion, non-tender 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 See pulmonary note. Continue nasal canula. Continue vanco, zosyn and azithro per ID (2) Diabetes mellitus, type II (3) HTN (hypertension) Assessment & Plan: Continue verapamil (4) Hyponatremia (5) Schizoaffective disorder Assessment & Plan: Continue seroquel and lamictal (6) Pneumonia (7) COPD (chronic obstructive pulmonary disease) Assessment & Plan: Continue IV solumedrol Status: progressing STEVE DICKINSON May 28, 2017 12:27
[2017-05-28] MEDS: Albuterol/Ipratropium 3ml neb HHN SCH ×2 (13:33→20:53)
[2017-05-28] MEDS: Vancomycin 500mg in D5W 275ml IVPB SCH (13:47)
[2017-05-28] MEDS: LORazepam 1mg tab ORAL PRN (14:51)
[2017-05-28 16:00] VITALS: BP 139/73
--- NOTE | 2017-05-28 18:09 | Pulmonolgy Critical Care Note ---
Critical Care - Asmt/Plan Assessment/Plan: HPI 61 y/o F with hx of COPD on home oxygen previously, discharged from [facility] after receiving treatment for Pneumonia, PMH of HLD presents, Schizoaffective disorder, presented to the to ED with shortness of breath No new complaints Afebrile CXR with infiltrates. Allergies: Coded Allergies: No Known Allergies (Unverified , 05/21/17) Patient History Healthcare decision maker Resuscitation status Advanced Directive on File Patient History Narrative Pmx: as above Shx: reviewed Fhx: non contributory Review of Systems All Other Systems: negative except mentioned in HPI Physical Exam Physical Exam Narrative General Appearance: no apparent distress, alert HEENT normocephalic, atraumatic, PERR, normal pharynx Neck: full range of motion, supple/symm/no masses Respiratory: chest non-tender, lungs clear, normal breath sounds, speaking full sentences Cardiovascular : regular rate, rhythm, no edema Gastrointestinal: normal bowel sounds, non tender, soft, non-distended, no guarding, no rebound Genitourinary: normal inspection, no CVA tenderness Musculoskeletal: back normal, gait/station normal, normal range of motion, non- tender Neurologic: alert, oriented x3, responsive, motor strength/tone normal, sensory intact, speech normal Skin: normal color, no rash, warm/dry, well hydrated Vital Signs stable Labs noted . Height (Feet): 5 Height (Inches): 6.00 Weight (Pounds): 250 CXR 05/24: Slight improvement in the right upper lobe but otherwise stable bilateral parenchymal infiltrates versus edema Assessment/Plan Assessment/Plan Abx: IV vanco x1 05/21 Cefepime x1 05/21 Levaquin x1 05/21 Impression: Fever improved Possible HCAP vs Asp Pneumonia, need to r/o influenza CXR: Bilateral interstitial and patchy airspace edema/infiltrates, right greater than left. Lung base atelectasis. Clinical correlation/follow-up recommended. COPD exacerbation No leukocytosis HLD Schizoaffective disorder Recent PNA Plan: -Continue Antibiotics per ID -influenza sc, sputum cx, legionella ag urine pending - Incr WCC improving -f/u cx -Monitor labs -aspiration precautions -Continue steroids to 20 PO daily, slowly tail over next week Note abnormal swallow Thank you for this consultation. Discussed with RN. Critical Care - Objective Last 24 Hour Vital Signs Date Time Temp Pulse Resp B/P (MAP) Pulse Ox O2 Delivery O2 Flow Rate FiO2 05/28/17 16:00 97.9 86 17 139/73 97 Nasal Cannula 97.9 05/28/17 13:42 80 21 99 Nasal Cannula 3.0 32 05/28/17 13:35 72 22 99 Nasal Cannula 3.0 32 05/28/17 12:00 97.4 63 18 121/68 100 Nasal Cannula 97.4 05/28/17 09:12 95 175/108 05/28/17 09:11 95 175/108 05/28/17 08:45 99 28 99 Venturi Mask 6.0 35 05/28/17 08:44 99 22 99 Venturi Mask 6.0 35 05/28/17 08:30 Venturi Mask 6.0 35 05/28/17 08:30 99 Venturi Mask 6.0 35 05/28/17 08:29 100 35 Venturi Mask 6.0 35 05/28/17 08:00 98.6 95 19 175/108 100 Nasal Cannula 98.6 05/28/17 04:00 97.2 90 22 158/92 100 Nasal Cannula 97.2 05/28/17 00:00 97.1 85 20 143/93 96 97.1 05/28/17 00:00 Nasal Cannula 3.0 05/27/17 20:29 102 160/82 05/27/17 20:00 98.3 102 20 160/82 99 98.3 05/27/17 20:00 Nasal Cannula 3.0 Accucheck: 186 Critical Care - Subjective ROS Limited/Unobtainable: Yes Condition: improving IV Access: peripheral EKG Rhythm: Sinus Rhythm FI02: 32 Vent Support Breath Rate: 16 Vent Support Mode: BiLevel Sputum Amount: None Tube Feeding Amount: 60 I&O: Intake and Output 05/27/17 05/28/17 19:00 07:00 Intake Total 985 ml 290.0 ml Output Total 3200 ml 400 ml Balance -2215 ml -110.0 ml Intake Oral 480 ml IV Total 505 ml 230.0 ml Tube Feeding 60 ml Output Urine Total 3200 ml 400 ml # Bowel Movements 3 Girish Molina M.D. May 28, 2017 18:09
--- NOTE | 2017-05-28 19:38 | Infectious Diseases Prog Note ---
Assessment/Plan Assessment/Plan Assessment: Fever, resolved Possible HCAP vs Asp PNA- -CXR 05/24: Slight improvement in the right upper lobe but otherwise stable bilateral parenchymal infiltrates versus edema, over 3 days -CXR: Bilateral interstitial and patchy airspace edema/infiltrates, right greater than left. Lung base atelectasis. Clinical correlation/follow-up recommended. -sp cx unable to be collected -influenza sc neg -legionella ag urine Leukocytosis(s/p steroids); recurrent COPD exacerbation Acute respiratory failure -2ry to above HLD Schizoaffective disorder Recent PNA Plan: -Continue IV Vancomycin, Zosyn # 8 /7-10 for PNA (sp cx unable to be collected) -05/22 SP Tamiflu #2 -05/21 SP Cefepime x1, Levaquin x1 -f/u cx -Monitor CBC/BMP, temperatures; trend WBC -aspiration precautions Subjective Constitutional: Denies: no symptoms, fever, chills, fatigue, anorexia, drenching sweats, other Allergies: Coded Allergies: No Known Allergies (Unverified , 05/21/17) Objective Vital Signs Last 24 Hour Vital Signs Date Time Temp Pulse Resp B/P (MAP) Pulse Ox O2 Delivery O2 Flow Rate FiO2 05/28/17 16:00 97.9 86 17 139/73 97 Nasal Cannula 97.9 05/28/17 13:42 80 21 99 Nasal Cannula 3.0 32 05/28/17 13:35 72 22 99 Nasal Cannula 3.0 32 05/28/17 12:00 97.4 63 18 121/68 100 Nasal Cannula 97.4 05/28/17 09:12 95 175/108 05/28/17 09:11 95 175/108 05/28/17 08:45 99 28 99 Venturi Mask 6.0 35 05/28/17 08:44 99 22 99 Venturi Mask 6.0 35 05/28/17 08:30 Venturi Mask 6.0 35 05/28/17 08:30 99 Venturi Mask 6.0 35 05/28/17 08:29 100 35 Venturi Mask 6.0 35 05/28/17 08:00 98.6 95 19 175/108 100 Nasal Cannula 98.6 05/28/17 04:00 97.2 90 22 158/92 100 Nasal Cannula 97.2 05/28/17 00:00 97.1 85 20 143/93 96 97.1 05/28/17 00:00 Nasal Cannula 3.0 05/27/17 20:29 102 160/82 05/27/17 20:00 98.3 102 20 160/82 99 98.3 05/27/17 20:00 Nasal Cannula 3.0 Height (Feet): 5 Height (Inches): 6.00 Weight (Pounds): 260 HEENT: atraumatic Respiratory/Chest: normal breath sounds Cardiovascular: normal rate Abdomen: soft, non tender Laboratory Tests Test 05/28/17 08:30 White Blood Count 10.7 K/UL (4.8-10.8) Red Blood Count 3.39 M/UL (4.20-5.40) L Hemoglobin 10.7 G/DL (12.0-16.0) L Hematocrit 31.7 % (37.0-47.0) L Mean Corpuscular Volume 93 FL (80-99) Mean Corpuscular Hemoglobin 31.4 PG (27.0-31.0) H Mean Corpuscular Hemoglobin Concent 33.6 G/DL (32.0-36.0) Red Cell Distribution Width 13.5 % (11.6-14.8) Platelet Count 254 K/UL (150-450) Mean Platelet Volume 6.2 FL (6.5-10.1) L Neutrophils (%) (Auto) 82.8 % (45.0-75.0) H Lymphocytes (%) (Auto) 8.5 % (20.0-45.0) L Monocytes (%) (Auto) 5.5 % (1.0-10.0) Eosinophils (%) (Auto) 2.9 % (0.0-3.0) Basophils (%) (Auto) 0.2 % (0.0-2.0) Current Medications Medications (Trade) Dose Ordered Sig/Wale Route PRN Reason Start Time Stop Time Status Last Admin Dose Admin Acetaminophen (Tylenol) 650 mg Q4H PRN RECTAL MILD PAIN/T>100.5 05/24/17 21:30 06/20/17 21:29 Albuterol/ Ipratropium (Albuterol/ Ipratropium) 3 ml Q4H PRN HHN Shortness of Breath 05/28/17 15:00 06/02/17 14:59 Albuterol/ Ipratropium (Albuterol/ Ipratropium) 3 ml Q6HRT HHN 05/28/17 13:00 06/02/17 12:59 05/28/17 13:33 Atorvastatin Calcium (Lipitor) 10 mg BEDTIME ORAL 05/25/17 21:00 06/20/17 20:59 05/27/17 20:28 Carvedilol (Coreg) 6.25 mg EVERY 12 HOURS ORAL 05/28/17 09:00 06/27/17 08:59 05/28/17 09:12 Clonidine HCl (Catapres Tab) 0.1 mg QID PRN ORAL SBP>160 05/27/17 22:45 06/26/17 22:44 Dextrose (Dextrose 50%) STAT PRN IV Hypoglycemia 05/24/17 21:30 06/23/17 21:29 Dextrose/Sodium Chloride 1,000 ml @ 60 mls/hr [id number] IV 05/24/17 22:00 06/20/17 21:59 05/27/17 17:03 Divalproex Sodium (Depakote) 500 mg EVERY 12 HOURS ORAL 05/26/17 13:00 06/25/17 12:59 05/28/17 09:10 Docusate Sodium (Colace) 100 mg Q12HR ORAL 05/25/17 09:00 06/24/17 08:59 05/28/17 09:11 Folic Acid (Folate) 1 mg DAILY ORAL 05/25/17 09:00 06/21/17 08:59 05/28/17 09:11 Furosemide (Lasix) 40 mg DAILY IV 05/25/17 09:00 06/21/17 08:59 05/28/17 09:12 Guaifenesin/ Codeine Phosphate (Robitussin with codeine) 5 ml Q6H PRN ORAL For Cough 05/24/17 21:30 06/23/17 21:29 Heparin Sodium (Porcine) (Heparin 5000 units/ml) 5,000 units EVERY 12 HOURS SUBQ 05/25/17 09:00 06/20/17 20:59 05/28/17 09:14 Insulin Aspart (NovoLOG) BEFORE MEALS AND HS SUBQ 05/25/17 06:30 06/20/17 20:59 05/28/17 16:48 Lorazepam (Ativan) 2 mg Q6H PRN ORAL For Anxiety 05/26/17 12:45 06/02/17 12:44 05/28/17 14:51 Ondansetron HCl (Zofran) 4 mg Q8H PRN ORAL Nausea & Vomiting 05/24/17 21:30 06/23/17 21:29 Pantoprazole (Protonix) 40 mg DAILY IVP 05/25/17 09:00 06/21/17 08:59 05/28/17 09:12 Piperacillin Sod/ Tazobactam Sod 3.375 gm/Dextrose 110 ml @ 27.5 mls/hr Q8HR@0000,0800,1600 IVPB 05/25/17 00:00 06/01/17 00:00 05/28/17 16:31 Prednisone (predniSONE) 10 mg DAILY ORAL 05/28/17 09:00 06/27/17 08:59 05/28/17 09:12 Risperidone (RisperDAL) 2 mg BEDTIME ORAL 05/26/17 21:00 06/25/17 20:59 05/27/17 20:28 Spironolactone (Aldactone) 25 mg DAILY ORAL 05/28/17 09:00 06/27/17 08:59 05/28/17 09:21 Vancomycin HCl (Vanco rx to dose) 1 ea DAILYPRN PRN MISC Per rx protocol 05/24/17 21:30 06/23/17 21:29 Vancomycin HCl 500 mg/Dextrose 275 ml @ 275 mls/hr Q24H IVPB 05/27/17 13:00 06/01/17 12:59 05/28/17 13:47 Verapamil HCl (Calan SR) 360 mg DAILY ORAL 05/25/17 09:00 06/24/17 08:59 05/28/17 09:11 Vitamin B Complex/ Vit C/Folic Acid (Nephrovite) 1 tab DAILY ORAL 05/25/17 09:00 06/21/17 08:59 05/28/17 09:11 Flaco Membreno MD May 28, 2017 19:38
[2017-05-28 20:00] VITALS: BP 146/79
--- NOTE | 2017-05-28 21:13 | Cardiology Progress Note ---
Assessment/Plan Assessment/Plan 1. Sinus tachycardia most likely due to underlying pneumonia, hypoxemia and breathing treatment, continue coreg and verapamil. 2. Hypertension, poorly controlled, continue coreg and verapamil. Clonidine PRN , Echo shows normal LVEF. 3. History of COPD with mild pulmonary HTN. 4. Morbid obesity. 5. Respiratory failure. 6. Bigeminy VPCs on coreg. Subjective Subjective No cardiac events. Objective Last 24 Hour Vital Signs Date Time Temp Pulse Resp B/P (MAP) Pulse Ox O2 Delivery O2 Flow Rate FiO2 05/28/17 20:52 35 05/28/17 20:51 86 17 97 Venturi Mask 6.0 35 05/28/17 20:50 Venturi Mask 6.0 35 05/28/17 20:49 97 Venturi Mask 6.0 35 05/28/17 20:49 86 17 Nasal Cannula 3.0 32 05/28/17 20:00 97.9 77 22 146/79 98 97.9 05/28/17 16:00 97.9 86 17 139/73 97 Nasal Cannula 97.9 05/28/17 13:42 80 21 99 Nasal Cannula 3.0 32 05/28/17 13:35 72 22 99 Nasal Cannula 3.0 32 05/28/17 12:00 97.4 63 18 121/68 100 Nasal Cannula 97.4 05/28/17 09:12 95 175/108 05/28/17 09:11 95 175/108 05/28/17 08:45 99 28 99 Venturi Mask 6.0 35 05/28/17 08:44 99 22 99 Venturi Mask 6.0 35 05/28/17 08:30 Venturi Mask 6.0 35 05/28/17 08:30 99 Venturi Mask 6.0 35 05/28/17 08:29 100 35 Venturi Mask 6.0 35 05/28/17 08:00 98.6 95 19 175/108 100 Nasal Cannula 98.6 05/28/17 04:00 97.2 90 22 158/92 100 Nasal Cannula 97.2 05/28/17 00:00 97.1 85 20 143/93 96 97.1 05/28/17 00:00 Nasal Cannula 3.0 Intake and Output 05/27/17 05/28/17 19:00 07:00 Intake Total 985 ml 290.0 ml Output Total 3200 ml 400 ml Balance -2215 ml -110.0 ml Intake Oral 480 ml IV Total 505 ml 230.0 ml Tube Feeding 60 ml Output Urine Total 3200 ml 400 ml # Bowel Movements 3 2D Echo: EF 55%, Mild LVH, Elevated RAP 15 mmHg, RVSP 39 mmHg, Mild MR Laboratory Tests Test 05/28/17 08:30 White Blood Count 10.7 K/UL (4.8-10.8) Red Blood Count 3.39 M/UL (4.20-5.40) L Hemoglobin 10.7 G/DL (12.0-16.0) L Hematocrit 31.7 % (37.0-47.0) L Mean Corpuscular Volume 93 FL (80-99) Mean Corpuscular Hemoglobin 31.4 PG (27.0-31.0) H Mean Corpuscular Hemoglobin Concent 33.6 G/DL (32.0-36.0) Red Cell Distribution Width 13.5 % (11.6-14.8) Platelet Count 254 K/UL (150-450) Mean Platelet Volume 6.2 FL (6.5-10.1) L Neutrophils (%) (Auto) 82.8 % (45.0-75.0) H Lymphocytes (%) (Auto) 8.5 % (20.0-45.0) L Monocytes (%) (Auto) 5.5 % (1.0-10.0) Eosinophils (%) (Auto) 2.9 % (0.0-3.0) Basophils (%) (Auto) 0.2 % (0.0-2.0) Objective HEENT: Atraumatic and normocephalic. Anicteric. Pupils are equal, round, and reactive to light and accommodation. Extraocular muscles intact. NECK: JVP less than 5 cm. No carotid bruit. Carotid upstrokes 2+ bilaterally. CARDIOVASCULAR: Normal S1 and S2. Regular rate and rhythm. Tachycardic. No murmurs, gallops, or rubs. LUNGS: Diminished breath sounds. Poor inspiratory effort. Some scattered crackles in both lungs. ABDOMEN: Soft nontender, nondistended. No hepatosplenomegaly. Positive bowel sounds. EXTREMITIES: There is 2+ bilateral edema. SAMANTHA FRASER May 28, 2017 21:13
[2017-05-29] VITALS (7 sets, daily range): BP systolic 93–168; BP diastolic 46–91
[2017-05-29] MEDS: Piperacillin/Tazobactam 3.375 GM in D5W 110 ML IVPB SCH ×4 (00:35→23:27)
[2017-05-29] MEDS: D5 1/2NS 1,000 ML IV SCH ×2 (00:37→18:00)
[2017-05-29] MEDS: Albuterol/Ipratropium 3ml neb HHN SCH ×4 (01:08→18:59)
[2017-05-29] MEDS: NovoLOG Insulin Flexpen SUBQ SCH ×4 (06:04→21:00)
[2017-05-29 07:26] LABS: BASOPHILS % (AUTO) 0.2 % (0.0-2.0); EOSINOPHILS % (AUTO) 3.7 % (0.0-3.0); HEMATOCRIT 33.5 % (37.0-47.0); HEMOGLOBIN 11.4 G/DL (12.0-16.0); LYMPHOCYTES % (AUTO) 10.7 % (20.0-45.0); MEAN CORPUSCULAR VOLUME 93 FL (80-99); MONOCYTES % (AUTO) 5.6 % (1.0-10.0); NEUTROPHILS % (AUTO) 79.8 % (45.0-75.0); PLATELET COUNT 235 K/UL (150-450); RED CELL DISTRIBUTION WIDTH 13.3 % (11.6-14.8); WHITE BLOOD COUNT 11.3 K/UL (4.8-10.8)
[2017-05-29 07:40] LABS: ANION GAP 6 mmol/L (5-15); BLOOD UREA NITROGEN 24 mg/dL (7-18); CALCIUM 9.2 MG/DL (8.5-10.1); CARBON DIOXIDE 35 MMOL/L (21-32); CHLORIDE 98 MMOL/L (98-107); CREATININE 1.5 MG/DL (0.55-1.30); POTASSIUM 3.8 MMOL/L (3.5-5.1); SODIUM 139 MMOL/L (136-145)
--- NOTE | 2017-05-29 07:48 | General Progress Note ---
Assessment/Plan Problem List: (1) Dysphagia ICD Codes: R13.10 - Dysphagia, unspecified SNOMED: 00407772, 656528971 (2) Schizo affective schizophrenia ICD Codes: F25.0 - Schizoaffective disorder, bipolar type SNOMED: 235828778 (3) HTN (hypertension) ICD Codes: I10 - Essential (primary) hypertension SNOMED: 35353321 (4) Diabetes mellitus, type II ICD Codes: E11.9 - Type 2 diabetes mellitus without complications SNOMED: 44756237 Assessment/Plan eating better hold peg plans for now fu psych stable and improving H&H needs out patient fu for GI procedures Subjective ROS Limited/Unobtainable: Yes Allergies: Coded Allergies: No Known Allergies (Unverified , 05/21/17) Subjective no c/o Objective Last 24 Hour Vital Signs Date Time Temp Pulse Resp B/P (MAP) Pulse Ox O2 Delivery O2 Flow Rate FiO2 05/29/17 07:08 89 20 100 Nasal Cannula 3.0 32 05/29/17 07:04 88 18 Venturi Mask 6.0 35 05/29/17 06:58 100 Venturi Mask 6.0 35 05/29/17 06:58 88 18 100 Venturi Mask 6.0 35 05/29/17 06:58 Venturi Mask 6.0 35 05/29/17 04:00 97.1 87 20 156/90 98 97.1 05/29/17 01:21 76 20 98 Venturi Mask 6.0 35 05/29/17 01:07 35 05/29/17 01:07 76 20 98 Venturi Mask 6.0 35 05/29/17 00:00 97.5 76 20 152/72 98 97.5 05/29/17 00:00 Venturi Mask 05/28/17 21:11 86 17 97 Venturi Mask 6.0 35 05/28/17 20:52 35 05/28/17 20:51 86 17 97 Venturi Mask 6.0 35 05/28/17 20:50 Venturi Mask 6.0 35 05/28/17 20:49 97 Venturi Mask 6.0 35 05/28/17 20:49 86 17 Nasal Cannula 3.0 32 05/28/17 20:00 97.9 77 22 146/79 98 97.9 05/28/17 20:00 Venturi Mask 05/28/17 16:00 97.9 86 17 139/73 97 Nasal Cannula 97.9 05/28/17 13:42 80 21 99 Nasal Cannula 3.0 32 05/28/17 13:35 72 22 99 Nasal Cannula 3.0 32 05/28/17 12:00 97.4 63 18 121/68 100 Nasal Cannula 97.4 05/28/17 09:12 95 175/108 05/28/17 09:11 95 175/108 05/28/17 08:45 99 28 99 Venturi Mask 6.0 35 05/28/17 08:44 99 22 99 Venturi Mask 6.0 35 05/28/17 08:30 Venturi Mask 6.0 35 05/28/17 08:30 99 Venturi Mask 6.0 35 05/28/17 08:29 100 35 Venturi Mask 6.0 35 05/28/17 08:00 98.6 95 19 175/108 100 Nasal Cannula 98.6 Intake and Output 05/28/17 05/29/17 19:00 07:00 Intake Total 1132.5 ml 970.0 ml Output Total 1200 ml 1000 ml Balance -67.5 ml -30.0 ml Intake Oral 240 ml IV Total 632.5 ml 730.0 ml Other 500 ml Output Urine Total 1200 ml 1000 ml # Bowel Movements 1 Laboratory Tests 05/28/17 08:30: White Blood Count 10.7, Red Blood Count 3.39L, Hemoglobin 10.7L, Hematocrit 31.7L, Mean Corpuscular Volume 93, Mean Corpuscular Hemoglobin 31.4H, Mean Corpuscular Hemoglobin Concent 33.6, Red Cell Distribution Width 13.5, Platelet Count 254, Mean Platelet Volume 6.2L, Neutrophils (%) (Auto) 82.8H, Lymphocytes (%) (Auto) 8.5L, Monocytes (%) (Auto) 5.5, Eosinophils (%) (Auto) 2.9, Basophils (%) (Auto) 0.2 05/29/17 06:25: White Blood Count 11.3H, Red Blood Count 3.60L, Hemoglobin 11.4L, Hematocrit 33.5L, Mean Corpuscular Volume 93, Mean Corpuscular Hemoglobin 31.7H, Mean Corpuscular Hemoglobin Concent 34.1, Red Cell Distribution Width 13.3, Platelet Count 235, Mean Platelet Volume 6.2L, Neutrophils (%) (Auto) 79.8H, Lymphocytes (%) (Auto) 10.7L, Monocytes (%) (Auto) 5.6, Eosinophils (%) (Auto) 3.7H, Basophils (%) (Auto) 0.2, Sodium Level 139, Potassium Level 3.8, Chloride Level 98, Carbon Dioxide Level 35H, Anion Gap 6, Blood Urea Nitrogen 24H, Creatinine 1.5H, Estimat Glomerular Filtration Rate 35.2, Glucose Level 107H, Calcium Level 9.2 Height (Feet): 5 Height (Inches): 6.00 Weight (Pounds): 260 General Appearance: alert EENT: normal ENT inspection Neck: supple Cardiovascular: normal rate Respiratory/Chest: decreased breath sounds Abdomen: normal bowel sounds, non tender, soft Extremities: non-tender MISSAEL RODRÍGUEZ May 29, 2017 07:48
[2017-05-29] MEDS: Docusate 100mg cap ORAL SCH ×2 (09:29→20:58)
[2017-05-29] MEDS: Pantoprazole Inj IVP SCH (09:29)
[2017-05-29] MEDS: Depakote 500mg tab ORAL SCH ×2 (09:30→21:00)
[2017-05-29] MEDS: Carvedilol 12.5mg tab ORAL SCH ×2 (09:30→20:59)
[2017-05-29] MEDS: Nephrovite tab (Rena-Vite) ORAL SCH (09:30)
[2017-05-29] MEDS: Spironolactone 25mg tab ORAL SCH (09:30)
[2017-05-29] MEDS: Verapamil 180mg SR tab ORAL SCH (09:30)
[2017-05-29] MEDS: Heparin 5000 units/ml inj SUBQ SCH ×2 (09:31→21:01)
[2017-05-29] MEDS: Vancomycin 500mg in D5W 275ml IVPB SCH (13:41)
[2017-05-29] MEDS: Albuterol/Ipratropium 3ml neb HHN PRN ×2 (16:12→23:00)
--- NOTE | 2017-05-29 21:45 | Cardiology Progress Note ---
Assessment/Plan Assessment/Plan 1. Sinus tachycardia most likely due to underlying pneumonia, hypoxemia and breathing treatment, continue coreg and verapamil. 2. Hypertension, poorly controlled, continue coreg and verapamil. Clonidine PRN , Echo shows normal LVEF. 3. History of COPD with mild pulmonary HTN. 4. Morbid obesity. 5. Respiratory failure. 6. Bigeminy VPCs on coreg. Subjective Subjective No cardiac events. Not on the telemetry unit. Objective Last 24 Hour Vital Signs Date Time Temp Pulse Resp B/P (MAP) Pulse Ox O2 Delivery O2 Flow Rate FiO2 05/29/17 20:59 85 158/82 05/29/17 19:16 82 18 98 Nasal Cannula 3.0 32 05/29/17 19:02 80 20 93 Nasal Cannula 3.0 32 05/29/17 19:01 Nasal Cannula 3.0 32 05/29/17 18:59 93 Nasal Cannula 3.0 32 05/29/17 16:22 74 24 100 Nasal Cannula 3.0 32 05/29/17 16:13 72 20 100 Nasal Cannula 4.0 36 05/29/17 16:00 97.1 68 22 98/64 100 Nasal Cannula 4.0 97.1 05/29/17 12:29 61 18 100 Nasal Cannula 3.0 32 05/29/17 12:20 97.2 62 21 94/62 99 Nasal Cannula 4.0 97.2 05/29/17 12:18 56 20 100 Nasal Cannula 4.0 36 05/29/17 12:06 97.1 57 21 93/46 99 Nasal Cannula 4.0 97.1 05/29/17 09:30 104 168/91 05/29/17 09:30 104 168/91 05/29/17 08:00 97.4 104 22 168/91 97 97.4 05/29/17 07:08 89 20 100 Nasal Cannula 3.0 32 05/29/17 07:04 88 18 Venturi Mask 6.0 35 05/29/17 06:58 100 Venturi Mask 6.0 35 05/29/17 06:58 88 18 100 Venturi Mask 6.0 35 05/29/17 06:58 Venturi Mask 6.0 35 05/29/17 04:00 97.1 87 20 156/90 98 97.1 05/29/17 01:21 76 20 98 Venturi Mask 6.0 35 05/29/17 01:07 35 05/29/17 01:07 76 20 98 Venturi Mask 6.0 35 05/29/17 00:00 97.5 76 20 152/72 98 97.5 05/29/17 00:00 Venturi Mask Intake and Output 05/28/17 05/29/17 19:00 07:00 Intake Total 1132.5 ml 970.0 ml Output Total 1200 ml 1000 ml Balance -67.5 ml -30.0 ml Intake Oral 240 ml IV Total 632.5 ml 730.0 ml Other 500 ml Output Urine Total 1200 ml 1000 ml # Bowel Movements 1 2D Echo: EF 55%, Mild LVH, Elevated RAP 15 mmHg, RVSP 39 mmHg, Mild MR Laboratory Tests Test 05/29/17 06:25 White Blood Count 11.3 K/UL (4.8-10.8) H Red Blood Count 3.60 M/UL (4.20-5.40) L Hemoglobin 11.4 G/DL (12.0-16.0) L Hematocrit 33.5 % (37.0-47.0) L Mean Corpuscular Volume 93 FL (80-99) Mean Corpuscular Hemoglobin 31.7 PG (27.0-31.0) H Mean Corpuscular Hemoglobin Concent 34.1 G/DL (32.0-36.0) Red Cell Distribution Width 13.3 % (11.6-14.8) Platelet Count 235 K/UL (150-450) Mean Platelet Volume 6.2 FL (6.5-10.1) L Neutrophils (%) (Auto) 79.8 % (45.0-75.0) H Lymphocytes (%) (Auto) 10.7 % (20.0-45.0) L Monocytes (%) (Auto) 5.6 % (1.0-10.0) Eosinophils (%) (Auto) 3.7 % (0.0-3.0) H Basophils (%) (Auto) 0.2 % (0.0-2.0) Sodium Level 139 MMOL/L (136-145) Potassium Level 3.8 MMOL/L (3.5-5.1) Chloride Level 98 MMOL/L (98-107) Carbon Dioxide Level 35 MMOL/L (21-32) H Anion Gap 6 mmol/L (5-15) Blood Urea Nitrogen 24 mg/dL (7-18) H Creatinine 1.5 MG/DL (0.55-1.30) H Estimat Glomerular Filtration Rate 35.2 mL/min (>60) Glucose Level 107 MG/DL (74-106) H Calcium Level 9.2 MG/DL (8.5-10.1) Objective HEENT: Atraumatic and normocephalic. Anicteric. Pupils are equal, round, and reactive to light and accommodation. Extraocular muscles intact. NECK: JVP less than 5 cm. No carotid bruit. Carotid upstrokes 2+ bilaterally. CARDIOVASCULAR: Normal S1 and S2. Regular rate and rhythm. Tachycardic. No murmurs, gallops, or rubs. LUNGS: Diminished breath sounds. Poor inspiratory effort. Some scattered crackles in both lungs. ABDOMEN: Soft nontender, nondistended. No hepatosplenomegaly. Positive bowel sounds. EXTREMITIES: There is 2+ bilateral edema. SMAANTHA FRASER May 29, 2017 21:45
[2017-05-29] MEDS: LORazepam 1mg tab ORAL PRN (23:27)
[2017-05-30] VITALS: BP 151/76
[2017-05-30] MEDS: Albuterol/Ipratropium 3ml neb HHN SCH ×4 (01:00→19:33)
[2017-05-30 04:00] VITALS: BP 155/81
[2017-05-30] MEDS: NovoLOG Insulin Flexpen SUBQ SCH ×4 (06:01→20:43)
[2017-05-30 08:00] VITALS: BP 162/82
[2017-05-30] MEDS: Piperacillin/Tazobactam 3.375 GM in D5W 110 ML IVPB SCH ×2 (09:20→15:56)
[2017-05-30] MEDS: Depakote 500mg tab ORAL SCH ×2 (09:20→20:41)
[2017-05-30] MEDS: Carvedilol 12.5mg tab ORAL SCH ×2 (09:21→20:42)
[2017-05-30] MEDS: Docusate 100mg cap ORAL SCH ×2 (09:21→20:44)
[2017-05-30] MEDS: Spironolactone 25mg tab ORAL SCH (09:21)
[2017-05-30] MEDS: Pantoprazole Inj IVP SCH (09:21)
[2017-05-30] MEDS: Nephrovite tab (Rena-Vite) ORAL SCH (09:26)
[2017-05-30] MEDS: Verapamil 180mg SR tab ORAL SCH (09:26)
[2017-05-30] MEDS: Heparin 5000 units/ml inj SUBQ SCH ×2 (09:27→20:44)
--- NOTE | 2017-05-30 10:29 | General Progress Note ---
Assessment/Plan Problem List: (1) Dysphagia ICD Codes: R13.10 - Dysphagia, unspecified SNOMED: 98164988, 175960384 (2) Schizo affective schizophrenia ICD Codes: F25.0 - Schizoaffective disorder, bipolar type SNOMED: 377248708 (3) HTN (hypertension) ICD Codes: I10 - Essential (primary) hypertension SNOMED: 47850102 (4) Diabetes mellitus, type II ICD Codes: E11.9 - Type 2 diabetes mellitus without complications SNOMED: 18615562 Assessment/Plan eating better hold peg plans for now fu psych stable and improving H&H needs out patient fu for GI procedures reepat swallow eval today for possible advancing diet Subjective ROS Limited/Unobtainable: Yes Allergies: Coded Allergies: No Known Allergies (Unverified , 05/21/17) Subjective no c/o Objective Last 24 Hour Vital Signs Date Time Temp Pulse Resp B/P (MAP) Pulse Ox O2 Delivery O2 Flow Rate FiO2 05/30/17 09:26 88 155/81 05/30/17 09:21 88 155/81 05/30/17 08:34 88 20 97 Nasal Cannula 3.0 32 05/30/17 08:24 86 20 98 Nasal Cannula 3.0 32 05/30/17 08:22 98 Nasal Cannula 3.0 05/30/17 08:21 Nasal Cannula 3.0 32 05/30/17 04:00 98.6 79 20 155/81 100 98.6 05/30/17 02:19 Nasal Cannula 05/30/17 02:19 Nasal Cannula 05/30/17 00:00 97.9 76 19 151/76 100 97.9 05/29/17 23:11 74 24 99 Nasal Cannula 3.0 32 05/29/17 23:01 74 20 97 Nasal Cannula 4.0 36 05/29/17 20:59 85 158/82 05/29/17 20:00 98.0 85 19 158/82 100 98.0 05/29/17 19:16 82 18 98 Nasal Cannula 3.0 32 05/29/17 19:02 80 20 93 Nasal Cannula 3.0 32 05/29/17 19:01 Nasal Cannula 3.0 32 05/29/17 18:59 93 Nasal Cannula 3.0 32 05/29/17 16:22 74 24 100 Nasal Cannula 3.0 32 05/29/17 16:13 72 20 100 Nasal Cannula 4.0 36 05/29/17 16:00 97.1 68 22 98/64 100 Nasal Cannula 4.0 97.1 05/29/17 12:29 61 18 100 Nasal Cannula 3.0 32 05/29/17 12:20 97.2 62 21 94/62 99 Nasal Cannula 4.0 97.2 05/29/17 12:18 56 20 100 Nasal Cannula 4.0 36 05/29/17 12:06 97.1 57 21 93/46 99 Nasal Cannula 4.0 97.1 Intake and Output 05/29/17 05/30/17 19:00 07:00 Intake Total 1640.0 ml 557.5 ml Output Total 400 ml 1200 ml Balance 1240.0 ml -642.5 ml Intake Oral 1200 ml IV Total 440.0 ml 557.5 ml Output Urine Total 400 ml 1200 ml # Voids 2 3 # Bowel Movements 3 2 Height (Feet): 5 Height (Inches): 6.00 Weight (Pounds): 260 General Appearance: alert EENT: normal ENT inspection Neck: supple Cardiovascular: normal rate Respiratory/Chest: decreased breath sounds Abdomen: normal bowel sounds, non tender, soft Extremities: non-tender MISSAEL RODRÍGUEZ May 30, 2017 10:29
[2017-05-30 12:00] VITALS: BP 99/59
--- NOTE | 2017-05-30 12:49 | General Progress Note ---
Assessment/Plan Status: stable, progressing Assessment/Plan schizoaffective d/o bipolar d/o mdd encephalopathy -risperdal 2mg qhs -depakote 500mg bid -so/ro -ativan prn Subjective Date patient seen: May 30, 2017 Neurologic/Psychiatric: Reports: anxiety Allergies: Coded Allergies: No Known Allergies (Unverified , 05/21/17) Subjective the pt is calm episodes of agitation/ the pt keeps calling the nurse Objective Last 24 Hour Vital Signs Date Time Temp Pulse Resp B/P (MAP) Pulse Ox O2 Delivery O2 Flow Rate FiO2 05/30/17 09:26 88 155/81 05/30/17 09:21 88 155/81 05/30/17 08:34 88 20 97 Nasal Cannula 3.0 32 05/30/17 08:24 86 20 98 Nasal Cannula 3.0 32 05/30/17 08:22 98 Nasal Cannula 3.0 05/30/17 08:21 Nasal Cannula 3.0 32 05/30/17 08:00 97.8 92 18 162/82 98 Nasal Cannula 4.0 97.8 05/30/17 04:00 98.6 79 20 155/81 100 98.6 05/30/17 02:19 Nasal Cannula 05/30/17 02:19 Nasal Cannula 05/30/17 00:00 97.9 76 19 151/76 100 97.9 05/29/17 23:11 74 24 99 Nasal Cannula 3.0 32 05/29/17 23:01 74 20 97 Nasal Cannula 4.0 36 05/29/17 20:59 85 158/82 05/29/17 20:00 98.0 85 19 158/82 100 98.0 05/29/17 19:16 82 18 98 Nasal Cannula 3.0 32 05/29/17 19:02 80 20 93 Nasal Cannula 3.0 32 05/29/17 19:01 Nasal Cannula 3.0 32 05/29/17 18:59 93 Nasal Cannula 3.0 32 05/29/17 16:22 74 24 100 Nasal Cannula 3.0 32 05/29/17 16:13 72 20 100 Nasal Cannula 4.0 36 05/29/17 16:00 97.1 68 22 98/64 100 Nasal Cannula 4.0 97.1 Intake and Output 05/29/17 05/30/17 19:00 07:00 Intake Total 1640.0 ml 557.5 ml Output Total 400 ml 1200 ml Balance 1240.0 ml -642.5 ml Intake Oral 1200 ml IV Total 440.0 ml 557.5 ml Output Urine Total 400 ml 1200 ml # Voids 2 3 # Bowel Movements 3 2 Height (Feet): 5 Height (Inches): 6.00 Weight (Pounds): 260 General Appearance: no apparent distress, alert, agitated Kelli Norton M.D. May 30, 2017 12:49
--- NOTE | 2017-05-30 12:51 | Psych Consult Progress Note ---
Psych Consult Progress Note Consult 05/28/17 the pt is getting agitated. at times. needs redirection. schizoaffective d/o bipolar d/o mdd encephalopathy -risperdal 2mg qhs -depakote 500mg bid -so/ro -ativan prn Vital Signs Last 24 Hour Vital Signs Date Time Temp Pulse Resp B/P (MAP) Pulse Ox O2 Delivery O2 Flow Rate FiO2 05/30/17 09:26 88 155/81 05/30/17 09:21 88 155/81 05/30/17 08:34 88 20 97 Nasal Cannula 3.0 32 05/30/17 08:24 86 20 98 Nasal Cannula 3.0 32 05/30/17 08:22 98 Nasal Cannula 3.0 05/30/17 08:21 Nasal Cannula 3.0 32 05/30/17 08:00 97.8 92 18 162/82 98 Nasal Cannula 4.0 97.8 05/30/17 04:00 98.6 79 20 155/81 100 98.6 05/30/17 02:19 Nasal Cannula 05/30/17 02:19 Nasal Cannula 05/30/17 00:00 97.9 76 19 151/76 100 97.9 05/29/17 23:11 74 24 99 Nasal Cannula 3.0 32 05/29/17 23:01 74 20 97 Nasal Cannula 4.0 36 05/29/17 20:59 85 158/82 05/29/17 20:00 98.0 85 19 158/82 100 98.0 05/29/17 19:16 82 18 98 Nasal Cannula 3.0 32 05/29/17 19:02 80 20 93 Nasal Cannula 3.0 32 05/29/17 19:01 Nasal Cannula 3.0 32 05/29/17 18:59 93 Nasal Cannula 3.0 32 05/29/17 16:22 74 24 100 Nasal Cannula 3.0 32 05/29/17 16:13 72 20 100 Nasal Cannula 4.0 36 05/29/17 16:00 97.1 68 22 98/64 100 Nasal Cannula 4.0 97.1 Medications Current Medications Medications (Trade) Dose Ordered Sig/Wale Route PRN Reason Start Time Stop Time Status Last Admin Dose Admin Acetaminophen (Tylenol) 650 mg Q4H PRN RECTAL MILD PAIN/T>100.5 05/24/17 21:30 06/20/17 21:29 Albuterol/ Ipratropium (Albuterol/ Ipratropium) 3 ml Q4H PRN HHN Shortness of Breath 05/28/17 15:00 06/02/17 14:59 05/29/17 23:00 Albuterol/ Ipratropium (Albuterol/ Ipratropium) 3 ml Q6HRT HHN 05/28/17 13:00 06/02/17 12:59 05/30/17 08:24 Atorvastatin Calcium (Lipitor) 10 mg BEDTIME ORAL 05/25/17 21:00 06/20/17 20:59 05/29/17 20:59 Carvedilol (Coreg) 12.5 mg EVERY 12 HOURS ORAL 05/29/17 09:00 06/28/17 08:59 05/30/17 09:21 Clonidine HCl (Catapres Tab) 0.1 mg QID PRN ORAL SBP>160 05/27/17 22:45 06/26/17 22:44 Dextrose (Dextrose 50%) STAT PRN IV Hypoglycemia 05/24/17 21:30 06/23/17 21:29 Divalproex Sodium (Depakote) 500 mg EVERY 12 HOURS ORAL 05/26/17 13:00 06/25/17 12:59 05/30/17 09:20 Docusate Sodium (Colace) 100 mg Q12HR ORAL 05/25/17 09:00 06/24/17 08:59 05/30/17 09:21 Folic Acid (Folate) 1 mg DAILY ORAL 05/25/17 09:00 06/21/17 08:59 05/30/17 09:21 Furosemide (Lasix) 40 mg DAILY IV 05/25/17 09:00 06/21/17 08:59 05/30/17 09:20 Guaifenesin/ Codeine Phosphate (Robitussin with codeine) 5 ml Q6H PRN ORAL For Cough 05/24/17 21:30 06/23/17 21:29 Heparin Sodium (Porcine) (Heparin 5000 units/ml) 5,000 units EVERY 12 HOURS SUBQ 05/25/17 09:00 06/20/17 20:59 05/30/17 09:27 Insulin Aspart (NovoLOG) BEFORE MEALS AND HS SUBQ 05/25/17 06:30 06/20/17 20:59 05/30/17 12:30 Lorazepam (Ativan) 2 mg Q6H PRN ORAL For Anxiety 05/26/17 12:45 06/02/17 12:44 05/29/17 23:27 Ondansetron HCl (Zofran) 4 mg Q8H PRN ORAL Nausea & Vomiting 05/24/17 21:30 06/23/17 21:29 Pantoprazole (Protonix) 40 mg DAILY IVP 05/25/17 09:00 06/21/17 08:59 05/30/17 09:21 Piperacillin Sod/ Tazobactam Sod 3.375 gm/Dextrose 110 ml @ 27.5 mls/hr Q8HR@0000,0800,1600 IVPB 05/25/17 00:00 06/01/17 00:00 05/30/17 09:20 Prednisone (predniSONE) 10 mg DAILY ORAL 05/28/17 09:00 06/27/17 08:59 05/30/17 09:21 Risperidone (RisperDAL) 2 mg BEDTIME ORAL 05/26/17 21:00 06/25/17 20:59 05/29/17 20:59 Spironolactone (Aldactone) 25 mg DAILY ORAL 05/28/17 09:00 06/27/17 08:59 05/30/17 09:21 Vancomycin HCl (Vanco rx to dose) 1 ea DAILYPRN PRN MISC Per rx protocol 05/24/17 21:30 06/23/17 21:29 Vancomycin HCl 500 mg/Dextrose 275 ml @ 275 mls/hr Q24H IVPB 05/27/17 13:00 06/01/17 12:59 05/29/17 13:41 Verapamil HCl (Calan SR) 360 mg DAILY ORAL 05/25/17 09:00 06/24/17 08:59 05/30/17 09:26 Vitamin B Complex/ Vit C/Folic Acid (Nephrovite) 1 tab DAILY ORAL 05/25/17 09:00 06/21/17 08:59 05/30/17 09:26 Kelli Norton M.D. May 30, 2017 12:51
[2017-05-30] MEDS: Vancomycin 500mg in D5W 275ml IVPB SCH (13:24)
--- NOTE | 2017-05-30 14:22 | Infectious Diseases Prog Note ---
Assessment/Plan Assessment/Plan Assessment: Fever, resolved Possible HCAP vs Asp PNA- -CXR 05/24: Slight improvement in the right upper lobe but otherwise stable bilateral parenchymal infiltrates versus edema, over 3 days -CXR: Bilateral interstitial and patchy airspace edema/infiltrates, right greater than left. Lung base atelectasis. Clinical correlation/follow-up recommended. -sp cx unable to be collected -influenza sc neg -legionella ag urine Leukocytosis(s/p steroids); recurrent COPD exacerbation Acute respiratory failure -2ry to above HLD Schizoaffective disorder Recent PNA Plan: monitor pt off of AB Rx - DC IV Vancomycin, Zosyn # 10 /7-10 for PNA (sp cx unable to be collected) -05/22 SP Tamiflu #2 -05/21 SP Cefepime x1, Levaquin x1 -f/u cx -Monitor CBC/BMP, temperatures; trend WBC -aspiration precautions Subjective Allergies: Coded Allergies: No Known Allergies (Unverified , 05/21/17) Objective Vital Signs Last 24 Hour Vital Signs Date Time Temp Pulse Resp B/P (MAP) Pulse Ox O2 Delivery O2 Flow Rate FiO2 05/30/17 13:21 89 20 99 Nasal Cannula 3.0 32 05/30/17 13:10 84 20 98 Nasal Cannula 3.0 32 05/30/17 12:00 98.2 54 20 99/59 100 98.2 05/30/17 09:26 88 155/81 05/30/17 09:21 88 155/81 05/30/17 08:34 88 20 97 Nasal Cannula 3.0 32 05/30/17 08:24 86 20 98 Nasal Cannula 3.0 32 05/30/17 08:22 98 Nasal Cannula 3.0 05/30/17 08:21 Nasal Cannula 3.0 32 05/30/17 08:00 97.8 92 18 162/82 98 Nasal Cannula 4.0 97.8 05/30/17 04:00 98.6 79 20 155/81 100 98.6 05/30/17 02:19 Nasal Cannula 05/30/17 02:19 Nasal Cannula 05/30/17 00:00 97.9 76 19 151/76 100 97.9 05/29/17 23:11 74 24 99 Nasal Cannula 3.0 32 05/29/17 23:01 74 20 97 Nasal Cannula 4.0 36 05/29/17 20:59 85 158/82 05/29/17 20:00 98.0 85 19 158/82 100 98.0 05/29/17 19:16 82 18 98 Nasal Cannula 3.0 32 05/29/17 19:02 80 20 93 Nasal Cannula 3.0 32 05/29/17 19:01 Nasal Cannula 3.0 32 05/29/17 18:59 93 Nasal Cannula 3.0 32 05/29/17 16:22 74 24 100 Nasal Cannula 3.0 32 05/29/17 16:13 72 20 100 Nasal Cannula 4.0 36 05/29/17 16:00 97.1 68 22 98/64 100 Nasal Cannula 4.0 97.1 Height (Feet): 5 Height (Inches): 6.00 Weight (Pounds): 260 HEENT: anicteric Respiratory/Chest: no accessory muscle use Cardiovascular: regularly irregular Abdomen: no organomegaly Current Medications Medications (Trade) Dose Ordered Sig/Wale Route PRN Reason Start Time Stop Time Status Last Admin Dose Admin Acetaminophen (Tylenol) 650 mg Q4H PRN RECTAL MILD PAIN/T>100.5 05/24/17 21:30 06/20/17 21:29 Albuterol/ Ipratropium (Albuterol/ Ipratropium) 3 ml Q4H PRN HHN Shortness of Breath 05/28/17 15:00 06/02/17 14:59 05/29/17 23:00 Albuterol/ Ipratropium (Albuterol/ Ipratropium) 3 ml Q6HRT HHN 05/28/17 13:00 06/02/17 12:59 05/30/17 13:13 Atorvastatin Calcium (Lipitor) 10 mg BEDTIME ORAL 05/25/17 21:00 06/20/17 20:59 05/29/17 20:59 Carvedilol (Coreg) 12.5 mg EVERY 12 HOURS ORAL 05/29/17 09:00 06/28/17 08:59 05/30/17 09:21 Clonidine HCl (Catapres Tab) 0.1 mg QID PRN ORAL SBP>160 05/27/17 22:45 06/26/17 22:44 Dextrose (Dextrose 50%) STAT PRN IV Hypoglycemia 05/24/17 21:30 06/23/17 21:29 Divalproex Sodium (Depakote) 500 mg EVERY 12 HOURS ORAL 05/26/17 13:00 06/25/17 12:59 05/30/17 09:20 Docusate Sodium (Colace) 100 mg Q12HR ORAL 05/25/17 09:00 06/24/17 08:59 05/30/17 09:21 Folic Acid (Folate) 1 mg DAILY ORAL 05/25/17 09:00 06/21/17 08:59 05/30/17 09:21 Furosemide (Lasix) 40 mg DAILY IV 05/25/17 09:00 06/21/17 08:59 05/30/17 09:20 Guaifenesin/ Codeine Phosphate (Robitussin with codeine) 5 ml Q6H PRN ORAL For Cough 05/24/17 21:30 06/23/17 21:29 05/30/17 13:24 Heparin Sodium (Porcine) (Heparin 5000 units/ml) 5,000 units EVERY 12 HOURS SUBQ 05/25/17 09:00 06/20/17 20:59 05/30/17 09:27 Insulin Aspart (NovoLOG) BEFORE MEALS AND HS SUBQ 05/25/17 06:30 06/20/17 20:59 05/30/17 12:30 Lorazepam (Ativan) 2 mg Q6H PRN ORAL For Anxiety 05/26/17 12:45 06/02/17 12:44 05/29/17 23:27 Ondansetron HCl (Zofran) 4 mg Q8H PRN ORAL Nausea & Vomiting 05/24/17 21:30 06/23/17 21:29 Pantoprazole (Protonix) 40 mg DAILY IVP 05/25/17 09:00 06/21/17 08:59 05/30/17 09:21 Piperacillin Sod/ Tazobactam Sod 3.375 gm/Dextrose 110 ml @ 27.5 mls/hr Q8HR@0000,0800,1600 IVPB 05/25/17 00:00 06/01/17 00:00 05/30/17 09:20 Prednisone (predniSONE) 10 mg DAILY ORAL 05/28/17 09:00 06/27/17 08:59 05/30/17 09:21 Risperidone (RisperDAL) 2 mg BEDTIME ORAL 05/26/17 21:00 06/25/17 20:59 05/29/17 20:59 Spironolactone (Aldactone) 25 mg DAILY ORAL 05/28/17 09:00 06/27/17 08:59 05/30/17 09:21 Vancomycin HCl (Vanco rx to dose) 1 ea DAILYPRN PRN MISC Per rx protocol 05/24/17 21:30 06/23/17 21:29 Vancomycin HCl 500 mg/Dextrose 275 ml @ 275 mls/hr Q24H IVPB 05/27/17 13:00 06/01/17 12:59 05/30/17 13:24 Verapamil HCl (Calan SR) 360 mg DAILY ORAL 05/25/17 09:00 06/24/17 08:59 05/30/17 09:26 Vitamin B Complex/ Vit C/Folic Acid (Nephrovite) 1 tab DAILY ORAL 05/25/17 09:00 06/21/17 08:59 05/30/17 09:26 Flaco Membreno MD May 30, 2017 14:22
[2017-05-30 16:00] VITALS: BP 127/57
--- NOTE | 2017-05-30 16:28 | Pulmonology Progress Note ---
Assessment/Plan Problems: (1) Pneumonia (2) Respiratory failure (3) COPD (chronic obstructive pulmonary disease) (4) HTN (hypertension) (5) Schizoaffective disorder Assessment/Plan off abx respiratory treatment titrate fio2 to sat of 92 check electrolytes chest pt continue cardiac meds dc planning for today/ Subjective ROS Limited/Unobtainable: No Constitutional: Reports: no symptoms HEENT: Repors: no symptoms Respiratory: Reports: no symptoms Allergies: Coded Allergies: No Known Allergies (Unverified , 05/21/17) Objective Last 24 Hour Vital Signs Date Time Temp Pulse Resp B/P (MAP) Pulse Ox O2 Delivery O2 Flow Rate FiO2 05/30/17 13:21 89 20 99 Nasal Cannula 3.0 32 05/30/17 13:10 84 20 98 Nasal Cannula 3.0 32 05/30/17 12:00 98.2 54 20 99/59 100 98.2 05/30/17 09:26 88 155/81 05/30/17 09:21 88 155/81 05/30/17 08:34 88 20 97 Nasal Cannula 3.0 32 05/30/17 08:24 86 20 98 Nasal Cannula 3.0 32 05/30/17 08:22 98 Nasal Cannula 3.0 05/30/17 08:21 Nasal Cannula 3.0 32 05/30/17 08:00 97.8 92 18 162/82 98 Nasal Cannula 4.0 97.8 05/30/17 04:00 98.6 79 20 155/81 100 98.6 05/30/17 02:19 Nasal Cannula 05/30/17 02:19 Nasal Cannula 05/30/17 00:00 97.9 76 19 151/76 100 97.9 05/29/17 23:11 74 24 99 Nasal Cannula 3.0 32 05/29/17 23:01 74 20 97 Nasal Cannula 4.0 36 05/29/17 20:59 85 158/82 05/29/17 20:00 98.0 85 19 158/82 100 98.0 05/29/17 19:16 82 18 98 Nasal Cannula 3.0 32 05/29/17 19:02 80 20 93 Nasal Cannula 3.0 32 05/29/17 19:01 Nasal Cannula 3.0 32 05/29/17 18:59 93 Nasal Cannula 3.0 32 Intake and Output 05/29/17 05/30/17 19:00 07:00 Intake Total 1640.0 ml 557.5 ml Output Total 400 ml 1200 ml Balance 1240.0 ml -642.5 ml Intake Oral 1200 ml IV Total 440.0 ml 557.5 ml Output Urine Total 400 ml 1200 ml # Voids 2 3 # Bowel Movements 3 2 General Appearance: WD/WN HEENT: normocephalic, atraumatic Respiratory/Chest: chest wall non-tender, lungs clear Cardiovascular: normal peripheral pulses, normal rate Abdomen: normal bowel sounds, soft, non tender Genitourinary: normal external genitalia Extremities: no cyanosis Skin: no rash Current Medications Medications (Trade) Dose Ordered Sig/Wale Route PRN Reason Start Time Stop Time Status Last Admin Dose Admin Acetaminophen (Tylenol) 650 mg Q4H PRN RECTAL MILD PAIN/T>100.5 05/24/17 21:30 06/20/17 21:29 Albuterol/ Ipratropium (Albuterol/ Ipratropium) 3 ml Q4H PRN HHN Shortness of Breath 05/28/17 15:00 06/02/17 14:59 05/29/17 23:00 Albuterol/ Ipratropium (Albuterol/ Ipratropium) 3 ml Q6HRT HHN 05/28/17 13:00 06/02/17 12:59 05/30/17 13:13 Atorvastatin Calcium (Lipitor) 10 mg BEDTIME ORAL 05/25/17 21:00 06/20/17 20:59 05/29/17 20:59 Carvedilol (Coreg) 12.5 mg EVERY 12 HOURS ORAL 05/29/17 09:00 06/28/17 08:59 05/30/17 09:21 Clonidine HCl (Catapres Tab) 0.1 mg QID PRN ORAL SBP>160 05/27/17 22:45 06/26/17 22:44 Dextrose (Dextrose 50%) STAT PRN IV Hypoglycemia 05/24/17 21:30 06/23/17 21:29 Divalproex Sodium (Depakote) 500 mg EVERY 12 HOURS ORAL 05/26/17 13:00 06/25/17 12:59 05/30/17 09:20 Docusate Sodium (Colace) 100 mg Q12HR ORAL 05/25/17 09:00 06/24/17 08:59 05/30/17 09:21 Folic Acid (Folate) 1 mg DAILY ORAL 05/25/17 09:00 06/21/17 08:59 05/30/17 09:21 Furosemide (Lasix) 40 mg DAILY IV 05/25/17 09:00 06/21/17 08:59 05/30/17 09:20 Guaifenesin/ Codeine Phosphate (Robitussin with codeine) 5 ml Q6H PRN ORAL For Cough 05/24/17 21:30 06/23/17 21:29 05/30/17 13:24 Heparin Sodium (Porcine) (Heparin 5000 units/ml) 5,000 units EVERY 12 HOURS SUBQ 05/25/17 09:00 06/20/17 20:59 05/30/17 09:27 Insulin Aspart (NovoLOG) BEFORE MEALS AND HS SUBQ 05/25/17 06:30 06/20/17 20:59 05/30/17 12:30 Lorazepam (Ativan) 2 mg Q6H PRN ORAL For Anxiety 05/26/17 12:45 06/02/17 12:44 05/29/17 23:27 Ondansetron HCl (Zofran) 4 mg Q8H PRN ORAL Nausea & Vomiting 05/24/17 21:30 06/23/17 21:29 Pantoprazole (Protonix) 40 mg DAILY IVP 05/25/17 09:00 06/21/17 08:59 05/30/17 09:21 Piperacillin Sod/ Tazobactam Sod 3.375 gm/Dextrose 110 ml @ 27.5 mls/hr Q8HR@0000,0800,1600 IVPB 05/25/17 00:00 05/30/17 23:33 05/30/17 15:56 Prednisone (predniSONE) 10 mg DAILY ORAL 05/28/17 09:00 06/27/17 08:59 05/30/17 09:21 Risperidone (RisperDAL) 2 mg BEDTIME ORAL 05/26/17 21:00 06/25/17 20:59 05/29/17 20:59 Spironolactone (Aldactone) 25 mg DAILY ORAL 05/28/17 09:00 06/27/17 08:59 05/30/17 09:21 Verapamil HCl (Calan SR) 360 mg DAILY ORAL 05/25/17 09:00 06/24/17 08:59 05/30/17 09:26 Vitamin B Complex/ Vit C/Folic Acid (Nephrovite) 1 tab DAILY ORAL 05/25/17 09:00 06/21/17 08:59 05/30/17 09:26 Mark Lee MD May 30, 2017 16:28
--- NOTE | 2017-05-30 18:24 | Cardiology Progress Note ---
Assessment/Plan Assessment/Plan 1. Sinus tachycardia most likely due to underlying pneumonia, hypoxemia and breathing treatment, continue coreg and verapamil. 2. Hypertension, poorly controlled, continue coreg and verapamil. Clonidine PRN , Echo shows normal LVEF. 3. History of COPD with mild pulmonary HTN. 4. Morbid obesity. 5. Respiratory failure. 6. Bigeminy VPCs on coreg. Subjective Subjective Denies chest pain or SOB. Not on the telemetry unit. Objective Last 24 Hour Vital Signs Date Time Temp Pulse Resp B/P (MAP) Pulse Ox O2 Delivery O2 Flow Rate FiO2 05/30/17 16:00 97.3 65 20 127/57 100 Nasal Cannula 3.0 97.3 05/30/17 13:21 89 20 99 Nasal Cannula 3.0 32 05/30/17 13:10 84 20 98 Nasal Cannula 3.0 32 05/30/17 12:00 98.2 54 20 99/59 100 98.2 05/30/17 09:26 88 155/81 05/30/17 09:21 88 155/81 05/30/17 08:34 88 20 97 Nasal Cannula 3.0 32 05/30/17 08:24 86 20 98 Nasal Cannula 3.0 32 05/30/17 08:22 98 Nasal Cannula 3.0 05/30/17 08:21 Nasal Cannula 3.0 32 05/30/17 08:00 97.8 92 18 162/82 98 Nasal Cannula 4.0 97.8 05/30/17 04:00 98.6 79 20 155/81 100 98.6 05/30/17 02:19 Nasal Cannula 05/30/17 02:19 Nasal Cannula 05/30/17 00:00 97.9 76 19 151/76 100 97.9 05/29/17 23:11 74 24 99 Nasal Cannula 3.0 32 05/29/17 23:01 74 20 97 Nasal Cannula 4.0 36 05/29/17 20:59 85 158/82 05/29/17 20:00 98.0 85 19 158/82 100 98.0 05/29/17 19:16 82 18 98 Nasal Cannula 3.0 32 05/29/17 19:02 80 20 93 Nasal Cannula 3.0 32 05/29/17 19:01 Nasal Cannula 3.0 32 05/29/17 18:59 93 Nasal Cannula 3.0 32 Intake and Output 05/29/17 05/30/17 19:00 07:00 Intake Total 1640.0 ml 557.5 ml Output Total 400 ml 1200 ml Balance 1240.0 ml -642.5 ml Intake Oral 1200 ml IV Total 440.0 ml 557.5 ml Output Urine Total 400 ml 1200 ml # Voids 2 3 # Bowel Movements 3 2 Objective HEENT: Atraumatic and normocephalic. Anicteric. Pupils are equal, round, and reactive to light and accommodation. Extraocular muscles intact. NECK: JVP less than 5 cm. No carotid bruit. Carotid upstrokes 2+ bilaterally. CARDIOVASCULAR: Normal S1 and S2. Regular rate and rhythm. Tachycardic. No murmurs, gallops, or rubs. LUNGS: Diminished breath sounds. Poor inspiratory effort. Some scattered crackles in both lungs. ABDOMEN: Soft nontender, nondistended. No hepatosplenomegaly. Positive bowel sounds. EXTREMITIES: There is 2+ bilateral edema. SAMANTHA FRASER May 30, 2017 18:24
[2017-05-30 20:00] VITALS: BP 131/63
[2017-05-30] MEDS ORDERED: Depakote 125mg Sprinkles GT SCH (21:00)
[2017-05-30] MEDS: Valproic Acid 250mg/5ml Liquid ORAL SCH (21:30)
[2017-05-30] MEDS: Albuterol/Ipratropium 3ml neb HHN PRN (22:28)
[2017-05-31] VITALS: BP 134/70
[2017-05-31] MEDS: Albuterol/Ipratropium 3ml neb HHN SCH ×2 (01:00→07:10)
[2017-05-31 04:00] VITALS: BP 154/65
[2017-05-31] MEDS: NovoLOG Insulin Flexpen SUBQ SCH ×2 (06:21→11:30)
[2017-05-31 08:00] VITALS: BP 122/73
[2017-05-31 08:01] LABS: BASOPHILS % (AUTO) 0.4 % (0.0-2.0); EOSINOPHILS % (AUTO) 3.3 % (0.0-3.0); HEMATOCRIT 28.8 % (37.0-47.0); HEMOGLOBIN 9.8 G/DL (12.0-16.0); LYMPHOCYTES % (AUTO) 11.1 % (20.0-45.0); MEAN CORPUSCULAR VOLUME 93 FL (80-99); MONOCYTES % (AUTO) 6.9 % (1.0-10.0); NEUTROPHILS % (AUTO) 78.3 % (45.0-75.0); PLATELET COUNT 235 K/UL (150-450); RED CELL DISTRIBUTION WIDTH 13.3 % (11.6-14.8); WHITE BLOOD COUNT 8.9 K/UL (4.8-10.8)
--- NOTE | 2017-05-31 08:17 | General Progress Note ---
Assessment/Plan Problem List: (1) Dysphagia ICD Codes: R13.10 - Dysphagia, unspecified SNOMED: 81088097, 856498471 (2) Schizo affective schizophrenia ICD Codes: F25.0 - Schizoaffective disorder, bipolar type SNOMED: 645263107 (3) HTN (hypertension) ICD Codes: I10 - Essential (primary) hypertension SNOMED: 88915551 (4) Diabetes mellitus, type II ICD Codes: E11.9 - Type 2 diabetes mellitus without complications SNOMED: 40282375 Assessment/Plan eating better hold peg plans for now fu psych repeat speech eval appreciated cont current diet orders given drop in H&H, will plan for EGD tomorrow patient can not tolerated colonoscopy prep Subjective ROS Limited/Unobtainable: Yes Allergies: Coded Allergies: No Known Allergies (Unverified , 05/21/17) Subjective no c/o Objective Last 24 Hour Vital Signs Date Time Temp Pulse Resp B/P (MAP) Pulse Ox O2 Delivery O2 Flow Rate FiO2 05/31/17 07:17 85 18 99 Nasal Cannula 3.0 32 05/31/17 07:10 99 Nasal Cannula 3.0 32 05/31/17 07:10 Nasal Cannula 3.0 32 05/31/17 07:10 79 18 99 Nasal Cannula 3.0 32 05/31/17 04:00 98.3 80 20 154/65 99 98.3 05/31/17 04:00 Nasal Cannula 3.0 05/31/17 02:00 82 20 94 Nasal Cannula 3.0 32 05/31/17 02:00 88 20 96 Nasal Cannula 3.0 32 05/31/17 00:00 98.0 68 20 134/70 99 98.0 05/31/17 00:00 Nasal Cannula 3.0 05/30/17 22:29 82 20 98 Nasal Cannula 3.0 32 05/30/17 22:28 81 20 96 Nasal Cannula 3.0 32 05/30/17 20:42 83 131/63 05/30/17 20:00 Nasal Cannula 3.0 05/30/17 20:00 97.9 83 20 131/63 100 97.9 05/30/17 19:35 86 20 97 Nasal Cannula 3.0 32 05/30/17 19:34 80 20 95 Nasal Cannula 3.0 32 05/30/17 19:33 Nasal Cannula 3.0 32 05/30/17 19:33 95 Nasal Cannula 3.0 32 05/30/17 16:00 97.3 65 20 127/57 100 Nasal Cannula 3.0 97.3 05/30/17 13:21 89 20 99 Nasal Cannula 3.0 32 05/30/17 13:10 84 20 98 Nasal Cannula 3.0 32 05/30/17 12:00 98.2 54 20 99/59 100 98.2 05/30/17 09:26 88 155/81 05/30/17 09:21 88 155/81 05/30/17 08:34 88 20 97 Nasal Cannula 3.0 32 05/30/17 08:24 86 20 98 Nasal Cannula 3.0 32 05/30/17 08:22 98 Nasal Cannula 3.0 05/30/17 08:21 Nasal Cannula 3.0 32 Intake and Output 05/30/17 05/31/17 19:00 07:00 Intake Total 667.5 ml 27.5 ml Output Total 1150 ml Balance 667.5 ml -1122.5 ml Intake Oral 200 ml IV Total 467.5 ml 27.5 ml Output Urine Total 1150 ml # Voids 4 # Bowel Movements 1 1 Laboratory Tests 05/31/17 07:20: White Blood Count 8.9, Red Blood Count 3.10L, Hemoglobin 9.8L, Hematocrit 28.8L , Mean Corpuscular Volume 93, Mean Corpuscular Hemoglobin 31.6H, Mean Corpuscular Hemoglobin Concent 34.0, Red Cell Distribution Width 13.3, Platelet Count 235, Mean Platelet Volume 6.9, Neutrophils (%) (Auto) 78.3H, Lymphocytes ( %) (Auto) 11.1L, Monocytes (%) (Auto) 6.9, Eosinophils (%) (Auto) 3.3H, Basophils (%) (Auto) 0.4 Height (Feet): 5 Height (Inches): 6.00 Weight (Pounds): 260 General Appearance: no apparent distress EENT: normal ENT inspection Neck: supple Cardiovascular: normal rate Respiratory/Chest: lungs clear Abdomen: normal bowel sounds, non tender, soft Extremities: non-tender MISSAEL RODRÍGUEZ May 31, 2017 08:17
--- NOTE | 2017-05-31 08:58 | Infectious Diseases Prog Note ---
Assessment/Plan Assessment/Plan Assessment: Fever, resolved Possible HCAP vs Asp PNA- SP Rx -CXR 05/24: Slight improvement in the right upper lobe but otherwise stable bilateral parenchymal infiltrates versus edema, over 3 days -CXR: Bilateral interstitial and patchy airspace edema/infiltrates, right greater than left. Lung base atelectasis. Clinical correlation/follow-up recommended. -sp cx unable to be collected -influenza sc neg -legionella ag urine Leukocytosis(s/p steroids); SP COPD exacerbation Acute respiratory failure -2ry to above HLD Schizoaffective disorder Recent PNA Plan: monitor pt off of AB Rx - 05/30 SP IV Vancomycin, Zosyn # 10 -05/22 SP Tamiflu #2 -05/21 SP Cefepime x1, Levaquin x1 -f/u cx -Monitor CBC/BMP, temperatures; trend WBC -aspiration precautions Subjective Constitutional: Denies: no symptoms, fever, chills, fatigue, anorexia, drenching sweats, other Allergies: Coded Allergies: No Known Allergies (Unverified , 05/21/17) Objective Vital Signs Last 24 Hour Vital Signs Date Time Temp Pulse Resp B/P (MAP) Pulse Ox O2 Delivery O2 Flow Rate FiO2 05/31/17 08:00 98.3 88 20 122/73 99 Nasal Cannula 3.0 98.3 05/31/17 07:17 85 18 99 Nasal Cannula 3.0 32 05/31/17 07:10 99 Nasal Cannula 3.0 32 05/31/17 07:10 Nasal Cannula 3.0 32 05/31/17 07:10 79 18 99 Nasal Cannula 3.0 32 05/31/17 04:00 98.3 80 20 154/65 99 98.3 05/31/17 04:00 Nasal Cannula 3.0 05/31/17 02:00 82 20 94 Nasal Cannula 3.0 32 05/31/17 02:00 88 20 96 Nasal Cannula 3.0 32 05/31/17 00:00 98.0 68 20 134/70 99 98.0 05/31/17 00:00 Nasal Cannula 3.0 05/30/17 22:29 82 20 98 Nasal Cannula 3.0 32 05/30/17 22:28 81 20 96 Nasal Cannula 3.0 32 05/30/17 20:42 83 131/63 4/2/18 20:00 Nasal Cannula 3.0 05/30/17 20:00 97.9 83 20 131/63 100 97.9 05/30/17 19:35 86 20 97 Nasal Cannula 3.0 32 05/30/17 19:34 80 20 95 Nasal Cannula 3.0 32 05/30/17 19:33 Nasal Cannula 3.0 32 05/30/17 19:33 95 Nasal Cannula 3.0 32 05/30/17 16:00 97.3 65 20 127/57 100 Nasal Cannula 3.0 97.3 05/30/17 13:21 89 20 99 Nasal Cannula 3.0 32 05/30/17 13:10 84 20 98 Nasal Cannula 3.0 32 05/30/17 12:00 98.2 54 20 99/59 100 98.2 05/30/17 09:26 88 155/81 05/30/17 09:21 88 155/81 Height (Feet): 5 Height (Inches): 6.00 Weight (Pounds): 260 HEENT: atraumatic Respiratory/Chest: no respiratory distress Cardiovascular: regularly irregular Abdomen: non distended Laboratory Tests Test 05/31/17 07:20 White Blood Count 8.9 K/UL (4.8-10.8) Red Blood Count 3.10 M/UL (4.20-5.40) L Hemoglobin 9.8 G/DL (12.0-16.0) L Hematocrit 28.8 % (37.0-47.0) L Mean Corpuscular Volume 93 FL (80-99) Mean Corpuscular Hemoglobin 31.6 PG (27.0-31.0) H Mean Corpuscular Hemoglobin Concent 34.0 G/DL (32.0-36.0) Red Cell Distribution Width 13.3 % (11.6-14.8) Platelet Count 235 K/UL (150-450) Mean Platelet Volume 6.9 FL (6.5-10.1) Neutrophils (%) (Auto) 78.3 % (45.0-75.0) H Lymphocytes (%) (Auto) 11.1 % (20.0-45.0) L Monocytes (%) (Auto) 6.9 % (1.0-10.0) Eosinophils (%) (Auto) 3.3 % (0.0-3.0) H Basophils (%) (Auto) 0.4 % (0.0-2.0) Current Medications Medications (Trade) Dose Ordered Sig/Wale Route PRN Reason Start Time Stop Time Status Last Admin Dose Admin Acetaminophen (Tylenol) 650 mg Q4H PRN RECTAL MILD PAIN/T>100.5 05/24/17 21:30 06/20/17 21:29 Albuterol/ Ipratropium (Albuterol/ Ipratropium) 3 ml Q4H PRN HHN Shortness of Breath 05/28/17 15:00 06/02/17 14:59 05/30/17 22:28 Albuterol/ Ipratropium (Albuterol/ Ipratropium) 3 ml Q6HRT HHN 05/28/17 13:00 06/02/17 12:59 05/31/17 07:10 Atorvastatin Calcium (Lipitor) 10 mg BEDTIME ORAL 05/25/17 21:00 06/20/17 20:59 05/30/17 20:43 Carvedilol (Coreg) 12.5 mg EVERY 12 HOURS ORAL 05/29/17 09:00 06/28/17 08:59 05/30/17 20:42 Clonidine HCl (Catapres Tab) 0.1 mg QID PRN ORAL SBP>160 05/27/17 22:45 06/26/17 22:44 Dextrose (Dextrose 50%) STAT PRN IV Hypoglycemia 05/24/17 21:30 06/23/17 21:29 Docusate Sodium (Colace) 100 mg Q12HR ORAL 05/25/17 09:00 06/24/17 08:59 05/30/17 09:21 Folic Acid (Folate) 1 mg DAILY ORAL 05/25/17 09:00 06/21/17 08:59 05/30/17 09:21 Furosemide (Lasix) 40 mg DAILY IV 05/25/17 09:00 06/21/17 08:59 05/30/17 09:20 Guaifenesin/ Codeine Phosphate (Robitussin with codeine) 5 ml Q6H PRN ORAL For Cough 05/24/17 21:30 06/23/17 21:29 05/30/17 13:24 Heparin Sodium (Porcine) (Heparin 5000 units/ml) 5,000 units EVERY 12 HOURS SUBQ 05/25/17 09:00 06/20/17 20:59 05/30/17 20:44 Insulin Aspart (NovoLOG) BEFORE MEALS AND HS SUBQ 05/25/17 06:30 06/20/17 20:59 05/30/17 20:43 Lorazepam (Ativan) 2 mg Q6H PRN ORAL For Anxiety 05/26/17 12:45 06/02/17 12:44 05/29/17 23:27 Ondansetron HCl (Zofran) 4 mg Q8H PRN ORAL Nausea & Vomiting 05/24/17 21:30 06/23/17 21:29 05/30/17 23:15 Pantoprazole (Protonix) 40 mg DAILY IVP 05/25/17 09:00 06/21/17 08:59 05/30/17 09:21 Prednisone (predniSONE) 10 mg DAILY ORAL 05/28/17 09:00 06/27/17 08:59 05/30/17 09:21 Risperidone (RisperDAL) 2 mg BEDTIME ORAL 05/26/17 21:00 06/25/17 20:59 05/30/17 20:43 Spironolactone (Aldactone) 25 mg DAILY ORAL 05/28/17 09:00 06/27/17 08:59 05/30/17 09:21 Valproic Acid (Depakene) 500 mg EVERY 12 HOURS ORAL 05/30/17 21:00 06/29/17 20:59 05/30/17 21:30 Verapamil HCl (Calan SR) 360 mg DAILY ORAL 05/25/17 09:00 06/24/17 08:59 05/30/17 09:26 Vitamin B Complex/ Vit C/Folic Acid (Nephrovite) 1 tab DAILY ORAL 05/25/17 09:00 06/21/17 08:59 05/30/17 09:26 Flaco Membreno MD May 31, 2017 08:58
[2017-05-31] MEDS: Docusate 100mg cap ORAL SCH (09:00)
[2017-05-31] MEDS: Valproic Acid 250mg/5ml Liquid ORAL SCH (09:31)
[2017-05-31 09:32] VITALS: BP 122/73
[2017-05-31] MEDS: Spironolactone 25mg tab ORAL SCH (09:32)
[2017-05-31] MEDS: Verapamil 180mg SR tab ORAL SCH (09:32)
[2017-05-31] MEDS: Carvedilol 12.5mg tab ORAL SCH (09:32)
[2017-05-31] MEDS: Nephrovite tab (Rena-Vite) ORAL SCH (09:32)
[2017-05-31] MEDS: Pantoprazole Inj IVP SCH (09:33)
[2017-05-31] MEDS: Heparin 5000 units/ml inj SUBQ SCH (09:34)
[2017-05-31] MEDS ORDERED: D5 1/2NS 1000ml IV ONE (11:31)
[2017-05-31] MEDS ORDERED: Tubing IV Secondary IV ONE (11:31)
[2017-05-31] MEDS ORDERED: NS 275ml ONE (11:31)
--- NOTE | 2017-05-31 11:40 | Diagnostic Imaging Report ---
Indications: Dysphagia Technique: Patient ingested multiple substances under the supervision of speech pathology. Video fluoroscopic recording performed. Total fluoroscopy time to 31 seconds. Total dose area product [id number] mGycm2 Comparison: none Findings: Exposure is suboptimal There is prompt initiation of deglutition. Occasional penetration of thin liquid barium is demonstrated. No penetration demonstrated with other substances. No aspiration. There is considerable proximal esophageal dysmotility. Impression: Positive for penetration of thin liquid barium Please refer to speech pathology report for more detailed analysis
--- NOTE | 2017-05-31 18:51 | Discharge Summary ---
Discharge Summary Discharge Summary Discharge Summary DATE OF ADMISSION: 05/21/2017 DATE OF DISCHARGE: 05/31/2017 CONSULTANTS: 1. Dr. Kelli Norton 2. Dr. Girish Molina 3. Dr. Selvin Reed 4. Dr. Flaco Membreno 5. Dr. Florencio Norman BRIEF HOSPITAL COURSE: Patient is a 61-year-old female who presented with chief complaint of shortness of breath. She is a resident of [facility] and began shortness of breath on 05/20/2017. Chest medical history significant for COPD, hypertension, type 2 diabetes. On evaluation at ED, chest x-ray showed bilateral interstitial patchy airspace edema/infiltrates consistent with pneumonia. There was no leukocytosis WBC was 8.2. Hemoglobin was 8.9, hematocrit 26.9. BNP was elevated 2661. Troponin was normal at 0.031. She was admitted for pneumonia/COPD. She was started empirically on Zosyn, IV vancomycin, and azithromycin. She was started empirically on Tamiflu. Influenza screen was negative. She was eventually started on steroids, and was given respiratory treatments and O2 support. She had sinus tachycardia secondary to hypoxemia and breathing treatment. Coreg was increased to 6.25 mg by mouth twice a day, she was continued on verapamil. She had an echocardiogram done that showed normal ejection fraction. Steroids were tapered to 20 mg by mouth daily. Blood culture did not isolate any growth. Urine culture no growth. Sputum culture was not collected. She was observed off antibiotic treatment. She had dysphagia, video swallow evaluations showed aspiration with thin liquids. GI was consulted for possible PEG tube placement, procedure placed on hold as patient was eating better. She will eventually need outpatient GI procedures. She had episodes of agitation, and needs redirection. She was diagnosed with schizoaffective and bipolar disorder and had encephalopathy. She was placed on risperidone 2 mg daily at bedtime, Depakote 500 mg twice a day, and Ativan when necessary. She was eventually discharged to [facility]. FINAL DIAGNOSES: 1. Possible HCAP versus aspiration pneumonia 2. Acute COPD exacerbation 3. Acute respiratory failure secondary to above 4. Hyperlipidemia 5. Schizoaffective disorder 6. Recent pneumonia 7. Dysphagia 8. Diabetes mellitus type 2 9. Hypertension 10. Sinus tachycardia due to pneumonia, hypoxemia and breathing treatment. 11. Morbid obesity 12. Bigeminy 13. Encephalopathy 14. Schizoaffective disorder 15. Bipolar disorder 16. Major depressive disorder DISPOSITION: Patient was transferred to [facility] DISCHARGE MEDICATIONS: Refer to Discharge Medication List I have been assigned to dictate discharge summary on this account, and I was not involved in the patient's management. Tona Hines NP May 31, 2017 18:51
--- NOTE | 2017-05-31 19:23 | Pulmonology Progress Note ---
Assessment/Plan Problems: (1) Pneumonia (2) Respiratory failure (3) COPD (chronic obstructive pulmonary disease) (4) HTN (hypertension) (5) Schizoaffective disorder Assessment/Plan off abx respiratory treatment titrate fio2 to sat of 92 check electrolytes chest pt continue cardiac meds dc planning for today/ got delayed last nightl Subjective ROS Limited/Unobtainable: No Allergies: Coded Allergies: No Known Allergies (Unverified , 05/21/17) Objective Last 24 Hour Vital Signs Date Time Temp Pulse Resp B/P (MAP) Pulse Ox O2 Delivery O2 Flow Rate FiO2 05/31/17 09:32 88 122/73 05/31/17 09:32 88 122/73 05/31/17 08:00 98.3 88 20 122/73 99 Nasal Cannula 3.0 98.3 05/31/17 07:17 85 18 99 Nasal Cannula 3.0 32 05/31/17 07:10 99 Nasal Cannula 3.0 32 05/31/17 07:10 Nasal Cannula 3.0 32 05/31/17 07:10 79 18 99 Nasal Cannula 3.0 32 05/31/17 04:00 98.3 80 20 154/65 99 98.3 05/31/17 04:00 Nasal Cannula 3.0 05/31/17 02:00 82 20 94 Nasal Cannula 3.0 32 05/31/17 02:00 88 20 96 Nasal Cannula 3.0 32 05/31/17 00:00 98.0 68 20 134/70 99 98.0 05/31/17 00:00 Nasal Cannula 3.0 05/30/17 22:29 82 20 98 Nasal Cannula 3.0 32 05/30/17 22:28 81 20 96 Nasal Cannula 3.0 32 05/30/17 20:42 83 131/63 05/30/17 20:00 Nasal Cannula 3.0 05/30/17 20:00 97.9 83 20 131/63 100 97.9 05/30/17 19:35 86 20 97 Nasal Cannula 3.0 32 05/30/17 19:34 80 20 95 Nasal Cannula 3.0 32 05/30/17 19:33 Nasal Cannula 3.0 32 05/30/17 19:33 95 Nasal Cannula 3.0 32 Intake and Output 05/30/17 05/31/17 19:00 07:00 Intake Total 667.5 ml 27.5 ml Output Total 1150 ml Balance 667.5 ml -1122.5 ml Intake Oral 200 ml IV Total 467.5 ml 27.5 ml Output Urine Total 1150 ml # Voids 4 # Bowel Movements 1 1 Objective General Appearance: WD/WN HEENT: normocephalic Respiratory/Chest: chest wall non-tender, lungs clear Cardiovascular: normal rate Abdomen: normal bowel sounds, soft, non tender, no scars Genitourinary: normal external genitalia Extremities: no clubbing Skin: no rash Neurologic/Psychiatric: bezel cutter II-XII grossly normal Laboratory Tests 05/31/17 07:20: White Blood Count 8.9, Red Blood Count 3.10L, Hemoglobin 9.8L, Hematocrit 28.8L , Mean Corpuscular Volume 93, Mean Corpuscular Hemoglobin 31.6H, Mean Corpuscular Hemoglobin Concent 34.0, Red Cell Distribution Width 13.3, Platelet Count 235, Mean Platelet Volume 6.9, Neutrophils (%) (Auto) 78.3H, Lymphocytes ( %) (Auto) 11.1L, Monocytes (%) (Auto) 6.9, Eosinophils (%) (Auto) 3.3H, Basophils (%) (Auto) 0.4 05/31/17 08:40: Stool Occult Blood [Pending] Mark Lee MD May 31, 2017 19:23
--- NOTE | 2017-05-31 22:50 | Cardiology Progress Note ---
Assessment/Plan Assessment/Plan 1. Sinus tachycardia, resolved, DC planning today. 2. Hypertension, well controlled this morning, continue coreg and verapamil. Clonidine PRN, Echo shows normal LVEF. 3. History of COPD with mild pulmonary HTN. 4. Morbid obesity. 5. Respiratory failure. 6. Bigeminy VPCs on coreg. Subjective Subjective No cardiac events. Not on the telemetry unit. Objective Last 24 Hour Vital Signs Date Time Temp Pulse Resp B/P (MAP) Pulse Ox O2 Delivery O2 Flow Rate FiO2 05/31/17 09:32 88 122/73 05/31/17 09:32 88 122/73 05/31/17 08:00 98.3 88 20 122/73 99 Nasal Cannula 3.0 98.3 05/31/17 07:17 85 18 99 Nasal Cannula 3.0 32 05/31/17 07:10 99 Nasal Cannula 3.0 32 05/31/17 07:10 Nasal Cannula 3.0 32 05/31/17 07:10 79 18 99 Nasal Cannula 3.0 32 05/31/17 04:00 98.3 80 20 154/65 99 98.3 05/31/17 04:00 Nasal Cannula 3.0 05/31/17 02:00 82 20 94 Nasal Cannula 3.0 32 05/31/17 02:00 88 20 96 Nasal Cannula 3.0 32 05/31/17 00:00 98.0 68 20 134/70 99 98.0 05/31/17 00:00 Nasal Cannula 3.0 Intake and Output 05/30/17 05/31/17 19:00 07:00 Intake Total 667.5 ml 27.5 ml Output Total 1150 ml Balance 667.5 ml -1122.5 ml Intake Oral 200 ml IV Total 467.5 ml 27.5 ml Output Urine Total 1150 ml # Voids 4 # Bowel Movements 1 1 2D Echo: EF 55%, Mild LVH, Elevated RAP 15 mmHg, RVSP 39 mmHg, Mild MR Laboratory Tests Test 05/31/17 07:20 05/31/17 08:40 White Blood Count 8.9 K/UL (4.8-10.8) Red Blood Count 3.10 M/UL (4.20-5.40) L Hemoglobin 9.8 G/DL (12.0-16.0) L Hematocrit 28.8 % (37.0-47.0) L Mean Corpuscular Volume 93 FL (80-99) Mean Corpuscular Hemoglobin 31.6 PG (27.0-31.0) H Mean Corpuscular Hemoglobin Concent 34.0 G/DL (32.0-36.0) Red Cell Distribution Width 13.3 % (11.6-14.8) Platelet Count 235 K/UL (150-450) Mean Platelet Volume 6.9 FL (6.5-10.1) Neutrophils (%) (Auto) 78.3 % (45.0-75.0) H Lymphocytes (%) (Auto) 11.1 % (20.0-45.0) L Monocytes (%) (Auto) 6.9 % (1.0-10.0) Eosinophils (%) (Auto) 3.3 % (0.0-3.0) H Basophils (%) (Auto) 0.4 % (0.0-2.0) Stool Occult Blood Pending Objective HEENT: Atraumatic and normocephalic. Anicteric. Pupils are equal, round, and reactive to light and accommodation. Extraocular muscles intact. NECK: JVP less than 5 cm. No carotid bruit. Carotid upstrokes 2+ bilaterally. CARDIOVASCULAR: Normal S1 and S2. Regular rate and rhythm. No murmurs, gallops, or rubs. LUNGS: Diminished breath sounds. Poor inspiratory effort. Some scattered crackles in both lungs. ABDOMEN: Soft nontender, nondistended. No hepatosplenomegaly. Positive bowel sounds. EXTREMITIES: There is 2+ bilateral edema. SAMANTHA FRASER May 31, 2017 22:50
--- NOTE | 2017-05-31 23:00 | General Progress Note ---
Assessment/Plan Assessment/Plan schizoaffective d/o bipolar d/o mdd encephalopathy -risperdal 2mg qhs -depakote 500mg bid -so/ro -ativan prn Subjective Date patient seen: May 31, 2017 Neurologic/Psychiatric: Reports: anxiety, depressed, emotional problems Allergies: Coded Allergies: No Known Allergies (Unverified , 05/21/17) Subjective the pt is calm episodes of agitation/ the pt keeps calling the nurse Objective Last 24 Hour Vital Signs Date Time Temp Pulse Resp B/P (MAP) Pulse Ox O2 Delivery O2 Flow Rate FiO2 05/31/17 09:32 88 122/73 05/31/17 09:32 88 122/73 05/31/17 08:00 98.3 88 20 122/73 99 Nasal Cannula 3.0 98.3 05/31/17 07:17 85 18 99 Nasal Cannula 3.0 32 05/31/17 07:10 99 Nasal Cannula 3.0 32 05/31/17 07:10 Nasal Cannula 3.0 32 05/31/17 07:10 79 18 99 Nasal Cannula 3.0 32 05/31/17 04:00 98.3 80 20 154/65 99 98.3 05/31/17 04:00 Nasal Cannula 3.0 05/31/17 02:00 82 20 94 Nasal Cannula 3.0 32 05/31/17 02:00 88 20 96 Nasal Cannula 3.0 32 05/31/17 00:00 98.0 68 20 134/70 99 98.0 05/31/17 00:00 Nasal Cannula 3.0 Intake and Output 05/30/17 05/31/17 19:00 07:00 Intake Total 667.5 ml 27.5 ml Output Total 1150 ml Balance 667.5 ml -1122.5 ml Intake Oral 200 ml IV Total 467.5 ml 27.5 ml Output Urine Total 1150 ml # Voids 4 # Bowel Movements 1 1 Laboratory Tests 05/31/17 07:20: White Blood Count 8.9, Red Blood Count 3.10L, Hemoglobin 9.8L, Hematocrit 28.8L , Mean Corpuscular Volume 93, Mean Corpuscular Hemoglobin 31.6H, Mean Corpuscular Hemoglobin Concent 34.0, Red Cell Distribution Width 13.3, Platelet Count 235, Mean Platelet Volume 6.9, Neutrophils (%) (Auto) 78.3H, Lymphocytes ( %) (Auto) 11.1L, Monocytes (%) (Auto) 6.9, Eosinophils (%) (Auto) 3.3H, Basophils (%) (Auto) 0.4 05/31/17 08:40: Stool Occult Blood [Pending] Height (Feet): 5 Height (Inches): 6.00 Weight (Pounds): 260 Kelli Norton M.D. May 31, 2017 23:00
== END 2017-05-31 11:32 | DRG 177 ==
LOC: EDBD 08:20 → EMR 09:13 → 2E 09:35 → EDBEDREQ 09:44 → 2W 13:59 → 4E 05-24 21:28
DX: J69.0 Pneumonitis due to inhalation of food and vomit (principal); G93.40 Encephalopathy, unspecified; J96.01 Acute respiratory failure with hypoxia; J44.0 Chronic obstructive pulmonary disease with (acute) lower respiratory infection; E87.1 Hypo-osmolality and hyponatremia; J44.1 Chronic obstructive pulmonary disease with (acute) exacerbation; Z68.41 Body mass index [BMI] 40.0-44.9, adult; R13.10 Dysphagia, unspecified; E86.0 Dehydration; F25.9 Schizoaffective disorder, unspecified; E78.5 Hyperlipidemia, unspecified; E66.01 Morbid (severe) obesity due to excess calories; I10 Essential (primary) hypertension; Z87.01 Personal history of pneumonia (recurrent); E11.9 Type 2 diabetes mellitus without complications; F25.0 Schizoaffective disorder, bipolar type; R00.0 Tachycardia, unspecified; F32.9 Major depressive disorder, single episode, unspecified; D64.9 Anemia, unspecified; I27.20 Pulmonary hypertension, unspecified; R00.8 Other abnormalities of heart beat
CPT/HCPCS: 36415; 36600; 71045; 74230; 80048; 80053; 80202; 81003; 82164; 82270; 82550; 82803; 82962; 83036; 83605; 83690; 83880; 84484; 85007; 85025; 85610; 85730; 86710; 87040; 87081; 87086; 93005; 93306; 94640; 94660; 94664; 94760; 99291; J1815; J7620; J8499